=== PATIENT | female | born 1945 | race Caucasian/White ===

== ENCOUNTER → 2023-05-09 10:38 | Outpatient (REF) | payer MEDICARE, OTHER, SELFPAY | LOC: WOUND 10:38 | PROVIDERS: ATTENDING PHYSICIAN Surgery; REFERRING PHYSICIAN Family Medicine | DX: L89.154 Pressure ulcer of sacral region, stage 4 (principal); L59.8 Other specified disorders of the skin and subcutaneous tissue related to radiation; Z85.038 Personal history of other malignant neoplasm of large intestine; Z85.528 Personal history of other malignant neoplasm of kidney; R73.03 Prediabetes | CPT/HCPCS: 99213 ==

== ENCOUNTER → 2023-05-23 11:08 | Outpatient (REF) | payer MEDICARE, OTHER, SELFPAY | LOC: WOUND 11:08 | PROVIDERS: ATTENDING PHYSICIAN Surgery; REFERRING PHYSICIAN Family Medicine | DX: L89.154 Pressure ulcer of sacral region, stage 4 (principal); L59.8 Other specified disorders of the skin and subcutaneous tissue related to radiation; Z85.038 Personal history of other malignant neoplasm of large intestine; Z85.528 Personal history of other malignant neoplasm of kidney; R73.03 Prediabetes | CPT/HCPCS: 99212 ==

== ENCOUNTER → 2023-06-06 11:59 | Outpatient (REF) | payer MEDICARE, OTHER, SELFPAY | LOC: WOUND 11:59 | PROVIDERS: ATTENDING PHYSICIAN Surgery; FAMILY PHYSICIAN Family Medicine | DX: L89.154 Pressure ulcer of sacral region, stage 4 (principal); L59.8 Other specified disorders of the skin and subcutaneous tissue related to radiation; Z85.038 Personal history of other malignant neoplasm of large intestine; Z85.528 Personal history of other malignant neoplasm of kidney; R73.03 Prediabetes | CPT/HCPCS: 99212 ==

== ENCOUNTER → 2023-06-27 13:40 | Outpatient (REF) | payer MEDICARE, OTHER, SELFPAY | LOC: WOUND 13:40 | PROVIDERS: ATTENDING PHYSICIAN Surgery; FAMILY PHYSICIAN Family Medicine | DX: L89.154 Pressure ulcer of sacral region, stage 4 (principal); L59.8 Other specified disorders of the skin and subcutaneous tissue related to radiation; Z85.038 Personal history of other malignant neoplasm of large intestine; Z85.528 Personal history of other malignant neoplasm of kidney; R73.03 Prediabetes | CPT/HCPCS: 99213 ==

== ENCOUNTER → 2023-07-11 13:20 | Outpatient (REF) | payer MEDICARE, OTHER, SELFPAY | LOC: WOUND 13:20 | PROVIDERS: ATTENDING PHYSICIAN Surgery; FAMILY PHYSICIAN Family Medicine | DX: L89.154 Pressure ulcer of sacral region, stage 4 (principal); L59.8 Other specified disorders of the skin and subcutaneous tissue related to radiation; R73.03 Prediabetes; Z85.528 Personal history of other malignant neoplasm of kidney; Z85.038 Personal history of other malignant neoplasm of large intestine | CPT/HCPCS: 99213 ==

== ENCOUNTER → 2023-07-17 18:05 | Outpatient (REF) | payer MEDICARE, OTHER, SELFPAY | LOC: PAVMRI 18:05 | PROVIDERS: ATTENDING PHYSICIAN Orthopaedic Surgery Hand Surgery; FAMILY PHYSICIAN Family Medicine | DX: S72.144D Nondisplaced intertrochanteric fracture of right femur, subsequent encounter for closed fracture with routine healing (principal) | CPT/HCPCS: 73721 ==

== ENCOUNTER → 2023-09-12 10:38 | Outpatient (REF) | payer MEDICARE, OTHER, SELFPAY | LOC: RAD 10:38 | PROVIDERS: ATTENDING PHYSICIAN Family Medicine | DX: I82.4Z2 Acute embolism and thrombosis of unspecified deep veins of left distal lower extremity (principal); I87.2 Venous insufficiency (chronic) (peripheral) | CPT/HCPCS: 93971 ==

== ENCOUNTER → 2023-09-19 14:31 | Outpatient (REF) | payer MEDICARE, OTHER, SELFPAY | LOC: WOUND 14:31 | PROVIDERS: ATTENDING PHYSICIAN Surgery; FAMILY PHYSICIAN Family Medicine | DX: L89.154 Pressure ulcer of sacral region, stage 4 (principal); R73.03 Prediabetes; L59.8 Other specified disorders of the skin and subcutaneous tissue related to radiation; Z85.038 Personal history of other malignant neoplasm of large intestine; Z85.528 Personal history of other malignant neoplasm of kidney | CPT/HCPCS: 99213 ==

== ENCOUNTER 2023-11-15 00:19 | Emergency (ER) | payer MEDICARE, OTHER, SELFPAY ==
[2023-11-15 00:31] VITALS: BMI 32.0
--- NOTE | 2023-11-15 00:34 | ED.GENMED ---
History of Present Illness
General
Chief Complaint: Post Operative Problem(s)
Source: patient, records and ambulance crew
Time Seen by Provider: 11/15/23 00:22
History of Present Illness
History of Present Illness:
This patient is a very pleasant 77-year-old female who just had plastic surgery performed at her lower sacral area 2 weeks ago, described as a flap placement, who presents emergency department now because one of the [address] in place
became dislodged when she turned a certain way. She denies any symptoms. She denies fever, chills, abdominal pain, chest pain, or other complaints.
Past History
Past History
ED Past Medical History: Other (: CVA, coccyx osteomyelitis, COPD, hypertension, anemia, neurogenic bladder)
ED Past Surgical History: Other (Colostomy, skin grafting)
Social History
Tobacco: Non-smoker
Alcohol: None
Drug: None
Personal:
Phy Exam
Physical Exam
Physical Exam:
GENERAL: Alert , in no apparent distress
EYE: pupils equal and reactive
NECK: Supple, no significant adenopathy.
ENT: o/p clr, mmm.
CARDIAC: Regular rate and rhythm .
LUNGS: Clear breath sounds bilaterally, no acute respiratory distress, no wheezes/rales/rhonchi
ABDOMEN: Soft, without focal tenderness, no r/g, no cvat
NEUROLOGICAL: Alert and oriented, no focal neuro deficits
SKIN: Warm and dry, skin intact. The graft site has intact sutures, no drainage/fluctuance/crepitus/warmth or redness. The site where drain dislodged is iwthout drdainage or redness. Second drain in place.
MUSCULOSKELETAL: No edema, well perfused.
PSYCH: Normal and appropriate interaction.
Course
Vital Signs
Initial and Last Documented VS:
Initial Vital Signs
Temp Pulse Resp BP Pulse Ox
98.1 F 66 20 167/60 96
11/15/23 00:35 11/15/23 00:35 11/15/23 00:35 11/15/23 00:35 11/15/23 00:35
Last Documented Vital Signs
Temp Pulse Resp BP Pulse Ox
98.1 F 66 20 167/60 96
11/15/23 00:35 11/15/23 00:35 11/15/23 00:35 11/15/23 00:35 11/15/23 00:35
*Critical Care Note
Total Time (30-74mins, 75-104mins- exclusive of procedures): Not Applicable
Update Note
Update Note:
Patient presents to the Emergency Department with ____drain dislodgment
Number and Complexity of Problems Addressed at the Encounter
� Chronic conditions affecting care:
� Acute Exacerbation and/or Progression of Chronic Illness:
� Differential Diagnosis includes: But not limited to infection, fluid accumulation, etc.
Amount and/or Complexity of Data to be Reviewed and Analyzed
� I performed an independent evaluation of and my interpretation is:
EKG:
CT:
Xrays:
Laboratory Studies:
Other:
� Review of other/old records reveals:
� Clinical information was obtained by an independent historian: who is bedside
� Prescriptions/Medications Considered but not given:
� Further testing considered but not performed:
Risk of Complications and/or Morbidity or Mortality of Patient Management
� Social determinants of health affecting care:
� Discussion with other providers (PCP, Hospitalists, Consultants, etc):
� Escalation of care including admission/observation vs risk of discharge considered: 12:40 AM Case discussed with Dr. Tai Vaughan, plastic surgery from [place]. Discussed with him patient's procedure, drain dislodgment, as
well as plans for team to do a skin graft on Saturday. He does not recommend any further intervention in the emergency department, recommends discharge, reassure patient, and they will see her on Saturday as scheduled. He is does not expect drain
being dislodged as a source of concern especially given another drain is operational and in place.
ED Attending Note
-
Portions of this chart may have been created with voice recognition software.� Occasional wrong word or��sound alike� substitutions may have occurred due to the inherent limitations of voice recognition software.
Discharge Plan
Departure
Patient Disposition: Home (Routine Discharge)
Date of Disposition: 11/15/23
Time of Disposition: 01:44
Patient with high blood pressure during this ER visit?: Yes
Condition: Good
Discharge Problem:
postoperative drain dislodgement
Instructions: BLOOD PRESSURE
Prescriptions:
No Action
atenolol 25 mg Tablet
25 mg PO DAILY
gabapentin 800 mg Tablet
800 mg PO BID
budesonide-formoterol [Symbicort] 160-4.5 mcg/actuation Hfa Aerosol Inhaler
1 inh INHALATION BID PRN (Reason: sob)
buprenorphine HCl [Belbuca] 150 mcg Film
150 mcg BUCCAL BID
Patient Comments:
03/25/2023: last filled 02/06/23, 90 film for 30 days from [facility]#[id number]
losartan 50 mg tablet
50 mg PO DAILY
rabeprazole 20 mg tablet,delayed release (DR/EC)
20 mg PO DAILY
celecoxib 100 mg capsule
100 mg PO DAILY
silver sulfadiazine 1 % Cream
1 applic TOPICAL DAILY
Patient Comments:
per pt, applied by wound care physician
Rx Instructions:
apply to wound on tail bone
polyethylene glycol 3350 [Miralax] 17 gram Powder In Packet
17 g PO DAILY
ondansetron HCl 4 mg tablet
4 mg PO Q8H PRN (Reason: nausea/vomiting)
cyanocobalamin (vitamin B-12) [Vitamin B-12] 1,000 mcg Tablet
1,000 mcg PO DAILY
acetaminophen 650 mg Tablet Extended Release
1,300 mg PO DAILY
lidocaine HCl 3 % cream
1 applic topical TID PRN (Reason: wound on tail bone)
albuterol sulfate 90 mcg/actuation HFA aerosol inhaler
2 puff INHALATION R Q4 PRN (Reason: sob/wheezing)
vitamin A-vitamin C-vit E-min Tablet
1 tab PO DAILY
cholecalciferol (vitamin D3) [Vitamin D3] 25 mcg (1,000 unit) Tablet
25 mcg PO DAILY
docusate sodium 100 mg Capsule
100 mg PO BID Qty: 30 0RF
enoxaparin 40 mg/0.4 mL Syringe
40 mg SC DAILY Qty: 14 0RF
aspirin 325 mg capsule
325 mg PO DAILY Qty: 21 0RF
Rx Instructions:
start on 04/11/2023 for DVT prophylaxis (after completion 2 weeks of Lovenox completion)
clonazepam 0.5 mg Tablet
0.5 mg PO DAILY PRN (Reason: anxiety) Qty: 10 0RF
oxycodone 5 mg Capsule
5 mg PO Q2H PRN (Reason: moderate-severe pain) Qty: 15 0RF
Activity Restrictions/Additional Instructions:
IF YOU DEVELOP FEVER, INCREASING/NEW PAIN, REDNESS, WARMTH, SWELLING, OR OTHER WORRISOME SIGNS, GO TO THE ER IMMEDIATELY!
Interventions
Interventions:
*Risk Screen - Suicide Last Done: 11/15/23 00:32
*General Assessment Last Done: 11/15/23 00:32
*Neglect/Abuse Screening Last Done: 11/15/23 00:32
ED- Fall Risk Assessment Last Done: 11/15/23 00:32
*ED COVID-19 Vaccine History Last Done: 11/15/23 00:32
ED-Skin Assessment Last Done: 11/15/23 00:32
Discharge Date and Time
Print Language: SERBIAN
[2023-11-15 00:35] VITALS: BP 167/60
--- NOTE | 2023-11-15 01:46 | ED.GENMED ---
History of Present Illness
General
Chief Complaint: Post Operative Problem(s)
Time Seen by Provider: 11/15/23 00:22
Past History
Past History
ED Past Medical History: Other (: CVA, coccyx osteomyelitis, COPD, hypertension, anemia, neurogenic bladder)
ED Past Surgical History: Other (Colostomy, skin grafting)
Social History
Tobacco: Non-smoker
Alcohol: None
Drug: None
Personal:
Course
Vital Signs
Initial and Last Documented VS:
Initial Vital Signs
Temp Pulse Resp BP Pulse Ox
98.1 F 66 20 167/60 96
11/15/23 00:35 11/15/23 00:35 11/15/23 00:35 11/15/23 00:35 11/15/23 00:35
Last Documented Vital Signs
Temp Pulse Resp BP Pulse Ox
98.1 F 66 20 167/60 96
11/15/23 00:35 11/15/23 00:35 11/15/23 00:35 11/15/23 00:35 11/15/23 00:35
ED Attending Note
-
Portions of this chart may have been created with voice recognition software.� Occasional wrong word or��sound alike� substitutions may have occurred due to the inherent limitations of voice recognition software.
Discharge Plan
Departure
Patient Disposition: Home (Routine Discharge)
Date of Disposition: 11/15/23
Time of Disposition: 01:44
Patient with high blood pressure during this ER visit?: Yes
Condition: Good
Discharge Problem:
postoperative drain dislodgement
Instructions: BLOOD PRESSURE
Prescriptions:
No Action
atenolol 25 mg Tablet
25 mg PO DAILY
gabapentin 800 mg Tablet
800 mg PO BID
budesonide-formoterol [Symbicort] 160-4.5 mcg/actuation Hfa Aerosol Inhaler
1 inh INHALATION BID PRN (Reason: sob)
buprenorphine HCl [Belbuca] 150 mcg Film
150 mcg BUCCAL BID
Patient Comments:
03/25/2023: last filled 02/06/23, 90 film for 30 days from [facility]#[id number]
losartan 50 mg tablet
50 mg PO DAILY
rabeprazole 20 mg tablet,delayed release (DR/EC)
20 mg PO DAILY
celecoxib 100 mg capsule
100 mg PO DAILY
silver sulfadiazine 1 % Cream
1 applic TOPICAL DAILY
Patient Comments:
per pt, applied by wound care physician
Rx Instructions:
apply to wound on tail bone
polyethylene glycol 3350 [Miralax] 17 gram Powder In Packet
17 g PO DAILY
ondansetron HCl 4 mg tablet
4 mg PO Q8H PRN (Reason: nausea/vomiting)
cyanocobalamin (vitamin B-12) [Vitamin B-12] 1,000 mcg Tablet
1,000 mcg PO DAILY
acetaminophen 650 mg Tablet Extended Release
1,300 mg PO DAILY
lidocaine HCl 3 % cream
1 applic topical TID PRN (Reason: wound on tail bone)
albuterol sulfate 90 mcg/actuation HFA aerosol inhaler
2 puff INHALATION R Q4 PRN (Reason: sob/wheezing)
vitamin A-vitamin C-vit E-min Tablet
1 tab PO DAILY
cholecalciferol (vitamin D3) [Vitamin D3] 25 mcg (1,000 unit) Tablet
25 mcg PO DAILY
docusate sodium 100 mg Capsule
100 mg PO BID Qty: 30 0RF
enoxaparin 40 mg/0.4 mL Syringe
40 mg SC DAILY Qty: 14 0RF
aspirin 325 mg capsule
325 mg PO DAILY Qty: 21 0RF
Rx Instructions:
start on 04/11/2023 for DVT prophylaxis (after completion 2 weeks of Lovenox completion)
clonazepam 0.5 mg Tablet
0.5 mg PO DAILY PRN (Reason: anxiety) Qty: 10 0RF
oxycodone 5 mg Capsule
5 mg PO Q2H PRN (Reason: moderate-severe pain) Qty: 15 0RF
Activity Restrictions/Additional Instructions:
IF YOU DEVELOP FEVER, INCREASING/NEW PAIN, REDNESS, WARMTH, SWELLING, OR OTHER WORRISOME SIGNS, GO TO THE ER IMMEDIATELY!
Interventions
Interventions:
*Risk Screen - Suicide Last Done: 11/15/23 00:32
*General Assessment Last Done: 11/15/23 00:32
*Neglect/Abuse Screening Last Done: 11/15/23 00:32
ED- Fall Risk Assessment Last Done: 11/15/23 00:32
*ED COVID-19 Vaccine History Last Done: 11/15/23 00:32
ED-Skin Assessment Last Done: 11/15/23 00:32
Discharge Date and Time
Print Language: OCCITAN
[2023-11-15 01:48] VITALS: BP 155/58
== END 2023-11-15 01:50 | disposition home or self-care (01) ==
LOC: EMR 00:19
PROVIDERS: EMERGENCY PHYSICIAN Emergency Medicine; FAMILY PHYSICIAN Internal Medicine
DX: Z48.03 Encounter for change or removal of drains (principal); J44.9 Chronic obstructive pulmonary disease, unspecified; I10 Essential (primary) hypertension; D64.9 Anemia, unspecified; N31.9 Neuromuscular dysfunction of bladder, unspecified; Z86.73 Personal history of transient ischemic attack (TIA), and cerebral infarction without residual deficits; Z93.3 Colostomy status
CPT/HCPCS: 99282

== ENCOUNTER 2024-01-10 20:37 | Emergency (ER) | payer MEDICARE, OTHER, SELFPAY ==
[2024-01-10 20:42] VITALS: BP 124/51
--- NOTE | 2024-01-10 22:11 | ED.GENMED ---
History of Present Illness
General
Chief Complaint: Skin Problem
Source: patient
Exam Limitations: none
Time Seen by Provider: 01/10/24 21:22
History of Present Illness
History of Present Illness:
This is a 78 year old female that comes in with c/o redness of her surgical wound. States that 2 weeks ago she has surgery at [facility] by Dr. Koch from [place] as this was the only place he could get a surgical suite States [facility] to [facility] her and she didn't like the way the wound looked. States that she felt it was red and that the sutures were coming out. States that her surgery was [address] Koch is a plastic surgeon/oncologist. States that she was told
to go to [facility] which she did and they waited 6 hours in the waiting room and she was unable to sit any longer so they came here. States that she had chill today with some nausea. Denies any fever, chest pain, SOB, abd pain, vomiting,
diarrhea, dizziness, urinary burning.
Past History
Past History
ED Past Medical History: Cancer (Colon Cancer. Kidney cancer), COPD, GERD, HTN, Psychiatric (Anxiety, Claustrophobia) and Other (: CVA, coccyx osteomyelitis, anemia, neurogenic bladder, Neuropathy, PNA, Hiatal hernia, UTI, Radiation Cystitis self
caths, Sacrococcygeal osteomyelitis, Lyme disease, Ulcers. MRSA)
ED Past Surgical History: Bowel resection (with Colostomy), Orthopedic (Josep knee replacements Back surgery,), Urological (Right nephrectomy) and Other (Colostomy, skin grafting, Cataracts)
Social History
Tobacco: Former smoker
Alcohol: Occasional
Drug: None
Personal:
Living: with family
Review of Systems
Review of Systems
All Other Systems: ROS reviewed and negative except as documented in HPI and ROS
Constitutional: Reports chills; Denies fever
EENT: Reports no symptoms
Respiratory: Reports no symptoms; Denies cough or trouble breathing
Cardiac: Reports no symptoms; Denies chest pain
ABD/GI: Reports nausea; Denies abdominal pain, vomiting or diarrhea
: Reports no symptoms; Denies dysuria, frequency or urgency
Musculoskeletal: Reports no symptoms
Skin: Reports other (large left sacral wound redness)
Neurological: Reports headache; Denies dizzy
Psychiatric: Reports no symptoms
Phy Exam
General Physical Exam
General Presentation: no apparent distress
General age: appears stated age
General Skin: warm and dry
General Habitus: elderly
General Mental: alert
General Hydration: appears well hydrated
ENT Exam
ENT Exam: TM's normal, pharynx normal and neck supple
Eye Exam
Eye Exam: EOMI
Cardiovascular Exam
Cardiovascular Exam: regular rate/rhythm and normal peripheral pulses
Pulmonary Exam
Pulmonary Exam: lungs clear, no respiratory distress, no rales, chest non tender, no crackles, no rhonchi, no wheezing and no cough
Gastrointestinal Exam
Gastrointestinal Exam: normal bowel sounds, non tender, soft, no organomegaly, no pulsatile mass and non distended
Musculoskeletal Exam
Musculoskeletal Exam: full ROM and edema (Nonpitting lower legs)
Skin Exam
Skin Exam: normal color, warm/dry, no petechia and other (Large left sacral wound with packing and sutures noted. Slight yellowish drainage noted. bruising noted on the right upper buttocks with slight Erythema noted on the left with necrotic
tissue. )
Psychiatric Exam
Psychiatric Exam: normal mood/affect
Course
Orders/Labs/Results
Orders:
Orders
01/10/24 22:09
Complete Blood Count/With Diff Urgent
Comprehensive Metabolic Panel Urgent
Lactic Acid Urgent
Wound Culture [Wound/Abscess/Other Culture] Urgent
ASCENCION Source: Sacral
Specimen Description:
Date Specimen was Collected: 01/10/24
Time Specimen was Collected: 22:08
01/10/24 22:44
HYDROmorphone [Dilaudid] 4 mg PO NOW STA
Abnormal Lab Results
01/10/24
22:09
RBC 3.00 L 10^6/uL
(4.20-5.40)
Hgb 8.9 L g/dL
(12.0-16.0)
Hct 27.1 L %
(37.0-47.0)
MCHC 32.8 L g/dL
(33.0-37.0)
Absolute Monos (auto) 0.8 H 10^3/uL
(0.1-0.6)
Lymphocytes % 18.5 L %
(20.5-51.1)
Monocytes % 9.6 H %
(1.7-9.3)
BUN 31 H mg/dl
(7-17)
Glucose 152 H mg/dl
(70-99)
Total Protein 6.1 L g/dl
(6.3-8.2)
Albumin 3.3 L g/dl
(3.5-5.0)
01/10/24 22:09
01/10/24 22:09
H/H slightly low. Dehydration. hyperglycemia. total protein slightly low. Albumin slightly low. Lactic acid normal at 0.7
Vital Signs
Initial and Last Documented VS:
Initial Vital Signs
Temp Pulse BP Pulse Ox
98.3 F 74 124/51 97
01/10/24 20:42 01/10/24 20:42 01/10/24 20:42 01/10/24 20:42
Last Documented Vital Signs
Temp Pulse Resp BP Pulse Ox
98.3 F 74 18 124/51 97
01/10/24 20:42 01/10/24 20:42 01/10/24 22:17 01/10/24 20:42 01/10/24 20:42
MDM/Problems Addressed
Differential Diagnosis Includes:
Sacral wound check, Sacral wound infection
MDM/Problems Addressed:
this is a 78 year old female that comes in with c/o possible wound infection. Patient was told to go to [facility] as she had her surgery done there. States that they waited in the waiting room for 6 hours so they left and came here. States
that the VN felt that the would looked infected and that the sutures were opening.
Called and spoke with Dr. Koch. States that this has been a very difficulty case with the family dynamics. States that she was told to go to [facility] but they left. States that he did not feel she needed antibiotics but needs more
intensive wound care. Patient could either be transferred to [facility] or [facility] but if her WBC and lactic acid are normal she can go home and go to [place] in the morning.
Back into see patient. Explained what was discussed with Dr. Koch. Patient is refusing to go to [facility]. Explained that her blood work will be checked and if her WBC and Lactic acid are normal she can go home and go to [facility] in the morning.
Into see patient and daughter. Explained that her blood work shows that her WBC are normal and Lactic acid is normal. Will discharge patient home and she will follow up with Dr. Koch. Return with any other concerns.
Chronic conditions affecting care:
Open sacral wound,
Chronic conditions affecting care: Cancer
Acute Exacerbation and/or Progression of Chronic Illness:
Open sacral wound
Acute Exacerbation and/or Progression of Chronic Illness: Cancer
*Pulse Oximetry
Patient hypoxic: no
*EKG
Interpreted by ED Provider?: NA
Rate: EKG- N/A
*Accounting Machine Servicer Interpretation
Rate: Accounting Machine Servicer- N/A
*Critical Care Note
Total Time (30-74mins, 75-104mins- exclusive of procedures): Not Applicable
ED Attending Note
-
Portions of this chart may have been created with voice recognition software.� Occasional wrong word or��sound alike� substitutions may have occurred due to the inherent limitations of voice recognition software.
Discharge Plan
Departure
Patient Disposition: Home (Routine Discharge)
Date of Disposition: 01/10/24
Time of Disposition: 22:43
Patient with high blood pressure during this ER visit?: No
Condition: Good
Covid-19: Not Applicable
Discharge Problem:
Wound of sacral region
Instructions: Surgical Wound (DC)
Prescriptions:
No Action
atenolol 25 mg Tablet
25 mg PO DAILY
gabapentin 800 mg Tablet
800 mg PO BID
budesonide-formoterol [Symbicort] 160-4.5 mcg/actuation Hfa Aerosol Inhaler
1 inh INHALATION BID PRN (Reason: sob)
buprenorphine HCl [Belbuca] 150 mcg Film
150 mcg BUCCAL BID
Patient Comments:
03/25/2023: last filled 02/06/23, 90 film for 30 days from [facility]#[id number]
losartan 50 mg tablet
50 mg PO DAILY
rabeprazole 20 mg tablet,delayed release (DR/EC)
20 mg PO DAILY
celecoxib 100 mg capsule
100 mg PO DAILY
silver sulfadiazine 1 % Cream
1 applic TOPICAL DAILY
Patient Comments:
per pt, applied by wound care physician
Rx Instructions:
apply to wound on tail bone
polyethylene glycol 3350 [Miralax] 17 gram Powder In Packet
17 g PO DAILY
ondansetron HCl 4 mg tablet
4 mg PO Q8H PRN (Reason: nausea/vomiting)
cyanocobalamin (vitamin B-12) [Vitamin B-12] 1,000 mcg Tablet
1,000 mcg PO DAILY
acetaminophen 650 mg Tablet Extended Release
1,300 mg PO DAILY
lidocaine HCl 3 % cream
1 applic topical TID PRN (Reason: wound on tail bone)
albuterol sulfate 90 mcg/actuation HFA aerosol inhaler
2 puff INHALATION R Q4 PRN (Reason: sob/wheezing)
vitamin A-vitamin C-vit E-min Tablet
1 tab PO DAILY
cholecalciferol (vitamin D3) [Vitamin D3] 25 mcg (1,000 unit) Tablet
25 mcg PO DAILY
docusate sodium 100 mg Capsule
100 mg PO BID Qty: 30 0RF
enoxaparin 40 mg/0.4 mL Syringe
40 mg SC DAILY Qty: 14 0RF
aspirin 325 mg capsule
325 mg PO DAILY Qty: 21 0RF
Rx Instructions:
start on 04/11/2023 for DVT prophylaxis (after completion 2 weeks of Lovenox completion)
clonazepam 0.5 mg Tablet
0.5 mg PO DAILY PRN (Reason: anxiety) Qty: 10 0RF
oxycodone 5 mg Capsule
5 mg PO Q2H PRN (Reason: moderate-severe pain) Qty: 15 0RF
Referrals:
UNKNOWN - PT DOES,NOT KNOW [Unknown Provider] -
Activity Restrictions/Additional Instructions:
As discussed, your blood work shows that your white blood cell count and lactic acid are both normal. Please call Dr. Koch tomorrow for further evaluation. IF YOU HAVE ANY OTHER CONCERNS PLEASE RETURN TO THE EMERGENCY ROOM.
Interventions
Interventions:
*Risk Screen - Suicide Last Done: 01/10/24 20:40
*General Assessment Last Done: 01/10/24 20:49
*Neglect/Abuse Screening Last Done: 01/10/24 20:49
ED- Fall Risk Assessment Last Done: 01/10/24 22:59
*ED COVID-19 Vaccine History Last Done: 01/10/24 22:06
*Nursing Disposition Last Done: 01/10/24 22:59
ED-Skin Assessment Last Done: 01/10/24 22:16
Discharge Date and Time
Discharge Date/Time: 01/10/24 23:05
Print Language: MACEDONIAN
[2024-01-10 22:18] LABS: % Basophils 0.4 % (0-2); % Eosinophils 1.9 % (0-6); % Immature Granulocytes 0.5 % (0-0.5); % Lymphocytes 18.5 % (20.5-51.1); % Monocytes 9.6 % (1.7-9.3); % Neutrophils 69.1 % (42.2-75.2); Absolute Eosinophils 0.2 10^3/uL (0-0.7); Absolute Lymphocytes 1.5 10^3/uL (1.2-3.4); Absolute Monocytes 0.8 10^3/uL (0.1-0.6); Absolute Neutrophils 5.7 10^3/uL (1.4-6.5); Hematocrit 27.1 % (37.0-47.0); Hemoglobin 8.9 g/dL (12.0-16.0); Mean Corp Hgb Conc. 32.8 g/dL (33.0-37.0); Mean Corpuscular Hgb 29.7 pg (27.0-31.0); Mean Corpuscular Volume 90.3 fL (81.0-99.0); Mean Platelet Volume 8.6 fL (7.4-10.4); Nucleated Red Blood Cells % 0 %; Platelet Count 241 10^3/uL (130-400); Red Cell Dist. Width 13.2 % (11.5-14.5); White Blood Cell Count 8.2 10^3/uL (4.8-10.8)
[2024-01-10 22:30] LABS: Lactic Acid 0.7 mmol/L (0.7-2.0)
[2024-01-10 22:32] LABS: ALT (SGPT) 15 U/L (0-35); AST (SGOT) 23 U/L (14-36); Albumin 3.3 g/dl (3.5-5.0); Alkaline Phosphatase 112 U/L (38-126); Blood Urea Nitrogen 31 mg/dl (7-17); Calcium 8.9 mg/dl (8.4-10.2); Carbon Dioxide 28 mmol/L (22-30); Glucose 152 mg/dl (70-99); Potassium 4.5 mmol/L (3.5-5.1); Sodium 136 mmol/L (135-145); Total Bilirubin 0.2 mg/dl (0.2-1.3); Total Protein 6.1 g/dl (6.3-8.2); eGFR 58.39
[2024-01-10 22:45] LABS: Chloride 102 mmol/L (98-107)
[2024-01-10] MEDS: DILAUDID 4 MG PO (22:49)
== END 2024-01-10 23:05 | disposition home or self-care (01) ==
LOC: EMR 20:37
PROVIDERS: Clinical Nurse Specialist Family Health; EMERGENCY PHYSICIAN Student in an Organized Health Care Education/Training Program; FAMILY PHYSICIAN Family Medicine
DX: M46.28 Osteomyelitis of vertebra, sacral and sacrococcygeal region (principal); R11.0 Nausea; R68.83 Chills (without fever); R51.9 Headache, unspecified; E86.0 Dehydration; J44.9 Chronic obstructive pulmonary disease, unspecified; I10 Essential (primary) hypertension; N31.9 Neuromuscular dysfunction of bladder, unspecified; D64.9 Anemia, unspecified; G62.9 Polyneuropathy, unspecified; K44.9 Diaphragmatic hernia without obstruction or gangrene; K21.9 Gastro-esophageal reflux disease without esophagitis; F41.9 Anxiety disorder, unspecified; Z79.82 Long term (current) use of aspirin; Z93.3 Colostomy status; Z96.653 Presence of artificial knee joint, bilateral; Z85.038 Personal history of other malignant neoplasm of large intestine; Z85.528 Personal history of other malignant neoplasm of kidney; Z86.73 Personal history of transient ischemic attack (TIA), and cerebral infarction without residual deficits; Z86.14 Personal history of Methicillin resistant Staphylococcus aureus infection; Z87.440 Personal history of urinary (tract) infections; Z87.891 Personal history of nicotine dependence; Z90.5 Acquired absence of kidney; Z98.0 Intestinal bypass and anastomosis status; R73.9 Hyperglycemia, unspecified; Z88.1 Allergy status to other antibiotic agents; Z88.5 Allergy status to narcotic agent; Z88.8 Allergy status to other drugs, medicaments and biological substances
CPT/HCPCS: 99283; 80053; 83605; 85025; 87070; 87077; 87186; 87205

== ENCOUNTER 2024-01-15 13:19 | Inpatient (IN) | payer MEDICARE, OTHER, SELFPAY ==
[2024-01-15] VITALS (8 sets, daily range): BP systolic 105–121; BP diastolic 48–96
[2024-01-15] MEDS: NSS 500 IV (10:25)
--- NOTE | 2024-01-15 10:35 | ED.GENMED ---
History of Present Illness
General
Chief Complaint: Weakness
Time Seen by Provider: 01/15/24 09:50
History of Present Illness
History of Present Illness:
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
catheterizations presenting to the emergency department for generalized weakness. Patient reports this morning, she felt weak and was unable to ambulate, usually ambulates with a walker. Also notes buttock pain with known large sacral wound.
Patient was seen in the emergency department on 01/09 for some similar symptoms. Patient follows with a Dr. Koch at [place]. In discussion with her physician on 01/09, without significant concern for wound infection, was discharged home to
follow-up in the office. Patient was post to follow-up today, however due to her weakness, was unable to appointment. Denies cough, chest pain, difficulty breathing. Denies abdominal pain. Denies issues with her ostomy output. Reports
subjective fevers. Denies additional acute medical complaint
Past History
Past History
ED Past Medical History: Cancer (Colon Cancer. Kidney cancer), COPD, GERD, HTN, Psychiatric (Anxiety, Claustrophobia) and Other (: CVA, coccyx osteomyelitis, anemia, neurogenic bladder, Neuropathy, PNA, Hiatal hernia, UTI, Radiation Cystitis self
caths, Sacrococcygeal osteomyelitis, Lyme disease, Ulcers. MRSA)
ED Past Surgical History: Bowel resection (with Colostomy), Orthopedic (Josep knee replacements Back surgery,), Urological (Right nephrectomy) and Other (Colostomy, skin grafting, Cataracts)
Social History
Tobacco: Former smoker
Alcohol: Occasional
Drug: None
Personal:
Living: with family
Phy Exam
Physical Exam
Physical Exam:
General: Well-appearing, no clinical signs of dehydration, nontoxic and in no acute distress
HEENT: protecting airway
Neck: appears supple
CV: Normal heart rate, regular rhythm
Resp: No accessory muscle use, no increased work of breathing, lungs clear to auscultation bilaterally
Abd: Soft and non-distended, no tenderness to palpation, appropriate output from ostomy
Extremities: +1 pitting edema, known history of edema. No erythema or warmth to lower extremities. 4/5 strength bilateral lower extremities.
Neuro: alert, no focal neurologic deficit
: deferred
Rectal: Large sacral decubitus wound, stage IV with packing in place. Wound edges are clean. No active drainage.
Psych: Normal affect
Skin: Intact
Sepsis
Sepsis Screening
Sepsis Assessment: Sepsis Ruled Out
Sepsis Screen
Sepsis Screen: Sepsis Ruled Out
Date: 01/15/24
Time: 15:00
Course
Orders/Labs/Results
Orders:
Orders
01/15/24 Breakfast
Sodium, 2 Gram
01/15/24 10:07
0.9% Sodium Chloride 500 ml [Nss] 500 ml IV BOLUS
01/15/24 10:16
CR Chest - 2 Views Urgent
Comment:
Reason For Exam: low O2
01/15/24 10:21
COVID-19 Antigen Urgent
Source: Nasal Swab
Complete Blood Count/With Diff Urgent
Comprehensive Metabolic Panel Urgent
Ferritin Urgent
Comment: ADD ON
Folate Urgent
Comment: ADD ON
Iron Urgent
Comment: ADD ON
Lactic Acid Q4H
Comment: CANCEL 2nd LACTIC ACID IF 1st LACTIC ACID IS LESS THAN 2
PTT Urgent
Prothrombin Time Urgent
Total Iron Binding Urgent
Comment: ADD ON
Urinalysis Reflex To Culture Urgent
Date Specimen was Collected: 01/15/24
Time Specimen was Collected: 10:19
Urine Microscopic Reflex Cult Urgent
Vitamin B12 Urgent
Comment: ADD ON
Influenza A+B Rapid Molecular Urgent
ASCENCION Source: Nasal Swab
Specimen Description:
Urine Culture Urgent
ASCENCION Source: U
Specimen Description:
Date Specimen was Collected: 01/15/24
Time Specimen was Collected: 10:19
01/15/24 10:32
Acetaminophen [Tylenol] 1,000 mg PO NOW STA
01/15/24 12:45
US Kidneys and US Bladder [US Renal With Bladder] Urgent
Comment:
Reason For Exam: elevated creatinine
01/15/24 12:46
Admit/Transfer Patient As Directed
Co-Sign Provider:
Level of Care: Inpatient admission
Assign to:: Medical/Surgical
Physician / Group: Htay
Diagnosis: Acute Kidney Injury
Reason for Hospitalization: IVFs
Expected length of stay greater than two midnights?: Yes
ELOS- Estimated Length of Stay in days: 3
I certify the patient meets the requirements for IP care: Yes
PRN Pain Medication Management As Directed
May give lesser potent ordered pain med per pt: Yes
preference::
Protocol:: Medication orders for pain may be administered in a
manner that supports deferring to patient preference
when the pt is:
- Requesting an ordered lesser potent pain medication.
Least to most potent pain medications are defined
as: acetaminophen < NSAID < tramadol < opioids
(morphine, oxycodone, hydromorphone).
- Requesting a lesser dose of the same medication IF
ORDERED.
- Requesting a less intrusive route of administration
if both routes are prescribed by the provider (PO <
IV).
01/15/24 12:54
Code Status As Directed
Resuscitation Status: Full Code
01/15/24 13:07
Add On- LAB Routine
Tests Added?: iron, ferritin, tibc, folate, vit b12
01/15/24 14:45
0.9% Sodium Chloride 1000 ml [Nss] 1,000 ml IV 60 mls/hr
Acetaminophen [Tylenol] 650 mg PO Q4HPRN PRN
Ipratropium/Albuterol Sulfate [Duoneb] 3 ml INH R Q4HPRN PRN
01/15/24 14:45
WOUND/OSTOMY CONSULT Routine
Reason for Consult: coccyx wound; colostomy
Activity As Directed
Activity Level: Out of Bed- Chair
With Assistance
Bladder Scan As Directed
Follow Bladder Retention/Intermittent Cath Algorithm?: Yes
PRN if no void in __ hours: 6
Frequency: Per Retention Algorithm
If Bladder Scan Result >: 400
then:: Straight cath
Hemetest Stools As Directed
Comment: Notify Physician of any positive results; May Stop if Negative x 3
I&O [Intake/ Output] As Directed
Frequency: q12h
Straight Cath As Directed
Frequency: Per Retention Algorithm
Additional Instructions: straight cath as needed per acute urinary retention algorithm for 24 hrs
Additional Instructions: for bladder scan greater than 400 mL
Vital Signs As Directed
Frequency: Per unit guidelines
Weight As Directed
Frequency: Daily
Ot Eval And Treat Routine
Pt Eval And Treat Routine
Activity Level: Out of Bed-Early Mobility
DX Deep Vein Thrombosis Video Routine
01/15/24 16:00
Heparin 5,000 units SC Q8
Ipratropium/Albuterol Sulfate [Duoneb] 3 ml INH R QID
01/16/24 06:00
Basic Metabolic Panel IN AM
Complete Blood Count/No Diff IN AM
Abnormal Lab Results
01/15/24
10:21
RBC 2.83 L 10^6/uL
(4.20-5.40)
Hgb 8.2 L g/dL
(12.0-16.0)
Hct 25.4 L %
(37.0-47.0)
MCHC 32.3 L g/dL
(33.0-37.0)
Absolute Lymphs (auto) 0.8 L 10^3/uL
(1.2-3.4)
Absolute Monos (auto) 0.7 H 10^3/uL
(0.1-0.6)
Neutrophils % 79.8 H %
(42.2-75.2)
Lymphocytes % 9.9 L %
(20.5-51.1)
PT 14.7 H Sec
(11.4-14.6)
APTT 39.3 H Sec
(23.4-35.0)
Potassium 5.5 H mmol/L
(3.5-5.1)
BUN 39 H mg/dl
(7-17)
Creatinine 1.8 H mg/dL
(0.6-1.0)
Glucose 187 H mg/dl
(70-99)
Iron 21 L ug/dl
(37-170)
TIBC 173 L ug/dl
(265-497)
% Saturation 12 L %
(20-50)
Alkaline Phosphatase 130 H U/L
(38-126)
Total Protein 5.6 L g/dl
(6.3-8.2)
Albumin 2.9 L g/dl
(3.5-5.0)
Urine Bilirubin 2+ A
(Negative)
Leukocyte Esterase Rfl Trace A
(Negative)
Urine Bacteria (Reflex) Many A
(Negative)
01/15/24 10:21
01/15/24 10:21
Vital Signs
Initial and Last Documented VS:
Initial Vital Signs
Temp Pulse Resp BP
99.3 F 74 16 105/82
01/15/24 09:54 01/15/24 09:54 01/15/24 09:54 01/15/24 09:54
Last Documented Vital Signs
Temp Pulse Resp BP Pulse Ox
99.3 F 67 14 115/49 94
01/15/24 09:54 01/15/24 11:15 01/15/24 11:15 01/15/24 13:00 01/15/24 13:01
MDM/Problems Addressed
MDM/Problems Addressed:
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
catheterizations presenting for generalized weakness. Vital signs on arrival significant for low oxygenation.
On exam, patient is in no acute distress. She is nontoxic in appearance. Regarding her generalized weakness, unclear etiology. No focal abnormality to the lower extremities with intact strength, diminished bilaterally. Could be related to
patient's known sacral decubitus wound, very large in quality, however wound edges are clean without any active drainage. No current exam findings concerning for significant infection. Of note, patient's oxygenation is slightly low, unclear
etiology. Denies any present respiratory symptoms. In the setting of generalized weakness, will screen with COVID swab. Patient placed on supplemental O2 for comfort. Will also obtain chest x-ray imaging. Patient with known history of frequent
UTIs, self caths, could be contributing to symptoms. Will obtain urinalysis. Lips look very dry, potential dehydration component. Patient is on Lasix, which could be contributing to dehydration. Will start with 500 cc fluid bolus.
10:40 - Patient had wound culture on 01/09, returned positive today for Pseudomonas. Suspect that patient's wound could be chronically colonized, however will consider antibiotics.
11:45 -in discussion with patient's surgeon, Dr. Mcmillan from [place], agrees that wound is likely chronically colonized, less likely to be acutely infected. He notes complicated course, patient had osteomyelitis and received antibiotics for 6
weeks. She had a surgery with a failed flap, recently tried a wound VAC, however took the VAC off because it was beeping too much. She has now been using wet-to-dry dressings. However he notes the patient has not been thriving at home,
has been recently diagnosed with head and neck cancer, difficult social situation. Indicates that patient may need nursing facility for additional wound care and daily needs. Patient's labs do show an ESTELLE, indicative of mild dehydration. Urine
also has some bacteria, possible underlying urinary tract infection. Urine culture sent. Chest x-ray without acute cardiopulmonary disease. Given patient's present inability to ambulate, acute dehydration, and wound care needs, will plan for
admission for wound care consultation and PT/OT consultation
*Critical Care Note
Total Time (30-74mins, 75-104mins- exclusive of procedures): Not Applicable
ED Attending Note
-
Portions of this chart may have been created with voice recognition software.� Occasional wrong word or��sound alike� substitutions may have occurred due to the inherent limitations of voice recognition software.
Discharge Plan
Departure
Patient Disposition: Admit
Date of Disposition: 01/15/24
Time of Disposition: 12:32
Presentation/result/management discussed w/ accepting MD/DO: Hospitalist
Patient with high blood pressure during this ER visit?: No
Discharge Problem:
ESTELLE (acute kidney injury), Weakness, Decubitus ulcer of sacral area
Interventions
Interventions:
*Risk Screen - Suicide Last Done: 01/15/24 10:01
*Neglect/Abuse Screening Last Done: 01/15/24 10:01
ED- Fall Risk Assessment Last Done: 01/15/24 10:03
*ED COVID-19 Vaccine History Last Done: 01/15/24 10:03
ED- Cardiac Assessment Last Done: 01/15/24 10:27
ED- Neurological Assessment Last Done: 01/15/24 10:27
ED- Pulmonary Assessment Last Done: 01/15/24 10:28
ED-Skin Assessment Last Done: 01/15/24 10:28
[2024-01-15] MEDS: TYLENOL 1000 MG PO (10:36)
[2024-01-15 10:44] LABS: % Basophils 0.4 % (0-2); % Eosinophils 0.4 % (0-6); % Immature Granulocytes 0.5 % (0-0.5); % Lymphocytes 9.9 % (20.5-51.1); % Neutrophils 79.8 % (42.2-75.2); Absolute Lymphocytes 0.8 10^3/uL (1.2-3.4); Absolute Monocytes 0.7 10^3/uL (0.1-0.6); Absolute Neutrophils 6.4 10^3/uL (1.4-6.5); Hematocrit 25.4 % (37.0-47.0); Hemoglobin 8.2 g/dL (12.0-16.0); Mean Corp Hgb Conc. 32.3 g/dL (33.0-37.0); Mean Corpuscular Volume 89.8 fL (81.0-99.0); Mean Platelet Volume 9.1 fL (7.4-10.4); Nucleated Red Blood Cells % 0 %; Platelet Count 222 10^3/uL (130-400); Red Blood Cell Count 2.83 10^6/uL (4.20-5.40); Red Cell Dist. Width 13.6 % (11.5-14.5)
[2024-01-15 10:54] LABS: INR 1.15; PT 14.7 Sec (11.4-14.6)
[2024-01-15 10:55] LABS: APTT 39.3 Sec (23.4-35.0)
[2024-01-15 10:56] LABS: Urine Albumin Trace (Neg - Trace); Urine Bilirubin 2+ (Negative); Urine Character Slightly Cloudy (Clear); Urine Color Yellow; Urine Glucose Negative (Negative); Urine Ketone Negative (Negative); Urine Leukocyte Trace (Negative); Urine Nitrite Negative (Negative); Urine Occult Blood Negative (Negative); Urine Urobilinogen Negative (Neg - 1+)
[2024-01-15 11:00] LABS: Lactic Acid 0.8 mmol/L (0.7-2.0)
[2024-01-15 11:05] LABS: ALT (SGPT) 14 U/L (0-35); AST (SGOT) 23 U/L (14-36); Albumin 2.9 g/dl (3.5-5.0); Alkaline Phosphatase 130 U/L (38-126); Blood Urea Nitrogen 39 mg/dl (7-17); Calcium 8.4 mg/dl (8.4-10.2); Carbon Dioxide 25 mmol/L (22-30); Chloride 99 mmol/L (98-107); Glucose 187 mg/dl (70-99); Potassium 5.5 mmol/L (3.5-5.1); Sodium 135 mmol/L (135-145); Total Bilirubin 0.3 mg/dl (0.2-1.3); Total Protein 5.6 g/dl (6.3-8.2); eGFR 28.84
[2024-01-15 11:07] LABS: COVID-19 Antigen Negative (Negative)
[2024-01-15 11:31] LABS: Urine Squamous Cell 16-20 /LPF (Few)
[2024-01-15 11:32] LABS: Urine Amorphous Seen
[2024-01-15 11:33] LABS: Urine Bacteria Many (Negative); Urine Red Blood Cell 0-2 /HPF (0-2)
--- NOTE | 2024-01-15 12:29 | HPS.HSE ---
Family Physician
-
Family Physician: Berry Knight
Chief Complaint
-
Weakness
History of Present Illness
Patient is a 78 y/o female past medical history of hypertension, COPD, chronic coccyx wound, rectal cancer s/p APC with colostomy, and renal cancer s/p nephrectomy who presents with weakness. Patient more difficulty ambulating at home. She was
scheduled to see her wound specialists at [place], but was unable to get to the appointment due to the weakness. She reports increasing pain in her chronic wound which is contributing her symptoms. Patient states she is chronically incontinent of
urine, and has not been doing intermittent straight cath for the past 6 months. She denies fevers, sweats or chills.
Medical History
Past Medical History
Past Medical History: Reports Other
Additional Past Medical History:
Chronic Coccyx/Gluteal Cleft Wound
COPD
Essential Hypertension
Neurogenic Bladder
Chronic Pain with Opioid Dependence
Rectal Cancer s/p APR with Colostomy
Renal Cancer s/p Right Nephrostomy
Past Surgical History: Reports Other
Additional Past Surgical History:
Right Nephrectomy - 1981
Colon Resection with Colostomy - 1982
Parastomal Hernia Repair wih Mesh
Bilateral Knee Replacement
Back Surgery
Right Hip ORIF
Social History
Tobacco: Non-smoker
Alcohol: Occasional
Drug: None
Family History
Family History: Not pertinent
Allergies / Home Medications
Allergies reflects when Allergies were last updated in [employer].
Home Medications with original date entered in [employer]
Allergy/Medication List:
Allergies
Allergy/AdvReac Type Severity Reaction Status Date / Time
ampicillin Allergy Mild Rash Verified 01/10/24 20:49
levofloxacin Allergy Rash Verified 01/10/24 20:49
morphine Allergy Rash Verified 01/10/24 20:49
prochlorperazine Allergy Rash Verified 01/10/24 20:49
[From Compazine]
doxycycline AdvReac Mild Shortness Verified 01/10/24 20:49
of Breath
vancomycin AdvReac Mild Shortness Verified 01/10/24 20:49
of Breath
Home Medications
budesonide-formoterol HFA 160 mcg-4.5 mcg/actuation aerosol inhaler (Symbicort) 1 inh inhalation BID lung/breathing issues 02/11/23
buprenorphine HCl 150 mcg buccal film (Belbuca) 150 mcg buccal Q12H SUBST 02/11/23
gabapentin 800 mg tablet 800 mg PO Q8H Pain 02/11/23
celecoxib 100 mg capsule 100 mg PO BID Pain 03/25/23
cyanocobalamin (vitamin B-12) 1,000 mcg tablet (Vitamin B-12) 2,500 mcg PO DAILY Supplement 03/25/23
losartan 50 mg tablet 25 mg PO DAILY Blood Pressure 03/25/23
ondansetron HCl 4 mg tablet 4 mg PO Q8H PRN nausea/vomiting 03/25/23
polyethylene glycol 3350 17 gram oral powder packet (Miralax) 17 g PO DAILY Constipation 03/25/23
clonazepam 0.5 mg tablet 0.5 mg PO DAILY PRN anxiety #10 tabs 03/28/23
acetaminophen 325 mg tablet 650 mg PO DAILYPRN PRN pain 01/15/24
atenolol 25 mg tablet 50 mg PO DAILY blood pressure 01/15/24
cholecalciferol (vitamin D3) 50 mcg (2,000 unit) capsule (Vitamin D3) 50 mcg PO DAILY supplement 01/15/24
cranberry extract 200 mg capsule (Ellura) 200 mg PO DAILY supplement 01/15/24
diphenhydramine 25 mg-acetaminophen 500 mg tablet (Acetaminophen PM) 1 tab PO HSPRN PRN sleep/pain 01/15/24
furosemide 20 mg tablet 20 mg PO BIDPRN PRN edema 01/15/24
hydromorphone 4 mg tablet 4 - 8 mg PO Q4HPRN PRN pain 01/15/24
hydroxyzine HCl 10 mg tablet 10 mg PO Q8HPRN PRN itching 01/15/24
nifedipine 60 mg tablet,extended release 24 hr 60 mg PO DAILY blood pressure 01/15/24
pantoprazole 40 mg tablet,delayed release 40 mg PO DAILY Gastrointestinal Issue 01/15/24
sulfamethoxazole 800 mg-trimethoprim 160 mg tablet 1 tab PO Q12H x 5 days 01/15/24
vibegron 75 mg tablet (Gemtesa) 75 mg PO DAILY Urinary Issue 01/15/24
vitamins A,C,N-xnay-uodlzn 2,148 mcg-113 mg-45 mg-17.4 mg tablet (PreserVision AREDS) 1 tab PO DAILY supplement 01/15/24
Review of Systems
-
A 12 point ROS was completed and negative except as noted: Yes
Constitutional: Denies Fever or Chills
Respiratory: Denies Cough or Trouble Breathing
Cardiac: Denies Chest Pain or Palpitations
Abdomen/GI: Denies Abdominal Pain, Nausea, Vomiting or Diarrhea
: Reports See HPI
Physical Exam
Vital Signs
Vital Signs
Temp Pulse Resp BP Pulse Ox
99.3 F 67 14 114/48 87
01/15/24 09:54 01/15/24 11:15 01/15/24 11:15 01/15/24 11:00 01/15/24 10:28
Physical Exam
General: Comfortable and Conversant
HEENT: Anicteric and Moist mucous membranes
Respiratory: Clear, Non Labored Respirations and Other (Poor inspiratory effort)
Cardiac: S1/S2 and Regular Rhythm
GI: Soft, Non Tender and Ostomy (Left lower quadrant)
Genito-urinary: Clear Urine (PureWick)
Musculoskeletal: No Clubbing, No Cyanosis and Other (Non-pitting edema bilateral lower extremities)
Skin: Warm, Dry and Decubitus Ulcers
Neuro: Awake, Alert, Oriented and Other (Lower extremities strength appears intact; Limited exam on the left due to pain)
Psych: Calm
Laboratory Results
-
01/15/24 10:21
01/15/24 10:21
Laboratory Results
PT 14.7 Sec (11.4-14.6) H 01/15/24 10:21
INR 1.15 01/15/24 10:21
APTT 39.3 Sec (23.4-35.0) H 01/15/24 10:21
Lactic Acid Cancelled 01/15/24 14:15
Total Bilirubin 0.3 mg/dl (0.2-1.3) 01/15/24 10:21
AST 23 U/L (14-36) 01/15/24 10:21
ALT 14 U/L (0-35) 01/15/24 10:21
Alkaline Phosphatase 130 U/L (38-126) H 01/15/24 10:21
Data Reviewed
-
Lab Data: Labs Reviewed by me
Old Records: Reviewed
Impression/Plan
-
Acute Kidney Injury and Hyperkalemia, suspect volume depletion and Bactrim related
-Check renal and bladder ultrasound
-Hold losartan and furosemide
-Hold celecoxib
-Hold Bactrim
-Continue IVFs
-Recheck creatinine in AM
COPD with Transient Hypoxia
-Add DuoNeb QID and PRN
-Continue Symbicort
-Monitor pulse ox and obtain ABG
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
-Appears much worse than previous pictures from Mar 2023
-Per ED notes they reviewed with patient's outpatient wound physician at [facility] who was not concerned about active infection
-Consult Wound Care
Essential Hypertension
-Continue atenolol and nifedipine with hold parameters
-Losartan on hold due to ESTELLE
Neurogenic Bladder
-Monitor bladder scan
-Hold Gemtesa
Chronic Pain with Opioid Dependence
-Continue buprenorphine and Dilaudid as prior to admission
-Continue gabapentin
Hx Rectal Cancer s/p APR with Colostomy
Hx Renal Cancer s/p Right Nephrostomy
DVT proph: SC Heparin
Code Status: Full Code
--- NOTE | 2024-01-15 13:10 | W.PN.UPDATE ---
Addendum entered and electronically signed by Abhay Forrest MD 01/15/24 13:38:
Addendum:
Suspect current ESTELLE and hyperkalemia is due to Bactrim
Recently on Bactrim for last 5 days for sacral decub ?
- Stop Bactrim
- IV NS
- f/u Cr and K in AM
Original Note:
Update Note
Progress Note Update
This note serves as an addendum to the H&P by inspector circuitry negative ABUNDIO Angela NURA
HPI
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
acute ambulatory dysfunction. Normally she use a walker.
Patient was seen on 01/09 in ED for evaluation of her wound, discharged home for follow-up.
She was supposed to see her surgeon for her sacral wound today, Dr. Mcmillan ([facility]) but could not make her visit.
Wound is stage IV but no secondary signs of infection.
Positive wound culture on 01/09, polymicrobial.
ER attd discussed with patient's surgeon, Dr. Mcmillan. Doesn't feel wound is infected, likely colonized,
PHX
Rectal cancer status post APR with colostomy : Colon resection with colostomy 1982
Renal cancer status post right nephrectomy 1981
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
Hypertension
COPD
lung nodules
thrombocytopenia
neurogenic bladder intermittently self catheterizes
recurrent UTI
HX C. difficile
Back surgery
Knee replacement
Carpal tunnel release
Gluteal cleft cyst excision
Parastomal hernia repair with mesh
Vital Signs
Temp Pulse Resp BP Pulse Ox
99.3 F 67 14 114/48 87
01/15/24 09:54 01/15/24 11:15 01/15/24 11:15 01/15/24 11:00 01/15/24 10:28
PE
General: not toxic looking , conversant
HEENT: Normocephalic
Respiratory: Clear to Auscultation
Cardiac: Regular Rhythm
GI: Soft and Nontender, Colostomy and reported normalout put
: Pure - wick cath in place
Musculoskeletal: No Clubbing
Neuro: Awake
Psych: Calm
Data
Nl WCC
Hgb 8.2 - baseline hi 8s to mid 9s
Nl MCV
K 5.5
Cr 1.8 - 1.0 on 01/10/24
CXR
There is a 1 cm pulmonary nodule in the right midlung is stable compared with the 03/25/2023 examination.
This nodule may be benign or malignant
Follow-up imaging was CT chest is recommended
Last hospitalist admission: 03/25/23 -03/28/23
DX: Intertrochanteric proximal right femur fracture s/p short gamma nails
ASSESSMENT & PLAN
Pending Rx reconciliation
ESTELLE with creatinine of 1.8
Mod hyperkalemia
HX Neurogenic bladder with intermittent self cath but stop doing it due to getting difficult to do self
Unilateral Lt Kidney s/p Rt Nephrectomy
Unremarkable UA
- 300 cc in initial bladder scan- cont with protocol
- cont Pure- wick cath in placed
- S/P NS 500cc at ER; cont. IVF NS
- US KUB
- f/u K with hydration
IV sacral decub ; admission picture looks worse when comparing Mar 2023 picture
Positive wound culture on 01/09, polymicrobial likely colonized,
HX osteomyelitis of coccyx
recently diagnosed with head and neck cance
Associated with FTT at home
Of note: ER attd discussed with patient's surgeon, Dr. Mcmillan.
- PT/OT
- wound care consult
- CRM consult : potential placement
Hypoxia : Unclear etiology of low O2 - stable on NC
On chr Narcotics - Resp depression ?
HX COPD
HX Lung nodule
- NEG CXR. NEG Covid. NEG Flu e.
- Duo Neb PRN and QID
- O2 supplement to keep POx > 94
- check ABG with any altered mentation
Chronic anemia with interval drop in Hgb
- Hemodynamically stable
- add Fe studies and ferritin
Essential HTN
- IV hydralazine PRN
Essential hypertension
- Cont. atenolol, losartan
Chronic pain
-Continue buprenorphine,, gabapentin, oxycodone
-Continue bowel regimen
Anxiety
- cont. clonazepam
HX rectal cancer status post APR with colostomy
HX renal cancer status post right nephrectomy
HX recurrent perineal abscesses status post multiple drainages
DVT Px: SQH
Code: Full code
IP MS
[2024-01-15 13:55] LABS: Iron 21 ug/dl (37-170)
[2024-01-15 14:05] LABS: Percent Saturation 12 % (20-50); Total Iron Binding Capacity 173 ug/dl (265-497)
[2024-01-15] MEDS: DUONEB INH (15:25)
[2024-01-15 15:36] LABS: Vitamin B12 978 pg/ml (239-931)
--- NOTE | 2024-01-15 15:52 | WOUNDNOTE ---
SACRUM (to bone)
--- NOTE | 2024-01-15 15:53 | WOUNDNOTE ---
SACRUM (to the bone)
--- NOTE | 2024-01-15 15:54 | WOUNDNOTE ---
[facility] RN note: Patient admitted with acute kidney injury. Patient lives with her and is current with [facility].
See H&P for complete history.
PMH: COPD, HTN, chronic sacral wound, s/p sacral muscle flap 2 months ago which failed, patient is followed at [facility] plastic surgeon Dr. Nir Koch, colon cancer with radiation, s/p colostomy many years ago, renal cancer s/p R nephrectomy,
urinary incontinence, chronic pain dependent on opioid pain med, parastomal hernia repair with mesh, bilateral knee replacement, R hip ORIF. Colostomy appliance intact. Soft stool in pouch. Patient stated she changed her appliance yesterday and she
has her ostomy supplies. Nursing can assist patient with routine pouch changes/care.
Wound Location and type/assessment: Patient admitted with: full thickness sacral wound to bone (suspect chronic osteomyelitis), pink with yellow and black necrotic tissue, mild odor, local erythema.
Appetite: good.
Pressure redistribution devices in place: Versacare air bed. Patient can turn slowly in bed.
Plan: Sacral dressing changed. Waffle air overlay applied and patient turned to L semi side lying position with help from MARIA ESTHER Spencer. Heels off bed with air chair cushion. Patient stated she sleeps in a barrera sized bed at home that has an upper side
rail. Suggested she consider a hospital bed with an air mattress and to discuss with case management and her visiting nurse. She plans to take home the air overlay mattress. Patient at risk for non healing wound d/t history of radiation, dry yellow
appearing bone exposed in wound.
Will confirm orders with hospitalist and discussed with MARIA ESTHER Spencer.
Care plan to be updated and will follow as needed.
Note to case management of equipment requested for discharge: hospital bed with air mattress recommended. Patient to follow up with her wound care surgeon.
[2024-01-15] MEDS: NSS 1000 IV (16:13)
[2024-01-15] MEDS: HEPARIN 5000 UNITS SC ×2 (16:14→23:47)
--- NOTE | 2024-01-15 16:44 | WOUNDNOTE ---
WO RN note: Spoke with Maty Hart from case management re: recommend a hospital bed with air mattress, patient has a large stage 4 sacral wound. Reji texted [facility] Farias who confirmed current wound care is [employer] Kerlix packing with ABD
pads.
[2024-01-15] MEDS: DUONEB 3 ML INH (19:40)
[2024-01-15] MEDS: SYMBICORT 160/4.5 MCG INHALER 1 PUFF INH (19:45)
[2024-01-15] MEDS: DILAUDID 4 MG PO (22:16)
[2024-01-15] MEDS: NON-FORMULARY ITEM 150 MCG BUCCAL (22:55)
[2024-01-15] MEDS: NEURONTIN 200 MG PO (23:47)
[2024-01-15] MEDS: MELATONIN 5 MG PO (23:47)
[2024-01-16] MEDS: DAKIN'S SOLUTION 0.125% 1/4 STRENGTH TOPICAL (00:58)
[2024-01-16] MEDS: DILAUDID 4 MG PO ×2 (04:37→11:38)
[2024-01-16] MEDS: DUONEB 3 ML INH ×4 (07:42→20:01)
[2024-01-16 08:04] VITALS: BP 127/56
[2024-01-16 08:16] LABS: Hematocrit 27.9 % (37.0-47.0); Hemoglobin 9.2 g/dL (12.0-16.0); Mean Corpuscular Hgb 30.6 pg (27.0-31.0); Mean Corpuscular Volume 92.7 fL (81.0-99.0); Mean Platelet Volume 9.1 fL (7.4-10.4); Platelet Count 211 10^3/uL (130-400); Red Blood Cell Count 3.01 10^6/uL (4.20-5.40); Red Cell Dist. Width 13.4 % (11.5-14.5); White Blood Cell Count 6.6 10^3/uL (4.8-10.8)
--- NOTE | 2024-01-16 08:20 | VNURNOTE ---
Chart reviewed. Patient is current with [facility] nursing, PT, OT. Will continue to follow hospital course and DC plans.
[2024-01-16 08:37] LABS: Blood Urea Nitrogen 34 mg/dl (7-17); Calcium 8.8 mg/dl (8.4-10.2); Carbon Dioxide 23 mmol/L (22-30); Chloride 103 mmol/L (98-107); Estimated Creatinine Clearance 38 ml/min; Glucose 193 mg/dl (70-99); Potassium 5.7 mmol/L (3.5-5.1); Sodium 137 mmol/L (135-145); eGFR 42.62
--- NOTE | 2024-01-16 08:44 | WOUNDNOTE ---
[facility] RN note: Turney texted Dr. Roque re: sacral wound appearance from yesterday's assessment, suspect possible deterioration of wound vs infection with necrotic tissue and erythema L side. Bone exposed suspect chronic osteomyelitis. Dr. Roque stated
she already consulted general surgery to evaluate wound.
[2024-01-16] MEDS: HEPARIN 5000 UNITS SC ×3 (09:05→23:49)
[2024-01-16] MEDS: MIRALAX 17 GRAMS PO (09:05)
[2024-01-16] MEDS: NEURONTIN 200 MG PO ×2 (09:05→21:48)
[2024-01-16] MEDS: TENORMIN 50 MG PO (09:06)
[2024-01-16] MEDS: PROCARDIA XL (EXTENDED RELEASE) 60 MG PO (09:06)
[2024-01-16] MEDS: PROTONIX 40 MG PO (09:06)
--- NOTE | 2024-01-16 09:15 | W.PN.HOSP.TC ---
Today's Communication/Plan
-
Surgery consult
Lokelma
BMP in am
Assessment / Plan
Assessment / Plan
Physical Exam
General: Comfortable and Conversant
HEENT: Anicteric and Moist mucous membranes
Respiratory: Clear, Non Labored Respirations and Other (Poor inspiratory effort)
Cardiac: S1/S2 and Regular Rhythm
GI: Soft, Non Tender and Ostomy (Left lower quadrant)
Genito-urinary: Clear Urine (PureWick)
Musculoskeletal: No Clubbing, No Cyanosis and Other (Non-pitting edema bilateral lower extremities)
Skin: Warm, Dry and Decubitus Ulcer
Neuro: Awake, Alert, Oriented and Other (Lower extremities strength appears intact; Limited exam on the left due to pain)
Psych: Calm
Acute Kidney Injury and Hyperkalemia, suspect volume depletion and Bactrim related
- US : Prior right-sided nephrectomy. There is no left-sided hydronephrosis, suspicious renal lesions or sonographic evidence of renal calculus.
Creatinine is coming to 1.3
-Hold losartan and furosemide
-Hold celecoxib
-Hold Bactrim
- s/p IVFs
-Recheck creatinine in AM
- Give Lokelma
# Iron deficiency anemia
Also anemia of chronic disease, normal ferritin
Will c/w oral iron
COPD with Transient Hypoxia
-Add DuoNeb QID and PRN
-Continue Symbicort
-Monitor pulse ox and obtain ABG
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
-Appears much worse than previous pictures from Mar 2023
- I d/w wound care nurse, will consult surgery
-Per ED notes they reviewed with patient's outpatient wound physician at [facility] who was not concerned about active infection
Essential Hypertension
-Continue atenolol and nifedipine with hold parameters
-Losartan on hold due to ESTELLE
Neurogenic Bladder
-Monitor bladder scan
-Hold Gemtesa
Chronic Pain with Opioid Dependence
-Continue buprenorphine and Dilaudid as prior to admission
-Continue gabapentin
Hx Rectal Cancer s/p APR with Colostomy
Hx Renal Cancer s/p Right Nephrostomy
DVT proph: SC Heparin
Code Status: Full Code
Total time spent to see the patient, examine the patient on the floor, review data and lab results, discuss treatment plan with patient, nursing staff around 55 minutes
Anticipated Discharge: > 48 hours
Subjective/Interval History
-
Date of Service: January 16, 2024
No chest pain
Mild abd discomfort
Objective Data
-
Labs:
Laboratory Results
01/16/24
07:45
WBC 6.6
Hgb 9.2 L
Hct 27.9 L
Plt Count 211
Sodium 137
Potassium 5.7 H
Chloride 103
Carbon Dioxide 23
BUN 34 H
Creatinine 1.3 H
Glucose 193 H
Calcium 8.8
Vital Signs:
Vital Signs
Temp Pulse Resp BP Pulse Ox
98.8 F 85 18 127/56 92
01/16/24 08:04 01/16/24 08:04 01/16/24 08:04 01/16/24 08:04 01/16/24 08:04
[2024-01-16] MEDS: DAKIN'S SOLUTION 0.125% 1/4 STRENGTH 473 ML TOPICAL ×2 (09:19→21:47)
--- NOTE | 2024-01-16 10:30 | PTCARENOTE ---
Patient's ring removed d/t hand swelling - placed in denture cup in black personal beloging bag at bedside.
--- NOTE | 2024-01-16 11:16 | CM ---
Addendum entered by Montse Harmon 01/16/24 12:28:
WO rec. hospital bed w/ air mattress.
[facility] Liaison will set up prior to d/c
Original Note:
Pt seen at bedside. Pt confirmed she lives w/ in a two story home, however, they only utilize the first flr.
Currently open w/ [facility], with last visit this week Saturday.
Hx of SNF at [facility] in [place]
Denies any food/housing/transportation insecurities.
No DME
Pharmacy confirmed: [facility] [place]
Confirmed will transport at d/c.
CM will cont. to follow for d/c planning needs
Plan: Home with possible PT
[2024-01-16] MEDS: NON-FORMULARY ITEM 150 MCG BUCCAL ×2 (11:20→21:52)
[2024-01-16 12:27] VITALS: BMI 31.0
[2024-01-16] MEDS: SYMBICORT 160/4.5 MCG INHALER 1 PUFF INH ×2 (12:52→20:00)
--- NOTE | 2024-01-16 15:32 | VNURNOTE ---
Spoke with patient regarding [facility] RN's recs for hospital bed & air mattress for home. Patient is agreeable. Spoke with Cardi at [facility], they have beds in stock, will take approx 48 hours to process/deliver. Awaiting clinical docs to send to DME
co.
Just received message from [facility] nurse informing that patient's spouse is requesting [facility] [place] at DC. Spouse is ill himself and having trouble sufficiently caring for patient's wound at home. Message relayed to [facility] and Hospitalist . Will hold on
bed set up until dispo DC plans clearer.
[2024-01-16 15:34] LABS: Glucose - Point of Care 197 mg/dl (70-99)
[2024-01-16] MEDS: LOKELMA 10 GRAM PO (15:35)
[2024-01-16] MEDS: NEURONTIN PO (15:39)
[2024-01-16] MEDS: DUONEB INH (15:46)
[2024-01-16 15:49] VITALS: BP 128/56
--- NOTE | 2024-01-16 16:44 | CON.GS ---
Consultation
-
Performing Provider: Alba
Reason for Consultation: Sacral wound
Medical History
-
Chief Complaint: Fevers
History of Present Illness:
Patient is a 78-year-old female who presented to the emergency department secondary to a reported 1 week history of intermittent fevers and malaise with a known history of a chronic sacral wound previously having undergone attempt at flap
management. She sees a senior publications specialist at [facility].
General surgery consultation requested for evaluation of the wound.
Patient states that she has had difficulty managing her wounds for a long time. She does not recall many of the specific details regarding her care. Denies acute pain.
Past Medical History
Past Medical History: Other (Chronic sacral wound, COPD, hypertension, neurogenic bladder, chronic pain)
Past Surgical History: Other (Right nephrectomy, permanent end colostomy status post colon resection, parastomal hernia repair, knee replacements, back surgery, right hip ORIF)
Social History
Tobacco: Non-Smoker
Alcohol: Occasional
Family History
Family History: Reviewed & Not Pertinent
Allergies / Home Medications
Allergy/AdvReac Type Severity Reaction Status Date / Time
ampicillin Allergy Mild Rash Verified 01/10/24 20:49
levofloxacin Allergy Rash Verified 01/10/24 20:49
morphine Allergy Rash Verified 01/10/24 20:49
prochlorperazine Allergy Rash Verified 01/10/24 20:49
[From Compazine]
doxycycline AdvReac Mild Shortness Verified 01/10/24 20:49
of Breath
vancomycin AdvReac Mild Shortness Verified 01/10/24 20:49
of Breath
�Medication �Instructions �Recorded �Confirmed �Type
budesonide-formoterol HFA 160 1 inh inhalation BID 02/11/23 01/15/24 History
mcg-4.5 mcg/actuation aerosol lung/breathing issues
inhaler (Symbicort)
buprenorphine HCl 150 mcg buccal 150 mcg buccal Q12H SUBST 02/11/23 01/15/24 History
film (Belbuca)
gabapentin 800 mg tablet 800 mg PO Q8H Pain 02/11/23 01/15/24 History
celecoxib 100 mg capsule 100 mg PO BID Pain 03/25/23 01/15/24 History
cyanocobalamin (vitamin B-12) 2,500 mcg PO DAILY Supplement 03/25/23 01/15/24 History
1,000 mcg tablet (Vitamin B-12)
losartan 50 mg tablet 25 mg PO DAILY Blood Pressure 03/25/23 01/15/24 History
ondansetron HCl 4 mg tablet 4 mg PO Q8H PRN nausea/vomiting 03/25/23 01/15/24 History
polyethylene glycol 3350 17 gram 17 g PO DAILY Constipation 03/25/23 01/15/24 History
oral powder packet (Miralax)
clonazepam 0.5 mg tablet 0.5 mg PO DAILY PRN anxiety #10 03/28/23 01/15/24 Rx
tabs
acetaminophen 325 mg tablet 650 mg PO DAILYPRN PRN pain 01/15/24 01/15/24 History
atenolol 25 mg tablet 50 mg PO DAILY blood pressure 01/15/24 01/15/24 History
cholecalciferol (vitamin D3) 50 50 mcg PO DAILY supplement 01/15/24 01/15/24 History
mcg (2,000 unit) capsule (Vitamin
D3)
cranberry extract 200 mg capsule 200 mg PO DAILY supplement 01/15/24 01/15/24 History
(Ellura)
diphenhydramine 25 1 tab PO HSPRN PRN sleep/pain 01/15/24 01/15/24 History
mg-acetaminophen 500 mg tablet
(Acetaminophen PM)
furosemide 20 mg tablet 20 mg PO BIDPRN PRN edema 01/15/24 01/15/24 History
hydromorphone 4 mg tablet 4 - 8 mg PO Q4HPRN PRN pain 01/15/24 01/15/24 History
hydroxyzine HCl 10 mg tablet 10 mg PO Q8HPRN PRN itching 01/15/24 01/15/24 History
nifedipine 60 mg tablet,extended 60 mg PO DAILY blood pressure 01/15/24 01/15/24 History
release 24 hr
pantoprazole 40 mg tablet,delayed 40 mg PO DAILY Gastrointestinal 01/15/24 01/15/24 History
release Issue
sulfamethoxazole 800 1 tab PO Q12H x 5 days 01/15/24 01/15/24 History
mg-trimethoprim 160 mg tablet
vibegron 75 mg tablet (Gemtesa) 75 mg PO DAILY Urinary Issue 01/15/24 01/15/24 History
vitamins A,C,N-znyg-rzdoij 2,148 1 tab PO DAILY supplement 01/15/24 01/15/24 History
mcg-113 mg-45 mg-17.4 mg tablet
(PreserVision AREDS)
Review of Systems
-
A 10 point review of systems was completed, and was negative except as per HPI.
Physical Exam
Vital Signs
Temp Pulse Resp BP Pulse Ox
99.0 F 80 18 128/56 92
01/16/24 15:49 01/16/24 15:49 01/16/24 15:49 01/16/24 15:49 01/16/24 15:49
01/15/24 01/16/24 01/17/24
06:59 06:59 06:59
Actual Weight 81.8 kg
Lab Results
01/16/24 07:45
01/16/24 07:45
WBC 6.6 10^3/uL (4.8-10.8) 01/16/24 07:45
Hgb 9.2 g/dL (12.0-16.0) L 01/16/24 07:45
Hct 27.9 % (37.0-47.0) L 01/16/24 07:45
Plt Count 211 10^3/uL (130-400) 01/16/24 07:45
Abs Immat Gran (auto) 0.0 10^3/uL (0-0.05) 01/15/24 10:21
Neutrophils % 79.8 % (42.2-75.2) H 01/15/24 10:21
Physical Exam
General: No Apparent Distress and Other (Chronically ill-appearing limited mobility)
HEENT: Normocephalic, Anicteric and Moist Mucous Membranes
Respiratory: Non Labored Respirations
Skin: Other (Sacral decubitus wound onto the right gluteal region with areas of dry eschar, some fibrinous buildup/exudate. No malodor. No purulence. No fluctuance)
Assessment / Plan
-
Assessment: 78-year-old female with chronic sacral wound status post attempted flap reconstruction (details of procedure uncertain as far as type of flap, time and location other than performed at [facility])
There does not appear to be any indications for urgent surgical debridement -i.e. wet gangrene, undrained collections
Plan: Recommend current wound care measures with Dakin's gauze packing as there is certainly some bacterial colonization
Patient can follow-up with her [facility] senior publications specialist for further care
Signing off please call if can be of further assistance with care
[2024-01-16 16:49] VITALS: BP 123/50
[2024-01-16] MEDS: MELATONIN 5 MG PO (21:48)
[2024-01-16 23:32] VITALS: BP 144/60
[2024-01-17] MEDS: DILAUDID 4 MG PO ×3 (04:55→20:20)
[2024-01-17 06:26] LABS: Hemoglobin 8.4 g/dL (12.0-16.0); Mean Corp Hgb Conc. 32.3 g/dL (33.0-37.0); Mean Corpuscular Volume 92.9 fL (81.0-99.0); Mean Platelet Volume 9.1 fL (7.4-10.4); Platelet Count 197 10^3/uL (130-400); Red Cell Dist. Width 13.3 % (11.5-14.5); White Blood Cell Count 5.6 10^3/uL (4.8-10.8)
[2024-01-17 06:45] LABS: Blood Urea Nitrogen 25 mg/dl (7-17); Calcium 8.8 mg/dl (8.4-10.2); Carbon Dioxide 28 mmol/L (22-30); Chloride 99 mmol/L (98-107); Estimated Creatinine Clearance 45 ml/min; Glucose 170 mg/dl (70-99); Potassium 5.1 mmol/L (3.5-5.1); Sodium 136 mmol/L (135-145); eGFR 52.08
[2024-01-17 07:25] VITALS: BP 146/54
[2024-01-17] MEDS: DUONEB 3 ML INH ×2 (07:36→11:29)
[2024-01-17] MEDS: SYMBICORT 160/4.5 MCG INHALER 1 PUFF INH (07:36)
--- NOTE | 2024-01-17 08:51 | W.PN.HOSP.TC ---
Today's Communication/Plan
-
dc planning
Repeat PT, family wants SNF
Assessment / Plan
Assessment / Plan
Physical Exam
General: Comfortable and Conversant
HEENT: Anicteric and Moist mucous membranes
Respiratory: Clear, Non Labored Respirations and Other (Poor inspiratory effort)
Cardiac: S1/S2 and Regular Rhythm
GI: Soft, Non Tender and Ostomy (Left lower quadrant)
Genito-urinary: Clear Urine (PureWick)
Musculoskeletal: No Clubbing, No Cyanosis and Other (Non-pitting edema bilateral lower extremities)
Skin: Warm, Dry and Decubitus Ulcer
Neuro: Awake, Alert, Oriented and Other (Lower extremities strength appears intact; Limited exam on the left due to pain)
Psych: Calm
Acute Kidney Injury and Hyperkalemia, suspect volume depletion and Bactrim related
- US : Prior right-sided nephrectomy. There is no left-sided hydronephrosis, suspicious renal lesions or sonographic evidence of renal calculus.
Creatinine is coming to 1.3
-Held losartan and furosemide
-Hold celecoxib
- Stopped Bactrim
- s/p IVFs
- s/p Lokelma
Creatinine went down to 1.1, K at 5.1
# Iron deficiency anemia
Also anemia of chronic disease, normal ferritin
Will c/w oral iron
COPD with Transient Hypoxia
-Add DuoNeb QID and PRN
-Continue Symbicort
-Monitor pulse ox and obtain ABG
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
-Appears much worse than previous pictures from Mar 2023
- I d/w wound care nurse, will consult surgery
-Per ED notes they reviewed with patient's outpatient wound physician at [place] who was not concerned about active infection
- Surgery evaluated the patient, does not appear to be any indications for urgent surgical debridement, c/w current wound care measures with Dakin's gauze packing
Essential Hypertension
-Continue atenolol and nifedipine with hold parameters
-Losartan on hold due to ESTELLE
Neurogenic Bladder
-Monitor bladder scan
-Held Gemtesa
Chronic Pain with Opioid Dependence
-Continue buprenorphine and Dilaudid as prior to admission
-Continue gabapentin
Hx Rectal Cancer s/p APR with Colostomy
Hx Renal Cancer s/p Right Nephrostomy
DVT proph: SC Heparin
Code Status: Full Code
Total time spent to see the patient, examine the patient on the floor, review data and lab results, discuss treatment plan with patient, family caseworker, nursing staff around 55 minutes
Anticipated Discharge: Within 24 hours
Subjective/Interval History
-
Date of Service: January 17, 2024
She feels stronger today
No chest pain
No sob
Objective Data
-
Labs:
Laboratory Results
01/17/24
05:47
WBC 5.6
Hgb 8.4 L
Hct 26.0 L
Plt Count 197
Sodium 136
Potassium 5.1
Chloride 99
Carbon Dioxide 28
BUN 25 H
Creatinine 1.1 H
Glucose 170 H
Calcium 8.8
Vital Signs:
Vital Signs
Temp Pulse Resp BP Pulse Ox
98.1 F 76 17 146/54 100
01/17/24 07:25 01/17/24 07:25 01/17/24 07:25 01/17/24 07:25 01/17/24 07:25
[2024-01-17] MEDS: DAKIN'S SOLUTION 0.125% 1/4 STRENGTH 473 ML TOPICAL ×2 (08:59→20:21)
[2024-01-17] MEDS: NEURONTIN 200 MG PO ×3 (08:59→22:08)
[2024-01-17] MEDS: TENORMIN 50 MG PO (08:59)
[2024-01-17] MEDS: PROTONIX 40 MG PO (08:59)
[2024-01-17] MEDS: PROCARDIA XL (EXTENDED RELEASE) 60 MG PO (08:59)
[2024-01-17] MEDS: HEPARIN 5000 UNITS SC ×3 (09:00→23:16)
[2024-01-17] MEDS: MIRALAX PO (09:00)
[2024-01-17] MEDS: NON-FORMULARY ITEM 150 MCG BUCCAL ×2 (09:00→22:17)
--- NOTE | 2024-01-17 15:05 | CM ---
PT re-evaluated patient and recommends SNF; spouse is agreeable with plan
Explained to spouse via phone that we needed to expand referrals to other facilities if [facility] unable to accept. Spouse agreeable with plan.
Referrals sent via [facility] to the following: [facility], [facility], [facility], and [facility].
Plan: Discharge to SNF pending bed availability
[2024-01-17 15:15] VITALS: BP 124/56
[2024-01-17] MEDS: DUONEB INH ×2 (15:43→20:00)
[2024-01-17] MEDS: SYMBICORT 160/4.5 MCG INHALER INH (20:00)
[2024-01-17] MEDS: MELATONIN 5 MG PO (22:08)
[2024-01-17 23:42] VITALS: BP 144/61
[2024-01-18 07:00] VITALS: BP 143/56
[2024-01-18] MEDS: SYMBICORT 160/4.5 MCG INHALER INH (07:27)
[2024-01-18] MEDS: DUONEB INH (07:27)
[2024-01-18] MEDS: SYMBICORT 160/4.5 MCG INHALER 1 PUFF INH ×2 (07:31→19:22)
[2024-01-18] MEDS: DUONEB 3 ML INH ×4 (07:31→19:22)
[2024-01-18] MEDS: NEURONTIN 200 MG PO ×3 (08:54→22:48)
[2024-01-18] MEDS: HEPARIN 5000 UNITS SC ×2 (08:54→16:33)
[2024-01-18] MEDS: PROCARDIA XL (EXTENDED RELEASE) 60 MG PO (08:55)
[2024-01-18] MEDS: TENORMIN 50 MG PO (08:55)
[2024-01-18] MEDS: MIRALAX 17 GRAMS PO (08:55)
[2024-01-18] MEDS: PROTONIX 40 MG PO (08:55)
[2024-01-18] MEDS: DILAUDID 4 MG PO ×2 (09:01→19:57)
[2024-01-18] MEDS: NON-FORMULARY ITEM 1 MCG BUCCAL (09:01)
--- NOTE | 2024-01-18 09:30 | W.PN.HOSP.TC ---
Today's Communication/Plan
-
Discharge
Assessment / Plan
Assessment / Plan
Physical Exam
General: Comfortable and Conversant
HEENT: Anicteric and Moist mucous membranes
Respiratory: Clear, Non Labored Respirations and Other (Poor inspiratory effort)
Cardiac: S1/S2 and Regular Rhythm
GI: Soft, Non Tender and Ostomy (Left lower quadrant)
Genito-urinary: Clear Urine (PureWick)
Musculoskeletal: No Clubbing, No Cyanosis and Other (Non-pitting edema bilateral lower extremities)
Skin: Warm, Dry and Decubitus Ulcer
Neuro: Awake, Alert, Oriented to self, confused at times, (Lower extremities strength appears intact; Limited exam on the left due to pain)
Psych: Calm
Acute Kidney Injury and Hyperkalemia, suspect volume depletion and Bactrim related
- US : Prior right-sided nephrectomy. There is no left-sided hydronephrosis, suspicious renal lesions or sonographic evidence of renal calculus.
Creatinine is coming to 1.3
-Held losartan and furosemide
-Hold celecoxib
- Stopped Bactrim
- s/p IVFs
- s/p Lokelma
Creatinine went down to 1.1, K at 5.1
# Iron deficiency anemia
Also anemia of chronic disease, normal ferritin
Will c/w oral iron
COPD with Transient Hypoxia
Patient tends to refuse but needs encouragement to take her therapy
-Added DuoNeb QID and PRN
-Continue Symbicort
-Monitor pulse ox and obtain ABG
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
-Appears much worse than previous pictures from Mar 2023
- I d/w wound care nurse, will consult surgery
-Per ED notes they reviewed with patient's outpatient wound physician at [place] who was not concerned about active infection
- Surgery evaluated the patient, does not appear to be any indications for urgent surgical debridement, c/w current wound care measures with Dakin's gauze packing
Essential Hypertension
-Continue atenolol and nifedipine with hold parameters
-Losartan on hold due to ESTELLE
Neurogenic Bladder
-Monitor bladder scan
-Held Gemtesa
Chronic Pain with Opioid Dependence
-Continue buprenorphine and Dilaudid as prior to admission
-Continue gabapentin
Hx Rectal Cancer s/p APR with Colostomy
Hx Renal Cancer s/p Right Nephrostomy
DVT proph: SC Heparin
Code Status: Full Code
Total time spent to see the patient, examine the patient on the floor, review data and lab results, discuss treatment plan with patient, block and case maker, nursing staff around 55 minutes
Anticipated Discharge: Today
Subjective/Interval History
-
Date of Service: January 18, 2024
No chest pain
No sob
No fevers
confused, wants to go home
Objective Data
-
Vital Signs:
Vital Signs
Temp Pulse Resp BP Pulse Ox
98.3 F 92 16 143/56 92
01/18/24 07:00 01/18/24 07:27 01/18/24 07:27 01/18/24 07:00 01/18/24 07:27
I&O
01/17/24 01/18/24 01/19/24
06:59 06:59 06:59
Intake Total 1780 / 1780
Output Total 600 / 600
Balance 1180 / 1180
[2024-01-18 15:00] VITALS: BP 109/79
[2024-01-18] MEDS: TYLENOL 650 MG PO (16:33)
[2024-01-18] MEDS: DAKIN'S SOLUTION 0.125% 1/4 STRENGTH 1 ML TOPICAL (16:40)
[2024-01-18] MEDS: DAKIN'S SOLUTION 0.125% 1/4 STRENGTH 473 ML TOPICAL (20:57)
[2024-01-18] MEDS: NON-FORMULARY ITEM 150 MCG BUCCAL (22:48)
[2024-01-18] MEDS: MELATONIN 5 MG PO (22:48)
[2024-01-18] MEDS: HEPARIN SC (23:21)
[2024-01-18 23:30] VITALS: BP 124/51
[2024-01-19] MEDS: DILAUDID 4 MG PO ×3 (05:31→15:45)
[2024-01-19 06:00] VITALS: BMI 31.0
[2024-01-19 07:29] LABS: Hematocrit 26.5 % (37.0-47.0); Hemoglobin 8.5 g/dL (12.0-16.0); Mean Corp Hgb Conc. 32.1 g/dL (33.0-37.0); Mean Corpuscular Hgb 29.8 pg (27.0-31.0); Mean Platelet Volume 8.8 fL (7.4-10.4); Platelet Count 224 10^3/uL (130-400); Red Blood Cell Count 2.85 10^6/uL (4.20-5.40); Red Cell Dist. Width 13.2 % (11.5-14.5); White Blood Cell Count 7.1 10^3/uL (4.8-10.8)
[2024-01-19 07:31] LABS: ALT (SGPT) 19 U/L (0-35); AST (SGOT) 28 U/L (14-36); Albumin 2.8 g/dl (3.5-5.0); Alkaline Phosphatase 128 U/L (38-126); Blood Urea Nitrogen 24 mg/dl (7-17); Carbon Dioxide 30 mmol/L (22-30); Chloride 100 mmol/L (98-107); Estimated Creatinine Clearance 55 ml/min; Glucose 162 mg/dl (70-99); Magnesium 1.7 mg/dl (1.6-2.3); Sodium 137 mmol/L (135-145); Total Bilirubin 0.1 mg/dl (0.2-1.3); Total Protein 5.5 g/dl (6.3-8.2); eGFR > 60.00
[2024-01-19] MEDS: SYMBICORT 160/4.5 MCG INHALER 1 PUFF INH ×2 (08:07→20:42)
[2024-01-19 08:08] VITALS: BP 148/63
[2024-01-19] MEDS: PROCARDIA XL (EXTENDED RELEASE) 60 MG PO (08:53)
[2024-01-19] MEDS: TENORMIN 50 MG PO (08:54)
[2024-01-19] MEDS: PROTONIX 40 MG PO (08:54)
[2024-01-19] MEDS: NEURONTIN 200 MG PO ×3 (08:54→21:13)
[2024-01-19] MEDS: DAKIN'S SOLUTION 0.125% 1/4 STRENGTH 1 ML TOPICAL (08:55)
[2024-01-19] MEDS: HEPARIN 5000 UNITS SC ×3 (08:55→23:27)
[2024-01-19] MEDS: MIRALAX 17 GRAMS PO (08:56)
[2024-01-19] MEDS: NON-FORMULARY ITEM 150 MCG BUCCAL ×2 (08:56→21:10)
--- NOTE | 2024-01-19 10:41 | W.PN.HOSP.TC ---
Addendum entered and electronically signed by Annalee Roque MD 01/19/24 14:39:
Addendum
Nurse is concerned about the urine color, odor. UA upon admission was clear, we can repeat UA
Patient asked for Lasix, her bP i and renal function are better, will resume
End
Original Note:
Today's Communication/Plan
-
behavioral changes, will do CT head
DC planning
Assessment / Plan
Assessment / Plan
Physical Exam
General: Comfortable and Conversant
HEENT: Anicteric and Moist mucous membranes
Respiratory: Clear, Non Labored Respirations and Other (Poor inspiratory effort)
Cardiac: S1/S2 and Regular Rhythm
GI: Soft, Non Tender and Ostomy (Left lower quadrant)
Genito-urinary: Clear Urine (PureWick)
Musculoskeletal: No Clubbing, No Cyanosis and Other (Non-pitting edema bilateral lower extremities)
Skin: Warm, Dry and Decubitus Ulcer
Neuro: Awake, Alert, Oriented to self, confused at times, (Lower extremities strength appears intact; Limited exam on the left due to pain)
Psych: Calm
Acute Kidney Injury and Hyperkalemia, suspect volume depletion and Bactrim related
Resolved.
- US : Prior right-sided nephrectomy. There is no left-sided hydronephrosis, suspicious renal lesions or sonographic evidence of renal calculus.
Creatinine is down to 0.9
-Held losartan and furosemide
-Held celecoxib
- Stopped Bactrim
- s/p IVFs
- s/p Lokelma
Creatinine went down to 1.1, K at 5.1
# Iron deficiency anemia
Also anemia of chronic disease, normal ferritin
Will c/w oral iron
# Memory impairment
Mild
behavioral changes noticed , she gets agitated with staff at times but alternates with very normal/ friendly behavior,.
Patient reports she can not remember in details and forgets at times
She seems to have period of confusion, this could be also exacerbated by combination of Gabapentin and Buprenorphine.
Will order CT head although she did not report of head trauma but she has ambulatory dysfunction.
COPD with Transient Hypoxia
Patient tends to refuse but needs encouragement to take her therapy
-Added DuoNeb QID and PRN
-Continue Symbicort
-Monitor pulse ox and obtain ABG
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
-Appears much worse than previous pictures from Mar 2023
- I d/w wound care nurse, will consult surgery
-Per ED notes they reviewed with patient's outpatient wound physician at [place] who was not concerned about active infection
- Surgery evaluated the patient, does not appear to be any indications for urgent surgical debridement, c/w current wound care measures with Dakin's gauze packing
Essential Hypertension
-Continue atenolol and nifedipine with hold parameters
-Resume Losartan ( was on hold due to ESTELLE)
Neurogenic Bladder
-Monitor bladder scan
-Held Gemtesa
Chronic Pain with Opioid Dependence
-Continue buprenorphine and Dilaudid as prior to admission
-Continue gabapentin
Hx Rectal Cancer s/p APR with Colostomy
Hx Renal Cancer s/p Right Nephrostomy
DVT proph: SC Heparin
Code Status: Full Code
Total time spent to see the patient, examine the patient on the floor, review data and lab results, discuss treatment plan with patient, , daughter Stephie on the phone, counter caser, nursing staff around 55 minutes
Anticipated Discharge: Within 24 hours
Subjective/Interval History
-
Date of Service: January 19, 2024
No sob
No chest pain
She feels better today
Objective Data
-
Labs:
Laboratory Results
01/19/24
07:01
WBC 7.1
Hgb 8.5 L
Hct 26.5 L
Plt Count 224
Sodium 137
Potassium 5.0
Chloride 100
Carbon Dioxide 30
BUN 24 H
Creatinine 0.9
Glucose 162 H
Calcium 9.0
Total Bilirubin 0.1 L
AST 28
ALT 19
Alkaline Phosphatase 128 H
Vital Signs:
Vital Signs
Temp Pulse Resp BP Pulse Ox
98.8 F 78 18 148/63 96
01/19/24 08:08 01/19/24 08:12 01/19/24 08:12 01/19/24 08:08 01/19/24 08:12
I&O
01/18/24 01/19/24 01/20/24
06:59 06:59 06:59
Intake Total 1780 / 1780 1200 / 1200
Output Total 600 / 600 250 / 250
Balance 1180 / 1180 950 / 950
[2024-01-19] MEDS: LASIX 40 MG PO (15:43)
[2024-01-19 15:53] VITALS: BP 140/53
--- NOTE | 2024-01-19 16:58 | PTCARENOTE ---
pt sat in chair for most of the day. upon an hourly round, she was talking on the phone with her friend while at the same time looking through her wallet. As i looked around, i noticed that her diaper was off and her colostomy wafer was 3/4ths off.
Her purse that has a long valadez chain was in her groin area, diaper was off and she was voiding actively her gold chain and the purse was touching her stoma. I asked what was going on. She stated, get out of here, . I asked her why her colostomy
tyler was off and she stated, 'isnt it obvious?' I stated no, i do not understand why. She said i am changing it. She pointed to her bag that was next to her and looked inside and said, 'duh, im changing the colostomy, what do you think i am
doing.' I looked in the bag and there were no colostomy supplies there. I told her there were no supplies there, She got angry and told me to leave the room. . I asked if she could call her friend back so we could focus on getting colostomy back
on, change her and get a brief on. for 25 minutes pt refused to allow me to assist. Daughter by chance came in, we strategized and decided to assess pt for fatigue and pain . Pt admitted that she was very tired and in pain. I promplty got her
pain medications, Pt then allowed me to put on a new appliance, new brief, and pt was assisted back to bed. New colostomy bag applied with family at bedside. PT is now resting very comfortably in bed.
--- NOTE | 2024-01-19 17:26 | PTCARENOTE ---
md made aware about behavior changes. odor of urine. CT SCan of head ordered and UA ordered. Unable to send clean catch because pt is refusing to open legs apart due to newpain and increased swelling. MD ordered lasix and it was given .
[2024-01-19] MEDS: MELATONIN 5 MG PO (21:13)
[2024-01-19] MEDS: DAKIN'S SOLUTION 0.125% 1/4 STRENGTH 473 ML TOPICAL (21:14)
[2024-01-19 23:09] LABS: Urine Albumin Negative (Neg - Trace); Urine Bilirubin Negative (Negative); Urine Character Very Cloudy (Clear); Urine Color Yellow; Urine Glucose Negative (Negative); Urine Ketone Negative (Negative); Urine Leukocyte 2+ (Negative); Urine Nitrite Positive (Negative); Urine Occult Blood Negative (Negative); Urine Urobilinogen Negative (Neg - 1+)
[2024-01-19 23:16] LABS: Urine Red Blood Cell 0-2 /HPF (0-2)
[2024-01-19 23:17] LABS: Urine Bacteria Many (Negative); Urine White Cell 26-30 /HPF (0-5)
[2024-01-19 23:40] VITALS: BP 133/55
[2024-01-20 06:00] VITALS: BMI 30.4
[2024-01-20 06:00] LABS: Hemoglobin 8.8 g/dL (12.0-16.0); Mean Corp Hgb Conc. 32.6 g/dL (33.0-37.0); Mean Corpuscular Hgb 28.8 pg (27.0-31.0); Mean Corpuscular Volume 88.2 fL (81.0-99.0); Mean Platelet Volume 8.4 fL (7.4-10.4); Platelet Count 253 10^3/uL (130-400); Red Blood Cell Count 3.06 10^6/uL (4.20-5.40); Red Cell Dist. Width 13.5 % (11.5-14.5)
[2024-01-20 06:55] LABS: Blood Urea Nitrogen 27 mg/dl (7-17); Calcium 9.1 mg/dl (8.4-10.2); Carbon Dioxide 25 mmol/L (22-30); Chloride 99 mmol/L (98-107); Estimated Creatinine Clearance 49 ml/min; Glucose 163 mg/dl (70-99); Potassium 4.8 mmol/L (3.5-5.1); Sodium 137 mmol/L (135-145); eGFR 58.39
[2024-01-20] MEDS: SYMBICORT 160/4.5 MCG INHALER 1 PUFF INH ×2 (08:09→20:46)
[2024-01-20] MEDS: PROTONIX 40 MG PO (08:16)
[2024-01-20] MEDS: TENORMIN 50 MG PO (08:16)
[2024-01-20] MEDS: COZAAR 25 MG PO (08:16)
[2024-01-20] MEDS: NEURONTIN 200 MG PO (08:16)
[2024-01-20] MEDS: MIRALAX 17 GRAMS PO (08:16)
[2024-01-20] MEDS: PROCARDIA XL (EXTENDED RELEASE) 60 MG PO (08:16)
[2024-01-20] MEDS: LASIX 20 MG PO (08:17)
[2024-01-20] MEDS: HEPARIN 5000 UNITS SC ×3 (08:17→23:08)
[2024-01-20] MEDS: DAKIN'S SOLUTION 0.125% 1/4 STRENGTH 473 ML TOPICAL ×2 (08:20→22:58)
[2024-01-20 08:31] VITALS: BP 154/76
[2024-01-20] MEDS: DILAUDID 4 MG PO ×2 (09:33→17:11)
[2024-01-20] MEDS: NON-FORMULARY ITEM 150 MCG BUCCAL ×2 (11:03→22:54)
[2024-01-20 11:30] VITALS: BP 113/43; PULSE 79; O2SAT 96
[2024-01-20 11:36] VITALS: BP 113/43; PULSE 79; O2SAT 96
--- NOTE | 2024-01-20 12:25 | W.PN.HOSP.TC ---
Today's Communication/Plan
-
increase gabapentin
cr wnl
pain control
wound care
await placement
Assessment / Plan
Assessment / Plan
Physical Exam
General: Comfortable and Conversant
HEENT: Anicteric and Moist mucous membranes
Respiratory: Clear, Non Labored Respirations and Other
Cardiac: S1/S2 and Regular Rhythm
GI: Soft, Non Tender and Ostomy (Left lower quadrant)
Genito-urinary: Clear Urine (PureWick)
Musculoskeletal: No Clubbing, No Cyanosis and Other (Non-pitting edema bilateral lower extremities)
Skin: Warm, Dry and Decubitus Ulcer
Neuro: Awake, Alert, Oriented to self, confused at times, (Lower extremities strength appears intact; Limited exam on the left due to pain)
Psych: Calm
Acute Kidney Injury and Hyperkalemia, suspect volume depletion and Bactrim related
Resolved.
- US : Prior right-sided nephrectomy. There is no left-sided hydronephrosis, suspicious renal lesions or sonographic evidence of renal calculus.
-Cr wnl
-Held celecoxib
- Stopped Bactrim
- s/p IVFs
- s/p Lokelma
# Iron deficiency anemia
Also anemia of chronic disease, normal ferritin
Will c/w oral iron
#Suspected Memory impairment
CT head negative
calm this morning
COPD with Transient Hypoxia
Patient tends to refuse but needs encouragement to take her therapy
-Added DuoNeb QID and PRN
-Continue Symbicort
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
-Per ED notes they reviewed with patient's outpatient wound physician at [place] who was not concerned about active infection
- Surgery evaluated the patient, does not appear to be any indications for urgent surgical debridement, c/w current wound care measures with Dakin's gauze packing
-wound care.
Essential Hypertension
-Continue atenolol and nifedipine with hold parameters
-Resume Losartan ( was on hold due to ESTELLE)
Neurogenic Bladder
-Monitor bladder scan
-Held Gemtesa
Chronic Pain with Opioid Dependence
-Continue buprenorphine and Dilaudid as prior to admission
-Continue gabapentin increase dose as Cr improved
Hx Rectal Cancer s/p APR with Colostomy
Hx Renal Cancer s/p Right Nephrostomy
DVT proph: SC Heparin
Code Status: Full Code
PT/OT-SNF. CM aware. Await placement.
Anticipated Discharge: Today
Subjective/Interval History
-
Date of Service: January 20, 2024
tolerating diet
intermittent wound pain
Objective Data
-
Labs:
Laboratory Results
01/20/24
05:51
WBC 9.0
Hgb 8.8 L
Hct 27.0 L
Plt Count 253
Sodium 137
Potassium 4.8
Chloride 99
Carbon Dioxide 25
BUN 27 H
Creatinine 1.0
Glucose 163 H
Calcium 9.1
Vital Signs:
Vital Signs
Temp Pulse Resp BP Pulse Ox
98.2 F 85 16 154/76 94
01/20/24 08:31 01/20/24 08:31 01/20/24 08:31 01/20/24 08:31 01/20/24 08:31
I&O
01/19/24 01/20/24 01/21/24
06:59 06:59 06:59
Intake Total 1200 / 1200 480 / 480
Output Total 250 / 250 150 / 150
Balance 950 / 950 480 / 480 -150 / -150
Data Reviewed
-
Total Time Spent with Patient (in minutes): 51
[2024-01-20] MEDS: NEURONTIN 600 MG PO ×2 (15:09→22:57)
[2024-01-20 15:19] VITALS: BP 148/72
--- NOTE | 2024-01-20 16:25 | CM ---
PT OT indicated need for SNF [place].
[facility] per [facility] . PT refused [facility].
Called [facility] spoke with Rashida she can not accept pt.
[facility] no beds.
Spoke with [facility] who will call back if bed available or not.
Pt has wound on scarum.
PLAN To SNf after located
[2024-01-20] MEDS: MELATONIN 5 MG PO (22:57)
[2024-01-20 23:38] VITALS: BP 142/62
[2024-01-21 05:28] VITALS: BMI 30.7
[2024-01-21 07:40] VITALS: BP 144/66
[2024-01-21] MEDS: SYMBICORT 160/4.5 MCG INHALER 1 PUFF INH ×2 (07:40→19:38)
[2024-01-21] MEDS: COZAAR 25 MG PO (08:32)
[2024-01-21] MEDS: PROCARDIA XL (EXTENDED RELEASE) 60 MG PO (08:32)
[2024-01-21] MEDS: PROTONIX 40 MG PO (08:32)
[2024-01-21] MEDS: NEURONTIN 600 MG PO ×3 (08:32→23:21)
[2024-01-21] MEDS: LASIX 20 MG PO (08:32)
[2024-01-21] MEDS: TENORMIN 50 MG PO (08:33)
[2024-01-21] MEDS: HEPARIN 5000 UNITS SC ×3 (08:34→23:21)
[2024-01-21] MEDS: MIRALAX 17 GRAMS PO (08:34)
[2024-01-21] MEDS: DAKIN'S SOLUTION 0.125% 1/4 STRENGTH 10 ML TOPICAL (08:35)
--- NOTE | 2024-01-21 11:14 | W.PN.HOSP.TC ---
Today's Communication/Plan
-
await placement
CM aware
Assessment / Plan
Assessment / Plan
Physical Exam
General: Comfortable and Conversant
HEENT: Anicteric and Moist mucous membranes
Respiratory: Clear, Non Labored Respirations and Other
Cardiac: S1/S2 and Regular Rhythm
GI: Soft, Non Tender and Ostomy (Left lower quadrant)
Genito-urinary: Clear Urine (PureWick)
Musculoskeletal: No Clubbing, No Cyanosis and Other (Non-pitting edema bilateral lower extremities)
Skin: Warm, Dry and Decubitus Ulcer
Neuro: Awake, Alert, Oriented to self, confused at times, (Lower extremities strength appears intact; Limited exam on the left due to pain)
Psych: Calm
Acute Kidney Injury and Hyperkalemia, suspect volume depletion and Bactrim related
Resolved.
- US : Prior right-sided nephrectomy. There is no left-sided hydronephrosis, suspicious renal lesions or sonographic evidence of renal calculus.
-Cr wnl
-Held celecoxib
-Stopped Bactrim
-s/p IVFs
-s/p Lokelma
# Iron deficiency anemia
Also anemia of chronic disease, normal ferritin
Will c/w oral iron
#Suspected Memory impairment
CT head negative
COPD with Transient Hypoxia
Patient tends to refuse but needs encouragement to take her therapy
- DuoNeb PRN
-Continue Symbicort
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
-Per ED notes they reviewed with patient's outpatient wound physician at [place] who was not concerned about active infection
- Surgery evaluated the patient, does not appear to be any indications for urgent surgical debridement, c/w current wound care measures with Dakin's gauze packing
-wound care.
Essential Hypertension
-Continue atenolol and nifedipine with hold parameters
-Resume Losartan ( was on hold due to ESTELLE)
Neurogenic Bladder
-Monitor bladder scan
-Held Gemtesa
Chronic Pain with Opioid Dependence
-Continue buprenorphine and Dilaudid as prior to admission
-Continue gabapentin increase dose as Cr improved
Hx Rectal Cancer s/p APR with Colostomy
Hx Renal Cancer s/p Right Nephrostomy
DVT proph: SC Heparin
Code Status: Full Code
PT/OT-SNF. CM aware. Await placement.
Anticipated Discharge: Today
Subjective/Interval History
-
Date of Service: January 21, 2024
tolerating diet
awaiting to talk to CM today
Objective Data
-
Vital Signs:
Vital Signs
Temp Pulse Resp BP Pulse Ox
98.1 F 75 18 144/66 96
01/21/24 07:40 01/21/24 07:40 01/21/24 07:43 01/21/24 07:40 01/21/24 07:43
I&O
01/20/24 01/21/24 01/22/24
06:59 06:59 06:59
Intake Total 480 / 480 720 / 720
Output Total 150 / 150
Balance 480 / 480 570 / 570
[2024-01-21] MEDS: NON-FORMULARY ITEM 150 MCG BUCCAL ×2 (11:34→23:23)
[2024-01-21 15:42] VITALS: BP 109/62
--- NOTE | 2024-01-21 15:51 | CM ---
Discussion w/ hospitalist, pt medically ready for d/c.
Multiple conversations w/ spouse, only accepting facility is [facility] that he and pt is declining at this time.
Pt's spouse prefers [facility], pending determination at this time. Concerns surrounding sacral wound care needs
Pt spouse states he is unable to care for pt at home. Pt does care for ostomy independently at home.
Discussion w/ spouse re [facility] planning for pt's care needs. Spouse without definitive plan at this time.
[facility] will require LTC application for further review.
Pt spouse agreed to additional referrals to [facility] and [facility].
Plan: Follow up w/ [facility] for determination
[2024-01-21] MEDS: DAKIN'S SOLUTION 0.125% 1/4 STRENGTH 473 ML TOPICAL (20:46)
[2024-01-21 23:20] VITALS: BP 146/55
[2024-01-21] MEDS: MELATONIN 5 MG PO (23:20)
[2024-01-22 06:00] VITALS: BMI 29.1
[2024-01-22 07:00] VITALS: BP 141/55
[2024-01-22] MEDS: SYMBICORT 160/4.5 MCG INHALER 1 PUFF INH ×2 (07:35→20:31)
[2024-01-22] MEDS: PROTONIX 40 MG PO (08:50)
[2024-01-22] MEDS: NEURONTIN 600 MG PO (08:50)
[2024-01-22] MEDS: LASIX 20 MG PO (08:50)
[2024-01-22] MEDS: PROCARDIA XL (EXTENDED RELEASE) 60 MG PO (08:50)
[2024-01-22] MEDS: COZAAR 25 MG PO (08:50)
[2024-01-22] MEDS: TENORMIN 50 MG PO (08:50)
[2024-01-22] MEDS: HEPARIN 5000 UNITS SC ×3 (08:51→23:58)
[2024-01-22] MEDS: MIRALAX 17 GRAMS PO (08:51)
[2024-01-22] MEDS: DILAUDID 4 MG PO ×2 (10:33→21:07)
[2024-01-22] MEDS: NON-FORMULARY ITEM 150 MCG BUCCAL ×2 (10:35→21:05)
--- NOTE | 2024-01-22 11:14 | W.PN.HOSP.TC ---
Today's Communication/Plan
-
await placement
Assessment / Plan
Assessment / Plan
Physical Exam
General: Comfortable and Conversant
HEENT: Anicteric and Moist mucous membranes
Respiratory: Clear, Non Labored Respirations and Other
Cardiac: S1/S2 and Regular Rhythm
GI: Soft, Non Tender and Ostomy (Left lower quadrant)
Genito-urinary: Clear Urine (PureWick)
Musculoskeletal: No Clubbing, No Cyanosis and Other (Non-pitting edema bilateral lower extremities)
Skin: Warm, Dry and Decubitus Ulcer
Neuro: Awake, Alert, Oriented to self, confused at times, (Lower extremities strength appears intact; Limited exam on the left due to pain)
Psych: Calm
Acute Kidney Injury and Hyperkalemia, suspect volume depletion and Bactrim related
Resolved.
-US : Prior right-sided nephrectomy. There is no left-sided hydronephrosis, suspicious renal lesions or sonographic evidence of renal calculus.
-Cr wnl
-Held celecoxib
-Stopped Bactrim
-s/p IVFs
-s/p Lokelma. Cr stabilized at 1
# Iron deficiency anemia
Also anemia of chronic disease, normal ferritin
Will c/w oral iron
#Suspected Memory impairment
CT head negative
COPD with Transient Hypoxia
Patient tends to refuse but needs encouragement to take her therapy
- DuoNeb PRN
-Continue Symbicort
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
-Per ED notes they reviewed with patient's outpatient wound physician at [place] who was not concerned about active infection
- Surgery evaluated the patient, does not appear to be any indications for urgent surgical debridement, c/w current wound care measures with Dakin's gauze packing
-wound care.
Essential Hypertension
-Continue atenolol and nifedipine with hold parameters
-Resume Losartan ( was on hold due to ESTELLE)
-can increase nifedipine if needed
Neurogenic Bladder
-Monitor bladder scan
-Held Gemtesa
Chronic Pain with Opioid Dependence
-Continue buprenorphine and Dilaudid as prior to admission
-Continue gabapentin increase dose as Cr improved
Hx Rectal Cancer s/p APR with Colostomy
Hx Renal Cancer s/p Right Nephrostomy
DVT proph: SC Heparin
Code Status: Full Code
PT/OT-SNF. CM aware. Await placement.
Anticipated Discharge: Today
Subjective/Interval History
-
Date of Service: January 22, 2024
states of leg pain and awaiting for pain medication
Objective Data
-
Vital Signs:
Vital Signs
Temp Pulse Resp BP Pulse Ox
98.2 F 68 16 141/55 98
01/22/24 07:00 01/22/24 07:39 01/22/24 07:39 01/22/24 07:00 01/22/24 07:39
I&O
01/21/24 01/22/24 01/23/24
06:59 06:59 06:59
Intake Total 720 / 720 960 / 960
Output Total 150 / 150
Balance 570 / 570 960 / 960
[2024-01-22 14:33] VITALS: BP 126/54; PULSE 75; O2SAT 99
[2024-01-22 15:00] VITALS: BP 117/43
[2024-01-22] MEDS: DAKIN'S SOLUTION 0.125% 1/4 STRENGTH 25 ML TOPICAL (15:10)
[2024-01-22] MEDS: NEURONTIN 300 MG PO ×2 (15:47→21:05)
[2024-01-22] MEDS: MELATONIN 5 MG PO (21:05)
[2024-01-22] MEDS: DAKIN'S SOLUTION 0.125% 1/4 STRENGTH 473 ML TOPICAL (21:08)
[2024-01-22 23:00] VITALS: BP 125/56
[2024-01-23 04:35] VITALS: BMI 29.3
[2024-01-23 08:49] VITALS: BP 123/50
[2024-01-23] MEDS: SYMBICORT 160/4.5 MCG INHALER 1 PUFF INH (08:58)
[2024-01-23] MEDS: TENORMIN 50 MG PO (08:58)
[2024-01-23] MEDS: PROTONIX 40 MG PO (08:58)
[2024-01-23] MEDS: PROCARDIA XL (EXTENDED RELEASE) 60 MG PO (08:59)
[2024-01-23] MEDS: COZAAR 25 MG PO (08:59)
[2024-01-23] MEDS: NEURONTIN 300 MG PO (08:59)
[2024-01-23] MEDS: MIRALAX 17 GRAMS PO (09:00)
[2024-01-23] MEDS: HEPARIN 5000 UNITS SC (09:00)
--- NOTE | 2024-01-23 10:45 | CM ---
met with patient at bedside.spoke with estevan and bed is available at [facility] today.i called and spoke with niki and he is okay with transfer at 2pm.confrmed with attending doctor.
[facility] is asking if patient can supply the belbuca medication at [facility] as well.patient signed imm letter.
phone number for report [phone] and fax number is [phone]. please schedule transport for 2pm.
--- NOTE | 2024-01-23 11:13 | W.PN.HOSP.TC ---
Today's Communication/Plan
-
DC to SNF
Assessment / Plan
Assessment / Plan
Physical Exam
General: Comfortable and Conversant
HEENT: Anicteric and Moist mucous membranes
Respiratory: Clear, Non Labored Respirations and Other
Cardiac: S1/S2 and Regular Rhythm
GI: Soft, Non Tender and Ostomy (Left lower quadrant)
Genito-urinary: Clear Urine (PureWick)
Musculoskeletal: No Clubbing, No Cyanosis and Other (Non-pitting edema bilateral lower extremities)
Skin: Warm, Dry and Decubitus Ulcer
Neuro: Awake, Alert, Oriented to self, confused at times, (Lower extremities strength appears intact; Limited exam on the left due to pain)
Psych: Calm
Acute Kidney Injury and Hyperkalemia, suspect volume depletion and Bactrim related
Resolved.
-US : Prior right-sided nephrectomy. There is no left-sided hydronephrosis, suspicious renal lesions or sonographic evidence of renal calculus.
-Cr wnl
-Held celecoxib
-Stopped Bactrim
-s/p IVFs
-s/p Lokelma. Cr stabilized at 1
# Iron deficiency anemia
Also anemia of chronic disease, normal ferritin
Will c/w oral iron
#Suspected Memory impairment
CT head negative
COPD with Transient Hypoxia
Patient tends to refuse but needs encouragement to take her therapy
- DuoNeb PRN
-Continue Symbicort
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
-Per ED notes they reviewed with patient's outpatient wound physician at [place] who was not concerned about active infection
- Surgery evaluated the patient, does not appear to be any indications for urgent surgical debridement, c/w current wound care measures with Dakin's gauze packing
-wound care.
Essential Hypertension
-Continue atenolol and nifedipine with hold parameters
-Resume Losartan ( was on hold due to ESTELLE)
-can increase nifedipine if needed
Neurogenic Bladder
-Monitor bladder scan
-Held Gemtesa
Chronic Pain with Opioid Dependence
-Continue buprenorphine and Dilaudid as prior to admission
-Continue gabapentin at 300mg TID based on CrcL
Hx Rectal Cancer s/p APR with Colostomy
Hx Renal Cancer s/p Right Nephrostomy
DVT proph: SC Heparin
Code Status: Full Code
PT/OT-SNF today.
More than 30 minutes spent in discharge including
Final examination of the patient
Summarizing hospital stay
Instructions for continuing care to all relevant caregivers
Preparation of discharge records, prescriptions, and referral forms
Total time spent (in minutes): 52
Anticipated Discharge: Today
Subjective/Interval History
-
Date of Service: January 23, 2024
in good spirit
pain controlled
Objective Data
-
Vital Signs:
Vital Signs
Temp Pulse Resp BP Pulse Ox
98.3 F 75 16 123/50 96
01/23/24 08:49 01/23/24 09:01 01/23/24 09:01 01/23/24 08:59 01/23/24 09:01
I&O
01/22/24 01/23/24 01/24/24
06:59 06:59 06:59
Intake Total 960 / 960 600 / 600
Balance 960 / 960 600 / 600
--- NOTE | 2024-01-23 11:14 | W.DCSUMMARY ---
Discharge Summary
Discharge Data
Date of Admission: 01/15/24
Date of Discharge: 01/23/24
-
Pending Results: No
Hospital Course
78-year-old female past medical history of chronic coccyx/gluteal cleft wound with chronic osteomyelitis, hypertension, neurogenic bladder, chronic pain with opioid dependent on daily basis, suspected memory impairment, iron deficiency anemia upon
admission patient was found to have a elevated creatinine and there was concern for infected wound. Patient was eval by surgery who stated the wound does not appear to be infected and there is no urgent indication for surgical debridement. Wound
care measures were continued. Patient was on Bactrim prior to arrival which was discontinued. Lasix and losartan was held. Patient creatinine improved and down trended to baseline. Patient blood pressure medication were continued and losartan
was restarted. Lasix was continued as twice daily as needed which patient takes at home. Patient wound care were dressed by wound team. Will continue home pain medication regimen. Patient was here by physical and Occupational Therapy with
discharge to [facility] facility. Patient was made by physical and Occupational Therapy with discharge to [facility] facility.
Discharge Plan
-
Patient Disposition: Fdc/SNF
Discharge Diagnosis/Procedures: Acute kidney injury
Hyperkalemia
Iron deficiency anemia
COPD with transient hypoxemia
Chronic coccyx and gluteal cleft wound
Condition: Fair
Diet: As tolerated
Activity: With assistance and As tolerated
Driving Restrictions: No driving
Blood Work: BMP in 5-7 days via primary doctor.
Activity Restrictions/Additional Instructions:
Wound Care Instructions
Sacral wound-clean with 1/4 strength Dakin's solution, apply miconazole powder prn periwound yeasty red skin, apply no sting barrier wipe or ointment to surrounding skin, pack wound with 1/4 strength Dakin's moistened Kerlix packing, cover with dry
gauze and ABD pads, secure with Medipore or silicone tape, change bid and prn drainage.
Air mattress
turning schedule
Elevate heels off bed with pillow/s
Pressure redistributing chair cushion (i.e. Roho, air chair cushion)
Follow up with your wound care surgeon.
Referrals:
Berry Knight DO [Family Provider] -
Prescriptions:
New
gabapentin 300 mg Capsule
300 mg PO TID 30 Days Qty: 90 0RF
Continued
budesonide-formoterol [Symbicort] 160-4.5 mcg/actuation Hfa Aerosol Inhaler
1 inh INHALATION BID
Patient Comments:
01/15/24: patient admits to typically using inhaler only once daily in the AM
losartan 50 mg tablet
25 mg PO DAILY
polyethylene glycol 3350 [Miralax] 17 gram Powder In Packet
17 g PO DAILY
cyanocobalamin (vitamin B-12) [Vitamin B-12] 1,000 mcg Tablet
2,500 mcg PO DAILY
acetaminophen 325 mg Tablet
650 mg PO DAILYPRN PRN (Reason: pain )
atenolol 25 mg tablet
50 mg PO DAILY
cholecalciferol (vitamin D3) [Vitamin D3] 50 mcg (2,000 unit) Capsule
50 mcg PO DAILY
nifedipine 60 mg tablet extended release 24hr
60 mg PO DAILY
pantoprazole 40 mg tablet,delayed release (DR/EC)
40 mg PO DAILY
furosemide 20 mg tablet
20 mg PO BIDPRN PRN (Reason: edema)
diphenhydramine-acetaminophen [Acetaminophen PM] 25-500 mg Tablet
1 tab PO HSPRN PRN (Reason: sleep/pain)
cranberry extract [Ellura] 200 mg Capsule
200 mg PO DAILY
PreserVision AREDS 2,148 mcg-113 mg-45 mg-17.4mg Tablet
1 tab PO DAILY
Gemtesa 75 mg Tablet
75 mg PO DAILY
hydroxyzine HCl 10 mg tablet
10 mg PO Q8HPRN PRN (Reason: itching)
clonazepam 0.5 mg Tablet
0.5 mg PO DAILY PRN (Reason: anxiety) Qty: 3 0RF
Rx Instructions:
01/15/24: filled #14 tablets on 11/20/23 [facility]
hydromorphone 4 mg tablet
4 - 8 mg PO Q4HPRN PRN (Reason: pain ) 3 Days Qty: 14 0RF
Rx Instructions:
01/15/24: filled #90 tblets on 01/02/24 [facility]
buprenorphine HCl [Belbuca] 150 mcg Film
150 mcg BUCCAL Q12H 3 Days Qty: 6 0RF
Patient Comments:
01/15/24: last filled 01/02/24 #60 tablets [facility]
Discontinued
gabapentin 800 mg Tablet
800 mg PO Q8H
celecoxib 100 mg capsule
100 mg PO BID
ondansetron HCl 4 mg tablet
4 mg PO Q8H PRN (Reason: nausea/vomiting)
sulfamethoxazole-trimethoprim 800-160 mg tablet
1 tab PO Q12H
Rx Instructions:
01/15/24: first dose in PM on 01/14/24 per pt.
Discharge Orders:
Discharge Patient (As Directed); Ordered 01/23/24
Ordered By: Michael Millard
Discharge Date and Time
Print Language: ARMENIAN
[2024-01-23] MEDS: NON-FORMULARY ITEM 150 MCG BUCCAL (11:35)
[2024-01-23] MEDS: DILAUDID 4 MG PO (14:06)
[2024-01-23] MEDS: DAKIN'S SOLUTION 0.125% 1/4 STRENGTH 100 ML TOPICAL (15:06)
[2024-01-23 15:25] VITALS: BP 115/43
== END 2024-01-23 17:02 | DRG 682 ==
LOC: 3 WEST ACU 13:19
PROVIDERS: Internal Medicine; Nurse Practitioner Gerontology; Physician Assistant Medical; ADMITTING PHYSICIAN Internal Medicine; ATTENDING PHYSICIAN Hospitalist; EMERGENCY PHYSICIAN Student in an Organized Health Care Education/Training Program; FAMILY PHYSICIAN Family Medicine; OTHER PHYSICIAN Surgery
DX: N17.9 Acute kidney failure, unspecified (principal); L89.154 Pressure ulcer of sacral region, stage 4; J44.0 Chronic obstructive pulmonary disease with (acute) lower respiratory infection; Z87.891 Personal history of nicotine dependence; Z11.52 Encounter for screening for COVID-19; E87.5 Hyperkalemia; D50.9 Iron deficiency anemia, unspecified; I10 Essential (primary) hypertension; N31.9 Neuromuscular dysfunction of bladder, unspecified; G89.29 Other chronic pain
CPT/HCPCS: 51701; 70450; 71046; 76770; 80048; 80053; 81003; 81015; 82607; 82728; 82746; 82962; 83540; 83550; 83605; 83735; 85025; 85027; 85610; 85730; 86850; 86900; 86901; 87070; 87086; 87502; 87811; 94640; 97116; 97163; 97166; 97530; 97535; 99285

== ENCOUNTER 2024-02-01 06:35 | Inpatient (IN) | payer MEDICARE, OTHER, SELFPAY ==
[2024-02-01] VITALS (14 sets, daily range): BP systolic 124–176; BP diastolic 47–120; BMI 28.7; BMI 31.0
[2024-02-01 03:12] LABS: % Basophils 0.4 % (0-2); % Eosinophils 0.3 % (0-6); % Immature Granulocytes 0.3 % (0-0.5); % Lymphocytes 18.7 % (20.5-51.1); % Neutrophils 72.3 % (42.2-75.2); Absolute Lymphocytes 1.7 10^3/uL (1.2-3.4); Absolute Monocytes 0.7 10^3/uL (0.1-0.6); Absolute Neutrophils 6.5 10^3/uL (1.4-6.5); Hematocrit 25.5 % (37.0-47.0); Hemoglobin 8.4 g/dL (12.0-16.0); Mean Corp Hgb Conc. 32.9 g/dL (33.0-37.0); Mean Corpuscular Hgb 28.9 pg (27.0-31.0); Mean Corpuscular Volume 87.6 fL (81.0-99.0); Mean Platelet Volume 8.7 fL (7.4-10.4); Nucleated Red Blood Cells % 0 %; Platelet Count 235 10^3/uL (130-400); Red Blood Cell Count 2.91 10^6/uL (4.20-5.40)
--- NOTE | 2024-02-01 03:22 | ED.GENMED ---
History of Present Illness
<KILEY Roy - Last Filed: 02/01/24 06:37>
General
Chief Complaint: Fever
Source: patient
Exam Limitations: clinical condition
Time Seen by Provider: 02/01/24 03:07
Nursing documentation reviewed up to this point in time: agreed with
History of Present Illness
History of Present Illness:
Patient is a 78 yo F w/ PMH of colon cancer, chronic cystitis, kidney cancer, self-catheterization, and sacrococcygeal osteomyelitis who presents w/ report of fever from nursing facility. Pt answered questions w/ nods and eventually stopped
responding. Reports increased pain w/ catheterization recently and dark urine. Reports nausea and fatigue. Denies vomiting and abdominal pain. Denies LIANG and other body pain.
Past History
<KILEY Roy - Last Filed: 02/01/24 06:37>
Past History
ED Past Medical History: Cancer (Colon Cancer. Kidney cancer), COPD, GERD, HTN, Psychiatric (Anxiety, Claustrophobia) and Other (: CVA, coccyx osteomyelitis, anemia, neurogenic bladder, Neuropathy, PNA, Hiatal hernia, UTI, Radiation Cystitis self
caths, Sacrococcygeal osteomyelitis, Lyme disease, Ulcers. MRSA)
ED Past Surgical History: Bowel resection (with Colostomy), Orthopedic (Josep knee replacements Back surgery,), Urological (Right nephrectomy) and Other (Colostomy, skin grafting, Cataracts)
Social History
Tobacco: Former smoker
Alcohol: Occasional
Drug: None
Personal:
Living: with family
Review of Systems
<KILEY Roy - Last Filed: 02/01/24 06:37>
Review of Systems
Constitutional: Reports fever and fatigue
Respiratory: Denies trouble breathing
Cardiac: Denies chest pain
ABD/GI: Reports nausea; Denies abdominal pain or vomiting
: Reports difficulty voiding and dark urine
Musculoskeletal: Reports edema
Phy Exam
<Lina Peralta [facility] - Last Filed: 02/01/24 06:37>
General Physical Exam
General Presentation: well appearing
General age: appears stated age
General Habitus: debilitated and elderly
General Mental: other (dosing off during exam )
Eye Exam
Eye Exam: PERRL
Cardiovascular Exam
Cardiovascular Exam: regular rate/rhythm, no edema, no gallop and no murmur
Pulmonary Exam
Pulmonary Exam: lungs clear, no respiratory distress, no rales, no crackles, no rhonchi and no wheezing
Gastrointestinal Exam
Gastrointestinal Exam: normal bowel sounds, non tender, soft, no organomegaly and non distended
External Findings: colostomy
Neurological Exam
Neurological Exam: other (did not speak)
Musculoskeletal Exam
Musculoskeletal Exam: edema (2+ BL LE pitting edema)
Sepsis
<Lina Peralta [facility] - Last Filed: 02/01/24 06:37>
Sepsis Screening
Sepsis Assessment: Sepsis Ruled Out
Sepsis Screen
Sepsis Screen: Sepsis Ruled Out
Date: 02/01/24
Time: 06:36
Course
<Lina Peralta [facility] - Last Filed: 02/01/24 06:37>
Orders/Labs/Results
Orders:
Orders
02/01/24 02:41
Electrocardiogram (*1) Urgent
Reason for Study: Fatigue / Weakness
02/01/24 02:42
EKG- Treatment ONCE
02/01/24 02:47
COVID-19 Antigen Urgent
Source: Nasal Swab
Complete Blood Count/With Diff Urgent
Comprehensive Metabolic Panel Urgent
Lactic Acid Urgent
Blood Culture Urgent
ASCENCION Source: Blood/Venous
Specimen Description:
Influenza A+B Rapid Molecular Urgent
ASCENCION Source: Nasal Swab
Specimen Description:
02/01/24 02:59
Blood Culture Urgent
ASCENCION Source: Blood/Venous
Specimen Description:
02/01/24 04:10
Straight cath- Treatment ONCE
02/01/24 04:11
0.9% Sodium Chloride 1000 ml [Nss] 1,000 ml IV BOLUS
CR Chest Portable - 1 View Urgent
Comment:
Reason For Exam: fever, lethargy
Reason Study Needs to be Portable: Unable to Transport
02/01/24 04:42
Urinalysis Reflex To Culture Urgent
Date Specimen was Collected: 02/01/24
Time Specimen was Collected: 04:13
Urine Microscopic Reflex Cult Urgent
Urine Culture Urgent
ASCENCION Source: U
Specimen Description:
Date Specimen was Collected: 02/01/24
Time Specimen was Collected: 04:13
02/01/24 05:34
CefTRIAXone [Rocephin] 1,000 mg IV NOW STA
02/01/24 06:09
Admit/Transfer Patient As Directed
Co-Sign Provider:
Level of Care: Inpatient admission
Assign to:: Medical/Surgical
Physician / Group: Errol
Diagnosis: Sacral Wound / Acute TME
Reason for Hospitalization: Sacral Wound / Acute TME
Expected length of stay greater than two midnights?: Yes
ELOS- Estimated Length of Stay in days: 3
I certify the patient meets the requirements for IP care: Yes
PRN Pain Medication Management As Directed
May give lesser potent ordered pain med per pt: Yes
preference::
Protocol:: Medication orders for pain may be administered in a
manner that supports deferring to patient preference
when the pt is:
- Requesting an ordered lesser potent pain medication.
Least to most potent pain medications are defined
as: acetaminophen < NSAID < tramadol < opioids
(morphine, oxycodone, hydromorphone).
- Requesting a lesser dose of the same medication IF
ORDERED.
- Requesting a less intrusive route of administration
if both routes are prescribed by the provider (PO <
IV).
02/01/24 06:13
Code Status As Directed
Resuscitation Status: Full Code
Abnormal Lab Results
02/01/24 02/01/24
02:47 04:42
RBC 2.91 L 10^6/uL
(4.20-5.40)
Hgb 8.4 L g/dL
(12.0-16.0)
Hct 25.5 L %
(37.0-47.0)
MCHC 32.9 L g/dL
(33.0-37.0)
Absolute Monos (auto) 0.7 H 10^3/uL
(0.1-0.6)
Lymphocytes % 18.7 L %
(20.5-51.1)
BUN 22 H mg/dl
(7-17)
Glucose 172 H mg/dl
(70-99)
Alkaline Phosphatase 135 H U/L
(38-126)
Total Protein 6.2 L g/dl
(6.3-8.2)
Albumin 3.0 L g/dl
(3.5-5.0)
Leukocyte Esterase Rfl 2+ A
(Negative)
Urine RBC 3-6 A /HPF
(0-2)
Urine WBC (Reflex) 16-20 A /HPF
(0-5)
Urine Bacteria (Reflex) Many A
(Negative)
02/01/24 02:47
02/01/24 02:47
Vital Signs
Initial and Last Documented VS:
Initial Vital Signs
Pulse Resp Pulse Ox
85 23 93
02/01/24 02:39 02/01/24 02:39 02/01/24 02:39
Last Documented Vital Signs
Temp Pulse Resp BP Pulse Ox
99.6 F 87 17 157/65 94
02/01/24 02:42 02/01/24 06:00 02/01/24 06:00 02/01/24 06:00 02/01/24 05:45
<Judi Milton, DO - Last Filed: 02/01/24 05:43>
Orders/Labs/Results
Orders:
Orders
02/01/24 02:41
Electrocardiogram (*1) Urgent
Reason for Study: Fatigue / Weakness
02/01/24 02:42
EKG- Treatment ONCE
02/01/24 02:47
COVID-19 Antigen Urgent
Source: Nasal Swab
Complete Blood Count/With Diff Urgent
Comprehensive Metabolic Panel Urgent
Lactic Acid Urgent
Blood Culture Urgent
ASCENCION Source: Blood/Venous
Specimen Description:
Influenza A+B Rapid Molecular Urgent
ASCENCION Source: Nasal Swab
Specimen Description:
02/01/24 02:59
Blood Culture Urgent
ASCENCION Source: Blood/Venous
Specimen Description:
02/01/24 04:10
Straight cath- Treatment ONCE
02/01/24 04:11
0.9% Sodium Chloride 1000 ml [Nss] 1,000 ml IV BOLUS
CR Chest Portable - 1 View Urgent
Comment:
Reason For Exam: fever, lethargy
Reason Study Needs to be Portable: Unable to Transport
02/01/24 04:42
Urinalysis Reflex To Culture Urgent
Date Specimen was Collected: 02/01/24
Time Specimen was Collected: 04:13
Urine Microscopic Reflex Cult Urgent
Urine Culture Urgent
ASCENCION Source: U
Specimen Description:
Date Specimen was Collected: 02/01/24
Time Specimen was Collected: 04:13
02/01/24 05:34
CefTRIAXone [Rocephin] 1,000 mg IV NOW STA
02/01/24 06:09
Admit/Transfer Patient As Directed
Co-Sign Provider:
Level of Care: Inpatient admission
Assign to:: Medical/Surgical
Physician / Group: Errol
Diagnosis: Sacral Wound / Acute TME
Reason for Hospitalization: Sacral Wound / Acute TME
Expected length of stay greater than two midnights?: Yes
ELOS- Estimated Length of Stay in days: 3
I certify the patient meets the requirements for IP care: Yes
PRN Pain Medication Management As Directed
May give lesser potent ordered pain med per pt: Yes
preference::
Protocol:: Medication orders for pain may be administered in a
manner that supports deferring to patient preference
when the pt is:
- Requesting an ordered lesser potent pain medication.
Least to most potent pain medications are defined
as: acetaminophen < NSAID < tramadol < opioids
(morphine, oxycodone, hydromorphone).
- Requesting a lesser dose of the same medication IF
ORDERED.
- Requesting a less intrusive route of administration
if both routes are prescribed by the provider (PO <
IV).
02/01/24 06:13
Code Status As Directed
Resuscitation Status: Full Code
Abnormal Lab Results
02/01/24 02/01/24
02:47 04:42
RBC 2.91 L 10^6/uL
(4.20-5.40)
Hgb 8.4 L g/dL
(12.0-16.0)
Hct 25.5 L %
(37.0-47.0)
MCHC 32.9 L g/dL
(33.0-37.0)
Absolute Monos (auto) 0.7 H 10^3/uL
(0.1-0.6)
Lymphocytes % 18.7 L %
(20.5-51.1)
BUN 22 H mg/dl
(7-17)
Glucose 172 H mg/dl
(70-99)
Alkaline Phosphatase 135 H U/L
(38-126)
Total Protein 6.2 L g/dl
(6.3-8.2)
Albumin 3.0 L g/dl
(3.5-5.0)
Leukocyte Esterase Rfl 2+ A
(Negative)
Urine RBC 3-6 A /HPF
(0-2)
Urine WBC (Reflex) 16-20 A /HPF
(0-5)
Urine Bacteria (Reflex) Many A
(Negative)
02/01/24 02:47
02/01/24 02:47
Vital Signs
Initial and Last Documented VS:
Initial Vital Signs
Pulse Resp Pulse Ox
85 23 93
02/01/24 02:39 02/01/24 02:39 02/01/24 02:39
Last Documented Vital Signs
Temp Pulse Resp BP Pulse Ox
99.6 F 87 17 157/65 94
02/01/24 02:42 02/01/24 06:00 02/01/24 06:00 02/01/24 06:00 02/01/24 05:45
<Judi Milton, DO - Last Filed: 02/01/24 05:43>
*Radiology
Radiology exam reviewed: preliminary read by ED provider (Portable chest x-ray unremarkable. Clear lung billings.)
*Pulse Oximetry
Patient hypoxic: no
*EKG
Interpreted by ED Provider?: Yes
Interpretation: normal
Comparison EKG: no changes (Unchanged from previous March 2023)
Rate: normal
Rhythm: sinus
[place]: normal axis
Interval: normal interval
QRS Pattern: normal QRS
Ischemia: no ischemia
*Repairer Typewriter Interpretation
Rate: normal
Interpretation: normal
Rhythm: sinus
*Critical Care Note
Total Time (30-74mins, 75-104mins- exclusive of procedures): Not Applicable
ED Attending Note
<KILEY Roy - Last Filed: 02/01/24 06:37>
-
Portions of this chart may have been created with voice recognition software.� Occasional wrong word or��sound alike� substitutions may have occurred due to the inherent limitations of voice recognition software.
<Judi Milton DO - Last Filed: 02/01/24 05:43>
ED Attending Note
Patient seen and examined by attending physician: Yes
I performed the substantive portion of visit, reviewed & personally made and approve the management plan that is documented in note by myself or ABUNDIO.: Yes
ED Attending Note:
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 She has history of
chronic pain, narcotic dependent. Recent hospitalization January 14 until January 22 for treatment of generalized weakness, acute kidney injury, chronic osteomyelitis, chronic pain. Wound was evaluated and was not found to be infected, no
indication for surgical debridement. She was hydrated, medications were adjusted and she was discharged to [facility] facility where she currently remains.
She is sent to the ED tonight by nursing staff with concern for fever that began tonight initially 99, increased to 101 �F at midnight.
She has wound VAC in place over sacral wound.
Patient arrives moderately lethargic, she does open her eyes and with continued verbal and tactile stimulation will answer simple yes/no questions but then falls back to sleep.
Review of custodial records reveals she has been continued on her usual Belbuca 150 mg twice daily, continued on Dilaudid 4 mg every 4 hours as needed for pain but also oxycodone 10 mg tablet every 4 hours has been added since January 26.
HEENT: Head is normocephalic, atraumatic. Oral mucosa is minimally dry.
Neck is supple, nontender, no meningismus.
Heart is regular rate and rhythm.
Lungs are clear to auscultation. No respiratory distress. Nasal cannula oxygen in place.
Abdomen: Colostomy left lower quadrant with soft stool within the bag. Abdomen is soft without appreciable tenderness. Wound VAC in place and intact over sacral wounds.
Extremities: No clubbing or cyanosis, trace nonpitting edema of lower extremities.
Skin is mildly hot to touch, dry, mildly pale in color.
Neuro: Moderately lethargic, opens her eyes to verbal stimuli and will answer a few simple yes/no questions but then drifts back to sleep.
Acute fever, concern for sepsis, concern for osteomyelitis of sacral wound, UTI, pneumonia.
I suspect lethargy is combination of fever as well as additional narcotic pain medications.
Labs remarkable for normal white blood cell count, moderate but stable anemia, normal creatinine 0.9, normal lactic acid.
COVID and influenza testing are negative.
Blood cultures are pending.
Will straight catheter urine and will check chest x-ray.
Due to lethargy, fever, concern for sacral osteomyelitis with bacteremia/sepsis patient will require acute hospitalization for continued care and further evaluation.
02/01/2024 0542 AM
Chest x-ray is unremarkable.
Urinalysis consistent with UTI.
Patient remains hemodynamically stable.
She remains moderately lethargic, opens her eyes abruptly to verbal stimuli.
Will initiate IV Rocephin and admit to hospitalist service.
Discharge Plan
Departure
Patient Disposition: Admit
Date of Disposition: 02/01/24
Time of Disposition: 05:40
Admit to: Med/Surg
Admit to doctor: Errol
Presentation/result/management discussed w/ accepting MD/DO: Hospitalist
Condition: Serious
Discharge Problem:
fever r/o sepsis, Pressure ulcer of sacral region, stage 4, Urinary tract infection, concern for osteomyelitis sacrum, Toxic metabolic encephalopathy
Prescriptions:
No Action
losartan 50 mg tablet
25 mg PO DAILY
polyethylene glycol 3350 [Miralax] 17 gram Powder In Packet
17 g PO DAILY
cyanocobalamin (vitamin B-12) [Vitamin B-12] 1,000 mcg Tablet
2,500 mcg PO DAILY
acetaminophen 325 mg Tablet
650 mg PO DAILYPRN PRN (Reason: pain )
atenolol 25 mg tablet
50 mg PO DAILY
cholecalciferol (vitamin D3) [Vitamin D3] 50 mcg (2,000 unit) Capsule
50 mcg PO DAILY
nifedipine 60 mg tablet extended release 24hr
60 mg PO DAILY
pantoprazole 40 mg tablet,delayed release (DR/EC)
40 mg PO DAILY
furosemide 20 mg tablet
20 mg PO BIDPRN PRN (Reason: edema)
diphenhydramine-acetaminophen [Acetaminophen PM] 25-500 mg Tablet
1 tab PO HSPRN PRN (Reason: sleep/pain)
cranberry extract [Ellura] 200 mg Capsule
200 mg PO DAILY
hydroxyzine HCl 10 mg tablet
25 mg PO Q6HPRN PRN (Reason: anxiety)
gabapentin 300 mg Capsule
300 mg PO TID 30 Days Qty: 90 0RF
clonazepam 0.5 mg Tablet
0.5 mg PO DAILY PRN (Reason: anxiety) Qty: 3 0RF
Rx Instructions:
01/15/24: filled #14 tablets on 11/20/23 [facility]
buprenorphine HCl [Belbuca] 150 mcg Film
150 mcg BUCCAL Q12H 3 Days Qty: 6 0RF
Patient Comments:
01/15/24: last filled 01/02/24 #60 tablets [facility]
fluticasone propion-salmeterol 250-50 mcg/dose Blister With Device
1 inh INHALATION BID
metolazone 5 mg Tablet
5 mg PO DAILY
Rx Instructions:
01/31/2024-02/06/2024
zinc sulfate 50 mg zinc (220 mg) Tablet
50 mg PO DAILY
ascorbic acid (vitamin C) 500 mg Tablet
500 mg PO DAILY
nifedipine 60 mg Tablet Extended Release 24hr
60 mg PO DAILY
oxycodone 10 mg Tablet
10 mg PO Q4H PRN (Reason: severe pain 7-10)
mirabegron 25 mg Tablet Extended Release 24 Hr
25 mg PO DAILY
hydromorphone 4 mg tablet
4 mg PO Q4HPRN PRN (Reason: pain )
Rx Instructions:
01/15/24: filled #90 tblets on 01/02/24 [facility]
Referrals:
Gerry Shah MD [Family Provider] -
Interventions
Interventions:
*Risk Screen - Suicide Last Done: 02/01/24 02:42
*General Assessment Last Done: 02/01/24 02:42
*Neglect/Abuse Screening Last Done: 02/01/24 02:42
*ED COVID-19 Vaccine History Last Done: 02/01/24 02:42
ED- Neurological Assessment Last Done: 02/01/24 03:03
ED-Skin Assessment Last Done: 02/01/24 03:03
Discharge Date and Time
Print Language: PARAGUAYAN
[2024-02-01 03:33] LABS: Lactic Acid 0.7 mmol/L (0.7-2.0)
[2024-02-01 03:36] LABS: ALT (SGPT) 16 U/L (0-35); AST (SGOT) 22 U/L (14-36); Alkaline Phosphatase 135 U/L (38-126); Blood Urea Nitrogen 22 mg/dl (7-17); Calcium 9.1 mg/dl (8.4-10.2); Carbon Dioxide 26 mmol/L (22-30); Chloride 102 mmol/L (98-107); Estimated Creatinine Clearance 59 ml/min; Glucose 172 mg/dl (70-99); Potassium 5.1 mmol/L (3.5-5.1); Sodium 137 mmol/L (135-145); Total Bilirubin 0.4 mg/dl (0.2-1.3); Total Protein 6.2 g/dl (6.3-8.2); eGFR > 60.00
[2024-02-01 03:43] LABS: COVID-19 Antigen Negative (Negative)
[2024-02-01] MEDS: NSS 1000 IV (04:46)
[2024-02-01 04:52] LABS: Urine Albumin Trace (Neg - Trace); Urine Bilirubin Negative (Negative); Urine Character Slightly Cloudy (Clear); Urine Color Yellow; Urine Glucose Negative (Negative); Urine Ketone Negative (Negative); Urine Leukocyte 2+ (Negative); Urine Nitrite Negative (Negative); Urine Occult Blood Negative (Negative); Urine Specific Gravity 1.015 (<1.030); Urine Urobilinogen Negative (Neg - 1+)
[2024-02-01 05:02] LABS: Urine Squamous Cell 16-20 /LPF (Few)
[2024-02-01 05:03] LABS: Urine Bacteria Many (Negative); Urine White Cell 16-20 /HPF (0-5)
[2024-02-01] MEDS: ROCEPHIN 1000 MG IV (05:44)
--- NOTE | 2024-02-01 06:23 | HPS.HSE ---
Family Physician
-
Family Physician: Gerry Shah
Chief Complaint
-
Fever
History of Present Illness
Patient is a 78y F with PMH significant for chronic sacral osteomyelitis / wound, rectal cancer with chronic colostomy and chronic pain syndrome who presents to ED from SNF for evaluation of fever. Records from [place] report that patient had fever
this evening of 101.5. She was transported to the ED for further evaluation.
In the ED, patient complains only of pain in the sacrum / buttocks area. There is a wound vac in place. Exam is difficult as patient does not tolerate much movement / mobility due to her pain.
Patient also falls asleep quickly / abruptly and fails to answer questions / follow commands at times. But complains of pain any time that she is more alert.
No other complaints including cough, sore throat, N/V/D, urinary complaints, etc.
Medical History
Past Medical History
Past Medical History: Reports Other
Additional Past Medical History:
Chronic Coccyx/Gluteal Cleft Wound
COPD
Essential Hypertension
Neurogenic Bladder
Chronic Pain with Opioid Dependence
Rectal Cancer s/p APR with Colostomy
Renal Cancer s/p Right Nephrostomy
Past Surgical History: Reports Other
Additional Past Surgical History:
Right Nephrectomy - 1981
Colon Resection with Colostomy - 1982
Parastomal Hernia Repair with Mesh
Bilateral Knee Replacement
Back Surgery
Right Hip ORIF
Social History
Tobacco: Non-smoker
Alcohol: Occasional
Drug: None
Family History
Family History: Not pertinent
Allergies / Home Medications
Allergies reflects when Allergies were last updated in [employer].
Home Medications with original date entered in [employer]
Allergy/Medication List:
Allergies
Allergy/AdvReac Type Severity Reaction Status Date / Time
ampicillin Allergy Mild Rash Verified 02/01/24 03:12
levofloxacin Allergy Rash Verified 02/01/24 03:12
morphine Allergy Rash Verified 02/01/24 03:12
prochlorperazine Allergy Rash Verified 02/01/24 03:12
[From Compazine]
doxycycline AdvReac Mild Shortness Verified 02/01/24 03:12
of Breath
vancomycin AdvReac Mild Shortness Verified 02/01/24 03:12
of Breath
Home Medications
cyanocobalamin (vitamin B-12) 1,000 mcg tablet (Vitamin B-12) 2,500 mcg PO DAILY Supplement 03/25/23
losartan 50 mg tablet 25 mg PO DAILY Blood Pressure 03/25/23
polyethylene glycol 3350 17 gram oral powder packet (Miralax) 17 g PO DAILY Constipation 03/25/23
acetaminophen 325 mg tablet 650 mg PO DAILYPRN PRN pain 01/15/24
atenolol 25 mg tablet 50 mg PO DAILY blood pressure 01/15/24
cholecalciferol (vitamin D3) 50 mcg (2,000 unit) capsule (Vitamin D3) 50 mcg PO DAILY supplement 01/15/24
cranberry extract 200 mg capsule (Ellura) 200 mg PO DAILY supplement 01/15/24
diphenhydramine 25 mg-acetaminophen 500 mg tablet (Acetaminophen PM) 1 tab PO HSPRN PRN sleep/pain 01/15/24
furosemide 20 mg tablet 20 mg PO BIDPRN PRN edema 01/15/24
hydroxyzine HCl 10 mg tablet 25 mg PO Q6HPRN PRN anxiety 01/15/24
nifedipine 60 mg tablet,extended release 24 hr 60 mg PO DAILY blood pressure 01/15/24
pantoprazole 40 mg tablet,delayed release 40 mg PO DAILY Gastrointestinal Issue 01/15/24
gabapentin 300 mg capsule 300 mg PO TID 30 days #90 caps 01/22/24
buprenorphine HCl 150 mcg buccal film (Belbuca) 150 mcg buccal Q12H SUBST 3 days #6 ea 01/23/24
clonazepam 0.5 mg tablet 0.5 mg PO DAILY PRN anxiety #3 tabs 01/23/24
ascorbic acid (vitamin C) 500 mg tablet 500 mg PO DAILY 02/01/24
fluticasone 250 mcg-salmeterol 50 mcg/dose blistr powdr for inhalation 1 inh inhalation BID 02/01/24
hydromorphone 4 mg tablet 4 mg PO Q4HPRN PRN pain 02/01/24
metolazone 5 mg tablet 5 mg PO DAILY 02/01/24
mirabegron 25 mg tablet,extended release 24 hr 25 mg PO DAILY 02/01/24
nifedipine 60 mg tablet,extended release 24 hr 60 mg PO DAILY 02/01/24
oxycodone 10 mg tablet 10 mg PO Q4H PRN severe pain 7-10 02/01/24
zinc sulfate 50 mg zinc (220 mg) tablet 50 mg PO DAILY 02/01/24
Review of Systems
-
History Source: Patient and [facility]
A 12 point ROS was completed and negative except as noted: Yes
Constitutional: Reports Fever and Fatigue; Denies Chills
EENT: Denies Sore Throat
Respiratory: Denies Cough or Trouble Breathing
Cardiac: Denies Chest Pain or Palpitations
Abdomen/GI: Denies Abdominal Pain, Nausea, Vomiting or Diarrhea
: Denies Dysuria, Frequency, Flank Pain or Incontinence
Musculoskeletal: Reports Edema and Other (Sacral pain.); Denies Joint Pain
Neurological: Denies Dizzy or Headache
Physical Exam
Vital Signs
Vital Signs
Temp Pulse Resp BP Pulse Ox
99.6 F 87 17 157/65 94
02/01/24 02:42 02/01/24 06:00 02/01/24 06:00 02/01/24 06:00 02/01/24 05:45
Physical Exam
General: Other (78y F in mild distress due to pain. Falls asleep / lethargic at times.)
HEENT: Moist mucous membranes and PERRLA
Respiratory: Other (Decreased at bases - otherwise clear.)
Cardiac: S1/S2 and Regular Rhythm; No Murmur
GI: Soft, Non Tender, Non Distended and Normal Bowel Sounds
Musculoskeletal: No Clubbing, No Cyanosis and Other (2+ pitting edema bilateral LEs.)
Skin: Other (Sacral wound with wound vac in place. Difficult exam as patient does not tolerate bed mobility required to fully expose wound.)
Neuro: Other (Lethargic at times. Answers some questions but not others.)
Laboratory Results
-
02/01/24 02:47
02/01/24 02:47
Laboratory Results
Lactic Acid 0.7 mmol/L (0.7-2.0) 02/01/24 02:47
Total Bilirubin 0.4 mg/dl (0.2-1.3) 02/01/24 02:47
AST 22 U/L (14-36) 02/01/24 02:47
ALT 16 U/L (0-35) 02/01/24 02:47
Alkaline Phosphatase 135 U/L (38-126) H 02/01/24 02:47
Impression/Plan
-
A/P: Patient is a 78y F with PMH significant for chronic sacral osteomyelitis / wound, chronic pain syndrome and opioid dependence who presents to ED from local SNF for evaluation of fever.
Fever
Sacral Wound
Chronic Osteomyelitis
- Admit for further evaluation and treatment.
- Cultures done on 01/10/24 with growth of Pseudomonas, Proteus and E coli.
- Continue IV abx with Fortaz for now based on culture data.
- Wound Care evaluation for vac management / local care.
- Consider Surgery re-eval - though no intervention recommended during recent admission.
- Follow temperature curve, cell counts, wound appearance, etc.
Acute TME
- Unclear etiology. Potentially secondary to fever / sepsis.
- Potentially secondary to med effect / sedation.
- Note new addition of oxycodone since last visit - in addition to Belbuca and Dilaudid.
- Chronically on clonazepam and Tylenol PM also added since last visit.
- Hold new meds (Tylenol PM / oxycodone).
- Pain management as noted below.
- Avoid sedating meds, benzos with opioids, etc.
- Try to minimize med regimen overall.
- Follow for improvement / return to baseline mental status.
Chronic Pain Syndrome
Chronic Opioid Dependence
- Continue Belbuca - consider up-titrating this if pain remains poorly controlled.
- Hold further oxycodone.
- Continue Dilaudid - but at decreased frequency.
- Continue gabapentin.
Edema / CHF
- Patient started on metolazone daily at [place] - but takes Lasix only 'PRN'.
- Weight is increased from recent visit and edema appreciated on exam.
- Hold metolazone for now.
- Change Lasix to 40mg daily as standing dose.
- Follow I/Os, daily weights, etc.
- Check Echo.
- Follow for changes in renal function with diuresis.
Benign Hypertension
- Stable. Continue home med regimen with holding parameters.
COPD without Acute Exacerbation
- Stable. Continue inhaled medications / DuoNebs PRN.
Neurogenic Bladder
Solitary Kidney s/p Nephrectomy (RCC)
- Follow bladder scan and straight cath as needed.
- Place Dial if significant retention.
- Patient chronically requires catheterization.
History of Rectal Cancer
Ostomy Status
- Wound Care / ostomy management.
DVT Prophylaxis: Lovenox
Code Status: Full
[2024-02-01] MEDS: DILAUDID 0.5 MG IV ×2 (09:00→13:16)
[2024-02-01] MEDS: COZAAR 25 MG PO (10:47)
[2024-02-01] MEDS: PROTONIX 40 MG PO (10:48)
[2024-02-01] MEDS: PROCARDIA XL (EXTENDED RELEASE) 60 MG PO (10:48)
[2024-02-01] MEDS: LASIX 40 MG PO (10:48)
[2024-02-01] MEDS: MIRALAX 17 GRAMS PO (10:48)
[2024-02-01] MEDS: NEURONTIN 300 MG PO ×3 (10:48→21:56)
[2024-02-01] MEDS: FORTAZ 2000 MG IV ×2 (10:49→17:36)
[2024-02-01] MEDS: TENORMIN 50 MG PO (10:49)
[2024-02-01] MEDS: STERILE WATER FOR INJECTION 10 ML IV ×2 (10:50→17:36)
[2024-02-01 11:30] LABS: Glycohemoglobin (HgbA1c) 8.1 % (4.0-5.6)
[2024-02-01 12:14] LABS: Erythrocyte Sed Rate > 145 mm/hour (0-20)
--- NOTE | 2024-02-01 13:25 | W.PN.HOSP.TC ---
Today's Communication/Plan
-
Continue IV ceftazidime
Surgical consult
Hold sedating agents as possible
CT head
Assessment / Plan
Assessment / Plan
#Fever
#Chronic sacral osteomyelitis s/p wound VAC
-Cultures on 01/10/2024 showed Pseudomonas, Proteus, E. coli; sensitive to ceftazidime
-Fever of 101.5 �F recorded at her nursing facility prior to admission; white cell count normal
-There does seem to be drainage from wound, foul odor; erythematous skin surrounding site but no objective purulence
-Was recently seen by surgery, did not recommend intervention at that time
-Will continue with IV ceftazidime for now and consult surgery team for consideration of debridement
-Trend CBC and temperature curve, inflammatory markers
#Toxic metabolic encephalopathy
-Unclear etiology though may be related to infection versus polypharmacy
-Presented with fever; suspected infection of chronic sacral wound
-On exam today was only AAO x 1 to 2
-Will monitor clinically, treat with antibiotics as above
-Holding oxycodone and Tylenol PM
-Avoid sedating agents as possible
-Order CT head without contrast
#Chronic CHF (?)
-Reportedly on metolazone as needed and Lasix at the facility
-Upon arrival was edematous and that concern for CHF
-Metolazone was held, Lasix transition to standing PO dose daily
-TTE ordered, results pending but will not likely be available until Saturday
-Does not seem grossly hypervolemic on my assessment
-Will monitor respiratory status and volume status closely
#COPD
-Home medications do not include standing inhaler therapy
-Currently on DuoNebs as needed for wheezing or shortness of breath
#Essential hypertension
-Home medications include nifedipine, atenolol, losartan
-No known history of hypertensive systemic disease
-BP currently elevated likely in the context of pain
-Will order hydralazine as needed
#Neurogenic bladder
-Home medications include mirabegron
#Chronic pain syndrome/chronic opioid dependent
-Home medication includes buprenorphine, gabapentin, PO Dilaudid 4mg
-Will continue with current regimen and escalate as needed
-Order IV Dilaudid 2 mg for severe breakthrough pain
#Rectal cancer s/p APR with colostomy (1982)
#Renal cancer s/p right nephrectomy (1981)
Anticipated Discharge: > 48 hours
Subjective/Interval History
-
Date of Service: February 01, 2024
Seen and examined at the bedside. No acute events since admission. AFVSS as of this morning
She does seem altered, AAO x 2 at best.
Review of systems limited due to her mental status
Objective Data
-
Labs:
Laboratory Results
02/01/24
02:47
WBC 9.0
Hgb 8.4 L
Hct 25.5 L
Plt Count 235
Sodium 137
Potassium 5.1
Chloride 102
Carbon Dioxide 26
BUN 22 H
Creatinine 0.9
Glucose 172 H
Calcium 9.1
Total Bilirubin 0.4
AST 22
ALT 16
Alkaline Phosphatase 135 H
Vital Signs:
Vital Signs
Temp Pulse Resp BP Pulse Ox
98.6 F 80 18 129/52 94
02/01/24 13:17 02/01/24 13:17 02/01/24 13:17 02/01/24 13:17 02/01/24 13:17
Review of Systems
-
Unable to obtain full review of systems at this time due to: Acuity
Physical Exam
-
General: Pain and Obese; Negative Respiratory Distress
HEENT: Normocephalic, Atraumatic and Moist Mucous Membranes
Respiratory: Clear to Auscultation and Non Labored Respirations; Negative Wheezes, Rales or Rhonchi
Cardiac: Regular Rhythm and S1/S2; Negative Murmur, Rub or Gallop
GI: Soft, Nontender, Nondistended and Normal Bowel Sounds
Musculoskeletal: No Clubbing, No Cyanosis and Other (Trace lower extremity edema)
Skin: Warm, Dry and Other (Erythematous borders to sacral/gluteal ulcer, no objective purulence. Malodorous. Wound VAC in place); Negative Rash
Neuro: Awake, Alert, Oriented, Nonfocal/Grossly Intact and Central Nerve's Intact
Psych: Calm
Data Reviewed
-
Labs: Labs Reviewed by me and Discussed with Nurse
[2024-02-01] MEDS: ADVAIR HFA 115/21 MCG INHALER INH (14:07)
[2024-02-01 14:51] LABS: TSH Reflex To Free T4 3.12 uIU/ml (0.47-4.68)
--- NOTE | 2024-02-01 15:48 | CON.GS ---
Addendum entered and electronically signed by Jose Burrell MD 02/01/24 16:09:
I saw and examined the patient.
The Foreign Law Consultant's note was reviewed and I agree with the note.
Comment: C/o burning with urination that she reports is new. UA with bacteria, possibly contaminated sample. Wound vac in place with good seal to sacral wound, fluid in vac tubing clear serous, no odor. Plan for resuscitation today and abx, f/u
UCx. Will change vac dressing tomorrow and evaluate the wound.
Original Note:
Medical History
-
History of Present Illness:
78-year-old female with a h/o rectal and renal cancer with chronic colostomy, chronic pain syndrome, chronic sacral wound with osteomyelitis s/p flap management following at [facility] with wound vac at their wound center who presented to the emergency
department secondary to a reported fever of 101.5 at [facility]. She notes burning with urination and pain to her sacral wound which is stable. She does not offer much history and is uncomfortable with exams.
Past Medical History
Past Medical History: Cancer (rectal and renal), COPD, HTN and Other (Chronic sacral wound, neurogenic bladder, chronic pain on opioids)
Past Surgical History: Bowel Resection (ermanent end colostomy status post colon resection 1982), Orthopedic (knee replacements, back surgery, right hip ORIF), Urological (right nephrectomy 1981) and Other (parastomal hernia repair, sacral wound
flap)
Social History
Tobacco: Non-Smoker
Alcohol: None
Family History
Family History: Reviewed & Not Pertinent
Allergies / Home Medications
Allergy/AdvReac Type Severity Reaction Status Date / Time
ampicillin Allergy Mild Rash Verified 02/01/24 03:12
levofloxacin Allergy Rash Verified 02/01/24 03:12
morphine Allergy Rash Verified 02/01/24 03:12
prochlorperazine Allergy Rash Verified 02/01/24 03:12
[From Compazine]
doxycycline AdvReac Mild Shortness Verified 02/01/24 03:12
of Breath
vancomycin AdvReac Mild Shortness Verified 02/01/24 03:12
of Breath
�Medication �Instructions �Recorded �Confirmed �Type
cyanocobalamin (vitamin B-12) 2,500 mcg PO DAILY Supplement 03/25/23 02/01/24 History
1,000 mcg tablet (Vitamin B-12)
losartan 50 mg tablet 25 mg PO DAILY Blood Pressure 03/25/23 02/01/24 History
polyethylene glycol 3350 17 gram 17 g PO DAILY Constipation 03/25/23 02/01/24 History
oral powder packet (Miralax)
acetaminophen 325 mg tablet 650 mg PO DAILYPRN PRN mild pain 01/15/24 02/01/24 History
atenolol 25 mg tablet 50 mg PO DAILY blood pressure 01/15/24 02/01/24 History
cholecalciferol (vitamin D3) 50 50 mcg PO DAILY supplement 01/15/24 02/01/24 History
mcg (2,000 unit) capsule (Vitamin
D3)
diphenhydramine 25 1 tab PO HSPRN PRN sleep/mild pain 01/15/24 02/01/24 History
mg-acetaminophen 500 mg tablet
(Acetaminophen PM)
furosemide 20 mg tablet 20 mg PO BIDPRN PRN edema 01/15/24 02/01/24 History
hydroxyzine HCl 10 mg tablet 25 mg PO Q6HPRN PRN anxiety 01/15/24 02/01/24 History
nifedipine 60 mg tablet,extended 60 mg PO DAILY blood pressure 01/15/24 02/01/24 History
release 24 hr
pantoprazole 40 mg tablet,delayed 40 mg PO DAILY Gastrointestinal 01/15/24 02/01/24 History
release Issue
gabapentin 300 mg capsule 300 mg PO TID 30 days #90 caps 01/22/24 02/01/24 Rx
clonazepam 0.5 mg tablet 0.5 mg PO DAILY PRN anxiety #3 tabs 01/23/24 02/01/24 Rx
ascorbic acid (vitamin C) 500 mg 500 mg PO DAILY 02/01/24 02/01/24 History
tablet
buprenorphine HCl 150 mcg buccal 150 mcg buccal [id number] PRN severe 02/01/24 02/01/24 History
film (Belbuca) pain
cranberry fruit 450 mg tablet 450 mg PO DAILY 02/01/24 02/01/24 History
(cranberry)
fluticasone 250 mcg-salmeterol 50 1 inh inhalation R BID 02/01/24 02/01/24 History
mcg/dose blistr powdr for
inhalation
hydromorphone 4 mg tablet 4 mg PO Q4HPRN PRN moderate to 02/01/24 02/01/24 History
severe pain
metolazone 5 mg tablet 5 mg PO DAILY 02/01/24 02/01/24 History
mirabegron 25 mg tablet,extended 25 mg PO DAILY 02/01/24 02/01/24 History
release 24 hr
multivitamin with minerals 2 tab PO BID 02/01/24 02/01/24 History
(Multiple Vitamin-Minerals tablet)
oxycodone 10 mg tablet 10 mg PO Q4H PRN severe pain 7-10 02/01/24 02/01/24 History
zinc sulfate 50 mg zinc (220 mg) 50 mg PO DAILY 02/01/24 02/01/24 History
tablet
Review of Systems
-
History Source: Patient
All other systems: Negative unless noted
A 10 point review of systems was completed, and was negative except as per HPI.
Physical Exam
Vital Signs
Temp Pulse Resp BP Pulse Ox
98.6 F 80 18 129/52 94
02/01/24 13:17 02/01/24 13:17 02/01/24 13:17 02/01/24 13:17 02/01/24 15:21
01/31/24 02/01/24 02/02/24
06:59 06:59 06:59
Actual Weight 82.9 kg 81.828 kg
Body Mass Index (BMI) 31.0
Lab Results
02/01/24 02:47
02/01/24 02:47
WBC 9.0 10^3/uL (4.8-10.8) 02/01/24 02:47
Hgb 8.4 g/dL (12.0-16.0) L 02/01/24 02:47
Hct 25.5 % (37.0-47.0) L 02/01/24 02:47
Plt Count 235 10^3/uL (130-400) 02/01/24 02:47
Abs Immat Gran (auto) 0.0 10^3/uL (0-0.05) 02/01/24 02:47
Neutrophils % 72.3 % (42.2-75.2) 02/01/24 02:47
Physical Exam
General: Pain; Negative Comfortable
HEENT: Moist Mucous Membranes
Respiratory: Non Labored Respirations
GI: Soft, Non Tender and Other (ostomy)
Skin: Warm, Dry and Other (Wound vac to sacrum without purulence, discharge in cannister is SSF)
Neuro: Awake
Assessment / Plan
-
Assessment: 78-year-old female with chronic sacral wound status post attempted flap reconstruction (details of procedure uncertain as far as type of flap, time and location other than performed at [facility]), here with fever and
dysuria.
No leukocytosis
AFVSS
There does not appear to be any indications for urgent surgical debridement. Wound vac in place, will obtain supplies and reevaluate wound.
Plan: Recommend wound care consult for vac management
Continue ABX, urine cx pending
Patient can follow-up with her [facility] credit collection specialist for further care
[2024-02-01] MEDS: LOVENOX 40 MG SC (17:36)
[2024-02-01] MEDS: ADVAIR HFA 115/21 MCG INHALER 2 PUFF INH (19:11)
[2024-02-02] MEDS: DILAUDID 2 MG IV ×2 (00:12→15:34)
[2024-02-02] MEDS: STERILE WATER FOR INJECTION 10 ML IV ×3 (02:13→17:30)
[2024-02-02] MEDS: FORTAZ 2000 MG IV ×3 (02:13→17:30)
[2024-02-02 06:00] VITALS: BMI 29.1
[2024-02-02 06:45] LABS: % Basophils 0.5 % (0-2); % Eosinophils 0.2 % (0-6); % Immature Granulocytes 0.5 % (0-0.5); % Lymphocytes 17.2 % (20.5-51.1); % Monocytes 10.7 % (1.7-9.3); % Neutrophils 70.9 % (42.2-75.2); Absolute Lymphocytes 1.4 10^3/uL (1.2-3.4); Absolute Monocytes 0.9 10^3/uL (0.1-0.6); Absolute Neutrophils 5.9 10^3/uL (1.4-6.5); Hematocrit 24.2 % (37.0-47.0); Hemoglobin 7.7 g/dL (12.0-16.0); Mean Corp Hgb Conc. 31.8 g/dL (33.0-37.0); Mean Corpuscular Hgb 28.2 pg (27.0-31.0); Mean Corpuscular Volume 88.6 fL (81.0-99.0); Mean Platelet Volume 8.9 fL (7.4-10.4); Nucleated Red Blood Cells % 0 %; Platelet Count 234 10^3/uL (130-400); Red Blood Cell Count 2.73 10^6/uL (4.20-5.40); Red Cell Dist. Width 14.1 % (11.5-14.5); White Blood Cell Count 8.3 10^3/uL (4.8-10.8)
[2024-02-02 06:57] LABS: Blood Urea Nitrogen 20 mg/dl (7-17); Calcium 8.5 mg/dl (8.4-10.2); Carbon Dioxide 27 mmol/L (22-30); Chloride 101 mmol/L (98-107); Estimated Creatinine Clearance 53 ml/min; Glucose 174 mg/dl (70-99); Potassium 4.2 mmol/L (3.5-5.1); Sodium 139 mmol/L (135-145); eGFR > 60.00
[2024-02-02 07:30] VITALS: BP 143/56
[2024-02-02 07:38] LABS: Erythrocyte Sed Rate > 145 mm/hour (0-20)
[2024-02-02] MEDS: ADVAIR HFA 115/21 MCG INHALER 2 PUFF INH ×2 (08:15→19:49)
[2024-02-02] MEDS: NEURONTIN 300 MG PO ×3 (09:23→20:59)
[2024-02-02] MEDS: LASIX 40 MG PO (09:23)
[2024-02-02] MEDS: COZAAR 25 MG PO (09:23)
[2024-02-02] MEDS: PROCARDIA XL (EXTENDED RELEASE) 60 MG PO (09:23)
[2024-02-02] MEDS: PROTONIX 40 MG PO (09:24)
[2024-02-02] MEDS: TENORMIN 50 MG PO (09:24)
[2024-02-02 09:27] VITALS: BP 137/66; PULSE 78; O2SAT 96
[2024-02-02 09:29] VITALS: BP 137/66; PULSE 78; O2SAT 96
[2024-02-02] MEDS: DILAUDID 4 MG PO (09:29)
[2024-02-02] MEDS: MIRALAX PO (09:32)
--- NOTE | 2024-02-02 11:21 | W.PN.HOSP.TC ---
Today's Communication/Plan
-
Continue with ceftazidime
Follow cultures
Consider MRI
As needed analgesia
Assessment / Plan
Assessment / Plan
#Fever
#Chronic sacral osteomyelitis s/p wound VAC
#Possible UTI though patient denies any symptoms today
-Cultures on 01/10/2024 showed Pseudomonas, Proteus, E. coli; sensitive to ceftazidime
-Fever of 101.5 �F recorded at her nursing facility prior to admission; white cell count normal
-There does seem to be drainage from wound, foul odor; erythematous skin surrounding site but no objective purulence
-Was recently seen by surgery, did not recommend intervention at that time though consulted to reassess
-Will continue with IV ceftazidime for now which will cover sacral wound growth as well as urine
-CT showed findings consistent with chronic osteomyelitis though associated soft tissue inflammation and muscle inflammation of the left buttocks
-Trend CBC and temperature curve, inflammatory markers
-Consider MRI to further assess gluteal soft tissue/musculature
#Toxic metabolic encephalopathy
-Unclear etiology though may be related to infection versus polypharmacy
-Will monitor clinically, treat with antibiotics as above
-Holding oxycodone and Tylenol PM
-Avoid sedating agents as possible
-AAOx3 today, result
#Chronic CHF (?)
-Reportedly on metolazone as needed and Lasix at the facility
-Upon arrival was edematous and that concern for CHF
-Metolazone was held, Lasix transition to standing PO dose daily
-TTE ordered, results pending but will not likely be available until Saturday
-Does not seem grossly hypervolemic on my assessment
-Will monitor respiratory status and volume status closely
#COPD
-Home medications do not include standing inhaler therapy
-Currently on DuoNebs as needed for wheezing or shortness of breath
#Essential hypertension
-Home medications include nifedipine, atenolol, losartan
-No known history of hypertensive systemic disease
-BP currently elevated likely in the context of pain
-Will order hydralazine as needed
#Neurogenic bladder
-Home medications include mirabegron
#Chronic pain syndrome/chronic opioid dependent
-Home medication includes buprenorphine, gabapentin, PO Dilaudid 4mg
-Will continue with current regimen and escalate as needed
-Order IV Dilaudid 2 mg for severe breakthrough pain
#Rectal cancer s/p APR with colostomy (1982)
#Renal cancer s/p right nephrectomy (1981)
Anticipated Discharge: > 48 hours
Subjective/Interval History
-
Date of Service: February 02, 2024
Seen and examined at the bedside. No acute events reported overnight. AFVSS this morning.
She still was in significant pain located at the chronic sacral/gluteal wound. Scheduled to receive pain medications. Wound VAC was malfunctioning, surgery evaluated and fixed it
She denies chest pain, dyspnea, fevers or chills, urinary issues, bleeding or bruising, paresthesias or weakness.
Objective Data
-
Labs:
Laboratory Results
02/02/24
04:39
WBC 8.3
Hgb 7.7 L
Hct 24.2 L
Plt Count 234
Sodium 139
Potassium 4.2
Chloride 101
Carbon Dioxide 27
BUN 20 H
Creatinine 0.9
Glucose 174 H
Calcium 8.5
Vital Signs:
Vital Signs
Temp Pulse Resp BP Pulse Ox
98.3 F 84 16 143/56 93
02/02/24 07:30 02/02/24 08:18 02/02/24 08:18 02/02/24 09:23 02/02/24 08:18
I&O
02/01/24 02/02/24 02/03/24
06:59 06:59 06:59
Intake Total 1140 / 1140
Output Total 650 / 650
Balance 490 / 490
Review of Systems
-
History Source: Patient
All other systems: Reviewed and negative
Physical Exam
-
General: Appears in Distress and Pain
HEENT: Normocephalic, Atraumatic and Moist Mucous Membranes
Respiratory: Clear to Auscultation and Non Labored Respirations; Negative Wheezes, Rales or Rhonchi
Cardiac: Regular Rhythm and S1/S2; Negative Murmur, Rub or Gallop
GI: Soft, Nontender, Nondistended and Normal Bowel Sounds
Musculoskeletal: No Clubbing, No Cyanosis and No Edema
Skin: Warm, Dry and Ulcers (Large chronic sacral/gluteal ulcer with surrounding erythema, wound VAC in place); Negative Rash
Neuro: AO x 3, Nonfocal/Grossly Intact and Central Nerve's Intact
Psych: Calm
Data Reviewed
-
Labs: Labs Reviewed by me and Discussed with Patient
--- NOTE | 2024-02-02 12:42 | CM ---
met with patient at bedside. patient is oriented to self only..patient is adm from [facility]. she has had a vn through [facility] and has been to [facility] in past.
patient lives with architectural project captain to .her pcp is dr emma palacio.
PMH: chronic OM sacral wound sp wound vac,chf,copd,htn ,rectal ca sp sp apr with colostomy, kidney cancer sp right nephrectomy
patient is adm with sacral wound infection/possible uti on iv fortaz,following cxs,consider mri,holding oxycodone and tylenol.Plan:return to snf when stable for dc.
--- NOTE | 2024-02-02 13:07 | W.PN.GS2 ---
Addendum entered and electronically signed by Jose Burrell MD 02/02/24 13:24:
I saw and examined the patient.
The Overlay Plastician's note was reviewed and I agree with the note.
Comment: Vac taken down, there is healthy granulation tissue in the wound bed but also purulence and foul odor. No necrotic tissue noted. Rec saline w2d with dakins. No indication for surgical debridement at this time. Rec local wound care, abx. We
will follow.
Original Note:
Today's Communication / Plan
-
BID dressing changes with Dakin's, send wound cx from sacral wound
Assessment / Plan
-
Assessment: 78-year-old female with chronic sacral wound status post attempted flap reconstruction (details of procedure uncertain as far as type of flap, time and location other than performed at [facility]), here with fevers
No leukocytosis
AFVSS
Improving mentation/pain on abx
VAC removed at bedside with purulence from wound noted, likely the source of her infection
Plan:
D/C wound vac. Local care with 1/4 strength dakin's packing BID. Wound care consulted
No plans for debridement at this time, will follow for improvement
Send wound cx with next dressing change
Continue ABX
Patient will need follow-up with her [facility] senior regulatory affairs specialist upon discharge
Subjective Data
-
Date of Service: February 02, 2024
Patient seen and examined at bedside with Dr. Burrell. Denies n/v. Tolerating diet. More awake and conversive today. Pain improving to sacrum.
Objective Data
-
Intake and Output
02/01/24 02/02/24 02/03/24
06:59 06:59 06:59
Intake Total 1140 / 1140
Output Total 650 / 650
Balance 490 / 490
Intake:
Oral fluids 1140 / 1140
Output:
Urine, Voided 650 / 650
Other:
Number of approximated MODERATE 1
amounts of urine
Number of approximated LARGE 1
amounts of urine
How many times incontinent 2
SATURATED amount urine
Vital Signs
Temp Pulse Resp BP Pulse Ox
98.3 F 84 16 143/56 93
02/02/24 07:30 02/02/24 08:18 02/02/24 08:18 02/02/24 09:23 02/02/24 08:18
Lab Results
02/02/24 04:39
02/02/24 04:39
Calcium 8.5 mg/dl (8.4-10.2) 02/02/24 04:39
Total Bilirubin 0.4 mg/dl (0.2-1.3) 02/01/24 02:47
AST 22 U/L (14-36) 02/01/24 02:47
ALT 16 U/L (0-35) 02/01/24 02:47
Alkaline Phosphatase 135 U/L (38-126) H 02/01/24 02:47
Total Protein 6.2 g/dl (6.3-8.2) L 02/01/24 02:47
Albumin 3.0 g/dl (3.5-5.0) L 02/01/24 02:47
Physical Exam
-
NAD
ABD soft, nt, nd, stoma present
Sacral wound with purulence and slough noted to base of wound with removal of wound vac
[2024-02-02 15:40] VITALS: BP 112/44
[2024-02-02] MEDS: DAKIN'S SOLUTION 0.125% 1/4 STRENGTH 40 ML TOPICAL ×2 (15:49→20:58)
[2024-02-02] MEDS: FLUSH (NSS) 1 FLUSH IV (15:50)
[2024-02-02] MEDS: LOVENOX 40 MG SC (17:30)
[2024-02-02] MEDS: TYLENOL 650 MG PO (23:15)
--- NOTE | 2024-02-02 23:20 | PTCARENOTE ---
Pt complaining of increased pain and discomfort. Staff made this RN aware that pt had a temp of 100.8. Pt had order for tylenol for mild pain/101 fever, this RN administered medication. EMERGENCY DEPARTMENT CLINICIAN made aware. Will continue to monitor.
[2024-02-02 23:25] VITALS: BP 122/49
[2024-02-03] MEDS: STERILE WATER FOR INJECTION 10 ML IV ×3 (01:57→17:40)
[2024-02-03] MEDS: FORTAZ 2000 MG IV ×3 (01:57→17:40)
[2024-02-03] MEDS: DILAUDID 2 MG IV ×2 (02:16→08:55)
[2024-02-03 06:57] LABS: % Basophils 0.5 % (0-2); % Eosinophils 0.8 % (0-6); % Immature Granulocytes 0.3 % (0-0.5); % Monocytes 11.9 % (1.7-9.3); % Neutrophils 63.5 % (42.2-75.2); Absolute Eosinophils 0.1 10^3/uL (0-0.7); Absolute Lymphocytes 1.7 10^3/uL (1.2-3.4); Absolute Monocytes 0.9 10^3/uL (0.1-0.6); Absolute Neutrophils 4.6 10^3/uL (1.4-6.5); Hematocrit 25.9 % (37.0-47.0); Hemoglobin 7.9 g/dL (12.0-16.0); Mean Corp Hgb Conc. 30.5 g/dL (33.0-37.0); Mean Corpuscular Hgb 27.4 pg (27.0-31.0); Mean Corpuscular Volume 89.9 fL (81.0-99.0); Nucleated Red Blood Cells % 0 %; Platelet Count 211 10^3/uL (130-400); Red Blood Cell Count 2.88 10^6/uL (4.20-5.40); Red Cell Dist. Width 14.2 % (11.5-14.5); White Blood Cell Count 7.3 10^3/uL (4.8-10.8)
[2024-02-03 07:22] LABS: Blood Urea Nitrogen 27 mg/dl (7-17); Calcium 8.7 mg/dl (8.4-10.2); Carbon Dioxide 30 mmol/L (22-30); Chloride 99 mmol/L (98-107); Estimated Creatinine Clearance 44 ml/min; Glucose 223 mg/dl (70-99); Potassium 4.4 mmol/L (3.5-5.1); Sodium 139 mmol/L (135-145); eGFR 52.08
[2024-02-03 07:34] VITALS: BMI 28.6
[2024-02-03 07:37] VITALS: BP 120/67
[2024-02-03] MEDS: ADVAIR HFA 115/21 MCG INHALER 2 PUFF INH ×2 (07:47→19:36)
[2024-02-03] MEDS: COZAAR 25 MG PO (09:18)
[2024-02-03] MEDS: PROTONIX 40 MG PO (09:19)
[2024-02-03] MEDS: PROCARDIA XL (EXTENDED RELEASE) 60 MG PO (09:19)
[2024-02-03] MEDS: LASIX 40 MG PO (09:19)
[2024-02-03] MEDS: TENORMIN 50 MG PO (09:19)
[2024-02-03] MEDS: NEURONTIN 300 MG PO ×3 (09:19→21:12)
[2024-02-03] MEDS: MIRALAX PO ×2 (09:20→09:27)
[2024-02-03] MEDS: DAKIN'S SOLUTION 0.125% 1/4 STRENGTH 473 ML TOPICAL ×2 (09:20→21:25)
--- NOTE | 2024-02-03 10:38 | W.PN.GS2 ---
Addendum entered and electronically signed by Santi North MD 02/03/24 17:45:
I saw and examined the patient independently.
The Stair Builder's note was reviewed and I agree with the note, assessment and plan except where noted below.
Comment: 78-year-old female with a chronic sacral wound status post flap reconstruction at outside hospital now with wound dehiscence. Reviewing her scan, it looks like she has chronic osteomyelitis.
Bedside debridement performed, see separate update note.
Continue antibiotics. Frequent offloading as able.
Continue wound care: Quarter strength Dakin's packing twice daily. Appreciate wound care following. No wound VAC at this time.
Would discuss goals of care with the patient.
Patient to follow-up with her surgeon at [facility] on discharge here.
Original Note:
Today's Communication / Plan
-
Local wound care
Follow cx
Assessment / Plan
-
Assessment: 78-year-old female with chronic sacral wound status post attempted flap reconstruction in April at [facility] here with fevers and purulence noted from sacral wound
No leukocytosis
AFVSS
Improving mentation/pain on abx
Continue with wet to dry dakins dressing. Bedside debridement today to left side of wound, tolerated well.
Plan:
Local care with 1/4 strength dakin's packing BID. Wound care following
No plans for OR debridement at this time
Wound cx pending
Continue ABX
Patient will need follow-up with her [facility] pacs specialist upon discharge
Subjective Data
-
Date of Service: February 03, 2024
Patient seen and examined at bedside with Dr. North and wound care nurse. Pain improving. Denies n/v. Tolerating diet.
Objective Data
-
Intake and Output
02/02/24 02/03/24 02/04/24
06:59 06:59 06:59
Intake Total 1140 / 1140 600 / 600
Output Total 650 / 650
Balance 490 / 490 600 / 600
Intake:
Oral fluids 1140 / 1140 600 / 600
Output:
Urine, Voided 650 / 650
Other:
Number of approximated MODERATE 1 2
amounts of urine
Number of approximated LARGE 1
amounts of urine
How many times incontinent 2 2
SATURATED amount urine
Vital Signs
Temp Pulse Resp BP Pulse Ox
98.3 F 72 16 120/67 92
02/03/24 07:37 02/03/24 09:18 02/03/24 07:51 02/03/24 09:18 02/03/24 07:51
Lab Results
02/03/24 06:05
02/03/24 06:05
Calcium 8.7 mg/dl (8.4-10.2) 02/03/24 06:05
Total Bilirubin 0.4 mg/dl (0.2-1.3) 02/01/24 02:47
AST 22 U/L (14-36) 02/01/24 02:47
ALT 16 U/L (0-35) 02/01/24 02:47
Alkaline Phosphatase 135 U/L (38-126) H 02/01/24 02:47
Total Protein 6.2 g/dl (6.3-8.2) L 02/01/24 02:47
Albumin 3.0 g/dl (3.5-5.0) L 02/01/24 02:47
Physical Exam
-
NAD
ABD soft, nt, nd, stoma present
Incontinent of urine several times during exam
Sacral wound with purulence and slough noted to base of left side of wound, with granulation tissue to the majority of the wound, dressing changed
--- NOTE | 2024-02-03 10:49 | WOUNDNOTE ---
[facility] RN note: Patient admitted with acute TME, fever.
See H&P for complete history.
PMH: recent admission for ESTELLE, COPD, HTN, chronic sacral wound with chronic osteomyelitis, s/p sacral muscle flap 2-3 months ago which failed, patient has followed at [facility] plastic surgeon Dr. Nir Koch, colon cancer with radiation, s/p
colostomy many years ago, renal cancer s/p R nephrectomy, urinary incontinence, chronic pain dependent on opioid pain med, parastomal hernia repair with mesh, bilateral knee replacement, R hip ORIF. Colostomy appliance intact. Soft stool in pouch.
Patient uses Coloplast 2 piece appliance. Nursing can assist patient with routine pouch changes/care.
Wound Location and type/assessment: Patient admitted with: stage 4 sacral pressure injury to bone, pink with scattered yellow fibrin and black necrotic tissue, + odor, local erythema.
Patient appears to have developed a stage 2 R heel yellow intact blister with minimal local erythema. Nursing reported patient has been refusing heel elevation.
Appetite: good.
Pressure redistribution devices in place: [employer] Accumax. Patient can turn slowly in bed. She had refused an air mattress.
Plan: Sacral dressing changed and bedside debrided by Dr. North. Patient allowed a waffle air overlay application after discussion with patient. Dr. North stated for nursing to continue Dakin's Kerlix packing bid. Waffle air overlay applied and
patient turned with help from RN Danni Mckee. Heels off bed with pillow. t/c SPD and ordered TruVue lite boots. Patient at risk for non healing wound d/t history of radiation and chronic osteomyelitis.
Updated Dr. Fernandes re: R heel yellow blister who approved local care, air overlay or air mattress, soft heel relief boots as tolerated and discussed with MARIA ESTHER Haro.
Care plan to be updated and will follow as needed.
Note to case management of equipment requested for discharge: air mattress recommended.
Patient to follow up with her wound care surgeon or surgeon.
[2024-02-03 12:48] LABS: Iron 40 ug/dl (37-170)
[2024-02-03 12:58] LABS: Percent Saturation 23 % (20-50); Total Iron Binding Capacity 171 ug/dl (265-497)
--- NOTE | 2024-02-03 13:46 | W.PN.HOSP.TC ---
Today's Communication/Plan
-
IV AB
Wound Care
Assessment / Plan
Assessment / Plan
78-year-old female with chronic sacral wounds with attempted flap reconstruction in April at [facility] admitted with fever and purulence from sacral wound.
CT pelvis 02/01/24- A 9 cm decubitus ulcer over left main sacrum posteriorly. Extensive sclerosis throughout the sacrum and medial aspect of the ilium bilaterally similar to 03/25/2023 may be seen on chronic osteomyelitis. Associated secondary
soft tissue in the presacral area as well as in the musculature of the left buttock.
Compressive compression screw and intramedullary ronan traversing an impacted intertrochanteric fracture of the right femur with incomplete osseous union. Threads of the screw extending into the cortical margin of the femoral head.
Lumbar DJD with postop changes.
13 cm midline anterior pelvic wall hernia
CVS: S1-S2 normal
Chest: CTA B/L
Abdomen: Soft, NT , colostomy bowel sounds present
Extremities: No edema
Healed blister on the right
Stage IV sacral decubitus
# Infected stage 4 sacral wounds
Continue local care with 1 x 4 strength Dakin's solution
No plans for debridement in the OR per surgery
Wound cultures pending
Continue antibiotics-on ceftazidime
CT with chronic osteomyelitis
No Wound Vac now
# Stage II right heel blister-patient has been refusing heel elevation. Wound care with air overlay or air mattress, soft heel relief boots
# TME-likely secondary to above
# Chronic heart failure-type unknown
Check echo
Currently on Lasix. Metolazone held
# Right femur-I have reached out to orthopedics to see if any intervention need to be done
# Anemia-check iron studies
# COPD continue as needed nebs, fluticasone/salmeterol
# Hypertension-continue nifedipine, atenolol, losartan
# Neurogenic bladder
# Chronic pain with opioid dependence
Was on buprenorphine, gabapentin, Dilaudid
Currently on IV Dilaudid
# Chronic radiation cystitis
# GERD/hiatal hernia-PPI
# Anxiety-on as needed clonazepam, hydroxyzine
# Severe discogenic DJD L5-S1
# Fusiform infrarenal AAA 3.1 cm/Atherosclerosis
# Pulmonary nodule 1 cm right mid lung
# History of rectal cancer status post APR with colostomy 1982
# History of right nephrectomy for renal cancer 1981
# Ambulatory Dysfunction-
# Ex-smoker
# DVT prophylaxis-Lovenox
# Full code
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
D/W and updated re heel and change of position. He wants to report back to jail as he has cancer and he will not be able to take care of her at home.
time spent over 50 min
Anticipated Discharge: > 48 hours
Subjective/Interval History
-
Date of Service: February 03, 2024
Objective Data
-
Labs:
Laboratory Results
02/03/24
06:05
WBC 7.3
Hgb 7.9 L
Hct 25.9 L
Plt Count 211
Sodium 139
Potassium 4.4
Chloride 99
Carbon Dioxide 30
BUN 27 H
Creatinine 1.1 H
Glucose 223 H
Calcium 8.7
Vital Signs:
Vital Signs
Temp Pulse Resp BP Pulse Ox
98.3 F 72 16 120/67 92
02/03/24 07:37 02/03/24 09:18 02/03/24 07:51 02/03/24 09:18 02/03/24 07:51
I&O
02/02/24 02/03/24 02/04/24
06:59 06:59 06:59
Intake Total 1140 / 1140 600 / 600
Output Total 650 / 650
Balance 490 / 490 600 / 600
--- NOTE | 2024-02-03 13:51 | CON.ID ---
Consultation
-
Date/Time Consultation Requested: 02/03/2024 1337
Date/Time Consultation Performed: 02/03/2024 1355
Requesting Provider: Dr. Eliezer Martines
Performing Provider: Dr. Shirley Marie
Reason for Consultation: Sacral wound, fever
Chief Complaint / Past History
Chief Complaint
Fever
History of Present Illness
78 year old female presented from [facility] ER with fever. She has complicated medical history diagnosed with rectal cancer in 1992 status post abdominoperineal resection, colostomy, and adjuvant chemoradiation. In 2011, she developed
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 Subsequently fistula tract developed between the abscess cavity and posterior vagina. October 2022, she developed deep coccyx wound. She was treated for osteo
late 2022. Wound did not improve. She was referred to wound care center and ultimately to plastics. On September 2023, she underwent attempt at reconstruction by Dr. Chavez lopez at [facility]. OR culture grew Klebsiella and Enterococcus status post 6 weeks
of IV Zosyn. Unfortunately, the flap failed with necrosis requiring I&D and wound VAC application on November 18, 2023. She received IV Zosyn for approximately 1 to 2 weeks weeks then transition to Augmentin. December 30, she underwent OR sacral
wound debridement at [facility], soft tissue patch showed fat necrosis, bone culture grew Pseudomonas, E. coli, VRE, corynebacterium striated him. Plastics felt no infection and therefore no treatment recommended. She was hospitalized a dose
on January 14 January 22 with ESTELLE while on Bactrim. Wound was examined by surgery and deemed no acute infection. Patient was discharged to [facility] ch[facility] facility. She was sent back to the ER on January 31 due to fever and
decreased mental status. Wound nurse evaluated patient today with removal of the wound VAC change. Large sacral wound stage IV to bone was foul-smelling, some necrosis. Surgery debrided the left-sided wound at bedside. No fevers during hospital
stay. She is currently on ceftazidime.
Past History
Additional Past Medical History:
Rectal ca 1992 s/ APR, colostomy at [facility] with adjuvant chemo XRT.
Renal ca, right s/p nephrectomy (1992).
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
Sacral wound reconstruction by Dr. Mcmillan at [facility] 10/08/23 (OR cx Klebsiella and Enterococcus) s/p 6 weeks IV Zosyn through 11/19/23
Sacral flap necrosis s/p I+D, wound vac application at [facility] 11/18/23 s/p IV Zosyn short course.
Sacral OR wound debridement 12/31/23, Tissue path fat necrosis, acute inflammation. Bone cx: Pseudomonas (panS), E. coli (panS), VRE (amp-resistant), Corynebacterium striatum (?untreated0
Hypertension.
COPD
Lung nodules.
Thrombocytopenia.
neurogenic bladder, receiving Botox, intermittent self-cath.
recurrent UTI
R hip fracture ORIF 03/2023
parastomal hernia repair with mesh
back surgery 07/2020
bilateral knee replacements
Allergy History:
ampicillin Allergy (Mild, Verified 02/01/24 03:12)
Rash
levofloxacin Allergy (Verified 02/01/24 03:12)
Rash
morphine Allergy (Verified 02/01/24 03:12)
Rash
prochlorperazine [From Compazine] Allergy (Verified 02/01/24 03:12)
Rash
doxycycline Adverse Reaction (Mild, Verified 02/01/24 03:12)
Shortness of Breath
vancomycin Adverse Reaction (Mild, Verified 02/01/24 03:12)
Shortness of Breath
Medications Reviewed: Yes
Current Antibiotics:
ceftazidime 2g IV q8h (d3)
Social History
Tobacco: Non-Smoker
Alcohol: None
Drug: None
Personal:
Living: [facility]
Family History
Family History: Not Pertinent
Review of Systems
Review of Systems
General: Fever; Negative Change in Appetite
HEENT: Negative Headache or Pharyngitis
Cardiovascular: Edema; Negative Chest Pain
Respiratory: Negative Dyspnea or Cough
Gasteroenterology: Negative Nausea, Vomiting or Diarrhea
Genital / Urological: Negative Dysuria or Flank Pain
Endocrine: Weakness
Neurological: Negative Headache or Dizziness
Vital Signs
Temp Pulse Resp BP Pulse Ox
98.3 F 72 16 120/67 92
02/03/24 07:37 02/03/24 09:18 02/03/24 07:51 02/03/24 09:18 02/03/24 07:51
Selected Entries
02/02/24
23:25
Temp 100.8 F H
Physical Exam
Physical Exam
Constitutional: Comfortable
Eyes: No Conjunctival Hemorrhage and Sclera Anicteric
Pulmonary: Clear
Gastrointestinal: Soft, Non Tender and Non Distended
Genito-Urinary: Negative CVA Tenderness
Extremities: Edema
Wound: Other (Sacrum with wound vac. I reviewed today's wound photos. Sacrum with very large wound, light green-tinged fibrinous exudate, some necrosis top left edge. + odor. )
Neurological: AO x 3
Lab / Diagnostic Study Results
02/03/24 06:05
02/03/24 06:05
Abs Immat Gran (auto) 0.0 10^3/uL (0-0.05) 02/03/24 06:05
Absolute Neuts (auto) 4.6 10^3/uL (1.4-6.5) 02/03/24 06:05
Absolute Lymphs (auto) 1.7 10^3/uL (1.2-3.4) 02/03/24 06:05
Absolute Monos (auto) 0.9 10^3/uL (0.1-0.6) H 02/03/24 06:05
Absolute Basos (auto) 0.0 10^3/uL (0-0.2) 02/03/24 06:05
Immature Gran % 0.3 % (0-0.5) 02/03/24 06:05
Neutrophils % 63.5 % (42.2-75.2) 02/03/24 06:05
Lymphocytes % 23.0 % (20.5-51.1) 02/03/24 06:05
Monocytes % 11.9 % (1.7-9.3) H 02/03/24 06:05
Eosinophils % 0.8 % (0-6) 02/03/24 06:05
Basophils % 0.5 % (0-2) 02/03/24 06:05
ESR > 145 mm/hour (0-20) H 02/02/24 04:39
Lactic Acid 0.7 mmol/L (0.7-2.0) 02/01/24 02:47
C-Reactive Protein 205.70 mg/L (0.0-10.00) H 02/02/24 04:39
Ur Squamous Epith Cells 16-20 /LPF (Few) 02/01/24 04:42
Microbiology Results
Micro:
02/02/24 Unknown Wound Culture - Pending
Sacral Gram Stain - Preliminary
02/01/24 02:59 Blood Culture - Preliminary
Blood/Venous No Growth in 48 hours- Final report to follow
02/01/24 02:47 Blood Culture - Preliminary
Blood/Venous No Growth in 48 hours- Final report to follow
02/01/24 04:42 Urine Culture - Final
Urine
02/01/24 02:47 Influenza Types A & B (ALTHEA) - Final
Nasal Swab Negative for Influenza A & B, NAAT
Negative results must be combined with clinical observations
and patient history.
Nucleic Acid Amplification test (NAAT)performed on the
[employer] platform.
02/01/[address]: There is 9 cm decubitus ulcer overlying the sacrum posteriorly. There is extensive sclerosis throughout the sacrum and medial aspect of the samantha bilaterally similar to that seen on the 03/25/2023 plain film examination such as
may be seen with chronic osteomyelitis.
There is associated inflammatory soft tissue in the presacral space as well as in the musculature of the left buttock
Assessment / Plan
# Acute on chronic sacral osteo , wound infection
- hx failed flap reconstruction, has wound vac since 11/18/2023, follows with Dr. Mcmillan at [place]
- s/p bedside debridement 02/03/24
-Continue ceftazidime IV for now.
-When close to discharge, may be able to transition to po cipro
- Treat with short course of abx.
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
Rectal ca 1992 s/ APR, colostomy at [facility] with adjuvant chemo XRT.
Renal ca, right s/p nephrectomy (1992).
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
Sacral wound reconstruction by Dr. Mcmillan at [facility] 10/08/23 (OR cx Klebsiella and Enterococcus) s/p 6 weeks IV Zosyn through 11/19/23
Sacral flap necrosis s/p I+D, wound vac application at [facility] 11/18/23 s/p IV Zosyn short course.
Sacral OR wound debridement 12/31/23, Tissue path fat necrosis, acute inflammation. Bone cx: Pseudomonas (panS), E. coli (panS), VRE (amp-resistant), Corynebacterium striatum (?untreated0
Hypertension.
COPD
Lung nodules.
Thrombocytopenia.
neurogenic bladder, receiving Botox, intermittent self-cath.
recurrent UTI
R hip fracture ORIF 03/2023
parastomal hernia repair with mesh
back surgery 07/2020
bilateral knee replacements
[2024-02-03 14:32] LABS: Vitamin B12 905 pg/ml (239-931)
[2024-02-03 15:07] VITALS: BP 120/45
--- NOTE | 2024-02-03 16:10 | WOUNDNOTE ---
t/c Spoke with patient's who confirmed patient has an air mattress at SNF/rehab. t/c VM left at Dr. Mcmillan's office [phone] asking for a call back if interested in wound update, return cell phone number left on VM.
[2024-02-03] MEDS: DILAUDID 4 MG PO (17:39)
[2024-02-03] MEDS: LOVENOX 40 MG SC (17:40)
--- NOTE | 2024-02-03 17:40 | W.PN.UPDATE ---
Addendum entered and electronically signed by Santi North MD 02/05/24 08:39:
Procedure should read: 'bedside excisional debridement of devitalized skin and subcutaneous tissue'. As written in the body of the text, this was done using scissors.
Original Note:
Update Note
Progress Note Update
Bedside debridement
A team time-out was performed confirming the location/laterality of the procedure, consent and allergies reviewed.
Location: Sacral wound
Dimensions: 15 x 5 x 2 cm deep
Local: None
[employer] Dean: Rain
The skin was cleaned with alcohol the previous packing was removed. The sacral decubitus ulcer overall looked fairly healthy however there was a portion of the wound between 11 and 12:00 of frankly necrotic skin which was sharply debrided using
scissors, until a healthy underlying tissue was encountered. The wound was gently irrigated and hemostasis was achieved. There was minimal blood loss. The wound was packed with Dakin's soaked gauze and covered with ABD pads. No specimens were sent
to Pathology/Culture. The patient tolerated the procedure well.
[2024-02-03] MEDS: NON-FORMULARY ITEM 1 MCG BUCCAL (21:12)
[2024-02-03 23:35] VITALS: BP 128/53
[2024-02-04] MEDS: STERILE WATER FOR INJECTION 10 ML IV ×3 (01:40→17:35)
[2024-02-04] MEDS: FORTAZ 2000 MG IV ×3 (02:14→17:29)
[2024-02-04 06:00] VITALS: BMI 28.9
[2024-02-04] MEDS: ADVAIR HFA 115/21 MCG INHALER 2 PUFF INH ×2 (07:30→19:21)
[2024-02-04 07:32] VITALS: BP 146/61
[2024-02-04 08:11] LABS: Hematocrit 24.9 % (37.0-47.0); Hemoglobin 8.1 g/dL (12.0-16.0); Mean Corp Hgb Conc. 32.5 g/dL (33.0-37.0); Mean Corpuscular Hgb 29.1 pg (27.0-31.0); Mean Corpuscular Volume 89.6 fL (81.0-99.0); Mean Platelet Volume 8.9 fL (7.4-10.4); Platelet Count 189 10^3/uL (130-400); Red Blood Cell Count 2.78 10^6/uL (4.20-5.40); Red Cell Dist. Width 13.8 % (11.5-14.5); White Blood Cell Count 6.4 10^3/uL (4.8-10.8)
[2024-02-04] MEDS: PROCARDIA XL (EXTENDED RELEASE) 60 MG PO (08:11)
[2024-02-04] MEDS: LASIX 40 MG PO (08:12)
[2024-02-04] MEDS: TENORMIN 50 MG PO (08:12)
[2024-02-04] MEDS: COZAAR 25 MG PO (08:13)
[2024-02-04] MEDS: MIRALAX 17 GRAMS PO (08:13)
[2024-02-04] MEDS: PROTONIX 40 MG PO (08:13)
[2024-02-04] MEDS: NEURONTIN 300 MG PO ×3 (08:13→21:30)
[2024-02-04] MEDS: NON-FORMULARY ITEM 150 MCG BUCCAL ×2 (08:14→21:30)
[2024-02-04] MEDS: DAKIN'S SOLUTION 0.125% 1/4 STRENGTH 473 ML TOPICAL ×2 (08:15→21:31)
[2024-02-04 08:44] LABS: Blood Urea Nitrogen 22 mg/dl (7-17); Calcium 8.7 mg/dl (8.4-10.2); Carbon Dioxide 28 mmol/L (22-30); Chloride 100 mmol/L (98-107); Estimated Creatinine Clearance 53 ml/min; Glucose 226 mg/dl (70-99); Potassium 4.1 mmol/L (3.5-5.1); Sodium 138 mmol/L (135-145); eGFR > 60.00
--- NOTE | 2024-02-04 09:46 | W.PN.SURGUPD ---
Surgical Update
Surgical Update
Patient reports continued sacral discomfort. No increased drainage. No fevers. Unlikely role for further General Surgery intervention. Will attempt to coordinate with wound care evaluation of the wound and changing of the dressing. Otherwise
continue local wound care, antibiotics, and outpatient follow-up with wound care center down at [place]. Please call with any questions or concerns
[2024-02-04] MEDS: DILAUDID 2 MG IV (09:47)
[2024-02-04] MEDS: GLUCOPHAGE 500 MG PO ×2 (13:10→17:34)
--- NOTE | 2024-02-04 13:15 | W.PN.ID1 ---
Date of Service
Date of Service: February 04, 2024
Today's Communication
Continue ceftazidime.
Assessment / Plan
# Acute on chronic sacral osteo , wound infection
- hx failed flap reconstruction, has wound vac since 11/18/2023, follows with Dr. Mcmillan at [place]
- s/p bedside debridement 02/03/24
- 02/01 wound swab GNR x 3 morphologies
- Currently on ceftazidime IV (d4)for now.
-When close to discharge, may be able to transition to po cipro
- Treat with short course of abx.
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
Rectal ca 1992 s/ JUL, colostomy at [facility] with adjuvant chemo XRT.
Renal ca, right s/p nephrectomy (1992).
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
Sacral wound reconstruction by Dr. Mcmillan at [facility] 10/08/23 (OR cx Klebsiella and Enterococcus) s/p 6 weeks IV Zosyn through 11/19/23
Sacral flap necrosis s/p I+D, wound vac application at [facility] 11/18/23 s/p IV Zosyn short course.
Sacral OR wound debridement 12/31/23, Tissue path fat necrosis, acute inflammation. Bone cx: Pseudomonas (panS), E. coli (panS), VRE (amp-resistant), Corynebacterium striatum (?untreated0
Hypertension.
COPD
Lung nodules.
Thrombocytopenia.
neurogenic bladder, receiving Botox, intermittent self-cath.
recurrent UTI
R hip fracture ORIF 03/2023
parastomal hernia repair with mesh
back surgery 07/2020
bilateral knee replacements
Chief Complaint
-: Other (sacral osteo)
Subjective / Review of Systems
Wound pain controlled with pain med.
Vital Signs / Physical Exam
Vital Signs
Vital Signs
Temp Pulse Resp BP Pulse Ox
98.1 F 80 14 146/61 94
02/04/24 07:32 02/04/24 07:32 02/04/24 07:32 02/04/24 07:32 02/04/24 07:32
Physical Exam
Constitutional: No Acute Distress
Cardiovascular: Regular Rate and S1/S2
Gastrointestinal: Soft, Non Tender, Non Distended and Normal Bowel Sounds
Neurological: AO x 3
Objective Data
Lab Data
Lab Results
02/04/24 07:51
02/04/24 07:51
ESR > 145 mm/hour (0-20) H 02/02/24 04:39
Estimated Creat Clear 53 ml/min 02/04/24 07:51
Lactic Acid 0.7 mmol/L (0.7-2.0) 02/01/24 02:47
Total Bilirubin 0.4 mg/dl (0.2-1.3) 02/01/24 02:47
AST 22 U/L (14-36) 02/01/24 02:47
ALT 16 U/L (0-35) 02/01/24 02:47
Alkaline Phosphatase 135 U/L (38-126) H 02/01/24 02:47
C-Reactive Protein 205.70 mg/L (0.0-10.00) H 02/02/24 04:39
Most recent labs reviewed.
Micro Results:
02/02/24 Unknown Wound Culture - Preliminary
Sacral Gram negative bacilli
Gram Stain - Preliminary
02/01/24 02:47 Blood Culture - Preliminary
Blood/Venous No Growth in 72 hours- Final report to follow
02/01/24 02:59 Blood Culture - Preliminary
Blood/Venous No Growth in 72 hours- Final report to follow
02/01/24 04:42 Urine Culture - Final
Urine
02/01/24 02:47 Influenza Types A & B (ALTHEA) - Final
Nasal Swab Negative for Influenza A & B, NAAT
Negative results must be combined with clinical observations
and patient history.
Nucleic Acid Amplification test (NAAT)performed on the
[employer] platform.
02/01/[address]: There is 9 cm decubitus ulcer overlying the sacrum posteriorly. There is extensive sclerosis throughout the sacrum and medial aspect of the samantha bilaterally similar to that seen on the 03/25/2023 plain film examination such as
may be seen with chronic osteomyelitis.
There is associated inflammatory soft tissue in the presacral space as well as in the musculature of the left buttock
--- NOTE | 2024-02-04 13:25 | CM ---
Patient seen bedside with spouse to discuss d/c plans.
per patient currently no wound vac on.
Patient with stage 4 sacral ulcer, colostomy and right heel blister.
Patient stated she does not wish to return to group home and wants to go home with VN and private RN whom she already made contact with.
CM attempted to elicit alternate skilled facilities from patient and the only facility she would be agreeable to is [facility]. Referral placed, spouse is a [facility].
Patient has jenise to [facility], [facility], [facility] and refused [facility].
Most recent admission was to [facility].
Patient stated PT/OT has not yet been out to see her (PT/OT saw patient on 02/01).
Referral placed for [facility], will TT VN to make them aware of possible d/ to home.
Plan: skilled vs home with services.
--- NOTE | 2024-02-04 13:35 | W.PN.HOSP.TC ---
Today's Communication/Plan
-
Encourage out of bed to sit in the chair and ambulate at least twice a day
Offload change of position to sites every 2 hours
Continue IV antibiotics
Await wound culture
Assessment / Plan
Assessment / Plan
78-year-old female with chronic sacral wounds with attempted flap reconstruction in April at [facility] admitted with fever and purulence from sacral wound.
CT pelvis 02/01/24- A 9 cm decubitus ulcer over left main sacrum posteriorly. Extensive sclerosis throughout the sacrum and medial aspect of the ilium bilaterally similar to 03/25/2023 may be seen on chronic osteomyelitis. Associated secondary
soft tissue in the presacral area as well as in the musculature of the left buttock.
Compressive compression screw and intramedullary ronan traversing an impacted intertrochanteric fracture of the right femur with incomplete osseous union. Threads of the screw extending into the cortical margin of the femoral head.
Lumbar DJD with postop changes.
13 cm midline anterior pelvic wall hernia
CVS: S1-S2 normal
Chest: CTA B/L
Abdomen: Soft, NT , colostomy bowel sounds present
Extremities: No edema
Healed blister on the right
Stage IV sacral decubitus
# Infected stage 4 sacral wounds
Continue local care with 1 x 4 strength Dakin's solution
Status post bedside debridement by Dr. North on 02/03/2024
Wound cultures with GNR-3 morphologies, GPR, GPC
Continue antibiotics-on ceftazidime
CT with chronic osteomyelitis
No Wound Vac now
# Stage II right heel blister-patient has been refusing heel elevation. Wound care with air overlay or air mattress, soft heel relief boots
# TME-likely secondary to above
# Chronic heart failure-type unknown
Echo 02/03/2024-normal LV size and function. EF 55 to 60%. Mild MR. Trace TR.
Currently on Lasix. Metolazone held
# Diabetes-start metformin. Hemoglobin A1c 8.1. Accu-Cheks and sliding scale coverage. Dietary education
# Right femur-I reached out to who knows her well. Plan is now to intervene as patient is not a good candidate for revision. No further intervention needed at this point.
# Anemia-adequate iron and B12. Likely secondary to chronic disease
# COPD continue as needed nebs, fluticasone/salmeterol
# Hypertension-continue nifedipine, atenolol, losartan
# Neurogenic bladder
# Chronic pain with opioid dependence
Was on buprenorphine, gabapentin, Dilaudid
Currently on IV Dilaudid, buprenorphine, gabapentin
Discontinue IV Dilaudid
# Chronic radiation cystitis
# GERD/hiatal hernia-PPI
# Anxiety-on as needed clonazepam, hydroxyzine
# Severe discogenic DJD L5-S1
# Fusiform infrarenal AAA 3.1 cm/Atherosclerosis
# Pulmonary nodule 1 cm right mid lung
# History of rectal cancer status post APR with colostomy 1982
# History of right nephrectomy for renal cancer 1981
# Ambulatory Dysfunction-PT OT. Get patient out of bed to a chair
# Ex-smoker
# DVT prophylaxis-Lovenox
# Full code
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
02/03/2024 D/W and updated re heel and change of position. He wants to report back to retirement as he has cancer and he will not be able to take care of her at home.
36 minutes
Anticipated Discharge: 24 - 48 hours
Subjective/Interval History
-
Date of Service: February 04, 2024
Objective Data
-
Labs:
Laboratory Results
02/04/24
07:51
WBC 6.4
Hgb 8.1 L
Hct 24.9 L
Plt Count 189
Sodium 138
Potassium 4.1
Chloride 100
Carbon Dioxide 28
BUN 22 H
Creatinine 0.9
Glucose 226 H
Calcium 8.7
Vital Signs:
Vital Signs
Temp Pulse Resp BP Pulse Ox
98.1 F 80 14 146/61 94
02/04/24 07:32 02/04/24 07:32 02/04/24 07:32 02/04/24 07:32 02/04/24 07:32
I&O
02/03/24 02/04/24 02/05/24
06:59 06:59 06:59
Intake Total 600 / 600 780 / 780
Output Total 200 / 200
Balance 600 / 600 580 / 580
[2024-02-04 13:39] VITALS: BMI 28.9
--- NOTE | 2024-02-04 14:42 | PN.CDI ---
CDI
- -
CDI:
Physician Documentation Request
Admit Date: 02/01/24 06:35
Dear Doctor Can,
Please review the following and provide your response in the progress notes.
Clinical Indicators:
Pt admitted with Acute on Chronic Sacral Osteomyelitis/ Stage 4 sacral decubitus
Update note 02/02, ' Location: Sacral wound Dimensions: 15 x 5 x 2 cm deep... there was a portion of the wound between 11 and 12:00 of frankly necrotic skin which was sharply debrided using scissors, until a healthy underlying tissue was
encountered. ...'
Could you provide, in the progress notes further clarification regarding the debridement.
Please specify the type of debridement performed:
1. Excisional Debridement - defined as removal by excision of devitalized tissue, necrosis or slough
2. Non-excisional debridement - defined as removal of devitalized tissue, necrosis or slough by such methods as irrigation, brushing, scrubbing or washing.
If the debridement was excisional, please also include:
1. Type of instrument used (#11 blade, #15 blade etc.)
2. What was excised (necrotic tissue, gangrenous tissue, slough etc.)
Use of terms such as suspected, likely, concern for, or probable (associated with a specific diagnosis that is being evaluated, monitored, or treated as if it exists) are acceptable and can be coded in the inpatient setting, when documented at the
time of discharge.
Thank you,
Amy Knox RN
CDI Specialist
[facility] [employer]
Please use your independent medical judgment in providing your response.
--- NOTE | 2024-02-04 14:48 | PN.CDI ---
Addendum entered and electronically signed by Eliezer Martines MD 02/04/24 17:59:
Documentation is complete at this time.
Original Note:
CDI
- -
CDI:
Physician Documentation Request
Admit Date: 02/01/24 06:35
Dear Doctor Conrad,
Please review the following and provide your response in the progress notes.
Clinical Indicators:
Pt admitted with Acute on Chronic Sacral Osteomyelitis/ Stage 4 sacral decubitus
Progress note 02/03 , 'Chronic heart failure-type unknown Echo 02/03/2024-normal LV size and function. EF 55 to 60%.....Currently on Lasix. Metolazone held...'
Please provide further specificity regarding the most likely type CHF you are evaluating, treating or monitoring.
Chronic Diastolic CHF
Chronic Systolic CHF
Other ( please specify )
Use of terms such as suspected, likely, concern for, or probable (associated with a specific diagnosis that is being evaluated, monitored, or treated as if it exists) are acceptable and can be coded in the inpatient setting, when documented at the
time of discharge.
Thank you,
Amy Knox RN
CDI Specialist
[facility] [employer]
Please use your independent medical judgment in providing your response.
[2024-02-04 15:31] VITALS: BP 119/55
[2024-02-04 15:54] VITALS: BP 149/87; PULSE 93; O2SAT 100
[2024-02-04 16:50] LABS: Glucose - Point of Care 333 mg/dl (70-99)
[2024-02-04] MEDS: LOVENOX 40 MG SC (17:34)
[2024-02-04] MEDS: DILAUDID 4 MG PO (17:37)
[2024-02-04] MEDS: NOVOLOG FLEXPEN-LOW RESISTANCE 4 UNITS SC (18:34)
[2024-02-04 21:28] LABS: Glucose - Point of Care 165 mg/dl (70-99)
[2024-02-04 23:20] VITALS: BP 123/54
[2024-02-05] MEDS: STERILE WATER FOR INJECTION 10 ML IV ×2 (01:55→09:12)
[2024-02-05] MEDS: FORTAZ 2000 MG IV ×2 (01:55→09:12)
[2024-02-05] MEDS: DILAUDID 4 MG PO ×2 (03:13→22:11)
[2024-02-05 06:55] LABS: Hematocrit 24.2 % (37.0-47.0); Hemoglobin 7.8 g/dL (12.0-16.0); Mean Corp Hgb Conc. 32.2 g/dL (33.0-37.0); Mean Corpuscular Hgb 28.3 pg (27.0-31.0); Mean Corpuscular Volume 87.7 fL (81.0-99.0); Mean Platelet Volume 9.3 fL (7.4-10.4); Platelet Count 190 10^3/uL (130-400); Red Blood Cell Count 2.76 10^6/uL (4.20-5.40); Red Cell Dist. Width 14.1 % (11.5-14.5); White Blood Cell Count 7.2 10^3/uL (4.8-10.8)
[2024-02-05 07:15] LABS: Blood Urea Nitrogen 24 mg/dl (7-17); Calcium 8.5 mg/dl (8.4-10.2); Carbon Dioxide 29 mmol/L (22-30); Chloride 97 mmol/L (98-107); Estimated Creatinine Clearance 48 ml/min; Glucose 165 mg/dl (70-99); Potassium 4.4 mmol/L (3.5-5.1); Sodium 137 mmol/L (135-145); eGFR 58.39
[2024-02-05 07:17] VITALS: BP 135/64
[2024-02-05] MEDS: ADVAIR HFA 115/21 MCG INHALER 2 PUFF INH ×2 (07:43→19:22)
[2024-02-05 08:06] LABS: Glucose - Point of Care 186 mg/dl (70-99)
[2024-02-05] MEDS: TENORMIN 50 MG PO (09:06)
[2024-02-05] MEDS: PROTONIX 40 MG PO (09:06)
[2024-02-05] MEDS: COZAAR 25 MG PO (09:06)
[2024-02-05] MEDS: NEURONTIN 300 MG PO ×3 (09:06→22:01)
[2024-02-05] MEDS: MIRALAX 17 GRAMS PO (09:06)
[2024-02-05] MEDS: LASIX 40 MG PO (09:07)
[2024-02-05] MEDS: PROCARDIA XL (EXTENDED RELEASE) 60 MG PO (09:07)
[2024-02-05] MEDS: GLUCOPHAGE 500 MG PO (09:08)
[2024-02-05] MEDS: DAKIN'S SOLUTION 0.125% 1/4 STRENGTH 100 ML TOPICAL (09:09)
[2024-02-05 09:21] VITALS: BMI 30.5
[2024-02-05] MEDS: NOVOLOG FLEXPEN-LOW RESISTANCE 1 UNITS SC (10:27)
[2024-02-05] MEDS: NON-FORMULARY ITEM 150 MCG BUCCAL ×2 (10:29→20:00)
[2024-02-05 11:26] LABS: Glucose - Point of Care 262 mg/dl (70-99)
--- NOTE | 2024-02-05 12:07 | W.PN.HOSP.TC ---
Today's Communication/Plan
-
She is medically stable for discharge at this point.
Need to determine a safe discharge plan.
Assessment / Plan
Assessment / Plan
78-year-old female with chronic sacral wounds with attempted flap reconstruction in April at [facility] admitted with fever and purulence from sacral wound.
CT pelvis 02/01/24- A 9 cm decubitus ulcer over left main sacrum posteriorly. Extensive sclerosis throughout the sacrum and medial aspect of the ilium bilaterally similar to 03/25/2023 may be seen on chronic osteomyelitis. Associated secondary
soft tissue in the presacral area as well as in the musculature of the left buttock.
Compressive compression screw and intramedullary ronan traversing an impacted intertrochanteric fracture of the right femur with incomplete osseous union. Threads of the screw extending into the cortical margin of the femoral head.
Lumbar DJD with postop changes.
13 cm midline anterior pelvic wall hernia
CVS: S1-S2 normal
Chest: CTA B/L
Abdomen: Soft, NT , colostomy ,bowel sounds present
Extremities: No edema
Heel blister on the right
Stage IV sacral decubitus
# Infected stage 4 sacral wounds
Continue local care with 1 x 4 strength Dakin's solution
Status post bedside debridement by Dr. North on 02/03/2024
Wound cultures with Pseudomonas, Proteus, E. coli
Continue antibiotics-on ceftazidime
CT with chronic osteomyelitis
No Wound Vac for discharge
# Stage II right heel blister-patient has been refusing heel elevation. Wound care with air overlay or air mattress, soft heel relief boots
# TME-likely secondary to above. Patient back to normal awake alert oriented x 3. Able to make decisions
# Chronic heart failure-type unknown
Echo 02/03/2024-normal LV size and function. EF 55 to 60%. Mild MR. Trace TR.
Currently on Lasix. Metolazone to be restarted
# Diabetes-Start metformin. Hemoglobin A1c 8.1. Accu-Cheks and sliding scale coverage. Dietary education.
# Right femur-I reached out to who knows her well. Plan is now to intervene as patient is not a good candidate for revision. No further intervention needed at this point.
# Anemia-adequate iron and B12. Likely secondary to chronic disease
# COPD continue as needed nebs, fluticasone/salmeterol
# Hypertension-continue Nifedipine, Atenolol, Losartan
# Neurogenic bladder
# Chronic pain with opioid dependence
Was on buprenorphine, gabapentin, Dilaudid
# Chronic radiation cystitis
# GERD/hiatal hernia-PPI
# Anxiety-on as needed clonazepam, hydroxyzine
# Severe discogenic DJD L5-S1
# Fusiform infrarenal AAA 3.1 cm/Atherosclerosis
# Pulmonary nodule 1 cm right mid lung
# History of rectal cancer status post APR with colostomy 1982
# History of right nephrectomy for renal cancer 1981
# Ambulatory Dysfunction-PT OT. Get patient out of bed to a chair
# Ex-smoker
# DVT prophylaxis-Lovenox
# Full code
D/W RN
02/05/2024 D/W and updated . He does not want patient to come home as he has cancer and he will not be able to help her. He also realizes that they will not be able to hire a 24-hour caregiver at home. Patient is adamant that she wants to
go home. She states that it is not his decision. She also was made aware that PT recommends rehab and that is my recommendation to. She is aware that she could fall at home. She states that she is on 1 floor and will call her neighbor for help
if needed.
night manager also tried to discuss with the patient regarding the rationale of rehab placement. She is refusing.
I had a discussion about hemoglobin being 7.8 benefits and risks of transfusion. Patient does not want transfusion today. Hold off
more than 50 min with 2 visits
Anticipated Discharge: Within 24 hours
Subjective/Interval History
-
Date of Service: February 05, 2024
Objective Data
-
Labs:
Laboratory Results
02/05/24 02/05/24
06:18 11:53
WBC 7.2
Hgb 7.8 L Pending
Hct 24.2 L Pending
Plt Count 190
Sodium 137
Potassium 4.4
Chloride 97 L
Carbon Dioxide 29
BUN 24 H
Creatinine 1.0
Glucose 165 H
Calcium 8.5
Vital Signs:
Vital Signs
Temp Pulse Resp BP Pulse Ox
98.3 F 73 18 135/64 93
02/05/24 07:17 02/05/24 09:07 02/05/24 07:43 02/05/24 09:07 02/05/24 07:43
I&O
02/04/24 02/05/24 02/06/24
06:59 06:59 06:59
Intake Total 780 / 780 1140 / 1140
Output Total 200 / 200
Balance 580 / 580 1140 / 1140
[2024-02-05 12:12] LABS: Hematocrit 24.5 % (37.0-47.0); Hemoglobin 7.8 g/dL (12.0-16.0)
--- NOTE | 2024-02-05 12:54 | CM ---
Reviewed chart, spoke with attending. Therapy notes indicate that patient will need SNF. Met with patient VN liason María, and attending. Patient insisted on going home. Everyone expressed their deep concern for that plan. Patient became agitated and
insisted that she will be fine at home, she relayed that she will hire a private duty nurse, and has support through a neighbor and her daughter in the evenings. Patient lives with spouse however he has Cancer and is struggling to care for himself
(per patient account) She was agreeable to a SW through VN as well. María discussed plan for home with VN with patient.
Plan: Case management will continue to follow and assist with discharge planning. Home with VN, against all medical advisement.
--- NOTE | 2024-02-05 13:28 | VNURNOTE ---
Home Health Liaison met with patient at bedside to discuss [facility] nurse/therapy, visits, schedule. CA Carrillo and Dr Martines also present. Explained ongoing concerns for patient being able to care for herself safely at home. Discussed wound care at
home and need for someone to be available to teach wound care and perform days VN not seeing patient. The patient stated she is setting up a private duty nurse she knows through a neighbor. Discussed that visits at home will be 2-3 x per week to
assess and teach medical management, wound care. The patient is familiar with [facility] services. She is aware that [facility] will contact them for start of care in 1-2 days after discharge from . Patient continues to choose to go home against repeated
advice for SNF. [facility] supervisor grove Yanira notified.
[facility] referral completed in [facility], home STATISTICAL CLERK included. Patient agreeable to home STATISTICAL CLERK.
Discussed w/WOC MARIA ESTHER Solis recommendations for home mattress, she rec higher level air mattress. She deferred to [facility] - Rep Charlene. Spoke with Charlene who advised Clinitron bed. After clinicals rec'ed they will schedule home assessment w/ pt.
Spoke with patient if she is agreeable to a hospital bed at home and she is. Explained it would not be available until DME co performs home assessment once pt is home. Patient agreeable.
--- NOTE | 2024-02-05 13:36 | W.PN.ID1 ---
Date of Service
Date of Service: February 05, 2024
Today's Communication
Transition ceftazidime IV (d5) to cipro 750mg po bid through 02/18/24.
Assessment / Plan
# Acute on chronic sacral osteo , wound infection
- hx failed flap reconstruction, has wound vac since 11/18/2023, follows with Dr. Mcmillan at [place]
- s/p bedside debridement 02/03/24
- 02/01 wound swab Pseudomonas, Proteus, E. coli.
- Transition ceftazidime IV (d5) to cipro 750mg po bid through 02/18/24. (Cipro should not cross-react with levofloxacin). QTc 411.
# Conditions [employer]
Rectal ca 1992 s/ APR, colostomy at [facility] with adjuvant chemo XRT.
Renal ca, right s/p nephrectomy (1992).
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
Sacral wound reconstruction by Dr. Mcmillan at [facility] 10/08/23 (OR cx Klebsiella and Enterococcus) s/p 6 weeks IV Zosyn through 11/19/23
Sacral flap necrosis s/p I+D, wound vac application at [facility] 11/18/23 s/p IV Zosyn short course.
Sacral OR wound debridement 12/31/23, Tissue path fat necrosis, acute inflammation. Bone cx: Pseudomonas (panS), E. coli (panS), VRE (amp-resistant), Corynebacterium striatum (?untreated0
Hypertension.
COPD
Lung nodules.
Thrombocytopenia.
neurogenic bladder, receiving Botox, intermittent self-cath.
recurrent UTI
R hip fracture ORIF 03/2023
parastomal hernia repair with mesh
back surgery 07/2020
bilateral knee replacements
Chief Complaint
-: Other (sacral osteo)
Subjective / Review of Systems
Worked with PT yesterday. Stable,
Vital Signs / Physical Exam
Vital Signs
Vital Signs
Temp Pulse Resp BP Pulse Ox
98.3 F 73 18 135/64 93
02/05/24 07:17 02/05/24 09:07 02/05/24 07:43 02/05/24 09:07 02/05/24 07:43
Physical Exam
Constitutional: No Acute Distress
Gastrointestinal: Soft, Non Tender and Non Distended
Neurological: AO x 3
Objective Data
Lab Data
Lab Results
02/05/24 11:53
02/05/24 06:18
ESR > 145 mm/hour (0-20) H 02/02/24 04:39
Estimated Creat Clear 48 ml/min 02/05/24 06:18
Lactic Acid 0.7 mmol/L (0.7-2.0) 02/01/24 02:47
Total Bilirubin 0.4 mg/dl (0.2-1.3) 02/01/24 02:47
AST 22 U/L (14-36) 02/01/24 02:47
ALT 16 U/L (0-35) 02/01/24 02:47
Alkaline Phosphatase 135 U/L (38-126) H 02/01/24 02:47
C-Reactive Protein 205.70 mg/L (0.0-10.00) H 02/02/24 04:39
Most recent labs reviewed.
Micro Results:
02/02/24 Unknown Wound Culture - Preliminary
Sacral Proteus mirabilis
Pseudomonas aeruginosa
Escherichia coli
Gram Stain - Preliminary
02/01/24 02:47 Blood Culture - Preliminary
Blood/Venous No Growth in 4 days- Final report to follow
02/01/24 02:59 Blood Culture - Preliminary
Blood/Venous No Growth in 4 days- Final report to follow
02/01/24 04:42 Urine Culture - Final
Urine
02/01/24 02:47 Influenza Types A & B (ALTHEA) - Final
Nasal Swab Negative for Influenza A & B, NAAT
Negative results must be combined with clinical observations
and patient history.
Nucleic Acid Amplification test (NAAT)performed on the
[employer] platform.
02/01/[address]: There is 9 cm decubitus ulcer overlying the sacrum posteriorly. There is extensive sclerosis throughout the sacrum and medial aspect of the samantha bilaterally similar to that seen on the 03/25/2023 plain film examination such as
may be seen with chronic osteomyelitis.
There is associated inflammatory soft tissue in the presacral space as well as in the musculature of the left buttock
Care Review
Plan reviewed with: Physician (Dr. Martines)
[2024-02-05] MEDS: TYLENOL 650 MG PO ×2 (14:10→20:04)
[2024-02-05 15:08] VITALS: BP 121/99
[2024-02-05] MEDS: NOVOLOG FLEXPEN-LOW RESISTANCE SC (15:57)
[2024-02-05 16:01] LABS: Glucose - Point of Care 246 mg/dl (70-99)
[2024-02-05] MEDS: GLUCOPHAGE 850 MG PO (16:03)
[2024-02-05] MEDS: ZAROXOLYN 2.5 MG PO (17:36)
[2024-02-05] MEDS: LOVENOX 40 MG SC (17:37)
[2024-02-05] MEDS: NOVOLOG FLEXPEN-LOW RESISTANCE 2 UNITS SC (17:52)
[2024-02-05 17:53] LABS: Glucose - Point of Care 231 mg/dl (70-99)
[2024-02-05] MEDS: CIPRO 750 MG PO (19:57)
[2024-02-05] MEDS: THERAGRAN 2 TABLET PO (20:00)
[2024-02-05] MEDS: DAKIN'S SOLUTION 0.125% 1/4 STRENGTH TOPICAL (20:07)
[2024-02-05 22:08] LABS: Glucose - Point of Care 154 mg/dl (70-99)
[2024-02-05 23:15] VITALS: BP 115/50
[2024-02-06 07:15] LABS: Hematocrit 24.1 % (37.0-47.0); Hemoglobin 7.8 g/dL (12.0-16.0); Mean Corp Hgb Conc. 32.4 g/dL (33.0-37.0); Mean Corpuscular Hgb 29.5 pg (27.0-31.0); Mean Corpuscular Volume 91.3 fL (81.0-99.0); Mean Platelet Volume 9.2 fL (7.4-10.4); Platelet Count 196 10^3/uL (130-400); Red Blood Cell Count 2.64 10^6/uL (4.20-5.40); Red Cell Dist. Width 13.9 % (11.5-14.5); White Blood Cell Count 6.9 10^3/uL (4.8-10.8)
[2024-02-06] MEDS: ADVAIR HFA 115/21 MCG INHALER 2 PUFF INH (07:27)
[2024-02-06 07:52] LABS: Blood Urea Nitrogen 26 mg/dl (7-17); Calcium 8.7 mg/dl (8.4-10.2); Carbon Dioxide 30 mmol/L (22-30); Chloride 96 mmol/L (98-107); Estimated Creatinine Clearance 49 ml/min; Glucose 143 mg/dl (70-99); Potassium 4.5 mmol/L (3.5-5.1); Sodium 137 mmol/L (135-145); eGFR 58.39
[2024-02-06 08:30] VITALS: BP 121/54
[2024-02-06 08:40] LABS: Glucose - Point of Care 186 mg/dl (70-99)
[2024-02-06] MEDS: MIRALAX 17 GRAMS PO (08:42)
[2024-02-06] MEDS: DILAUDID 4 MG PO ×2 (08:42→17:42)
[2024-02-06] MEDS: NEURONTIN 300 MG PO ×3 (08:43→22:51)
[2024-02-06] MEDS: PROTONIX 40 MG PO (08:43)
[2024-02-06] MEDS: THERAGRAN 2 TABLET PO ×2 (08:43→20:11)
[2024-02-06] MEDS: VITAMIN B-12 2500 MCG PO (08:43)
[2024-02-06] MEDS: VITAMIN D3 (cholecalciferol) 50 MCG PO (08:43)
[2024-02-06] MEDS: VITAMIN C 500 MG PO (08:43)
[2024-02-06] MEDS: LASIX 40 MG PO (08:43)
[2024-02-06] MEDS: NOVOLOG FLEXPEN-LOW RESISTANCE 1 UNITS SC (08:43)
[2024-02-06] MEDS: PROCARDIA XL (EXTENDED RELEASE) 60 MG PO (08:44)
[2024-02-06] MEDS: VISBIOME 2 CAP PO (08:44)
[2024-02-06] MEDS: CIPRO 750 MG PO (08:44)
[2024-02-06] MEDS: TENORMIN 50 MG PO (08:44)
[2024-02-06] MEDS: COZAAR 25 MG PO (08:45)
[2024-02-06] MEDS: GLUCOPHAGE 850 MG PO (08:45)
[2024-02-06] MEDS: DAKIN'S SOLUTION 0.125% 1/4 STRENGTH 473 ML TOPICAL (08:45)
[2024-02-06] MEDS: NON-FORMULARY ITEM 150 MCG BUCCAL ×2 (08:50→20:11)
[2024-02-06 09:57] VITALS: BMI 29.2
--- NOTE | 2024-02-06 10:20 | WOUNDNOTE ---
[facility] RN note: Patient seen with Dr. Marie. Sacral wound slightly cleaner assistant than Saturday, no odor noted. Current wound care appropriate. Patient stated she will go to SNF if it's one of the 3 she requested. Informed patient the caser in sets up
discharge. Patient's R heel blister appears dry/improved. Heel foam dressing changed on heels. MARIA ESTHER Haro changed sacral dressing. Patient ambulated from recliner to bed with supervision and walker/assist. Patient is on an air overlay mattress and
has a bariatric air chair cushion. Patient turned to L semi side lying position and TruVue lite boots applied with help from RN.
--- NOTE | 2024-02-06 10:28 | WOUNDNOTE ---
SACRUM (deepest section at distal wound at coccyx)
--- NOTE | 2024-02-06 10:29 | WOUNDNOTE ---
SACRUM (with photo flash)
--- NOTE | 2024-02-06 10:44 | W.PN.ID1 ---
Date of Service
Date of Service: February 06, 2024
Today's Communication
DC cipro due to presence of AAA.
Restart IV abx - cefepime 1g IV q6h through 02/18/24
Assessment / Plan
# Acute on chronic sacral osteo , wound infection
- hx failed flap reconstruction, has wound vac since 11/18/2023, follows with Dr. Mcmillan at [place]
- s/p bedside debridement 02/03/24
- 02/01 wound swab Pseudomonas, Proteus, E. coli.
- s/p ceftazidime IV x 5d -> cipro, received 2 doses
However, upon reviewing 07/17/2023 hip MRI, pt noted to have 3.1 cm infrarenal abdominal aortic aneurysm, which is relative contraindication to FQ.
DC cipro.
Restart IV abx - cefepime 1g IV q6h through 02/18/24
- No benefit in long course abx in setting of chronic osteo with large open wound.
- Appreciate Wound Care recs. Wound Vac is of no benefit at this stage.
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
Rectal ca 1992 s/ APR, colostomy at [facility] with adjuvant chemo XRT.
Renal ca, right s/p nephrectomy (1992).
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
Sacral wound reconstruction by Dr. Mcmillan at [facility] 10/08/23 (OR cx Klebsiella and Enterococcus) s/p 6 weeks IV Zosyn through 11/19/23
Sacral flap necrosis s/p I+D, wound vac application at [facility] 11/18/23 s/p IV Zosyn short course.
Sacral OR wound debridement 12/31/23, Tissue path fat necrosis, acute inflammation. Bone cx: Pseudomonas (panS), E. coli (panS), VRE (amp-resistant), Corynebacterium striatum (?untreated0
Hypertension.
Infrarenal AAA
COPD
Lung nodules.
Thrombocytopenia.
neurogenic bladder, receiving Botox, intermittent self-cath.
recurrent UTI
R hip fracture ORIF 03/2023
parastomal hernia repair with mesh
back surgery 07/2020
bilateral knee replacements
Chief Complaint
-: Other (sacral osteo)
Subjective / Review of Systems
c/o severe left hip pain this am. For hip XRAY.
Tolerating cipro.
Vital Signs / Physical Exam
Vital Signs
Vital Signs
Temp Pulse Resp BP Pulse Ox
98.4 F 78 18 115/50 94
02/05/24 23:15 02/06/24 07:33 02/06/24 07:33 02/05/24 23:15 02/06/24 07:33
Physical Exam
Constitutional: Negative Comfortable
Pulmonary: Clear
Gastrointestinal: Soft, Non Tender and Non Distended
Extremities: Edema
Musculoskeletal: Other (left hip no induration/erythema/warmth)
Wound: Other (Examined with Wound RN. Massive sacral wound with granulating tissue, moderate yellow fibrinous slough, no necrosis, malodor resolved, no periwound erythema; coccyx wound deep to cccoyx)
Neurological: AO x 3
Objective Data
Lab Data
Lab Results
02/06/24 06:28
02/06/24 06:28
ESR > 145 mm/hour (0-20) H 02/02/24 04:39
Estimated Creat Clear 49 ml/min 02/06/24 06:28
Lactic Acid 0.7 mmol/L (0.7-2.0) 02/01/24 02:47
Total Bilirubin 0.4 mg/dl (0.2-1.3) 02/01/24 02:47
AST 22 U/L (14-36) 02/01/24 02:47
ALT 16 U/L (0-35) 02/01/24 02:47
Alkaline Phosphatase 135 U/L (38-126) H 02/01/24 02:47
C-Reactive Protein 205.70 mg/L (0.0-10.00) H 02/02/24 04:39
Most recent labs reviewed.
Micro Results:
02/02/24 Unknown Wound Culture - Preliminary
Sacral Proteus species
Pseudomonas aeruginosa
Escherichia coli
Proteus mirabilis
Gram Stain - Preliminary
02/01/24 02:59 Blood Culture - Final
Blood/Venous No Growth - Final Report
02/01/24 02:47 Blood Culture - Final
Blood/Venous No Growth - Final Report
02/01/24 04:42 Urine Culture - Final
Urine
02/01/24 02:47 Influenza Types A & B (ALTHEA) - Final
Nasal Swab Negative for Influenza A & B, NAAT
Negative results must be combined with clinical observations
and patient history.
Nucleic Acid Amplification test (NAAT)performed on the
[employer] platform.
02/01/[address]: There is 9 cm decubitus ulcer overlying the sacrum posteriorly. There is extensive sclerosis throughout the sacrum and medial aspect of the samantha bilaterally similar to that seen on the 03/25/2023 plain film examination such as
may be seen with chronic osteomyelitis.
There is associated inflammatory soft tissue in the presacral space as well as in the musculature of the left buttock
Care Review
Plan reviewed with: Physician (Dr. Martines.)
--- NOTE | 2024-02-06 10:55 | W.PN.HOSP.TC ---
Today's Communication/Plan
-
X ray hip
Picc -Mid line for AB at [place]
Rehab - Case management alerted
Assessment / Plan
Assessment / Plan
78-year-old female with chronic sacral wounds with attempted flap reconstruction in April at [facility] admitted with fever and purulence from sacral wound.
CT pelvis 02/01/24- A 9 cm decubitus ulcer over left main sacrum posteriorly. Extensive sclerosis throughout the sacrum and medial aspect of the ilium bilaterally similar to 03/25/2023 may be seen on chronic osteomyelitis. Associated secondary
soft tissue in the presacral area as well as in the musculature of the left buttock.
Compressive compression screw and intramedullary ronan traversing an impacted intertrochanteric fracture of the right femur with incomplete osseous union. Threads of the screw extending into the cortical margin of the femoral head.
Lumbar DJD with postop changes.
13 cm midline anterior pelvic wall hernia
CVS: S1-S2 normal
Chest: CTA B/L
Abdomen: Soft, NT , colostomy ,bowel sounds present
Extremities: No edema
C/O left hip pain
# Left hip pain- Check X ray, Lidoderm patch ordered.
# Infected stage 4 sacral wounds
Status post bedside debridement by Dr. North on 02/03/2024
Wound cultures with Pseudomonas, Proteus, E. coli
Continue antibiotics-No cipro due to AAA. ID changed to Cefepime.
Will place midline for AB at [facility]
CT with chronic osteomyelitis
No Wound Vac for discharge
# Stage II right heel blister-patient has been refusing heel elevation. Wound care with air overlay or air mattress, soft heel relief boots
# TME-likely secondary to above. Patient back to normal awake alert oriented x 3. Able to make decisions
# Chronic heart failure-type unknown
Echo 02/03/2024-normal LV size and function. EF 55 to 60%. Mild MR. Trace TR.
Currently on Lasix. Metolazone to be restarted
# Diabetes-Started metformin. 1000 BID. Hemoglobin A1c 8.1. Accu-Cheks and sliding scale coverage. Dietary education.
# Right femur-I reached out to who knows her well. Plan is now to intervene as patient is not a good candidate for revision. No further intervention needed at this point.
# Anemia-adequate iron and B12. Likely secondary to chronic disease
# COPD continue as needed nebs, fluticasone/salmeterol
# Hypertension-continue Nifedipine, Atenolol, Losartan
# Neurogenic bladder
# Chronic pain with opioid dependence- on buprenorphine, gabapentin, Dilaudid
# Chronic radiation cystitis
# GERD/hiatal hernia-PPI
# Anxiety-on as needed clonazepam, hydroxyzine
# Severe discogenic DJD L5-S1
# 13 cm midline anterior pelvic wall hernia
# Fusiform infrarenal AAA 3.1 cm/Atherosclerosis
# Pulmonary nodule 1 cm right mid lung
# History of rectal cancer status post APR with colostomy 1982-no BM charted however nursing reports that patient had 1 overnight.
# History of right nephrectomy for renal cancer 1981
# Ambulatory Dysfunction-PT OT. Get patient out of bed to a chair
# Ex-smoker
# DVT prophylaxis-Lovenox
# Full code
D/W RN
Pt now wants rehab- Case management made aware
I had a discussion about hemoglobin being 7.8 benefits and risks of transfusion. Patient does not want transfusion today. Hold off
more than 50 min with 2 visits
Anticipated Discharge: Today
Subjective/Interval History
-
Date of Service: February 06, 2024
Objective Data
-
Labs:
Laboratory Results
02/06/24
06:28
WBC 6.9
Hgb 7.8 L
Hct 24.1 L
Plt Count 196
Sodium 137
Potassium 4.5
Chloride 96 L
Carbon Dioxide 30
BUN 26 H
Creatinine 1.0
Glucose 143 H
Calcium 8.7
Vital Signs:
Vital Signs
Temp Pulse Resp BP Pulse Ox
98.4 F 78 18 115/50 94
02/05/24 23:15 02/06/24 07:33 02/06/24 07:33 02/05/24 23:15 02/06/24 07:33
I&O
02/05/24 02/06/24 02/07/24
06:59 06:59 06:59
Intake Total 1140 / 1140 100 / 100
Balance 1140 / 1140 100 / 100
[2024-02-06] MEDS: NOVOLOG FLEXPEN-LOW RESISTANCE 2 UNITS SC ×2 (12:28→17:38)
[2024-02-06] MEDS: LIDOCAINE 4% PATCH 1 PATCH TOPICAL (12:28)
[2024-02-06 12:29] LABS: Glucose - Point of Care 237 mg/dl (70-99)
--- NOTE | 2024-02-06 12:44 | CM ---
Spoke with attending who stated that patient changed her mind regarding SNF. Met with patient who stated that she would like to go to [facility] or [facility]. She will think of a third choice. Referrals sent. Will f/u with facilities. No
auth will be needed for transfer.
Plan: Case management will continue to follow and assist with discharge planning. SNF when bed available.
[2024-02-06] MEDS: STERILE WATER FOR INJECTION 10 ML IV ×3 (12:59→23:54)
[2024-02-06] MEDS: MAXIPIME 1000 MG IV ×3 (12:59→23:54)
[2024-02-06 15:34] VITALS: BP 121/56
[2024-02-06 16:38] LABS: Glucose - Point of Care 214 mg/dl (70-99)
--- NOTE | 2024-02-06 16:43 | VATNOTE ---
02/05 MIDLINE ordered for IV ABX till 02/17. LEFT 4FR MIDLINE placed under sterile technique. TCL 12cm ECL0 [id number]. To be redressed every Saturday.
[2024-02-06] MEDS: LOVENOX 40 MG SC (17:39)
[2024-02-06] MEDS: GLUCOPHAGE 1000 MG PO (17:39)
[2024-02-06] MEDS: ADVAIR HFA 115/21 MCG INHALER INH (19:59)
[2024-02-06] MEDS: TYLENOL 650 MG PO (20:11)
[2024-02-06] MEDS: DAKIN'S SOLUTION 0.125% 1/4 STRENGTH 1 ML TOPICAL (20:11)
[2024-02-06 21:22] LABS: Glucose - Point of Care 145 mg/dl (70-99)
[2024-02-06 23:37] VITALS: BP 128/60
[2024-02-07] MEDS: MAXIPIME 1000 MG IV (05:34)
[2024-02-07] MEDS: DILAUDID 4 MG PO ×3 (05:34→19:28)
[2024-02-07] MEDS: STERILE WATER FOR INJECTION 10 ML IV ×3 (05:34→17:18)
[2024-02-07] MEDS: MIRALAX 17 GRAMS PO (07:42)
[2024-02-07] MEDS: VITAMIN B-12 2500 MCG PO (07:42)
[2024-02-07] MEDS: PROCARDIA XL (EXTENDED RELEASE) 60 MG PO (07:42)
[2024-02-07] MEDS: PROTONIX 40 MG PO (07:42)
[2024-02-07] MEDS: VITAMIN D3 (cholecalciferol) 50 MCG PO (07:42)
[2024-02-07] MEDS: NON-FORMULARY ITEM 150 MCG BUCCAL (07:42)
[2024-02-07] MEDS: NEURONTIN 300 MG PO ×3 (07:42→22:13)
[2024-02-07] MEDS: GLUCOPHAGE 1000 MG PO ×2 (07:42→16:41)
[2024-02-07] MEDS: THERAGRAN 2 TABLET PO ×2 (07:42→20:33)
[2024-02-07] MEDS: COZAAR 25 MG PO (07:42)
[2024-02-07] MEDS: VISBIOME 2 CAP PO (07:43)
[2024-02-07] MEDS: LIDOCAINE 4% PATCH 1 PATCH TOPICAL (07:43)
[2024-02-07] MEDS: LASIX 40 MG PO (07:43)
[2024-02-07] MEDS: VITAMIN C 500 MG PO (07:43)
[2024-02-07] MEDS: TENORMIN 50 MG PO (07:43)
[2024-02-07 07:55] VITALS: BP 168/70
[2024-02-07] MEDS: KLONOPIN 0.5 MG PO (07:56)
[2024-02-07] MEDS: DAKIN'S SOLUTION 0.125% 1/4 STRENGTH 473 ML TOPICAL ×2 (07:57→20:32)
[2024-02-07] MEDS: ADVAIR HFA 115/21 MCG INHALER 2 PUFF INH ×2 (07:59→19:29)
[2024-02-07 08:09] LABS: Glucose - Point of Care 150 mg/dl (70-99)
[2024-02-07] MEDS: NOVOLOG FLEXPEN-LOW RESISTANCE 1 UNITS SC ×2 (09:04→12:15)
--- NOTE | 2024-02-07 10:20 | WOUNDNOTE ---
Reji Geller Re: recommend an air mattress for patient at SNF.
--- NOTE | 2024-02-07 10:48 | W.PN.ID1 ---
Date of Service
Date of Service: February 07, 2024
Today's Communication
Change abx to meropenem 500mg IV q6h x 14 days through 02/20/24.
Infusion sheet submitted to bottle caser.
Assessment / Plan
# Acute on chronic sacral osteo , wound infection
- hx failed flap reconstruction, has wound vac since 11/18/2023, follows with Dr. Mcmillan at [place]
- s/p bedside debridement 02/03/24
- 02/01 wound swab Pseudomonas, Proteus, ESBL-E. coli.
- DC cefepime
- Start meropenem 500mg IV q6h x 14 days through 02/20/24.
- Infusion sheet submitted to bottle caser.
- No benefit in long course abx in setting of chronic osteo with large open wound.
- Appreciate Wound Care recs. Wound Vac is of no benefit at this stage.
- Awaiting SNF-rehab placement
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
Rectal ca 1992 s/ APR, colostomy at [facility] with adjuvant chemo XRT.
Renal ca, right s/p nephrectomy (1992).
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
Sacral wound reconstruction by Dr. Mcmillan at [facility] 10/08/23 (OR cx Klebsiella and Enterococcus) s/p 6 weeks IV Zosyn through 11/19/23
Sacral flap necrosis s/p I+D, wound vac application at [facility] 11/18/23 s/p IV Zosyn short course.
Sacral OR wound debridement 12/31/23, Tissue path fat necrosis, acute inflammation. Bone cx: Pseudomonas (panS), E. coli (panS), VRE (amp-resistant), Corynebacterium striatum (?untreated0
Hypertension.
Infrarenal AAA
COPD
Lung nodules.
Thrombocytopenia.
neurogenic bladder, receiving Botox, intermittent self-cath.
recurrent UTI
R hip fracture ORIF 03/2023
parastomal hernia repair with mesh
back surgery 07/2020
bilateral knee replacements
Chief Complaint
-: Other (sacral osteo)
Subjective / Review of Systems
c/o severe pain.
Vital Signs / Physical Exam
Vital Signs
Vital Signs
Temp Pulse Resp BP Pulse Ox
98.5 F 83 16 168/70 98
02/07/24 07:55 02/07/24 08:03 02/07/24 08:03 02/07/24 07:55 02/07/24 08:03
Physical Exam
Constitutional: Negative Comfortable
Pulmonary: Clear
Gastrointestinal: Soft, Non Tender and Non Distended
Extremities: Edema
Lines: Other (LUE midline in place)
Objective Data
Lab Data
Lab Results
02/06/24 06:28
02/06/24 06:28
ESR > 145 mm/hour (0-20) H 02/02/24 04:39
Estimated Creat Clear 49 ml/min 02/06/24 06:28
Lactic Acid 0.7 mmol/L (0.7-2.0) 02/01/24 02:47
Total Bilirubin 0.4 mg/dl (0.2-1.3) 02/01/24 02:47
AST 22 U/L (14-36) 02/01/24 02:47
ALT 16 U/L (0-35) 02/01/24 02:47
Alkaline Phosphatase 135 U/L (38-126) H 02/01/24 02:47
C-Reactive Protein 205.70 mg/L (0.0-10.00) H 02/02/24 04:39
Most recent labs reviewed.
Micro Results:
10/20/24 Unknown Wound Culture - Final
Sacral Proteus mirabilis
Pseudomonas aeruginosa
Escherichia coli - ESBL
Gram Stain - Final
02/01/24 02:59 Blood Culture - Final
Blood/Venous No Growth - Final Report
02/01/24 02:47 Blood Culture - Final
Blood/Venous No Growth - Final Report
02/01/24 04:42 Urine Culture - Final
Urine
02/01/24 02:47 Influenza Types A & B (ALTHEA) - Final
Nasal Swab Negative for Influenza A & B, NAAT
Negative results must be combined with clinical observations
and patient history.
Nucleic Acid Amplification test (NAAT)performed on the
[employer] platform.
02/01/[address]: There is 9 cm decubitus ulcer overlying the sacrum posteriorly. There is extensive sclerosis throughout the sacrum and medial aspect of the samantha bilaterally similar to that seen on the 03/25/2023 plain film examination such as
may be seen with chronic osteomyelitis.
There is associated inflammatory soft tissue in the presacral space as well as in the musculature of the left buttock
02/06/24 left hip XRAY: No acute fracture or dislocation. Insertional calcific tendinosis adjacent to the greater trochanter. No erosion.
Care Review
Plan reviewed with: Physician (Dr. Martines.)
--- NOTE | 2024-02-07 11:19 | W.PN.HOSP.TC ---
Addendum entered and electronically signed by Eliezer Martines MD 02/07/24 16:01:
Correction- Per ID- meropenem 500mg IV q6h x 14 days through 02/20/24.
Original Note:
Today's Communication/Plan
-
Antibiotics changed to meropenem
Medically stable for rehab
Assessment / Plan
Assessment / Plan
78-year-old female with chronic sacral wounds with attempted flap reconstruction in April at [facility] admitted with fever and purulence from sacral wound.
CT pelvis 02/01/24- A 9 cm decubitus ulcer over left main sacrum posteriorly. Extensive sclerosis throughout the sacrum and medial aspect of the ilium bilaterally similar to 03/25/2023 may be seen on chronic osteomyelitis. Associated secondary
soft tissue in the presacral area as well as in the musculature of the left buttock.
Compressive compression screw and intramedullary ronan traversing an impacted intertrochanteric fracture of the right femur with incomplete osseous union. Threads of the screw extending into the cortical margin of the femoral head.
Lumbar DJD with postop changes.
13 cm midline anterior pelvic wall hernia
CVS: S1-S2 normal
Chest: CTA B/L
Abdomen: Soft, NT , colostomy wih BM,bowel sounds present
Extremities: No edema
Sacral wound-clean
Heel wound blister deroofed and stable
# Left hip pain- X ray with no fracture, Lidoderm patch ordered along with narcs
# Infected stage 4 sacral wounds
Status post bedside debridement by Dr. North on 02/03/2024
Wound cultures with Pseudomonas, Proteus, E. coli
Was on Fortaz then changed to cefepime now changed to meropenem for 4 more week course.
Will place midline for AB at [facility]
CT with chronic osteomyelitis
No Wound Vac for discharge
# Stage II right heel blister-patient has been refusing heel elevation. Wound care with air overlay or air mattress, soft heel relief boots
# TME-likely secondary to above. Patient back to normal awake alert oriented x 3. Able to make decisions
# Chronic heart failure-type unknown
Echo 02/03/2024-normal LV size and function. EF 55 to 60%. Mild MRAnita Moya TR.
Currently on Lasix. Metolazone to be restarted
# Diabetes-S new diagnosis this admission. Started metformin. 1000 BID. Hemoglobin A1c 8.1. Accu-Cheks and sliding scale coverage. Dietary education.
# Right femur-I reached out to who knows her well. Plan is now to intervene as patient is not a good candidate for revision. No further intervention needed at this point.
# Anemia-adequate iron and B12. Likely secondary to chronic disease . Patient did not want transfusion for Hb 7.8.. Aware about benefits and risks.
# COPD continue as needed nebs, fluticasone/salmeterol
# Hypertension-continue Nifedipine, Atenolol, Losartan
# Neurogenic bladder
# Chronic pain with opioid dependence- on buprenorphine, gabapentin, Dilaudid
# Chronic radiation cystitis
# GERD/hiatal hernia-PPI
# Anxiety-on as needed clonazepam, hydroxyzine
# Severe discogenic DJD L5-S1
# 13 cm midline anterior pelvic wall hernia
# Fusiform infrarenal AAA 3.1 cm/Atherosclerosis
# Pulmonary nodule 1 cm right mid lung
# History of rectal cancer status post APR with colostomy 1982-no BM charted however nursing reports that patient had 1 overnight.
# History of right nephrectomy for renal cancer 1981
# Ambulatory Dysfunction-PT OT. Get patient out of bed to a chair
# Ex-smoker
# DVT prophylaxis-Lovenox
# Full code
D/W RN
Pt now wants rehab- Case management made aware
Anticipated Discharge: Today
Subjective/Interval History
-
Date of Service: February 07, 2024
Objective Data
-
Vital Signs:
Vital Signs
Temp Pulse Resp BP Pulse Ox
98.5 F 83 16 168/70 98
02/07/24 07:55 02/07/24 08:03 02/07/24 08:03 02/07/24 07:55 02/07/24 08:03
I&O
02/06/24 02/07/24 02/08/24
06:59 06:59 06:59
Intake Total 100 / 100 1440 / 1440
Balance 100 / 100 1440 / 1440
[2024-02-07] MEDS: MERREM 500 MG IV ×2 (11:49→17:18)
[2024-02-07] MEDS: DILAUDID 2 MG PO (11:49)
[2024-02-07 12:11] LABS: Glucose - Point of Care 184 mg/dl (70-99)
[2024-02-07 15:43] VITALS: BP 146/59
--- NOTE | 2024-02-07 15:50 | CM ---
Addendum entered by BK Zheng 02/07/24 15:58:
Attending updated.
Original Note:
Reviewed chart, placed a call to [facility] and spoke with Renu in admissions who denied bed availability. Placed a call to [facility] and left message for Charisma in admissions. Placed a call to [facility] and spoke with Tali in
admissions who stated that she may have a bed Saturday and to call in the am. Will update attending.
Plan: Case management will continue to follow and assist with discharge planning. Hopeful transfer to [facility] on Saturday.
[2024-02-07 16:45] LABS: Glucose - Point of Care 224 mg/dl (70-99)
[2024-02-07] MEDS: ZAROXOLYN 2.5 MG PO (16:45)
[2024-02-07] MEDS: NOVOLOG FLEXPEN-LOW RESISTANCE 2 UNITS SC (16:45)
[2024-02-07] MEDS: LOVENOX 40 MG SC (17:18)
[2024-02-07] MEDS: NON-FORMULARY ITEM BUCCAL (20:30)
[2024-02-07 21:28] LABS: Glucose - Point of Care 132 mg/dl (70-99)
[2024-02-07 23:00] VITALS: BP 125/79
[2024-02-08] MEDS: STERILE WATER FOR INJECTION 10 ML IV ×5 (00:40→23:49)
[2024-02-08] MEDS: MERREM 500 MG IV ×5 (00:40→23:48)
[2024-02-08] MEDS: DILAUDID 4 MG PO ×4 (01:29→22:16)
[2024-02-08 06:00] VITALS: BMI 28.2
--- NOTE | 2024-02-08 06:25 | W.PN.HOSP.TC ---
Today's Communication/Plan
-
cont abx
pain control
wound care
discharge planning snf rehab
PT/OT
Assessment / Plan
Assessment / Plan
Physical Exam
General: mild moderate distress d/t pain
CVS: S1-S2 normal
Chest: CTA B/L
Abdomen: Soft, NT , colostomy wih BM,bowel sounds present
Extremities: No edema
Neuro: Awake alert conversant
78-year-old female with chronic sacral wounds with attempted flap reconstruction in April at [facility] admitted with fever and purulence from sacral wound.
CT pelvis 02/01/24- A 9 cm decubitus ulcer over left main sacrum posteriorly. Extensive sclerosis throughout the sacrum and medial aspect of the ilium bilaterally similar to 03/25/2023 may be seen on chronic osteomyelitis. Associated secondary
soft tissue in the presacral area as well as in the musculature of the left buttock.
Compressive compression screw and intramedullary ronan traversing an impacted intertrochanteric fracture of the right femur with incomplete osseous union. Threads of the screw extending into the cortical margin of the femoral head.
Lumbar DJD with postop changes.
13 cm midline anterior pelvic wall hernia
# Left hip pain- X ray with no fracture, Lidoderm patch ordered along with narcs
# Infected stage 4 sacral wounds
Status post bedside debridement by Dr. North on 02/03/2024
Wound cultures with Pseudomonas, Proteus, E. coli
Was on Fortaz then changed to cefepime now changed to meropenem for 4 week course.
Midline placed for AB at SNF
CT with chronic osteomyelitis
No Wound Vac for discharge
# Stage II right heel blister-patient has been refusing heel elevation. Wound care with air overlay or air mattress, soft heel relief boots
# TME-likely secondary to above. Patient back to normal awake alert oriented x 3. Able to make decisions
# Chronic HFpEF
Echo 02/03/2024-normal LV size and function. EF 55 to 60%. Mild MR. Trace TR.
Currently on Lasix. 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 Weight trending down
# Diabetes-S new diagnosis this admission. Started metformin. 1000 BID. Hemoglobin A1c 8.1. Accu-Cheks and sliding scale coverage. Dietary education.
# Right femur- Dr Martines discussed with who knows her well. Plan is not to intervene as patient is not a good candidate for revision. No further intervention needed at this point.
# Anemia-adequate iron and B12. Likely secondary to chronic disease. Hgb improving
# COPD continue as needed nebs, fluticasone/salmeterol
# Hypertension-continue Nifedipine, Atenolol, Losartan
# Neurogenic bladder
# Chronic pain with opioid dependence- on buprenorphine, gabapentin, Dilaudid
# Chronic radiation cystitis
# GERD/hiatal hernia-PPI
# Anxiety-on as needed clonazepam, hydroxyzine
# Severe discogenic DJD L5-S1
# 13 cm midline anterior pelvic wall hernia
# Fusiform infrarenal AAA 3.1 cm/Atherosclerosis
# Pulmonary nodule 1 cm right mid lung
# History of rectal cancer status post APR with colostomy 1982-no BM charted however nursing reports that patient had 1 overnight.
# History of right nephrectomy for renal cancer 1981
# Ambulatory Dysfunction-PT OT. Get patient out of bed to a chair
# Ex-smoker
# DVT prophylaxis-Lovenox
# Full code
discussed with patient and patient's daughter Stephie
I spent a total of 50 minutes with the patient or on the floor. More than 50% of this time involved counseling and coordination of care.
Anticipated Discharge: 24 - 48 hours
Subjective/Interval History
-
Date of Service: February 08, 2024
Reports significant pain from sacral wound. Daughter Stephie present during evaluation.
Objective Data
-
Labs:
Laboratory Results
02/08/24
06:00
WBC Pending
Hgb Pending
Hct Pending
Plt Count Pending
Sodium Pending
Potassium Pending
Chloride Pending
Carbon Dioxide Pending
BUN Pending
Creatinine Pending
Glucose Pending
Calcium Pending
Vital Signs:
Vital Signs
Temp Pulse Resp BP Pulse Ox
98.4 F 97 20 125/79 94
02/07/24 23:00 02/07/24 23:00 02/07/24 23:00 02/07/24 23:00 02/07/24 23:00
I&O
02/06/24 02/07/24 02/08/24
06:59 06:59 06:59
Intake Total 100 / 100 1440 / 1440 960 / 960
Balance 100 / 100 1440 / 1440 960 / 960
[2024-02-08 06:58] LABS: Hematocrit 28.2 % (37.0-47.0); Hemoglobin 9.1 g/dL (12.0-16.0); Mean Corp Hgb Conc. 32.3 g/dL (33.0-37.0); Mean Corpuscular Volume 89.8 fL (81.0-99.0); Mean Platelet Volume 8.7 fL (7.4-10.4); Platelet Count 221 10^3/uL (130-400); Red Blood Cell Count 3.14 10^6/uL (4.20-5.40); Red Cell Dist. Width 14.5 % (11.5-14.5)
[2024-02-08] MEDS: ADVAIR HFA 115/21 MCG INHALER 2 PUFF INH ×2 (07:19→20:02)
[2024-02-08 07:23] LABS: Blood Urea Nitrogen 28 mg/dl (7-17); Calcium 9.1 mg/dl (8.4-10.2); Carbon Dioxide 29 mmol/L (22-30); Chloride 95 mmol/L (98-107); Estimated Creatinine Clearance 47 ml/min; Glucose 180 mg/dl (70-99); Magnesium 1.4 mg/dl (1.6-2.3); Potassium 4.6 mmol/L (3.5-5.1); Sodium 136 mmol/L (135-145); eGFR 58.39
[2024-02-08] MEDS: NON-FORMULARY ITEM BUCCAL ×2 (10:02→20:33)
[2024-02-08] MEDS: GLUCOPHAGE 1000 MG PO ×2 (10:04→16:15)
[2024-02-08] MEDS: COZAAR 25 MG PO (10:04)
[2024-02-08] MEDS: LIDOCAINE 4% PATCH 1 PATCH TOPICAL (10:04)
[2024-02-08] MEDS: LASIX 40 MG PO (10:04)
[2024-02-08] MEDS: VISBIOME 2 CAP PO (10:05)
[2024-02-08] MEDS: NEURONTIN 300 MG PO ×3 (10:05→22:17)
[2024-02-08] MEDS: PROTONIX 40 MG PO (10:05)
[2024-02-08] MEDS: TENORMIN 50 MG PO (10:05)
[2024-02-08] MEDS: THERAGRAN 2 TABLET PO ×2 (10:05→20:34)
[2024-02-08] MEDS: MIRALAX 17 GRAMS PO (10:05)
[2024-02-08] MEDS: VITAMIN C 500 MG PO (10:06)
[2024-02-08] MEDS: VITAMIN D3 (cholecalciferol) 50 MCG PO (10:06)
[2024-02-08] MEDS: VITAMIN B-12 2500 MCG PO (10:10)
[2024-02-08] MEDS: DAKIN'S SOLUTION 0.125% 1/4 STRENGTH 473 ML TOPICAL (10:12)
[2024-02-08 10:15] LABS: Glucose - Point of Care 188 mg/dl (70-99)
[2024-02-08] MEDS: NOVOLOG FLEXPEN-LOW RESISTANCE 1 UNITS SC ×2 (10:15→13:00)
[2024-02-08 10:40] VITALS: BP 150/62
[2024-02-08] MEDS: TYLENOL 650 MG PO (12:06)
[2024-02-08] MEDS: KLONOPIN 0.5 MG PO (12:06)
[2024-02-08] MEDS: PROCARDIA XL (EXTENDED RELEASE) 60 MG PO (12:06)
[2024-02-08 12:14] LABS: Glucose - Point of Care 165 mg/dl (70-99)
[2024-02-08 15:31] VITALS: BP 118/53
[2024-02-08] MEDS: MAGNESIUM SULFATE 50 IV (17:03)
[2024-02-08 17:06] LABS: Glucose - Point of Care 211 mg/dl (70-99)
[2024-02-08] MEDS: NOVOLOG FLEXPEN-LOW RESISTANCE 2 UNITS SC (18:48)
[2024-02-08] MEDS: LOVENOX 40 MG SC (18:49)
[2024-02-08] MEDS: DAKIN'S SOLUTION 0.125% 1/4 STRENGTH 1 ML TOPICAL (20:35)
[2024-02-08 21:39] LABS: Glucose - Point of Care 188 mg/dl (70-99)
[2024-02-08 23:32] VITALS: BP 120/60
[2024-02-09] MEDS: STERILE WATER FOR INJECTION 10 ML IV ×3 (05:35→17:14)
[2024-02-09] MEDS: MERREM 500 MG IV ×3 (05:36→17:13)
[2024-02-09 06:00] VITALS: BMI 28.1
--- NOTE | 2024-02-09 07:12 | W.PN.HOSP.TC ---
Today's Communication/Plan
-
cont abx
pain control, prn PO dilaudid freq increased to Q4hprn, IV dilaudid added for severe breakthrough pain
wound care
PT/OT
discharge planning SNF rehab
Assessment / Plan
Assessment / Plan
Physical Exam
General: mild moderate distress d/t pain
CVS: S1-S2 normal
Chest: CTA B/L
Abdomen: Soft, NT , colostomy wih BM,bowel sounds present
Extremities: No edema
Neuro: Awake alert conversant
78-year-old female with chronic sacral wounds with attempted flap reconstruction in April at [facility] admitted with fever and purulence from sacral wound.
CT pelvis 02/01/24- A 9 cm decubitus ulcer over left main sacrum posteriorly. Extensive sclerosis throughout the sacrum and medial aspect of the ilium bilaterally similar to 03/25/2023 may be seen on chronic osteomyelitis. Associated secondary
soft tissue in the presacral area as well as in the musculature of the left buttock.
Compressive compression screw and intramedullary ronan traversing an impacted intertrochanteric fracture of the right femur with incomplete osseous union. Threads of the screw extending into the cortical margin of the femoral head.
Lumbar DJD with postop changes.
13 cm midline anterior pelvic wall hernia
# Left hip pain- X ray with no fracture, Lidoderm patch ordered along with narcs
# Infected stage 4 sacral wounds
Status post bedside debridement by Dr. North on 02/03/2024
Wound cultures with Pseudomonas, Proteus, E. coli
Was on Fortaz changed to cefepime further changed to current meropenem 500 mg IV q6h x 14 days continue through 02/19 as per ID
Midline placed for AB at [facility]
CT with chronic osteomyelitis
No Wound Vac for discharge
# Stage II right heel blister-patient has been refusing heel elevation. Wound care with air overlay or air mattress, soft heel relief boots
# TME-likely secondary to above. Patient back to normal awake alert oriented x 3. Able to make decisions
# Chronic HFpEF
Echo 02/03/2024-normal LV size and function. EF 55 to 60%. Mild MR. Trace TR.
Currently on Lasix. 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 Weight trending down
#Hypomagnesemia
monitor and replete as necessary
# Diabetes-S new diagnosis this admission. Started metformin. 1000 BID. Hemoglobin A1c 8.1. Accu-Cheks and sliding scale coverage. Dietary/Diabetes education requested.
# Right femur- Dr Martines discussed with who knows her well. Plan is not to intervene as patient is not a good candidate for revision. No further intervention needed at this point.
# Anemia-adequate iron and B12. Likely secondary to chronic disease. Hgb improving
# COPD continue as needed nebs, fluticasone/salmeterol
# Hypertension-continue Nifedipine, Atenolol, Losartan
# Neurogenic bladder
# Chronic pain with opioid dependence- on Belbuca (patient's own med), gabapentin, Dilaudid PO, IV dilaudid added for severe breakthrough pain (home oral oxycodone on hold d/t concern polypharmacy contributing to TME present on admission)
# Chronic radiation cystitis
# GERD/hiatal hernia-PPI
# Anxiety-on as needed clonazepam, hydroxyzine
# Severe discogenic DJD L5-S1
# 13 cm midline anterior pelvic wall hernia
# Fusiform infrarenal AAA 3.1 cm/Atherosclerosis
# Pulmonary nodule 1 cm right mid lung
# History of rectal cancer status post APR with colostomy 1982
# History of right nephrectomy for renal cancer 1981
# Ambulatory Dysfunction-PT OT. out of bed to chair
# Ex-smoker
# DVT prophylaxis-Lovenox
# Full code
discussed with patient and patient's daughter Stephie
I spent a total of 50 minutes with the patient or on the floor. More than 50% of this time involved counseling and coordination of care.
Anticipated Discharge: 24 - 48 hours
Subjective/Interval History
-
Date of Service: February 09, 2024
pain uncontrolled with current regimen since adjusted. Awake Alert Conversant Coherent.
Objective Data
-
Labs:
Laboratory Results
02/09/24
06:00
WBC Pending
Hgb Pending
Hct Pending
Plt Count Pending
Sodium Pending
Potassium Pending
Chloride Pending
Carbon Dioxide Pending
BUN Pending
Creatinine Pending
Glucose Pending
Calcium Pending
Vital Signs:
Vital Signs
Temp Pulse Resp BP Pulse Ox
98.2 F 79 14 120/60 95
02/08/24 23:32 02/08/24 23:32 02/08/24 23:32 02/08/24 23:32 02/08/24 23:32
I&O
02/08/24 02/09/24 02/10/24
06:59 06:59 06:59
Intake Total 960 / 960 480 / 480
Output Total 300 / 300 225 / 225
Balance 660 / 660 255 / 255
[2024-02-09 07:40] VITALS: BP 137/58
[2024-02-09] MEDS: ADVAIR HFA 115/21 MCG INHALER 2 PUFF INH ×2 (07:53→19:39)
[2024-02-09 08:28] LABS: Glucose - Point of Care 177 mg/dl (70-99)
[2024-02-09 08:33] LABS: Hematocrit 26.8 % (37.0-47.0); Hemoglobin 8.6 g/dL (12.0-16.0); Mean Corp Hgb Conc. 32.1 g/dL (33.0-37.0); Mean Corpuscular Hgb 28.3 pg (27.0-31.0); Mean Corpuscular Volume 88.2 fL (81.0-99.0); Mean Platelet Volume 8.8 fL (7.4-10.4); Platelet Count 246 10^3/uL (130-400); Red Blood Cell Count 3.04 10^6/uL (4.20-5.40); Red Cell Dist. Width 14.7 % (11.5-14.5); White Blood Cell Count 7.3 10^3/uL (4.8-10.8)
[2024-02-09 08:44] LABS: Blood Urea Nitrogen 37 mg/dl (7-17); Carbon Dioxide 34 mmol/L (22-30); Chloride 94 mmol/L (98-107); Estimated Creatinine Clearance 39 ml/min; Glucose 147 mg/dl (70-99); Phosphorus 3.6 mg/dl (2.5-4.5); Sodium 137 mmol/L (135-145); eGFR 46.91
[2024-02-09 08:49] LABS: Potassium 4.7 mmol/L (3.5-5.1)
[2024-02-09] MEDS: VISBIOME 2 CAP PO (09:03)
[2024-02-09] MEDS: LIDOCAINE 4% PATCH 1 PATCH TOPICAL (09:03)
[2024-02-09] MEDS: GLUCOPHAGE 1000 MG PO ×2 (09:03→17:33)
[2024-02-09] MEDS: NOVOLOG FLEXPEN-LOW RESISTANCE 1 UNITS SC ×2 (09:03→13:18)
[2024-02-09] MEDS: MIRALAX 17 GRAMS PO (09:03)
[2024-02-09] MEDS: PROCARDIA XL (EXTENDED RELEASE) 60 MG PO (09:04)
[2024-02-09] MEDS: THERAGRAN 2 TABLET PO ×2 (09:04→21:00)
[2024-02-09] MEDS: PROTONIX 40 MG PO (09:04)
[2024-02-09] MEDS: VITAMIN C 500 MG PO (09:04)
[2024-02-09] MEDS: NEURONTIN 300 MG PO ×3 (09:04→21:00)
[2024-02-09] MEDS: LASIX 40 MG PO (09:05)
[2024-02-09] MEDS: TENORMIN 50 MG PO (09:05)
[2024-02-09] MEDS: COZAAR 25 MG PO (09:06)
[2024-02-09] MEDS: VITAMIN D3 (cholecalciferol) 50 MCG PO (09:06)
[2024-02-09] MEDS: DAKIN'S SOLUTION 0.125% 1/4 STRENGTH 473 ML TOPICAL ×2 (09:07→21:15)
[2024-02-09] MEDS: NON-FORMULARY ITEM BUCCAL (09:08)
[2024-02-09] MEDS: DILAUDID 4 MG PO ×3 (09:21→21:24)
[2024-02-09] MEDS: VITAMIN B-12 2500 MCG PO (11:56)
[2024-02-09 13:18] LABS: Glucose - Point of Care 192 mg/dl (70-99)
[2024-02-09 15:50] VITALS: BP 116/51
[2024-02-09] MEDS: NON-FORMULARY ITEM 150 MCG BUCCAL (16:31)
[2024-02-09 17:02] LABS: Glucose - Point of Care 240 mg/dl (70-99)
[2024-02-09] MEDS: DILAUDID 0.5 MG IV (17:12)
[2024-02-09] MEDS: KLONOPIN 0.5 MG PO (17:12)
[2024-02-09] MEDS: LOVENOX 40 MG SC (17:13)
[2024-02-09] MEDS: NOVOLOG FLEXPEN-LOW RESISTANCE 2 UNITS SC (17:14)
[2024-02-09 21:16] VITALS: BP 125/53
[2024-02-09 21:37] LABS: Glucose - Point of Care 176 mg/dl (70-99)
[2024-02-09 23:20] VITALS: BP 126/55
[2024-02-10] MEDS: MERREM 500 MG IV ×4 (00:04→17:29)
[2024-02-10] MEDS: STERILE WATER FOR INJECTION 10 ML IV ×4 (00:04→17:29)
[2024-02-10] MEDS: DILAUDID 0.5 MG IV ×2 (00:04→09:46)
--- NOTE | 2024-02-10 03:43 | PTCARENOTE ---
RN rounded on pt to find midline had been pulled out and colostomy pulled off. Pt woken up by RN and asked orientation questions, pt aaox3. Pt informed that she had pulled out midline and colostomy. When asked why pt did that she stated 'I don't
know. I don't remember doing that'. TOOLROOM HELPER and IV team notified. Colostomy bag replaced and pt cleaned up. plan of care ongoing.
[2024-02-10] MEDS: DILAUDID 4 MG PO ×2 (04:10→10:39)
[2024-02-10 05:50] LABS: Hematocrit 28.8 % (37.0-47.0); Hemoglobin 9.3 g/dL (12.0-16.0); Mean Corp Hgb Conc. 32.3 g/dL (33.0-37.0); Mean Corpuscular Volume 89.7 fL (81.0-99.0); Mean Platelet Volume 8.7 fL (7.4-10.4); Platelet Count 264 10^3/uL (130-400); Red Blood Cell Count 3.21 10^6/uL (4.20-5.40); Red Cell Dist. Width 14.6 % (11.5-14.5); White Blood Cell Count 8.4 10^3/uL (4.8-10.8)
[2024-02-10 06:00] VITALS: BMI 27.9
--- NOTE | 2024-02-10 06:00 | PTCARENOTE ---
New IV placed in RFA by IV team nurse. IV wrapped in gauze. Pt will be getting IV abx until Feb 17 at [facility]. IV team nurse to pass on need for midline to dayshift IV team. Will inform dayshift RN. Plan of care ongoing.
[2024-02-10 06:23] LABS: Blood Urea Nitrogen 44 mg/dl (7-17); Calcium 9.3 mg/dl (8.4-10.2); Carbon Dioxide 30 mmol/L (22-30); Chloride 94 mmol/L (98-107); Estimated Creatinine Clearance 43 ml/min; Glucose 183 mg/dl (70-99); Magnesium 1.8 mg/dl (1.6-2.3); Phosphorus 3.7 mg/dl (2.5-4.5); Potassium 4.9 mmol/L (3.5-5.1); Sodium 136 mmol/L (135-145); eGFR 52.08
--- NOTE | 2024-02-10 06:28 | W.PN.HOSP.TC ---
Today's Communication/Plan
-
cont wound care
pain control, adjusted as per Palliative recommendations
cont abx
PT/OT
Assessment / Plan
Assessment / Plan
Physical Exam
General: mild moderate distress d/t pain
CVS: S1-S2 normal
Chest: CTA B/L
Abdomen: Soft, NT , colostomy wih BM,bowel sounds present
Extremities: No edema
Neuro: Awake alert conversant
78-year-old female with chronic sacral wounds with attempted flap reconstruction in April at [facility] admitted with fever and purulence from sacral wound.
CT pelvis 02/01/24- A 9 cm decubitus ulcer over left main sacrum posteriorly. Extensive sclerosis throughout the sacrum and medial aspect of the ilium bilaterally similar to 03/25/2023 may be seen on chronic osteomyelitis. Associated secondary
soft tissue in the presacral area as well as in the musculature of the left buttock.
Compressive compression screw and intramedullary ronan traversing an impacted intertrochanteric fracture of the right femur with incomplete osseous union. Threads of the screw extending into the cortical margin of the femoral head.
Lumbar DJD with postop changes.
13 cm midline anterior pelvic wall hernia
# Left hip pain- X ray with no fracture, Lidoderm patch ordered along with narcs
# Infected stage 4 sacral wounds
Status post bedside debridement by Dr. North on 02/03/2024
Wound cultures with Pseudomonas, Proteus, E. coli
Was on Fortaz changed to cefepime further changed to current meropenem 500 mg IV q6h x 14 days continue through 02/19 as per ID
Midline placed for AB at [facility]
CT with chronic osteomyelitis
No Wound Vac for discharge
# Stage II right heel blister-patient has been refusing heel elevation. Wound care with air overlay or air mattress, soft heel relief boots
# TME-likely secondary to above. Patient back to normal awake alert oriented x 3. Able to make decisions
# Chronic HFpEF
Echo 02/03/2024-normal LV size and function. EF 55 to 60%. Mild MR. Trace TR.
Currently on Lasix. 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 Weight trending down
#Hypomagnesemia
monitor and replete as necessary
# Diabetes-S new diagnosis this admission. Started metformin. 1000 BID. Hemoglobin A1c 8.1. Accu-Cheks and sliding scale coverage. Dietary/Diabetes education requested.
Farxiga 5 mg daily started
# Right femur- Dr Martines discussed with who knows her well. Plan is not to intervene as patient is not a good candidate for revision. No further intervention needed at this point.
# Anemia-adequate iron and B12. Likely secondary to chronic disease. Hgb improving
# COPD continue as needed nebs, fluticasone/salmeterol
# Hypertension-continue Nifedipine, Atenolol, Losartan
# Neurogenic bladder
# Acute on Chronic pain with opioid dependence- on Belbuca (patient's own med), gabapentin, Dilaudid PO, IV dilaudid added for severe breakthrough pain (home oral oxycodone on hold d/t concern polypharmacy contributing to TME present on admission)
Palliative eval appreciated po dilaudid prn increased from 4mg to 8mg, prn IV dilaudid severe breakthrough pain increase from 0.5 mg to 1 mg
# Chronic radiation cystitis
# GERD/hiatal hernia-PPI
# Anxiety-on as needed clonazepam, hydroxyzine
# Severe discogenic DJD L5-S1
# 13 cm midline anterior pelvic wall hernia
# Fusiform infrarenal AAA 3.1 cm/Atherosclerosis
# Pulmonary nodule 1 cm right mid lung
# History of rectal cancer status post APR with colostomy 1982
# History of right nephrectomy for renal cancer 1981
# Ambulatory Dysfunction-PT OT. out of bed to chair
# Ex-smoker
# DVT prophylaxis-Lovenox
# Full code
discussed with patient and patient's Fede
I spent a total of 50 minutes with the patient or on the floor. More than 50% of this time involved counseling and coordination of care.
Anticipated Discharge: > 48 hours
Subjective/Interval History
-
Date of Service: February 10, 2024
pain uncontrolled. exacerbated following wound care and physical therapy. Adjustments to pain meds made a s per Palliative recommendations. Patient's Fede present during evaluation.
Objective Data
-
Labs:
Laboratory Results
02/10/24
05:43
WBC 8.4
Hgb 9.3 L
Hct 28.8 L
Plt Count 264
Sodium 136
Potassium 4.9
Chloride 94 L
Carbon Dioxide 30
BUN 44 H
Creatinine 1.1 H
Glucose 183 H
Calcium 9.3
Vital Signs:
Vital Signs
Temp Pulse Resp BP Pulse Ox
97.6 F 86 17 126/55 95
02/09/24 23:20 02/09/24 23:20 02/09/24 23:20 02/09/24 23:20 02/09/24 23:20
I&O
02/08/24 02/09/24 02/10/24
06:59 06:59 06:59
Intake Total 960 / 960 480 / 480 600 / 600
Output Total 300 / 300 225 / 225 575 / 575
Balance 660 / 660 255 / 255
[2024-02-10 07:34] VITALS: BP 131/59
[2024-02-10] MEDS: ADVAIR HFA 115/21 MCG INHALER 2 PUFF INH (07:37)
[2024-02-10 07:51] LABS: Glucose - Point of Care 161 mg/dl (70-99)
[2024-02-10] MEDS: PROTONIX 40 MG PO (09:13)
[2024-02-10] MEDS: LASIX 40 MG PO (09:13)
[2024-02-10] MEDS: VITAMIN C 500 MG PO (09:13)
[2024-02-10] MEDS: NEURONTIN 300 MG PO (09:14)
[2024-02-10] MEDS: VITAMIN D3 (cholecalciferol) 50 MCG PO (09:14)
[2024-02-10] MEDS: COZAAR 25 MG PO (09:14)
[2024-02-10] MEDS: TENORMIN 50 MG PO (09:14)
[2024-02-10] MEDS: VITAMIN B-12 2500 MCG PO (09:14)
[2024-02-10] MEDS: GLUCOPHAGE 1000 MG PO (09:15)
[2024-02-10] MEDS: VISBIOME 2 CAP PO (09:16)
[2024-02-10] MEDS: MIRALAX PO ×2 (09:16→09:53)
[2024-02-10] MEDS: THERAGRAN 2 TABLET PO (09:16)
[2024-02-10] MEDS: LIDOCAINE 4% PATCH TOPICAL ×2 (09:17→09:53)
[2024-02-10] MEDS: NOVOLOG FLEXPEN-LOW RESISTANCE 1 UNITS SC ×3 (09:18→17:29)
[2024-02-10] MEDS: NON-FORMULARY ITEM 150 MCG BUCCAL (09:22)
[2024-02-10] MEDS: PROCARDIA XL (EXTENDED RELEASE) 60 MG PO (09:25)
[2024-02-10] MEDS: FLUSH (NSS) 2 FLUSH IV (09:48)
--- NOTE | 2024-02-10 10:10 | W.PN.ID1 ---
Date of Service
Date of Service: February 10, 2024
Today's Communication
Continue meropenem 500mg IV q6h x 14 days through 02/20/24.
Assessment / Plan
# Acute on chronic sacral osteo , wound infection
- hx failed flap reconstruction, has wound vac since 11/18/2023, follows with Dr. Mcmillan at [place]
- s/p bedside debridement 02/03/24
- 02/01 wound swab Pseudomonas, Proteus, ESBL-E. coli.
- Continue meropenem 500mg IV q6h x 14 days through 02/20/24.
- Infusion sheet submitted to case reviewer.
- No benefit in long course abx in setting of chronic osteo with large open wound.
- Appreciate Wound Care recs. Wound Vac is of no benefit at this stage.
- Awaiting SNF-rehab placement
# Conditions GENERAL DOC
Rectal ca 1992 s/ APR, colostomy at [facility] with adjuvant chemo XRT.
Renal ca, right s/p nephrectomy (1992).
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
Sacral wound reconstruction by Dr. Mcmillan at [facility] 10/08/23 (OR cx Klebsiella and Enterococcus) s/p 6 weeks IV Zosyn through 11/19/23
Sacral flap necrosis s/p I+D, wound vac application at [facility] 11/18/23 s/p IV Zosyn short course.
Sacral OR wound debridement 12/31/23, Tissue path fat necrosis, acute inflammation. Bone cx: Pseudomonas (panS), E. coli (panS), VRE (amp-resistant), Corynebacterium striatum (?untreated0
Hypertension.
Infrarenal AAA
COPD
Lung nodules.
Thrombocytopenia.
neurogenic bladder, receiving Botox, intermittent self-cath.
recurrent UTI
R hip fracture ORIF 03/2023
parastomal hernia repair with mesh
back surgery 07/2020
bilateral knee replacements
Chief Complaint
-: Other (sacral osteo)
Subjective / Review of Systems
Crying with pain. Received Dilaudid 5 min ago.
Vital Signs / Physical Exam
Vital Signs
Vital Signs
Temp Pulse Resp BP Pulse Ox
97.9 F 82 16 131/59 95
02/10/24 07:34 02/10/24 07:41 02/10/24 07:41 02/10/24 09:25 02/10/24 07:41
Physical Exam
Constitutional: Negative Comfortable
Neurological: AO x 3
Objective Data
Lab Data
Lab Results
02/10/24 05:43
02/10/24 05:43
ESR > 145 mm/hour (0-20) H 02/02/24 04:39
Estimated Creat Clear 43 ml/min 02/10/24 05:43
Lactic Acid 0.7 mmol/L (0.7-2.0) 02/01/24 02:47
Total Bilirubin 0.4 mg/dl (0.2-1.3) 02/01/24 02:47
AST 22 U/L (14-36) 02/01/24 02:47
ALT 16 U/L (0-35) 02/01/24 02:47
Alkaline Phosphatase 135 U/L (38-126) H 02/01/24 02:47
C-Reactive Protein 205.70 mg/L (0.0-10.00) H 02/02/24 04:39
Most recent labs reviewed.
Micro Results:
02/02/24 Unknown Wound Culture - Final
Sacral Proteus mirabilis
Pseudomonas aeruginosa
Escherichia coli - ESBL
Gram Stain - Final
02/01/24 02:59 Blood Culture - Final
Blood/Venous No Growth - Final Report
02/01/24 02:47 Blood Culture - Final
Blood/Venous No Growth - Final Report
02/01/24 04:42 Urine Culture - Final
Urine
02/01/24 02:47 Influenza Types A & B (ALTHEA) - Final
Nasal Swab Negative for Influenza A & B, NAAT
Negative results must be combined with clinical observations
and patient history.
Nucleic Acid Amplification test (NAAT)performed on the
Revaluate platform.
02/01/[address]: There is 9 cm decubitus ulcer overlying the sacrum posteriorly. There is extensive sclerosis throughout the sacrum and medial aspect of the samantha bilaterally similar to that seen on the 03/25/2023 plain film examination such as
may be seen with chronic osteomyelitis.
There is associated inflammatory soft tissue in the presacral space as well as in the musculature of the left buttock
02/06/24 left hip XRAY: No acute fracture or dislocation. Insertional calcific tendinosis adjacent to the greater trochanter. No erosion.
--- NOTE | 2024-02-10 11:06 | W.CON.PAL ---
Consultation
-
Date/Time Consultation Requested: 02/09
Date/Time Consultation Performed: 02/09
Requesting Provider: Miranda
Performing Provider: Bree Trinidad
Reason for Consult: Symptom & Pain Management
Consult Requested By: Patient's Physician
Reason for Admission
Illness Course/HPI
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
Upon admission, complaining of pain in sacrum. Also with decreased mental status and pain medications decreased. Wound vac in place. Had a recent admission last month for similar issue. Seen by surgery at that time who recommended no acute
intervention as wound did not appear infected. Wound cultures at that time were + for proteus mirabilis, ecoli and pseuodomonas. Seen by surgery on admission - s/p bedside debridement.
Continues on IV meropenem through 02/19. Planning for discharge back to SNF.
Consult for pain management.
Per review of chart/PDMP - takes belbuca 150mg BID, PRN dilaudid 4mg, gabapentin. Meds initially decreased on admission due to AMS. Also appears patient ran out of belbuca and missed a couple doses yesterday, now has a supply and restarted.
Seen at bedside with no family present. Patient yelling out in pain. Tells me the doses work fine for her but she isnt getting them on time/frequently enough. On review of chart, patient had 4mg dose 2 hours ago and is already screaming out in pain.
Missed 4 doses of belbuca over the weekend, now restarted.
Pain & Symptom Assessment
Patient Symptoms
Patient Symptoms: Pain
[place] Symptom Scale 0=none, 10=worst
Pain: 10
Objective Data
-
Objective Data:
Vital Signs
Temp Pulse Resp BP Pulse Ox
97.9 F 82 16 131/59 95
02/10/24 07:34 02/10/24 07:41 02/10/24 07:41 02/10/24 09:25 02/10/24 07:41
Laboratory Results
02/10/24 05:43
02/10/24 05:43
Hemoglobin A1c Cancelled 02/01/24 08:34
Total Protein 6.2 g/dl (6.3-8.2) L 02/01/24 02:47
Albumin 3.0 g/dl (3.5-5.0) L 02/01/24 02:47
Urine Color Yellow 02/01/24 04:42
Urine Clarity Slightly cloudy (Clear) 02/01/24 04:42
Urine pH 5.0 (5.0-9.0) 02/01/24 04:42
Ur Specific [place] 1.015 (<1.030) 02/01/24 04:42
Urine Ketones Negative (Negative) 02/01/24 04:42
Urine Bilirubin Negative (Negative) 02/01/24 04:42
Palliative Performance Scale
Palliative Performance Scale:
PPS Level Ambulation Activity & Evidence of Disease Self Care Intake Conscious Level
100% Full Normal Activity & Work; Full Intake Full
No Evidence of Disease
90% Full Normal Activity & Work; Full Normal Full
Some Evidence of Disease
80% Full Normal Activity with Effort Full Normal or Full
Some Evidence of Disease Reduced
70% Reduced Unable Normal Job/Work Full Normal or Full
Significant Disease Reduced
60% Reduced Unable Hobby/Housework Occasional Normal or Full or Confusion
Significant Disease Assistance Reduced
50% Mainly Sit/Lie Unable to do Any Work Considerable Normal or Full or Confusion
Extensive Disease Assistance Req'd Reduced
40% Mainly in Bed Unable to do Most Activity Mainly Assistance Normal or Full or Drowsy;
Extensive Disease Reduced +/- Confusion
30% Totally Bed Unable to do Any Activity Total Care Normal or Full or Drowsy;
Bound Extensive Disease Reduced +/- Confusion
20% Totally Bed Bound Unable to do Any Activity Total Care Minimal to Full or Drowsy;
Extensive Disease Sips +/- Confusion
10% Totally Bed Bound Unable to do Any Activity Total Care Mouth Care Drowsy or Coma;
Extensive Disease Only +/- Confusion
0%
PPS Score Level:
Palliative Performance Score Response
Palliative Performance Score Response: 50%
Physical Exam
-
General: Appears in Distress, Pain and Appears Chronically Ill
HEENT: Normocephalic
Respiratory: Clear to Auscultation
Cardiac: Regular Rhythm
Peripheral Vascular: No Edema
GI: Soft and Colostomy
Rectal: Brown
Skin: Warm and Decubitus Ulcers
Neuro: AO x 3
Assessment / Plan
-
Assessment/Plan:
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
#Pain
- presents with acute pain crisis, s/p wound debridement. Missed 4 doses of belbuca. Will need higher doses of opioids to achieve pain control in acute pain crisis due to being on belbuca
- increase PO dilaudid to 8mg PO Q4 PRN, IV dilaudid to 1mg PRN first dose now.
- goal would be to titrate back down to previous dosing in the coming days pending how she does. If no improvement, could consider increasing belbuca dose. Follows with [facility] Palliative for pain management.
- discussed with team and bedside RN
Care Reviewed
Data Reviewed
Radiology procedure: Image Reviewed
Medical Tests: I reviewed
Reviewed with: Patient
[2024-02-10] MEDS: DAKIN'S SOLUTION 0.125% 1/4 STRENGTH 473 ML TOPICAL (11:53)
[2024-02-10 12:05] LABS: Glucose - Point of Care 173 mg/dl (70-99)
--- NOTE | 2024-02-10 12:18 | PTCARENOTE ---
Addendum entered by Elvia Montana RN 02/10/24 14:45:
Per SuzettealicjadaliBree, patient verbalized to her that she�s not getting Dilaudid quick enough but clearly that�s not the case because she�s early for her pain meds and she�s in excruciating pain, especially after having wound care done at 11:30 by
student nurse and instructor and not due for any analgesia. Currently, patient screaming/yelling, tearful, anxious and holding onto top side rails and resisting turning/redepositing due to pain level. With being in [facility] and having an acute
pain crisis Bree stated that patient needs higher than her normal opioid doses in order to achieve adequate pain relief at least temporarily. She recommends to increase her Po Dilaudid to 8mg prn and the iv to at least 1mg for now, first dose of iv
now please, which was communicated to Dr. Jean. patient made aware, will continue to monitor.
Original Note:
Per Bree Trinidad, patient verbalized to her that she�s not getting Dilaudid quick enough but clearly that�s not the case because she�s early for her pain meds and she�s in excruciating pain, especially after having wound care done at 11:30 by
student nurse and instructor and not due for any analgesia. With being in [facility] and having an acute pain crisis Bree stated that patient needs higher than her normal opioid doses in order to achieve adequate pain relief at least temporarily.
She recommends to increase her po dilaudid to 8mg prn and the iv to at least 1mg for now, first dose of iv now please, which was communicated to Dr. Jean. patient made aware, will continue to monitor.
[2024-02-10] MEDS: DILAUDID 1 MG IV ×2 (12:44→18:31)
[2024-02-10] MEDS: DILAUDID 8 MG PO (14:04)
--- NOTE | 2024-02-10 14:41 | PTCARENOTE ---
Since increase of both IV Dilaudid and PO Dilaudid and both administered as ordered, patient appears more comfortable, reports pain 5/10, at bedside, will continue to monitor.
[2024-02-10 15:15] VITALS: BP 109/51
--- NOTE | 2024-02-10 15:53 | CM ---
CM reviewed pt with Dr Jean, plan for pain control, no set ADC at this time
Multiple calls with admissions, denied at [facility], and [facility] due to acuity and wound needs
Attempted bedside update to pt and sleeping soundly
Call with spouse, he noted they will NOT reconsider [facility] or [facility]
Requested highly rated facilities in the [facility] and [place] area
He requested reconsideration at [facility] as he is a fidel
[facility] left for [facility]/admissions
Large net of referrals sent via [facility] and pending
Discharge Disposition- SNF with air mattress
[2024-02-10 16:59] LABS: Glucose - Point of Care 173 mg/dl (70-99)
[2024-02-10] MEDS: LOVENOX 40 MG SC (17:29)
[2024-02-10] MEDS: GLUCOPHAGE PO ×2 (17:36→18:24)
[2024-02-10] MEDS: NEURONTIN PO ×2 (17:38→18:19)
[2024-02-10] MEDS: ADVAIR HFA 115/21 MCG INHALER INH (19:49)
--- NOTE | 2024-02-10 20:00 | PTCARENOTE ---
@1920;Received pt sleeping on her back,head tilted back and mouth breathing.Pt reacts to verbal and touch stimulation.Pt's daughter had many questions to dayshift RN, Elvia on walking rounds.Pt's daughter tearful,concerned about her code
status,not eating,being drowsy/sleeping with pain medication,her father's input with her care and requesting to have a meeting with her doctor during the day tomorrow.Instructed daughter ,that this information will be passed to the dayshift RN in
[place].Daughter in agreement and appreciated the information.
[2024-02-10 22:40] LABS: Glucose - Point of Care 152 mg/dl (70-99)
[2024-02-10] MEDS: THERAGRAN PO (23:48)
[2024-02-10 23:50] VITALS: BP 130/57
[2024-02-11] MEDS: NON-FORMULARY ITEM 150 MCG BUCCAL ×4 (00:02→21:06)
[2024-02-11] MEDS: NEURONTIN 300 MG PO ×4 (00:03→21:07)
[2024-02-11] MEDS: DILAUDID 8 MG PO ×4 (00:16→18:33)
[2024-02-11] MEDS: STERILE WATER FOR INJECTION 10 ML IV ×4 (00:38→17:34)
[2024-02-11] MEDS: DAKIN'S SOLUTION 0.125% 1/4 STRENGTH TOPICAL ×2 (00:38→10:54)
[2024-02-11] MEDS: MERREM 500 MG IV ×4 (00:38→17:35)
--- NOTE | 2024-02-11 01:00 | PTCARENOTE ---
@0015; pt woke up and crying/tearful/anxious in #10 pain and Dilaudid 8mg po administered.Pt has refused pt care,turning and wound care due to pain.Pt crying,stating ,' I can't do this anymore.It's been too long.Just let me go.' Instructed pt to
talk to her doctor and daughter in the [place] and pt agreed. Asked pt if she is talking about being on hospice? Pt stated,'Yes, let me go.I can't do this any more.I don't want to be turned,no blankets on my legs,and your not touching my wound.'
Emotional support given.
[2024-02-11] MEDS: DILAUDID 1 MG IV ×4 (03:07→22:52)
--- NOTE | 2024-02-11 05:02 | PTCARENOTE ---
Addendum entered by Deepali Aquino RN 02/11/24 05:05:
Pt also uncooperative and refusing aspects of her care (i.e. sacral dressing wound care, Q2 turns). Pressure ulcer prevention education reinforced. Importance of hygiene to pt's wound enforced, pt refuses teachings.
Original Note:
Pt's pain has been difficult to control this shift. Pt falls asleep and rests comfortably after pain med administration, however, will wake up screaming and writhing in the bed. There is minimal time between the two where pt feels adequate pain
control. Pt continuously prays 'Oh please help me God. I can't do this, I don't want to do this anymore' while awake. Pt is consistently tearful and anxious during wake hours. Emotional support provided.
[2024-02-11 06:23] LABS: Hematocrit 29.5 % (37.0-47.0); Hemoglobin 9.3 g/dL (12.0-16.0); Mean Corp Hgb Conc. 31.5 g/dL (33.0-37.0); Mean Corpuscular Hgb 27.9 pg (27.0-31.0); Mean Corpuscular Volume 88.6 fL (81.0-99.0); Mean Platelet Volume 9.1 fL (7.4-10.4); Platelet Count 264 10^3/uL (130-400); Red Blood Cell Count 3.33 10^6/uL (4.20-5.40); Red Cell Dist. Width 14.6 % (11.5-14.5); White Blood Cell Count 7.8 10^3/uL (4.8-10.8)
[2024-02-11 06:39] LABS: Blood Urea Nitrogen 45 mg/dl (7-17); Calcium 9.3 mg/dl (8.4-10.2); Carbon Dioxide 31 mmol/L (22-30); Chloride 95 mmol/L (98-107); Estimated Creatinine Clearance 43 ml/min; Glucose 131 mg/dl (70-99); Potassium 5.2 mmol/L (3.5-5.1); Sodium 139 mmol/L (135-145); eGFR 52.08
[2024-02-11] MEDS: ADVAIR HFA 115/21 MCG INHALER 2 PUFF INH ×2 (07:25→19:23)
[2024-02-11 07:32] LABS: Glucose - Point of Care 137 mg/dl (70-99)
[2024-02-11] MEDS: NOVOLOG FLEXPEN-LOW RESISTANCE SC (07:44)
--- NOTE | 2024-02-11 07:45 | W.PN.HOSP.TC ---
Today's Communication/Plan
-
cont abx
maintain Echevarria
Belbuca increased to TID
cont pain control
wound care, turning as tolerated
Assessment / Plan
Assessment / Plan
Physical Exam
General: in severe pain distress/pain when awake
CVS: S1-S2 normal
Chest: CTA B/L
Abdomen: Soft, NT , colostomy wih BM,bowel sounds present
: ecehvarria present
Extremities: No edema, able to wriggle toes, but severe restriction range of motion lower extremities d/t pain, no restrictions movement upper ext's
Neuro: lethargic but arousable, in severe pain when awake, sleeping comfortably when not awake
78-year-old female with chronic sacral wounds with attempted flap reconstruction in April at [facility] admitted with fever and purulence from sacral wound.
CT pelvis 02/01/24- A 9 cm decubitus ulcer over left main sacrum posteriorly. Extensive sclerosis throughout the sacrum and medial aspect of the ilium bilaterally similar to 03/25/2023 may be seen on chronic osteomyelitis. Associated secondary
soft tissue in the presacral area as well as in the musculature of the left buttock.
Compressive compression screw and intramedullary ronan traversing an impacted intertrochanteric fracture of the right femur with incomplete osseous union. Threads of the screw extending into the cortical margin of the femoral head.
Lumbar DJD with postop changes.
13 cm midline anterior pelvic wall hernia
# Left hip pain- X ray with no fracture, Lidoderm patch ordered along with narcs
# Infected stage 4 sacral wounds
#Acute on Chronic Sacral Osteomyelitis
Status post bedside debridement by Dr. North on 02/03/2024
Wound cultures with Pseudomonas, Proteus, E. coli
Was on Fortaz changed to cefepime further changed to current meropenem 500 mg IV q6h x 14 days continue through 02/19 as per ID
Midline placed for AB at [facility]
CT with chronic osteomyelitis
No Wound Vac for discharge
# Acute on Chronic pain with opioid dependence- on Belbuca (patient's own med), gabapentin, Dilaudid PO, IV dilaudid added for severe breakthrough pain (home oral oxycodone on hold d/t concern polypharmacy contributing to TME present on admission)
Palliative eval appreciated po dilaudid prn increased from 4mg to 8mg, prn IV dilaudid severe breakthrough pain increase from 0.5 mg to 1 mg
02/10 Pain however remain uncontrolled, palliative discussion w/ pt's oupt pain specialist Dr Cardenas appreciated, Belbuca increased to TID
Patient's case was also discussed with Dr Mcmillan patient's plastic surgeon who attempted flap/reconstruction with patient 09/2023 that unfortunately failed d/t necrosis
Dr Mcmillan noted surgical options for correcting wound exhausted, poor prognosis, with poor ambulatory status, wound unlikely to heal, patient fits criteria for hospice 6 mo prognosis (patient's daughter Stephie and son-in-law Don made aware regarding
aforementioned discussion and poor prognosis)
02/10 MRI Lumbar spine obtained to evaluate possible benefit spinal intervention with regards to pain and to evaluate for possible spinal pathology contributing to pain
MRI appreciated:
1. Large 9.2 cm LEFT POSTERIOR STAGE IV SACRAL ULCER extending deep to the underlying bone.
2. Extensive bone marrow signal abnormality throughout the sacrum and left iliac bone suggesting SEVERE ACUTE on CHRONIC OSTEOMYELITIS.
3. Small left sacroiliac joint effusion and extensive bone marrow changes around the left sacroiliac joint suspicious for septic arthritis.
4. Small amount of fluid in the L5/S1 intervertebral disc and adjacent bone marrow signal intensity changes in the endplates adjacent to the left side of the disc suspicious for acute osteomyelitis. Degenerative disease is an alternative
diagnostic possibility.
5. Chronic inferior endplate fracture of L5 with mild loss of vertebral body height.
6. Severe left and moderate to severe right neural foraminal narrowing at L5/S1 with bilateral foraminal disc herniations causing bilateral exiting nerve root impingement (left greater than right).
7. 4.7 mm grade 1 anterolisthesis of L4 on L5 secondary to severe bilateral facet joint arthrosis. MODERATE CENTRAL CANAL STENOSIS at L4/L5.
8. Severe distention of the urinary bladder.
9. Mild left hydroureteronephrosis (probably secondary to vesicoureteral reflux).
#Acute Urinary Retention noted on MRI as above
Likely d/t oversedation from pain meds and also likely contributing to pain
Echevarria started 02/11/24 with significant output noted
maintain Echevarria at this time
# Stage II right heel blister-patient has been refusing heel elevation. Wound care with air overlay or air mattress, soft heel relief boots
# TME-likely secondary to above along with possible polypharmacy with pain meds contributing
# Chronic HFpEF
Echo 02/03/2024-normal LV size and function. EF 55 to 60%. Mild MR. Trace TR.
Currently on Lasix. [employer] metolazone on hold. Weight trending down
#Hypomagnesemia
monitor and replete as necessary
# Diabetes-S new diagnosis this admission. Started metformin. 1000 BID. Hemoglobin A1c 8.1. Accu-Cheks and sliding scale coverage. Dietary/Diabetes education requested.
Farxiga 5 mg daily started, cont
# Compressive compression screw and intramedullary ronan traversing an impacted intertrochanteric fracture of the right femur with incomplete osseous union as noted above- Dr Martines discussed with who knows her well. Plan is not to
intervene as patient is not a good candidate for revision. No further intervention needed at this time.
# Anemia-adequate iron and B12. Likely secondary to chronic disease. Hgb improving
# COPD continue as needed nebs, fluticasone/salmeterol
# Hypertension-continue Nifedipine, Atenolol, Losartan
# Neurogenic bladder
# Chronic radiation cystitis
# GERD/hiatal hernia-PPI
# Anxiety-on as needed clonazepam, hydroxyzine
# Severe discogenic DJD L5-S1
# 13 cm midline anterior pelvic wall hernia
# Fusiform infrarenal AAA 3.1 cm/Atherosclerosis
# Pulmonary nodule 1 cm right mid lung
# History of rectal cancer status post APR with colostomy 1982
# History of right nephrectomy for renal cancer 1981
# Ambulatory Dysfunction-PT OT. out of bed to chair
# Ex-smoker
# DVT prophylaxis-Lovenox
# Full code
discussed with patient, patient's daughter Stephie, and son-in-law Don
I spent a total of 60 minutes with the patient or on the floor. More than 50% of this time involved counseling and coordination of care.
Anticipated Discharge: > 48 hours
Subjective/Interval History
-
Date of Service: February 11, 2024
pain remains uncontrolled. Sedated with current pain regimen, when awake continues to report severe back lower ext's pain b/l with intermittent burning sensation shooting pain from back to legs. Declining wound care and turning due to pain
Objective Data
-
Labs:
Laboratory Results
02/11/24
05:57
WBC 7.8
Hgb 9.3 L
Hct 29.5 L
Plt Count 264
Sodium 139
Potassium 5.2 H
Chloride 95 L
Carbon Dioxide 31 H
BUN 45 H
Creatinine 1.1 H
Glucose 131 H
Calcium 9.3
Vital Signs:
Vital Signs
Temp Pulse Resp BP Pulse Ox
99.1 F 72 18 130/57 94
02/10/24 23:50 02/11/24 07:27 02/10/24 23:50 02/10/24 23:50 02/11/24 04:58
I&O
02/10/24 02/11/24 02/12/24
06:59 06:59 06:59
Intake Total 600 / 600 120 / 120
Output Total 575 / 575 600 / 600
Balance 25 / 25 -480 / -480
[2024-02-11 08:17] VITALS: BP 120/49
[2024-02-11] MEDS: VITAMIN C 500 MG PO (08:38)
[2024-02-11] MEDS: VITAMIN D3 (cholecalciferol) 50 MCG PO (08:38)
[2024-02-11] MEDS: COZAAR 25 MG PO (08:38)
[2024-02-11] MEDS: VISBIOME 2 CAP PO (08:39)
[2024-02-11] MEDS: VITAMIN B-12 2500 MCG PO (08:39)
[2024-02-11] MEDS: LASIX 40 MG PO (08:40)
[2024-02-11] MEDS: TENORMIN 50 MG PO (08:40)
[2024-02-11] MEDS: PROCARDIA XL (EXTENDED RELEASE) 60 MG PO (08:40)
[2024-02-11] MEDS: FARXIGA 5 MG PO (08:40)
[2024-02-11] MEDS: PROTONIX 40 MG PO (08:40)
[2024-02-11] MEDS: GLUCOPHAGE 1000 MG PO ×2 (08:40→17:35)
[2024-02-11] MEDS: LIDOCAINE 4% PATCH 1 PATCH TOPICAL (08:41)
[2024-02-11] MEDS: MIRALAX 17 GRAMS PO (09:43)
[2024-02-11] MEDS: THERAGRAN PO ×2 (10:53→21:08)
--- NOTE | 2024-02-11 10:59 | W.PN.PAL2 ---
Today's Communication
-
worsening pain overnight despite increases in meds yesterday, MRI pending to r/o abscess
Assessment / Plan
-
Assessment/Plan:
Plan:
- worsening pain overnight although pain initially better when seen yesterday afternoon after adjustments, unclear why pain is so severely increased.
- MRI spine pending to r/o abscess, possible consideration of nerve block if no significant findings per attending
- would consider dilaudid [employer] in the short term for better management of pain
- awaiting call back from patients pain/palliative physician at [facility].
- continue IV 1mg and PO 8mg dilaudid PRN
Reason for Admission
Illness Course/HPI
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
Upon admission, complaining of pain in sacrum. Also with decreased mental status and pain medications decreased. Wound vac in place. Had a recent admission last month for similar issue. Seen by surgery at that time who recommended no acute
intervention as wound did not appear infected. Wound cultures at that time were + for proteus mirabilis, ecoli and pseuodomonas. Seen by surgery on admission - s/p bedside debridement.
Continues on IV meropenem through 02/19. Planning for discharge back to SNF.
Consult for pain management.
Per review of chart/PDMP - takes belbuca 150mcg BID, PRN dilaudid 4mg, gabapentin. Meds initially decreased on admission due to AMS. Also appears patient ran out of belbuca and missed a couple doses yesterday, now has a supply and restarted.
Pain & Symptom Assessment
Patient Symptoms
Patient Symptoms: Pain
Objective Data
-
Objective Data:
Vital Signs
Temp Pulse Resp BP Pulse Ox
97.5 F 76 14 120/49 95
02/11/24 08:17 02/11/24 08:38 02/11/24 08:17 02/11/24 08:38 02/11/24 08:17
Laboratory Results
02/11/24 05:57
02/11/24 05:57
Hemoglobin A1c Cancelled 02/01/24 08:34
Total Protein 6.2 g/dl (6.3-8.2) L 02/01/24 02:47
Albumin 3.0 g/dl (3.5-5.0) L 02/01/24 02:47
Urine Color Yellow 02/01/24 04:42
Urine Clarity Slightly cloudy (Clear) 02/01/24 04:42
Urine pH 5.0 (5.0-9.0) 02/01/24 04:42
Ur Specific [place] 1.015 (<1.030) 02/01/24 04:42
Urine Ketones Negative (Negative) 02/01/24 04:42
Urine Bilirubin Negative (Negative) 02/01/24 04:42
Palliative Performance Scale
Palliative Performance Scale:
PPS Level Ambulation Activity & Evidence of Disease Self Care Intake Conscious Level
100% Full Normal Activity & Work; Full Intake Full
No Evidence of Disease
90% Full Normal Activity & Work; Full Normal Full
Some Evidence of Disease
80% Full Normal Activity with Effort Full Normal or Full
Some Evidence of Disease Reduced
70% Reduced Unable Normal Job/Work Full Normal or Full
Significant Disease Reduced
60% Reduced Unable Hobby/Housework Occasional Normal or Full or Confusion
Significant Disease Assistance Reduced
50% Mainly Sit/Lie Unable to do Any Work Considerable Normal or Full or Confusion
Extensive Disease Assistance Req'd Reduced
40% Mainly in Bed Unable to do Most Activity Mainly Assistance Normal or Full or Drowsy;
Extensive Disease Reduced +/- Confusion
30% Totally Bed Unable to do Any Activity Total Care Normal or Full or Drowsy;
Bound Extensive Disease Reduced +/- Confusion
20% Totally Bed Bound Unable to do Any Activity Total Care Minimal to Full or Drowsy;
Extensive Disease Sips +/- Confusion
10% Totally Bed Bound Unable to do Any Activity Total Care Mouth Care Drowsy or Coma;
Extensive Disease Only +/- Confusion
0%
PPS Score Level:
Physical Exam
-
General: Pain and Appears Chronically Ill
HEENT: Normocephalic
Respiratory: Clear to Auscultation
Cardiac: Regular Rhythm
Peripheral Vascular: No Edema
GI: Soft and Colostomy
Rectal: Brown
Skin: Warm
Neuro: AO x 3
Psych: Anxious
Care Reviewed
Data Reviewed
Medical Tests: I reviewed
Reviewed with: Patient
[2024-02-11 11:36] LABS: Glucose - Point of Care 157 mg/dl (70-99)
[2024-02-11] MEDS: NOVOLOG FLEXPEN-LOW RESISTANCE 1 UNITS SC ×2 (12:21→17:36)
--- NOTE | 2024-02-11 12:45 | W.PN.PAL2 ---
Today's Communication
-
Spoke with patients outpatient pain management/palliative physician Dr. Whelan. Patient was tried on many different long acting medications and failed due to side effects, not effective etc. Has been relatively stable on Belbuca dosing for about 2
years now and states still thinks this is the most appropriate medication for her. Agrees with increased doses of short acting medications for pain crisis while further workup being completed. Recommends increasing Belbuca to 150mcg Three times a
day.
Updated team.
Objective Data
-
Objective Data:
Vital Signs
Temp Pulse Resp BP Pulse Ox
97.5 F 76 14 120/49 95
02/11/24 08:17 02/11/24 08:38 02/11/24 08:17 02/11/24 08:38 02/11/24 08:17
Laboratory Results
02/11/24 05:57
02/11/24 05:57
Hemoglobin A1c Cancelled 02/01/24 08:34
Total Protein 6.2 g/dl (6.3-8.2) L 02/01/24 02:47
Albumin 3.0 g/dl (3.5-5.0) L 02/01/24 02:47
Urine Color Yellow 02/01/24 04:42
Urine Clarity Slightly cloudy (Clear) 02/01/24 04:42
Urine pH 5.0 (5.0-9.0) 02/01/24 04:42
Ur Specific [place] 1.015 (<1.030) 02/01/24 04:42
Urine Ketones Negative (Negative) 02/01/24 04:42
Urine Bilirubin Negative (Negative) 02/01/24 04:42
Palliative Performance Scale
Palliative Performance Scale:
PPS Level Ambulation Activity & Evidence of Disease Self Care Intake Conscious Level
100% Full Normal Activity & Work; Full Intake Full
No Evidence of Disease
90% Full Normal Activity & Work; Full Normal Full
Some Evidence of Disease
80% Full Normal Activity with Effort Full Normal or Full
Some Evidence of Disease Reduced
70% Reduced Unable Normal Job/Work Full Normal or Full
Significant Disease Reduced
60% Reduced Unable Hobby/Housework Occasional Normal or Full or Confusion
Significant Disease Assistance Reduced
50% Mainly Sit/Lie Unable to do Any Work Considerable Normal or Full or Confusion
Extensive Disease Assistance Req'd Reduced
40% Mainly in Bed Unable to do Most Activity Mainly Assistance Normal or Full or Drowsy;
Extensive Disease Reduced +/- Confusion
30% Totally Bed Unable to do Any Activity Total Care Normal or Full or Drowsy;
Bound Extensive Disease Reduced +/- Confusion
20% Totally Bed Bound Unable to do Any Activity Total Care Minimal to Full or Drowsy;
Extensive Disease Sips +/- Confusion
10% Totally Bed Bound Unable to do Any Activity Total Care Mouth Care Drowsy or Coma;
Extensive Disease Only +/- Confusion
0%
PPS Score Level:
[2024-02-11 15:02] VITALS: BP 118/48
[2024-02-11 17:16] LABS: Glucose - Point of Care 151 mg/dl (70-99)
[2024-02-11] MEDS: LOVENOX 40 MG SC (17:35)
[2024-02-11] MEDS: DILAUDID IV (21:22)
[2024-02-11 21:23] VITALS: BP 115/51
[2024-02-11 21:52] LABS: Glucose - Point of Care 142 mg/dl (70-99)
[2024-02-11 23:59] VITALS: BP 127/56
[2024-02-12] MEDS: MERREM 500 MG IV ×4 (00:05→17:47)
[2024-02-12] MEDS: STERILE WATER FOR INJECTION 10 ML IV ×4 (00:05→17:47)
[2024-02-12] MEDS: DAKIN'S SOLUTION 0.125% 1/4 STRENGTH 473 ML TOPICAL (00:13)
[2024-02-12 05:45] VITALS: BMI 26.8
[2024-02-12 06:08] LABS: Hematocrit 29.2 % (37.0-47.0); Hemoglobin 9.4 g/dL (12.0-16.0); Mean Corp Hgb Conc. 32.2 g/dL (33.0-37.0); Mean Corpuscular Volume 86.9 fL (81.0-99.0); Mean Platelet Volume 9.1 fL (7.4-10.4); Platelet Count 292 10^3/uL (130-400); Red Blood Cell Count 3.36 10^6/uL (4.20-5.40); Red Cell Dist. Width 14.6 % (11.5-14.5); White Blood Cell Count 10.2 10^3/uL (4.8-10.8)
[2024-02-12 06:20] LABS: Blood Urea Nitrogen 53 mg/dl (7-17); Calcium 9.5 mg/dl (8.4-10.2); Carbon Dioxide 31 mmol/L (22-30); Chloride 96 mmol/L (98-107); Estimated Creatinine Clearance 32 ml/min; Glucose 145 mg/dl (70-99); Phosphorus 4.2 mg/dl (2.5-4.5); Potassium 5.3 mmol/L (3.5-5.1); Sodium 140 mmol/L (135-145); eGFR 42.62
[2024-02-12 07:00] VITALS: BP 136/58
[2024-02-12] MEDS: ADVAIR HFA 115/21 MCG INHALER 2 PUFF INH ×2 (07:51→19:42)
[2024-02-12 08:10] LABS: Glucose - Point of Care 148 mg/dl (70-99)
--- NOTE | 2024-02-12 09:19 | W.PN.HOSP.TC ---
Today's Communication/Plan
-
cont belbuca 150 mcg TID
po dilaudid 8mg switched to scheduled Q6H
cont prn IV dilaudid for severe breakthrough pain
glycemic control
hold home Lasix
IVF hydration 60 cc/h
maintain echevarria
Monitor renal function
wound care, turning
cont abx
Assessment / Plan
Assessment / Plan
Physical Exam
General: severe pain distress persists
CVS: S1-S2 normal
Chest: CTA B/L
Abdomen: Soft, NT , colostomy wih BM,bowel sounds present
: echevarria present
Extremities: No edema, able to wriggle toes/feet, but severe restriction range of motion lower extremities d/t pain, no restrictions movement upper ext's
Neuro: AOx3
78F ext pmhx including rectal ca 1992 s/p abdominoperineal resection colostomy chemo radiation complicated with development stage IV sacral decubitus ulcer with associate chronic sacral osteomyelitis. Recent failed plastic flap reconstruction September
2023 attempted at [place]. Admitted here with acute on chronic sacral osteomyelitis and possible discitis and sacral-iliac septic arthritis further complicated with acute on chronic pain
CT pelvis 02/01/24- A 9 cm decubitus ulcer over left main sacrum posteriorly. Extensive sclerosis throughout the sacrum and medial aspect of the ilium bilaterally similar to 03/25/2023 may be seen on chronic osteomyelitis. Associated secondary
soft tissue in the presacral area as well as in the musculature of the left buttock.
Compressive compression screw and intramedullary ronan traversing an impacted intertrochanteric fracture of the right femur with incomplete osseous union. Threads of the screw extending into the cortical margin of the femoral head.
Lumbar DJD with postop changes.
13 cm midline anterior pelvic wall hernia
# Left hip pain- X ray with no fracture, Lidoderm patch ordered along with narcs
# Infected stage 4 sacral wounds
#Acute on Chronic Sacral Osteomyelitis
Status post bedside debridement by Dr. North on 02/03/2024
Wound cultures with Pseudomonas, Proteus, E. coli
Was on Fortaz changed to cefepime further changed to current meropenem 500 mg IV q6h x 14 days continue through 02/19 as per ID, later updated to extend through 03/19/24 given below MRI findings concerning for L5/S1 discitis and S-J joint septic
arthritis.
Midline placed for AB, to be converted to PICC for extended course abx as above
CT with chronic osteomyelitis
No Wound Vac for discharge
# Acute on Chronic pain with opioid dependence- on Belbuca (patient's own med), gabapentin, Dilaudid PO, IV dilaudid added for severe breakthrough pain (home oral oxycodone on hold d/t concern polypharmacy contributing to TME present on admission)
Palliative eval appreciated po dilaudid prn increased from 4mg to 8mg, prn IV dilaudid severe breakthrough pain increase from 0.5 mg to 1 mg
02/10 Pain however remain uncontrolled, palliative discussion w/ pt's oupt pain specialist Dr Whelan appreciated, Belbuca increased to TID
02/11 pain remains uncontrolled, prn PO dilaudid 8mg converted to scheduled q6H
Patient's case was also discussed with Dr Mcmillan patient's plastic surgeon who attempted flap/reconstruction with patient 09/2023 that unfortunately failed d/t necrosis
Dr Mcmillan noted surgical options for correcting wound exhausted, poor prognosis, with poor ambulatory status, wound unlikely to heal, patient fits criteria for hospice 6 mo prognosis (patient's daughter Stephie and son-in-law Don made aware regarding
aforementioned discussion and poor prognosis)
02/10 MRI Lumbar spine obtained to evaluate possible benefit spinal intervention with regards to pain and to evaluate for possible spinal pathology contributing to pain
MRI appreciated:
1. Large 9.2 cm LEFT POSTERIOR STAGE IV SACRAL ULCER extending deep to the underlying bone.
2. Extensive bone marrow signal abnormality throughout the sacrum and left iliac bone suggesting SEVERE ACUTE on CHRONIC OSTEOMYELITIS.
3. Small left sacroiliac joint effusion and extensive bone marrow changes around the left sacroiliac joint suspicious for septic arthritis.
4. Small amount of fluid in the L5/S1 intervertebral disc and adjacent bone marrow signal intensity changes in the endplates adjacent to the left side of the disc suspicious for acute osteomyelitis. Degenerative disease is an alternative
diagnostic possibility.
5. Chronic inferior endplate fracture of L5 with mild loss of vertebral body height.
6. Severe left and moderate to severe right neural foraminal narrowing at L5/S1 with bilateral foraminal disc herniations causing bilateral exiting nerve root impingement (left greater than right).
7. 4.7 mm grade 1 anterolisthesis of L4 on L5 secondary to severe bilateral facet joint arthrosis. MODERATE CENTRAL CANAL STENOSIS at L4/L5.
8. Severe distention of the urinary bladder.
9. Mild left hydroureteronephrosis (probably secondary to vesicoureteral reflux).
Neurosurgery eval appreciated noted MRI as above demonstrates chronic spondylotic changes without any obvious evidence of acute neural compression. No indication for neurosurgical intervention was noted.
Per patient's family request, reached out to [facility] for possible benefit transfer for hyperbaric oxygen treatment
-per discussion with [facility] however a transfer for inpt hyperbaric tx unlikely to add additional benefit at this time, transfer request was subsequently denied.
#Acute Urinary Retention noted on MRI as above
Likely d/t oversedation from pain meds and also likely contributing to pain
Echevarria started 02/11/24 with significant output noted
maintain Echevarria at this time
# Stage II right heel blister-patient has been refusing heel elevation. Wound care with air overlay or air mattress, soft heel relief boots
# TME-likely secondary to above along with possible polypharmacy with pain meds contributing
# Chronic HFpEF
Echo 02/03/2024-normal LV size and function. EF 55 to 60%. Mild MR. Trace TR.
Lasix placed on hold d/t ESTELLE. [employer] metolazone on hold. Weight trending down
#ESTELLE
Cr rise to 1.3 likely due to urinary retention and poor oral intake due to pain
Lasix placed on hold
Started gentle IVF hydration 60 cc/h
Echevarria as above
#Hypomagnesemia
monitor and replete as necessary
# Diabetes-S new diagnosis this admission.
cont metformin 500 mg BID.
Hemoglobin A1c 8.1.
Accu-Cheks and sliding scale coverage.
Dietary/Diabetes education requested.
Farxiga 5 mg daily started, cont
# Compressive compression screw and intramedullary ronan traversing an impacted intertrochanteric fracture of the right femur with incomplete osseous union as noted above- Dr Martines discussed with who knows her well. Plan is not to
intervene as patient is not a good candidate for revision. No further intervention needed at this time.
# Anemia-adequate iron and B12. Likely secondary to chronic disease. Hgb improving
# COPD continue as needed nebs, fluticasone/salmeterol
# Hypertension-continue Nifedipine, Atenolol, Losartan
# Neurogenic bladder
# Chronic radiation cystitis
# GERD/hiatal hernia-PPI
# Anxiety-on as needed clonazepam increased to three times a day
# Severe discogenic DJD L5-S1
# 13 cm midline anterior pelvic wall hernia
# Fusiform infrarenal AAA 3.1 cm/Atherosclerosis
# Pulmonary nodule 1 cm right mid lung
# History of rectal cancer status post APR with colostomy 1982
# History of right nephrectomy for renal cancer 1981
# Ambulatory Dysfunction-PT OT as appropriate
# Ex-smoker
# DVT prophylaxis-Lovenox
# Full code
discussed with patient, patient's Fede, and patient's daughter Stephie
I spent a total of 58 minutes with the patient or on the floor. More than 50% of this time involved counseling and coordination of care.
Anticipated Discharge: > 48 hours
Subjective/Interval History
-
Date of Service: February 12, 2024
Some improvement in pain control noted from yesterday. Pain however remains significantly elevated.
Objective Data
-
Labs:
Laboratory Results
10/30/24
05:36
WBC 10.2
Hgb 9.4 L
Hct 29.2 L
Plt Count 292
Sodium 140
Potassium 5.3 H
Chloride 96 L
Carbon Dioxide 31 H
BUN 53 H
Creatinine 1.3 H
Glucose 145 H
Calcium 9.5
Vital Signs:
Vital Signs
Temp Pulse Resp BP Pulse Ox
97.9 F 74 16 136/58 95
02/12/24 07:00 02/12/24 07:58 02/12/24 07:58 02/12/24 07:00 02/12/24 07:58
I&O
02/11/24 02/12/24 02/13/24
06:59 06:59 06:59
Intake Total 120 / 120 720 / 720
Output Total 600 / 600 650 / 650
Balance -480 / -480 70 / 70
[2024-02-12] MEDS: NON-FORMULARY ITEM 150 MCG BUCCAL ×3 (09:32→22:57)
[2024-02-12] MEDS: DILAUDID 8 MG PO ×2 (09:48→16:00)
[2024-02-12] MEDS: LIDOCAINE 4% PATCH 1 PATCH TOPICAL (09:49)
[2024-02-12] MEDS: PROCARDIA XL (EXTENDED RELEASE) 60 MG PO (09:50)
[2024-02-12] MEDS: FARXIGA 5 MG PO (09:50)
[2024-02-12] MEDS: PROTONIX 40 MG PO (09:50)
[2024-02-12] MEDS: NEURONTIN 300 MG PO ×2 (09:50→15:18)
[2024-02-12] MEDS: LASIX 40 MG PO (09:51)
[2024-02-12] MEDS: GLUCOPHAGE 1000 MG PO (09:52)
[2024-02-12] MEDS: COZAAR 25 MG PO (09:52)
[2024-02-12] MEDS: TENORMIN 50 MG PO (09:52)
[2024-02-12] MEDS: VISBIOME PO (09:54)
[2024-02-12] MEDS: VITAMIN B-12 PO (09:54)
[2024-02-12] MEDS: VITAMIN D3 (cholecalciferol) PO (09:54)
[2024-02-12] MEDS: THERAGRAN PO (09:54)
[2024-02-12] MEDS: VITAMIN C PO (09:54)
[2024-02-12] MEDS: NOVOLOG FLEXPEN-LOW RESISTANCE SC ×2 (10:05→17:45)
[2024-02-12] MEDS: MIRALAX PO (10:06)
[2024-02-12] MEDS: NSS 1000 IV (11:39)
[2024-02-12] MEDS: DILAUDID 1 MG IV ×2 (11:39→17:46)
--- NOTE | 2024-02-12 12:19 | W.PN.PAL2 ---
Today's Communication
-
pain slightly better today after increase in belbuca, MRI completed with acute on chronic osteo, possible septic arthritis and and L5S1 disc herniation
Plan to meet with daughter Stephie bedside saturday PM
Assessment / Plan
-
Assessment/Plan:
- belbuca increased to 150mcg TID yesterday. Pain seems better today, received 1mg IV dilaudid at 11pm last night and nothing again until this AM received 8mg PO dilaudid
- seen at bedside, getting cleaned up by RN. Anxious, tearful. Reports pain a little better.
- can take a few days for belbuca increase to reach full effect - continue with TID dosing
- continue IV dilaudid 1mg PRN, 8mg PO PRN - would try to prevent long stretches without pain medication to prevent pain crisis in AM.
- spoke with daughter Stephie - upset about something bringing up hospice with her when she was by herself. She wants to try to get her to [place] for hyperbaric chamber for her wound. We did discuss hospice if that was their goal, question would be where
since no support at home and doesnt want her in a facility.
- plan to meet with daughter Saturday PM at bedside
Reason for Admission
Illness Course/HPI
78 year old F with PMH of chronic sacral osteomyelitis 2/2 sacral wound with wound vac (developed 2022) s/p attempted flap/reconstruction with plastics 09/2023 at [facility] (unfortunately failed due to necrosis, now with wound vac), rectal cancer dx 1992
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
Upon admission, complaining of pain in sacrum. Also with decreased mental status and pain medications decreased. Wound vac in place. Had a recent admission last month for similar issue. Seen by surgery at that time who recommended no acute
intervention as wound did not appear infected. Wound cultures at that time were + for proteus mirabilis, ecoli and pseuodomonas. Seen by surgery on admission - s/p bedside debridement.
Continues on IV meropenem through 02/19.
Pain & Symptom Assessment
Patient Symptoms
Patient Symptoms: Pain
Objective Data
-
Objective Data:
Vital Signs
Temp Pulse Resp BP Pulse Ox
97.9 F 74 16 136/58 95
02/12/24 07:00 02/12/24 07:58 02/12/24 07:58 02/12/24 07:00 02/12/24 07:58
Laboratory Results
02/12/24 05:36
02/12/24 05:36
Hemoglobin A1c Cancelled 02/01/24 08:34
Total Protein 6.2 g/dl (6.3-8.2) L 02/01/24 02:47
Albumin 3.0 g/dl (3.5-5.0) L 02/01/24 02:47
Urine Color Yellow 02/01/24 04:42
Urine Clarity Slightly cloudy (Clear) 02/01/24 04:42
Urine pH 5.0 (5.0-9.0) 02/01/24 04:42
Ur Specific [place] 1.015 (<1.030) 02/01/24 04:42
Urine Ketones Negative (Negative) 02/01/24 04:42
Urine Bilirubin Negative (Negative) 02/01/24 04:42
Palliative Performance Scale
Palliative Performance Scale:
PPS Level Ambulation Activity & Evidence of Disease Self Care Intake Conscious Level
100% Full Normal Activity & Work; Full Intake Full
No Evidence of Disease
90% Full Normal Activity & Work; Full Normal Full
Some Evidence of Disease
80% Full Normal Activity with Effort Full Normal or Full
Some Evidence of Disease Reduced
70% Reduced Unable Normal Job/Work Full Normal or Full
Significant Disease Reduced
60% Reduced Unable Hobby/Housework Occasional Normal or Full or Confusion
Significant Disease Assistance Reduced
50% Mainly Sit/Lie Unable to do Any Work Considerable Normal or Full or Confusion
Extensive Disease Assistance Req'd Reduced
40% Mainly in Bed Unable to do Most Activity Mainly Assistance Normal or Full or Drowsy;
Extensive Disease Reduced +/- Confusion
30% Totally Bed Unable to do Any Activity Total Care Normal or Full or Drowsy;
Bound Extensive Disease Reduced +/- Confusion
20% Totally Bed Bound Unable to do Any Activity Total Care Minimal to Full or Drowsy;
Extensive Disease Sips +/- Confusion
10% Totally Bed Bound Unable to do Any Activity Total Care Mouth Care Drowsy or Coma;
Extensive Disease Only +/- Confusion
0%
PPS Score Level:
Care Reviewed
Data Reviewed
Radiology procedure: Image Reviewed
Medical Tests: I reviewed
Reviewed with: Patient and Family
[2024-02-12 12:24] LABS: Glucose - Point of Care 158 mg/dl (70-99)
--- NOTE | 2024-02-12 13:22 | CON.NS ---
Consultation
-
Date/Time Consultation Performed: 13:25; 02/12/2024
Performing Provider: Liam
Chief Complaint
History of Present Illness
Neurosurgical consultation, requested by hospitalist, for 78-year-old female with a past medical history of chronic sacral osteomyelitis, secondary to sacral wound, with wound VAC, status post attempted flap/reconstruction with plastics, status post
failed flap. 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
Patient has a history of chronic pain. She was admitted to the hospital with a fever 101.5.
Patient was noted to have significant ongoing pain in her lower back/sacral area, with altered mental status. She is on IV meropenem. Given her ongoing pain, MRI of the lumbar spine with and without contrast was ordered. This demonstrated lumbar
spondylotic changes. Neurosurgery consulted.
Patient seen examined. She is resting comfortably. Daughters at bedside. Daughter is requesting limited examination, due to the patient significant pain.
Review of Systems
-
10 point review systems including constitutional, ENT, cardiovascular, respiratory, GI, , hematologic, endocrinologic, neurologic, musculoskeletal was performed, and was negative, except for stated in HPI.
Medication and Allergies
Home Medications
Home Medications
�Medication �Instructions �Recorded
cyanocobalamin (vitamin B-12) 2,500 mcg PO DAILY Supplement 03/25/23
1,000 mcg tablet (Vitamin B-12)
losartan 50 mg tablet 25 mg PO DAILY Blood Pressure 03/25/23
polyethylene glycol 3350 17 gram 17 g PO DAILY Constipation 03/25/23
oral powder packet (Miralax)
acetaminophen 325 mg tablet 650 mg PO DAILYPRN PRN mild pain 01/15/24
atenolol 25 mg tablet 50 mg PO DAILY blood pressure 01/15/24
cholecalciferol (vitamin D3) 50 50 mcg PO DAILY supplement 01/15/24
mcg (2,000 unit) capsule (Vitamin
D3)
diphenhydramine 25 1 tab PO HSPRN PRN sleep/mild pain 01/15/24
mg-acetaminophen 500 mg tablet
(Acetaminophen PM)
furosemide 20 mg tablet 20 mg PO BIDPRN PRN edema 01/15/24
hydroxyzine HCl 10 mg tablet 25 mg PO Q6HPRN PRN anxiety 01/15/24
nifedipine 60 mg tablet,extended 60 mg PO DAILY blood pressure 01/15/24
release 24 hr
pantoprazole 40 mg tablet,delayed 40 mg PO DAILY Gastrointestinal 01/15/24
release Issue
gabapentin 300 mg capsule 300 mg PO TID 30 days #90 caps 01/22/24
clonazepam 0.5 mg tablet 0.5 mg PO DAILY PRN anxiety #3 tabs 01/23/24
ascorbic acid (vitamin C) 500 mg 500 mg PO DAILY Supplement 02/01/24
tablet
buprenorphine HCl 150 mcg buccal 150 mcg buccal Q24APAR PRN severe 02/01/24
film (Belbuca) pain
cranberry fruit 450 mg tablet 450 mg PO DAILY Supplement 02/01/24
(cranberry)
fluticasone 250 mcg-salmeterol 50 1 inh inhalation R BID 02/01/24
mcg/dose blistr powdr for Lung/Breathing Issues
inhalation
hydromorphone 4 mg tablet 4 mg PO Q4HPRN PRN moderate to 02/01/24
severe pain
metolazone 5 mg tablet 5 mg PO DAILY Fluid 02/01/24
Retention/Swelling
mirabegron 25 mg tablet,extended 25 mg PO DAILY Urinary Issue 02/01/24
release 24 hr
multivitamin with minerals 2 tab PO BID Supplement 02/01/24
(Multiple Vitamin-Minerals tablet)
oxycodone 10 mg tablet 10 mg PO Q4H PRN severe pain 7-10 02/01/24
zinc sulfate 50 mg zinc (220 mg) 50 mg PO DAILY Supplement 02/01/24
tablet
buprenorphine HCl 150 mcg buccal 150 mcg buccal Q12H 3 days #9 ea 02/11/24
film (Belbuca)
Allergies
Allergies
Allergy/AdvReac Type Severity Reaction Status Date / Time
levofloxacin Allergy Rash Verified 02/01/24 03:12
morphine Allergy Rash Verified 02/01/24 03:12
prochlorperazine Allergy Rash Verified 02/01/24 03:12
[From Compazine]
doxycycline AdvReac Mild Shortness Verified 02/01/24 03:12
of Breath
vancomycin AdvReac Mild Shortness Verified 02/01/24 03:12
of Breath
Physical Exam
-
Exam:
Arouses to verbal stimuli.
Conversant
Comprehension intact
Able to wiggle bilateral toes
Sensation to light touch intact in bilateral lower extremities.
Head is normocephalic, atraumatic
Breathing nonlabored
Neck supple
Abdomen soft
Extremities warm
MRI of the lumbar spine without contrast: performed on 02/11/2024 was reviewed. There is evidence of subtle grade 1 anterolisthesis of L4 on L5. The spinal canal is Open and patent without any evidence of obvious neural compression. There is
STIR signal hyperintensity which is seen at the L5 inferior endplate, as well as in the lower sacrum. There is note made of a large left-sided posterior sacral wound that extends directly to the underlying bone measuring approximately 9.2 cm.
There is evidence of osseous destruction of the lower sacrum and coccyx.
Problems
-
Problem Status Onset Code
Toxic metabolic encephalopathy G92.8
Pressure ulcer of sacral region, stage 4 L89.154
Assessment / Plan
-
This 78-year-old female with multiple active medical issues, rectal cancer with ostomy, including nonhealing sacral decubitus ulcer, with evidence of osseous destruction due to exposed nature. She has failed plastic flap and reconstruction by [facility]. Patient has significant amounts of acute on chronic pain. MRI of the lumbar spine, without contrast, demonstrates chronic spondylotic changes without any obvious evidence of acute neural compression.
Given this, no indication for neurosurgical intervention.
Please continue to address patient's other significant active medical issues, including her sacral wound.
Continue with ongoing pain management.
[2024-02-12] MEDS: NOVOLOG FLEXPEN-LOW RESISTANCE 1 UNITS SC (13:53)
--- NOTE | 2024-02-12 14:49 | W.PN.ID1 ---
Date of Service
Date of Service: February 12, 2024
Today's Communication
See below.
Assessment / Plan
# Acute on chronic sacral osteo; massive wound
# Possible septic arthritis of left S-I joint
# Possible left L5/S1 discitis/osteo vs DJD
# Intractable acute on chronic sacral pain
- Remote hx of rectal ca s/p APR, colostomy, chemo, XRT
- hx failed flap reconstruction, had wound vac since 11/18/2023, follows with Dr. Mcmillan at [place]
- s/p bedside debridement 02/03/24
- 02/01 wound swab Pseudomonas, Proteus, ESBL-E. coli.
- Continue meropenem (d6)
- Given findings of possible S-I joint septic arthritis and L5/S1 discitis, will extend IV meropenem to 6 week course through 03/19/24.
- Appreciate Palliative Care - will discuss goals of care with daughter on Saturday.
- If pt declines hospice, will need to change midline to PICC for extended course of abx.
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
Rectal ca 1992 s/ APR, colostomy at [facility] with adjuvant chemo XRT.
Renal ca, right s/p nephrectomy (1992).
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
Sacral wound reconstruction by Dr. Mcmillan at [facility] 10/08/23 (OR cx Klebsiella and Enterococcus) s/p 6 weeks IV Zosyn through 11/19/23
Sacral flap necrosis s/p I+D, wound vac application at [facility] 11/18/23 s/p IV Zosyn short course.
Sacral OR wound debridement 12/31/23, Tissue path fat necrosis, acute inflammation. Bone cx: Pseudomonas (panS), E. coli (panS), VRE (amp-resistant), Corynebacterium striatum (?untreated0
Hypertension.
Infrarenal AAA
COPD
Lung nodules.
Thrombocytopenia.
neurogenic bladder, receiving Botox, intermittent self-cath.
recurrent UTI
R hip fracture ORIF 03/2023
parastomal hernia repair with mesh
back surgery 07/2020
bilateral knee replacements
Chief Complaint
-: Other (sacral osteo)
Subjective / Review of Systems
Pt crying. Has pain, although slightly better.
Vital Signs / Physical Exam
Vital Signs
Vital Signs
Temp Pulse Resp BP Pulse Ox
97.9 F 74 16 136/58 95
02/12/24 07:00 02/12/24 07:58 02/12/24 07:58 02/12/24 07:00 02/12/24 07:58
Physical Exam
Constitutional: Negative Comfortable
Cardiovascular: Regular Rate and S1/S2
Pulmonary: Clear
Gastrointestinal: Soft, Non Tender and Non Distended
Extremities: Edema
Neurological: AO x 3
Lines: Other (midline)
Objective Data
Lab Data
Lab Results
02/12/24 05:36
02/12/24 05:36
ESR > 145 mm/hour (0-20) H 02/02/24 04:39
Estimated Creat Clear 32 ml/min 02/12/24 05:36
Lactic Acid 0.7 mmol/L (0.7-2.0) 02/01/24 02:47
Total Bilirubin 0.4 mg/dl (0.2-1.3) 02/01/24 02:47
AST 22 U/L (14-36) 02/01/24 02:47
ALT 16 U/L (0-35) 02/01/24 02:47
Alkaline Phosphatase 135 U/L (38-126) H 02/01/24 02:47
C-Reactive Protein 205.70 mg/L (0.0-10.00) H 02/02/24 04:39
Most recent labs reviewed.
Micro Results:
02/02/24 Unknown Wound Culture - Final
Sacral Proteus mirabilis
Pseudomonas aeruginosa
Escherichia coli - ESBL
Gram Stain - Final
02/01/24 02:59 Blood Culture - Final
Blood/Venous No Growth - Final Report
02/01/24 02:47 Blood Culture - Final
Blood/Venous No Growth - Final Report
02/01/24 04:42 Urine Culture - Final
Urine
02/01/24 02:47 Influenza Types A & B (ALTHEA) - Final
Nasal Swab Negative for Influenza A & B, NAAT
Negative results must be combined with clinical observations
and patient history.
Nucleic Acid Amplification test (NAAT)performed on the
[employer] platform.
02/01/[address]: There is 9 cm decubitus ulcer overlying the sacrum posteriorly. There is extensive sclerosis throughout the sacrum and medial aspect of the samantha bilaterally similar to that seen on the 03/25/2023 plain film examination such as
may be seen with chronic osteomyelitis.
There is associated inflammatory soft tissue in the presacral space as well as in the musculature of the left buttock
02/11/24 MRI lumbar without contrast: Large 9.2 cm LEFT POSTERIOR STAGE IV SACRAL ULCER extending deep to the underlying bone.
2. Extensive bone marrow signal abnormality throughout the sacrum and left iliac bone suggesting SEVERE ACUTE on CHRONIC OSTEOMYELITIS.
3. Small left sacroiliac joint effusion and extensive bone marrow changes around the left sacroiliac joint suspicious for septic arthritis.
4. Small amount of fluid in the L5/S1 intervertebral disc and adjacent bone marrow signal intensity changes in the endplates adjacent to the left side of the disc suspicious for acute osteomyelitis. Degenerative disease is an alternative
diagnostic possibility.
6. Severe left and moderate to severe right neural foraminal narrowing at L5/S1 with bilateral foraminal disc herniations causing bilateral exiting nerve root impingement (left greater than right).
7. 4.7 mm grade 1 anterolisthesis of L4 on L5 secondary to severe bilateral facet joint arthrosis. MODERATE CENTRAL CANAL STENOSIS at L4/L5.
Care Review
Plan reviewed with: Other Provider (Eduin Valdez NP)
[2024-02-12 16:05] VITALS: BP 114/55
[2024-02-12 16:11] LABS: Glucose - Point of Care 92 mg/dl (70-99)
[2024-02-12] MEDS: DAKIN'S SOLUTION 0.125% 1/4 STRENGTH 1 ML TOPICAL (17:45)
[2024-02-12] MEDS: LOVENOX 40 MG SC (17:46)
[2024-02-12] MEDS: GLUCOPHAGE 500 MG PO (17:47)
[2024-02-12 21:45] LABS: Glucose - Point of Care 125 mg/dl (70-99)
[2024-02-12] MEDS: DAKIN'S SOLUTION 0.125% 1/4 STRENGTH TOPICAL (22:54)
[2024-02-12] MEDS: DILAUDID PO ×2 (22:55→23:06)
[2024-02-12] MEDS: NEURONTIN PO ×2 (22:56→23:06)
[2024-02-12 23:50] VITALS: BP 120/42
[2024-02-13] MEDS: STERILE WATER FOR INJECTION 10 ML IV ×4 (00:56→23:16)
[2024-02-13] MEDS: MERREM 500 MG IV ×4 (00:57→23:16)
[2024-02-13] MEDS: DILAUDID 8 MG PO ×4 (04:19→22:29)
[2024-02-13] MEDS: DILAUDID 1 MG IV ×3 (04:52→23:15)
[2024-02-13 05:59] LABS: Hematocrit 28.2 % (37.0-47.0); Hemoglobin 9.1 g/dL (12.0-16.0); Mean Corp Hgb Conc. 32.3 g/dL (33.0-37.0); Mean Corpuscular Hgb 27.9 pg (27.0-31.0); Mean Corpuscular Volume 86.5 fL (81.0-99.0); Mean Platelet Volume 8.9 fL (7.4-10.4); Platelet Count 273 10^3/uL (130-400); Red Blood Cell Count 3.26 10^6/uL (4.20-5.40); Red Cell Dist. Width 14.7 % (11.5-14.5); White Blood Cell Count 8.2 10^3/uL (4.8-10.8)
[2024-02-13 06:00] VITALS: BMI 27.2
[2024-02-13 06:47] LABS: Blood Urea Nitrogen 61 mg/dl (7-17); Calcium 9.1 mg/dl (8.4-10.2); Carbon Dioxide 30 mmol/L (22-30); Chloride 93 mmol/L (98-107); Estimated Creatinine Clearance 29 ml/min; Glucose 143 mg/dl (70-99); Magnesium 1.9 mg/dl (1.6-2.3); Phosphorus 4.3 mg/dl (2.5-4.5); Potassium 4.7 mmol/L (3.5-5.1); Sodium 136 mmol/L (135-145); eGFR 33.22
--- NOTE | 2024-02-13 07:23 | W.PN.HOSP.TC ---
Today's Communication/Plan
-
cont pain control
abx
wound care
PT/OT
Assessment / Plan
Assessment / Plan
Physical Exam
General: no acute distress, appears comfortable at this time.
CVS: S1-S2 normal
Chest: CTA B/L
Abdomen: Soft, NT, colostomy wih BM,bowel sounds present
: echevarria present
Extremities: No edema, able to wriggle toes/feet,
Neuro: AOx3
78F ext pmhx including rectal ca 1992 s/p abdominoperineal resection colostomy chemo radiation complicated with development stage IV sacral decubitus ulcer with associate chronic sacral osteomyelitis. Recent failed plastic flap reconstruction September
2023 attempted at [facility]. Admitted here with acute on chronic sacral osteomyelitis and possible discitis and sacral-iliac septic arthritis further complicated with acute on chronic pain
CT pelvis 02/01/24- A 9 cm decubitus ulcer over left main sacrum posteriorly. Extensive sclerosis throughout the sacrum and medial aspect of the ilium bilaterally similar to 03/25/2023 may be seen on chronic osteomyelitis. Associated secondary
soft tissue in the presacral area as well as in the musculature of the left buttock.
Compressive compression screw and intramedullary ronan traversing an impacted intertrochanteric fracture of the right femur with incomplete osseous union. Threads of the screw extending into the cortical margin of the femoral head.
Lumbar DJD with postop changes.
13 cm midline anterior pelvic wall hernia
# Left hip pain- X ray with no fracture, Lidoderm patch ordered along with narcs
# Infected stage 4 sacral wounds
#Acute on Chronic Sacral Osteomyelitis
Status post bedside debridement by Dr. North on 02/03/2024
Wound cultures with Pseudomonas, Proteus, E. coli
Was on Fortaz changed to cefepime further changed to current meropenem 500 mg IV q6h x 14 days continue through 02/19 as per ID, later updated to extend through 03/19/24 given below MRI findings concerning for L5/S1 discitis and S-J joint septic
arthritis.
Midline placed for AB, to be converted to PICC for extended course abx as above
CT with chronic osteomyelitis
No Wound Vac for discharge
# Acute on Chronic pain with opioid dependence- on Belbuca (patient's own med), gabapentin, Dilaudid PO, IV dilaudid added for severe breakthrough pain (home oral oxycodone on hold d/t concern polypharmacy contributing to TME present on admission)
Palliative eval appreciated po dilaudid prn increased from 4mg to 8mg, prn IV dilaudid severe breakthrough pain increase from 0.5 mg to 1 mg
02/10 Pain however remain uncontrolled, palliative discussion w/ pt's oupt pain specialist Dr Whelan appreciated, Belbuca increased to TID
02/11 pain remains uncontrolled, prn PO dilaudid 8mg converted to scheduled q6H
02/12 pain controlled, significant improvement noted, patient comfortable at rest on Belbuca 150 mcg TID, scheduled PO dilaudid 8 mg Q6, and IV dilaudid 1 mg prn severe breakthrough pain
Patient's case was also discussed with Dr Mcmillan patient's plastic surgeon who attempted flap/reconstruction with patient 09/2023 that unfortunately failed d/t necrosis
Dr Mcmillan noted surgical options for correcting wound exhausted, poor prognosis, with poor ambulatory status, wound unlikely to heal, patient fits criteria for hospice 6 mo prognosis (patient's daughter Stephie and son-in-law Don made aware regarding
aforementioned discussion and poor prognosis)
02/10 MRI Lumbar spine obtained to evaluate possible benefit spinal intervention with regards to pain and to evaluate for possible spinal pathology contributing to pain
MRI appreciated:
1. Large 9.2 cm LEFT POSTERIOR STAGE IV SACRAL ULCER extending deep to the underlying bone.
2. Extensive bone marrow signal abnormality throughout the sacrum and left iliac bone suggesting SEVERE ACUTE on CHRONIC OSTEOMYELITIS.
3. Small left sacroiliac joint effusion and extensive bone marrow changes around the left sacroiliac joint suspicious for septic arthritis.
4. Small amount of fluid in the L5/S1 intervertebral disc and adjacent bone marrow signal intensity changes in the endplates adjacent to the left side of the disc suspicious for acute osteomyelitis. Degenerative disease is an alternative
diagnostic possibility.
5. Chronic inferior endplate fracture of L5 with mild loss of vertebral body height.
6. Severe left and moderate to severe right neural foraminal narrowing at L5/S1 with bilateral foraminal disc herniations causing bilateral exiting nerve root impingement (left greater than right).
7. 4.7 mm grade 1 anterolisthesis of L4 on L5 secondary to severe bilateral facet joint arthrosis. MODERATE CENTRAL CANAL STENOSIS at L4/L5.
8. Severe distention of the urinary bladder.
9. Mild left hydroureteronephrosis (probably secondary to vesicoureteral reflux).
Neurosurgery eval appreciated noted MRI as above demonstrates chronic spondylotic changes without any obvious evidence of acute neural compression. No indication for neurosurgical intervention was noted.
Per patient's family request, reached out to [facility] for possible benefit transfer for hyperbaric oxygen treatment
-per discussion with [facility] however a transfer for inpt hyperbaric tx unlikely to add additional benefit at this time, transfer request was subsequently denied.
#Acute Urinary Retention noted on MRI as above
Likely d/t oversedation from pain meds and also likely contributing to pain
Echevarria started 02/11/24 with significant output noted
maintain Echevarria at this time
# Stage II right heel blister-patient has been refusing heel elevation. Wound care with air overlay or air mattress, soft heel relief boots
# TME-likely secondary to above along with possible polypharmacy with pain meds contributing
# Chronic HFpEF
Echo 02/03/2024-normal LV size and function. EF 55 to 60%. Mild MR. Trace TR.
Lasix placed on hold d/t ESTELLE. [employer] metolazone on hold. Weight trending down
#ESTELLE
Cr rise to 1.6 likely due to urinary retention and poor oral intake due to pain
Lasix placed on hold
Started gentle IVF hydration 60 cc/h
maintain Echevarria as above
#Hypomagnesemia
monitor and replete as necessary
# Diabetes-S new diagnosis this admission.
metformin 500 mg BID placed on hold d/t rising Cr
Hemoglobin A1c 8.1.
Accu-Cheks and sliding scale coverage.
Dietary/Diabetes education requested.
Farxiga 5 mg daily started, cont
# Compressive compression screw and intramedullary ronan traversing an impacted intertrochanteric fracture of the right femur with incomplete osseous union as noted above- Dr Martines discussed with who knows her well. Plan is not to
intervene as patient is not a good candidate for revision. No further intervention needed at this time.
# Anemia-adequate iron and B12. Likely secondary to chronic disease. Hgb improving
# COPD continue as needed nebs, fluticasone/salmeterol
# Hypertension-continue Nifedipine, Atenolol, Losartan
# Neurogenic bladder
# Chronic radiation cystitis
# GERD/hiatal hernia-PPI
# Anxiety-on as needed clonazepam increased to three times a day
# Severe discogenic DJD L5-S1
# 13 cm midline anterior pelvic wall hernia
# Fusiform infrarenal AAA 3.1 cm/Atherosclerosis
# Pulmonary nodule 1 cm right mid lung
# History of rectal cancer status post APR with colostomy 1982
# History of right nephrectomy for renal cancer 1981
# Ambulatory Dysfunction-PT OT as appropriate
# Ex-smoker
# DVT prophylaxis-Lovenox
# Full code
discussed with patient. Daughter Stephie called to provide update, no answer received, message left with brief update and call back number.
I spent a total of 50 minutes with the patient or on the floor. More than 50% of this time involved counseling and coordination of care.
Anticipated Discharge: > 48 hours
Subjective/Interval History
-
Date of Service: February 13, 2024
Seen and examined at bedside in no acute distress resting comfortably in bed. Pain well controlled at this time. Patient reports overall feeling well. Denies new acute issues at this time.
Objective Data
-
Labs:
Laboratory Results
02/13/24
05:44
WBC 8.2
Hgb 9.1 L
Hct 28.2 L
Plt Count 273
Sodium 136
Potassium 4.7
Chloride 93 L
Carbon Dioxide 30
BUN 61 H
Creatinine 1.6 H
Glucose 143 H
Calcium 9.1
Vital Signs:
Vital Signs
Temp Pulse Resp BP Pulse Ox
97.8 F 61 16 120/42 94
02/12/24 23:50 02/12/24 23:50 02/12/24 23:50 02/12/24 23:50 02/12/24 23:50
I&O
02/12/24 02/13/24 02/14/24
06:59 06:59 06:59
Intake Total 720 / 720 1440 / 1440
Output Total 650 / 650 475 / 475
Balance 70 / 70 965 / 965
[2024-02-13] MEDS: ADVAIR HFA 115/21 MCG INHALER 2 PUFF INH ×2 (07:50→19:54)
[2024-02-13 07:59] VITALS: BP 128/58
[2024-02-13 08:25] LABS: Glucose - Point of Care 132 mg/dl (70-99)
[2024-02-13] MEDS: NOVOLOG FLEXPEN-LOW RESISTANCE SC ×3 (08:38→16:46)
[2024-02-13] MEDS: MIRALAX 17 GRAMS PO (09:01)
[2024-02-13] MEDS: LIDOCAINE 4% PATCH 1 PATCH TOPICAL (09:01)
[2024-02-13] MEDS: NEURONTIN 300 MG PO ×3 (09:01→22:28)
[2024-02-13] MEDS: THERAGRAN 1 TABLET PO (09:02)
[2024-02-13] MEDS: VITAMIN B-12 2500 MCG PO (09:02)
[2024-02-13] MEDS: PROTONIX 40 MG PO (09:02)
[2024-02-13] MEDS: PROCARDIA XL (EXTENDED RELEASE) 60 MG PO (09:03)
[2024-02-13] MEDS: TENORMIN 50 MG PO (09:03)
[2024-02-13] MEDS: FARXIGA 5 MG PO (09:03)
[2024-02-13] MEDS: VISBIOME 2 CAP PO (09:03)
[2024-02-13] MEDS: VITAMIN C 500 MG PO (09:03)
[2024-02-13] MEDS: VITAMIN D3 (cholecalciferol) 50 MCG PO (09:04)
[2024-02-13] MEDS: COZAAR 25 MG PO (09:04)
[2024-02-13] MEDS: NON-FORMULARY ITEM 150 MCG BUCCAL ×2 (09:05→16:43)
[2024-02-13] MEDS: NSS 1000 IV ×2 (09:05→18:29)
[2024-02-13] MEDS: DAKIN'S SOLUTION 0.125% 1/4 STRENGTH 50 ML TOPICAL (09:07)
--- NOTE | 2024-02-13 10:30 | WOUNDNOTE ---
[facility] RN Note: Patient needed help to turn this am to do her wound care. Sacral ulcer looks more necrotic at the L Iliac section compared to last week. She has intermittently refused turning as per chart review. Patient turned with R side position
with help from PCT Carol and RN Ferny during wound care. Patient turned to R semi side lying position after britton care given. Patient scratching her L hip skin d/t dry itch skin. Skin on her back, L hip, R lower buttocks and posterior legs cleansed
with body cleansing wipe and Petroleum Jelly ointment applied to dry skin. Encouraged patient to use Vaseline to dry itchy skin to avoid scratching. TruVue lite boots reapplied. Updated Dr. Jean and Dr. Marie re: L iliac section of wound appearance,
pic in chart. Patient's wound healing potential poor given history of radiation and osteomyelitis. Current wound care appropriate. Will follow as needed.
--- NOTE | 2024-02-13 11:43 | W.PN.PAL2 ---
Today's Communication
-
pain better controlled today. meet with daughter tomorrow PM. dispo unclear.
Assessment / Plan
-
Assessment/Plan:
- belbuca increased to 150mcg TID on Saturday PM. Pain much better controlled today, pleasant and calm at bedside.
- has used 3mg of IV dilaudid, 24mg PO dilaudid in last 24 hours.
- continue IV dilaudid 1mg PRN, 8mg PO ATC, refused a dose last night
- planned for TALLOW PUMPER to start today but with better pain control, will hold off on this.
- reassess 24 hour usage tomorrow and adjust belbuca dosing based on usage
- plan to meet with daughter Saturday PM at bedside. Unclear dispo as she is being denied from multiple SNFs due to acuity. Daughter didnt seem very interested in hospice, but even if she is, unclear where she would get hospice as she does not have
support at home, no resources to hire 05/11 help and daughter would not want her to be on hospice at a SNF
Reason for Admission
Illness Course/HPI
78 year old F with PMH of chronic sacral osteomyelitis 2/2 sacral wound with wound vac (developed 2022) s/p attempted flap/reconstruction with plastics 09/2023 at [facility] (unfortunately failed due to necrosis, now with wound vac), rectal cancer dx 1992
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
Upon admission, complaining of pain in sacrum. Also with decreased mental status and pain medications decreased. Wound vac in place. Had a recent admission last month for similar issue. Seen by surgery at that time who recommended no acute
intervention as wound did not appear infected. Wound cultures at that time were + for proteus mirabilis, ecoli and pseuodomonas. Seen by surgery on admission - s/p bedside debridement.
Continues on IV meropenem
Pain & Symptom Assessment
Patient Symptoms
Patient Symptoms: Pain
[place] Symptom Scale 0=none, 10=worst
Pain: 4
Objective Data
-
Objective Data:
Vital Signs
Temp Pulse Resp BP Pulse Ox
98.2 F 67 16 128/58 100
02/13/24 07:59 02/13/24 07:59 02/13/24 07:59 02/13/24 07:59 02/13/24 07:59
Laboratory Results
02/13/24 05:44
02/13/24 05:44
Hemoglobin A1c Cancelled 02/01/24 08:34
Total Protein 6.2 g/dl (6.3-8.2) L 02/01/24 02:47
Albumin 3.0 g/dl (3.5-5.0) L 02/01/24 02:47
Urine Color Yellow 02/01/24 04:42
Urine Clarity Slightly cloudy (Clear) 02/01/24 04:42
Urine pH 5.0 (5.0-9.0) 02/01/24 04:42
Ur Specific [place] 1.015 (<1.030) 02/01/24 04:42
Urine Ketones Negative (Negative) 02/01/24 04:42
Urine Bilirubin Negative (Negative) 02/01/24 04:42
Palliative Performance Scale
Palliative Performance Scale:
PPS Level Ambulation Activity & Evidence of Disease Self Care Intake Conscious Level
100% Full Normal Activity & Work; Full Intake Full
No Evidence of Disease
90% Full Normal Activity & Work; Full Normal Full
Some Evidence of Disease
80% Full Normal Activity with Effort Full Normal or Full
Some Evidence of Disease Reduced
70% Reduced Unable Normal Job/Work Full Normal or Full
Significant Disease Reduced
60% Reduced Unable Hobby/Housework Occasional Normal or Full or Confusion
Significant Disease Assistance Reduced
50% Mainly Sit/Lie Unable to do Any Work Considerable Normal or Full or Confusion
Extensive Disease Assistance Req'd Reduced
40% Mainly in Bed Unable to do Most Activity Mainly Assistance Normal or Full or Drowsy;
Extensive Disease Reduced +/- Confusion
30% Totally Bed Unable to do Any Activity Total Care Normal or Full or Drowsy;
Bound Extensive Disease Reduced +/- Confusion
20% Totally Bed Bound Unable to do Any Activity Total Care Minimal to Full or Drowsy;
Extensive Disease Sips +/- Confusion
10% Totally Bed Bound Unable to do Any Activity Total Care Mouth Care Drowsy or Coma;
Extensive Disease Only +/- Confusion
0%
PPS Score Level:
Physical Exam
-
General: Conversant and Appears Chronically Ill
HEENT: Normocephalic
Respiratory: Clear to Auscultation
Cardiac: Regular Rhythm
Peripheral Vascular: No Edema
GI: Soft and Colostomy
Skin: Warm
Neuro: AO x 3
Psych: Calm
Care Reviewed
Data Reviewed
Medical Tests: I reviewed
Reviewed with: Patient, Physician and Other (pharmacist Sean )
--- NOTE | 2024-02-13 11:47 | WOUNDNOTE ---
WO RN Note: Dr. Jean and Dr. Marie and Rain Acevedo, general surgery LEDGE MAN agree to add Santyl ointment prn necrotic tissue with current wound care. Care plan and discharge instructions to be updated.
[2024-02-13 12:01] LABS: Glucose - Point of Care 127 mg/dl (70-99)
--- NOTE | 2024-02-13 12:55 | CM ---
CM spoke via phone with daughter, Stephie; reported that patient and family do not want Hospice Care; want to continue treatment
Explained to daughter that [facility] declined transfer request; [facility] unable to accept referral
Offered to expand SNF search. Daughter plans to meet with Palliative Care CORPORATE LOGISTICS MANAGER tomorrow afternoon
Daughter reported that taking her mother home is not an option; CM will continue to follow and find placement
[2024-02-13 15:31] VITALS: BP 116/43
[2024-02-13 16:43] LABS: Glucose - Point of Care 169 mg/dl (70-99)
[2024-02-13] MEDS: LOVENOX 40 MG SC (18:29)
[2024-02-13 21:55] LABS: Glucose - Point of Care 125 mg/dl (70-99)
[2024-02-13] MEDS: NON-FORMULARY ITEM BUCCAL (22:30)
[2024-02-13] MEDS: DAKIN'S SOLUTION 0.125% 1/4 STRENGTH 473 ML TOPICAL (23:17)
[2024-02-13 23:40] VITALS: BP 102/48
[2024-02-14] MEDS: SANTYL OINTMENT 1 APPLIC TOPICAL
[2024-02-14] MEDS: DILAUDID 1 MG IV (02:10)
[2024-02-14] MEDS: NSS IV (04:14)
[2024-02-14] MEDS: DILAUDID 8 MG PO ×4 (05:06→21:38)
[2024-02-14 05:46] LABS: Hematocrit 26.6 % (37.0-47.0); Hemoglobin 8.8 g/dL (12.0-16.0); Mean Corp Hgb Conc. 33.1 g/dL (33.0-37.0); Mean Corpuscular Volume 87.8 fL (81.0-99.0); Platelet Count 199 10^3/uL (130-400); Red Blood Cell Count 3.03 10^6/uL (4.20-5.40); Red Cell Dist. Width 14.6 % (11.5-14.5); White Blood Cell Count 7.4 10^3/uL (4.8-10.8)
[2024-02-14 06:00] VITALS: BMI 27.5
[2024-02-14 06:46] LABS: Blood Urea Nitrogen 55 mg/dl (7-17); Calcium 8.7 mg/dl (8.4-10.2); Carbon Dioxide 24 mmol/L (22-30); Chloride 101 mmol/L (98-107); Estimated Creatinine Clearance 46 ml/min; Glucose 110 mg/dl (70-99); Magnesium 1.8 mg/dl (1.6-2.3); Phosphorus 3.9 mg/dl (2.5-4.5); Potassium 5.1 mmol/L (3.5-5.1); Sodium 138 mmol/L (135-145); eGFR 58.39
--- NOTE | 2024-02-14 07:21 | W.PN.HOSP.TC ---
Today's Communication/Plan
-
cont abx
wound care
pain control, belbuca increase with taper po dilaudid
PT/OT
stop IVF fluids, cont monitoring renal function off
Assessment / Plan
Assessment / Plan
Physical Exam
General: no acute distress, appears comfortable at this time.
CVS: S1-S2 normal
Chest: CTA B/L
Abdomen: Soft, NT, colostomy wih BM,bowel sounds present
: echevarria present
Extremities: No edema, able to wriggle toes/feet,
Neuro: AOx3 though some confusion noted conversant largely coherent
78F ext pmhx including rectal ca 1992 s/p abdominoperineal resection colostomy chemo radiation complicated with development stage IV sacral decubitus ulcer with associate chronic sacral osteomyelitis. Recent failed plastic flap reconstruction September
2023 attempted at [place]. Admitted here with acute on chronic sacral osteomyelitis and possible discitis and sacral-iliac septic arthritis further complicated with acute on chronic pain
CT pelvis 02/01/24- A 9 cm decubitus ulcer over left main sacrum posteriorly. Extensive sclerosis throughout the sacrum and medial aspect of the ilium bilaterally similar to 03/25/2023 may be seen on chronic osteomyelitis. Associated secondary
soft tissue in the presacral area as well as in the musculature of the left buttock.
Compressive compression screw and intramedullary ronan traversing an impacted intertrochanteric fracture of the right femur with incomplete osseous union. Threads of the screw extending into the cortical margin of the femoral head.
Lumbar DJD with postop changes.
13 cm midline anterior pelvic wall hernia
# Left hip pain- X ray with no fracture, Lidoderm patch ordered along with narcs
# Infected stage 4 sacral wounds
#Acute on Chronic Sacral Osteomyelitis
Status post bedside debridement by Dr. North on 02/03/2024
Wound cultures with Pseudomonas, Proteus, E. coli
Was on Fortaz changed to cefepime further changed to current meropenem 500 mg IV q6h x 14 days continue through 03/19/24 as per ID, given below MRI findings concerning for L5/S1 discitis and S-J joint septic arthritis.
Midline placed for AB, to be converted to PICC for extended course abx as above
CT with chronic osteomyelitis
No Wound Vac for discharge
# Acute on Chronic pain with opioid dependence- on Belbuca (patient's own med), gabapentin, Dilaudid PO, IV dilaudid added for severe breakthrough pain (home oral oxycodone on hold d/t concern polypharmacy contributing to TME present on admission)
Palliative eval appreciated po dilaudid prn increased from 4mg to 8mg, prn IV dilaudid severe breakthrough pain increase from 0.5 mg to 1 mg
02/10 Pain however remain uncontrolled, palliative discussion w/ pt's oupt pain specialist Dr Whelan appreciated, Belbuca increased to TID
02/11 pain remains uncontrolled, prn PO dilaudid 8mg converted to scheduled q6H
02/12 pain controlled, significant improvement noted, patient comfortable at rest on Belbuca 150 mcg TID, scheduled PO dilaudid 8 mg Q6, and IV dilaudid 1 mg prn severe breakthrough pain
02/13 As per Palliaitve Belbuca increased to 450 mg BID, PO Dilaudid tapered to Q8, IV dilaudid remains available for severe breakthrough pain
prn benadryl added for itching likely due to dilaudid
Patient's case was also discussed with Dr Mcmillan patient's plastic surgeon who attempted flap/reconstruction with patient 09/2023 that unfortunately failed d/t necrosis
Dr Mcmillan noted surgical options for correcting wound exhausted, poor prognosis, with poor ambulatory status, wound unlikely to heal, patient fits criteria for hospice 6 mo prognosis (patient's daughter Stephie and son-in-law Don made aware regarding
aforementioned discussion and poor prognosis)
02/10 MRI Lumbar spine obtained to evaluate possible benefit spinal intervention with regards to pain and to evaluate for possible spinal pathology contributing to pain
MRI appreciated:
1. Large 9.2 cm LEFT POSTERIOR STAGE IV SACRAL ULCER extending deep to the underlying bone.
2. Extensive bone marrow signal abnormality throughout the sacrum and left iliac bone suggesting SEVERE ACUTE on CHRONIC OSTEOMYELITIS.
3. Small left sacroiliac joint effusion and extensive bone marrow changes around the left sacroiliac joint suspicious for septic arthritis.
4. Small amount of fluid in the L5/S1 intervertebral disc and adjacent bone marrow signal intensity changes in the endplates adjacent to the left side of the disc suspicious for acute osteomyelitis. Degenerative disease is an alternative
diagnostic possibility.
5. Chronic inferior endplate fracture of L5 with mild loss of vertebral body height.
6. Severe left and moderate to severe right neural foraminal narrowing at L5/S1 with bilateral foraminal disc herniations causing bilateral exiting nerve root impingement (left greater than right).
7. 4.7 mm grade 1 anterolisthesis of L4 on L5 secondary to severe bilateral facet joint arthrosis. MODERATE CENTRAL CANAL STENOSIS at L4/L5.
8. Severe distention of the urinary bladder.
9. Mild left hydroureteronephrosis (probably secondary to vesicoureteral reflux).
Neurosurgery eval appreciated noted MRI as above demonstrates chronic spondylotic changes without any obvious evidence of acute neural compression. No indication for neurosurgical intervention was noted.
Per patient's family request, reached out to [place] for possible benefit transfer for hyperbaric oxygen treatment
-per discussion with [facility] however a transfer for inpt hyperbaric tx unlikely to add additional benefit at this time, transfer request was subsequently denied.
#Acute Urinary Retention noted on MRI as above
Likely d/t oversedation from pain meds and also likely contributing to pain
Echevarria started 02/11/24 with significant output noted
maintain Echevarria at this time
# Stage II right heel blister-patient has been refusing heel elevation. Wound care with air overlay or air mattress, soft heel relief boots
# TME-likely secondary to above along with possible polypharmacy with pain meds contributing
# Chronic HFpEF
Echo 02/03/2024-normal LV size and function. EF 55 to 60%. Mild MR. Trace TR.
Lasix placed on hold d/t ESTELLE since resumed. 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 Weight trending down
#ESTELLE
Cr rise to 1.6 likely due to urinary retention and poor oral intake due to pain
Since resolved with IVF support and hold on Lasix
IVF completed
Lasix resumed
#Hypomagnesemia
monitor and replete as necessary
# Diabetes-S new diagnosis this admission.
metformin 500 mg BID placed on hold d/t rising Cr
Hemoglobin A1c 8.1.
Accu-Cheks and sliding scale coverage.
Dietary/Diabetes education requested.
Farxiga 5 mg daily started, cont
# Compressive compression screw and intramedullary ronan traversing an impacted intertrochanteric fracture of the right femur with incomplete osseous union as noted above- Dr Martines discussed with who knows her well. Plan is not to
intervene as patient is not a good candidate for revision. No further intervention needed at this time.
# Anemia-adequate iron and B12. Likely secondary to chronic disease. Hgb improving
# COPD continue as needed nebs, fluticasone/salmeterol
# Hypertension-continue Nifedipine, Atenolol, Losartan
# Neurogenic bladder
# Chronic radiation cystitis
# GERD/hiatal hernia-PPI
# Anxiety-on as needed clonazepam increased to three times a day
# Severe discogenic DJD L5-S1
# 13 cm midline anterior pelvic wall hernia
# Fusiform infrarenal AAA 3.1 cm/Atherosclerosis
# Pulmonary nodule 1 cm right mid lung
# History of rectal cancer status post APR with colostomy 1982
# History of right nephrectomy for renal cancer 1981
# Ambulatory Dysfunction-PT OT as appropriate
# Ex-smoker
# DVT prophylaxis-Lovenox
# Full code
discussed with patient, patient's daughter Stephie, patient's Fede, Palliative, Pharmacy, and Case management
I spent a total of 50 minutes with the patient or on the floor. More than 50% of this time involved counseling and coordination of care.
Anticipated Discharge: > 48 hours
Subjective/Interval History
-
Date of Service: February 14, 2024
No acute distress. Appears comfortable at this time. Mild confusion noted.
Objective Data
-
Labs:
Laboratory Results
02/14/24
05:33
WBC 7.4
Hgb 8.8 L
Hct 26.6 L
Plt Count 199 D
Sodium 138
Potassium 5.1
Chloride 101
Carbon Dioxide 24
BUN 55 H
Creatinine 1.0
Glucose 110 H
Calcium 8.7
Vital Signs:
Vital Signs
Temp Pulse Resp BP Pulse Ox
98.5 F 87 16 102/48 94
02/13/24 23:40 02/13/24 23:40 02/13/24 23:40 02/13/24 23:40 02/13/24 23:40
I&O
02/13/24 02/14/24 02/15/24
06:59 06:59 06:59
Intake Total 1440 / 1440 1320 / 1320
Output Total 475 / 475 1050 / 1050
Balance 965 / 965 270 / 270
[2024-02-14 07:30] VITALS: BP 149/66
[2024-02-14] MEDS: ADVAIR HFA 115/21 MCG INHALER 2 PUFF INH ×2 (08:02→20:08)
[2024-02-14 08:14] LABS: Glucose - Point of Care 128 mg/dl (70-99)
[2024-02-14] MEDS: NOVOLOG FLEXPEN-LOW RESISTANCE SC ×2 (10:08→15:15)
[2024-02-14] MEDS: LIDOCAINE 4% PATCH 1 PATCH TOPICAL (10:09)
[2024-02-14] MEDS: NEURONTIN 300 MG PO ×3 (10:09→21:38)
[2024-02-14] MEDS: PROTONIX 40 MG PO (10:09)
[2024-02-14] MEDS: MIRALAX 17 GRAMS PO (10:09)
[2024-02-14] MEDS: PROCARDIA XL (EXTENDED RELEASE) 60 MG PO (10:10)
[2024-02-14] MEDS: VISBIOME 2 CAP PO (10:10)
[2024-02-14] MEDS: FARXIGA 5 MG PO (10:11)
[2024-02-14] MEDS: THERAGRAN 1 TABLET PO (10:11)
[2024-02-14] MEDS: VITAMIN B-12 2500 MCG PO (10:11)
[2024-02-14] MEDS: VITAMIN C 500 MG PO (10:11)
[2024-02-14] MEDS: MERREM 500 MG IV ×3 (10:12→23:07)
[2024-02-14] MEDS: VITAMIN D3 (cholecalciferol) 50 MCG PO (10:12)
[2024-02-14] MEDS: STERILE WATER FOR INJECTION 10 ML IV ×3 (10:13→23:07)
[2024-02-14] MEDS: COZAAR 25 MG PO (10:17)
[2024-02-14] MEDS: TENORMIN 50 MG PO (10:18)
[2024-02-14] MEDS: DAKIN'S SOLUTION 0.125% 1/4 STRENGTH 20 ML TOPICAL (10:38)
[2024-02-14] MEDS: NON-FORMULARY ITEM 150 MCG BUCCAL (11:35)
--- NOTE | 2024-02-14 11:37 | W.PN.ID1 ---
Date of Service
Date of Service: February 14, 2024
Today's Communication
Continue meropenem 500mg IV q8 (adjust renally prn) x 6 weeks through 03/19/2024
Assessment / Plan
# Acute on chronic sacral osteo; massive wound
# Possible septic arthritis of left S-I joint
# Possible left L5/S1 discitis/osteo vs DJD
# Intractable acute on chronic sacral pain better controlled
- Remote hx of rectal ca s/p APR, colostomy, chemo, XRT
- hx failed flap reconstruction, was following with Plastics Dr. Mcmillan at [place], no further options.
- s/p bedside debridement 02/03/24
- 02/01 wound swab Pseudomonas, Proteus, ESBL-E. coli.
- Continue meropenem 500mg IV q8 (adjust renally prn) x 6 weeks through 03/19/2024
- CRP trending down 208 -> 66
- Appreciate Palliative Care - will discuss goals of care with daughter today.
- If pt declines hospice, will need to change midline to PICC for extended course of abx.
- Appreciate Wound RN recs. No wound vac.
Encouraged pt to offload sacral wound.
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
Rectal ca 1992 s/ APR, colostomy at [facility] with adjuvant chemo XRT.
Renal ca, right s/p nephrectomy (1992).
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
Sacral wound reconstruction by Dr. Mcmillan at [facility] 10/08/23 (OR cx Klebsiella and Enterococcus) s/p 6 weeks IV Zosyn through 11/19/23
Sacral flap necrosis s/p I+D, wound vac application at [facility] 11/18/23 s/p IV Zosyn short course.
Sacral OR wound debridement 12/31/23, Tissue path fat necrosis, acute inflammation. Bone cx: Pseudomonas (panS), E. coli (panS), VRE (amp-resistant), Corynebacterium striatum (?untreated0
Hypertension.
Infrarenal AAA
COPD
Lung nodules.
Thrombocytopenia.
neurogenic bladder, receiving Botox, intermittent self-cath.
recurrent UTI
R hip fracture ORIF 03/2023
parastomal hernia repair with mesh
back surgery 07/2020
bilateral knee replacements
Chief Complaint
-: Other (sacral osteo)
Subjective / Review of Systems
Pain better controlled. Ethan comfortable.
Vital Signs / Physical Exam
Vital Signs
Vital Signs
Temp Pulse Resp BP Pulse Ox
98.5 F 77 16 149/66 94
02/14/24 07:30 02/14/24 10:10 02/14/24 08:08 02/14/24 10:10 02/14/24 08:08
Physical Exam
Constitutional: Comfortable
Cardiovascular: Regular Rate and S1/S2
Gastrointestinal: Soft, Non Tender and Non Distended
Genito-Urinary: Dial and Clear Urine
Extremities: Edema (1+)
Wound: Other (Reviewed wound photos: sacral wound with new necrotic tissue left side)
Neurological: AO x 3
Objective Data
Lab Data
Lab Results
02/14/24 05:33
02/14/24 05:33
ESR > 145 mm/hour (0-20) H 02/02/24 04:39
Estimated Creat Clear 46 ml/min 02/14/24 05:33
Lactic Acid 0.7 mmol/L (0.7-2.0) 02/01/24 02:47
Total Bilirubin 0.4 mg/dl (0.2-1.3) 02/01/24 02:47
AST 22 U/L (14-36) 02/01/24 02:47
ALT 16 U/L (0-35) 02/01/24 02:47
Alkaline Phosphatase 135 U/L (38-126) H 02/01/24 02:47
C-Reactive Protein 65.60 mg/L (0.0-10.00) H 02/13/24 05:44
Most recent labs reviewed.
Micro Results:
02/02/24 Unknown Wound Culture - Final
Sacral Proteus mirabilis
Pseudomonas aeruginosa
Escherichia coli - ESBL
Gram Stain - Final
02/01/24 02:59 Blood Culture - Final
Blood/Venous No Growth - Final Report
02/01/24 02:47 Blood Culture - Final
Blood/Venous No Growth - Final Report
02/01/24 04:42 Urine Culture - Final
Urine
02/01/24 02:47 Influenza Types A & B (ALTHEA) - Final
Nasal Swab Negative for Influenza A & B, NAAT
Negative results must be combined with clinical observations
and patient history.
Nucleic Acid Amplification test (NAAT)performed on the
[employer] platform.
02/01/[address]: There is 9 cm decubitus ulcer overlying the sacrum posteriorly. There is extensive sclerosis throughout the sacrum and medial aspect of the samantha bilaterally similar to that seen on the 03/25/2023 plain film examination such as
may be seen with chronic osteomyelitis.
There is associated inflammatory soft tissue in the presacral space as well as in the musculature of the left buttock
02/11/24 MRI lumbar without contrast: Large 9.2 cm LEFT POSTERIOR STAGE IV SACRAL ULCER extending deep to the underlying bone.
2. Extensive bone marrow signal abnormality throughout the sacrum and left iliac bone suggesting SEVERE ACUTE on CHRONIC OSTEOMYELITIS.
3. Small left sacroiliac joint effusion and extensive bone marrow changes around the left sacroiliac joint suspicious for septic arthritis.
4. Small amount of fluid in the L5/S1 intervertebral disc and adjacent bone marrow signal intensity changes in the endplates adjacent to the left side of the disc suspicious for acute osteomyelitis. Degenerative disease is an alternative
diagnostic possibility.
6. Severe left and moderate to severe right neural foraminal narrowing at L5/S1 with bilateral foraminal disc herniations causing bilateral exiting nerve root impingement (left greater than right).
7. 4.7 mm grade 1 anterolisthesis of L4 on L5 secondary to severe bilateral facet joint arthrosis. MODERATE CENTRAL CANAL STENOSIS at L4/L5.
--- NOTE | 2024-02-14 11:37 | CM ---
Patient with Dx Infected stage 4 sacral wounds/Sacral Osteomyelitis, Left hip pain/Acute on Chronic pain with opioid dependence, Acute Urinary Retention, Stage II right heel blister, TME, ESTELLE, new diabetes. Room air. Receiving IV Abx, Dilaudid PO
prn, Lidocaine Patch. PT Eval 02/09 recommends skilled rehab. OT Eval pending. Per nurse assessment; drowsy, lethargic.
Message from Dr Jean; patient may be ready for d/c 02/16.
Spoke with patient's daughter Stephie; informed her that [facility] SNF accepted and [facility] expressed interest, and provided [facility] ratings. Daughter not enthused about either SNF option due to location. Patient/family still upset about last SNF
experience at [facility] with facility that was dirty and had poor care. Patient was at [facility] previously and daughter liked the staff there. Daughter unsure if patient will stay at SNF for LTC. Daughter agrees to additional SNF referrals
closer to [place]: [facility], [facility], [facility], [facility] and [facility]. Strongly encouraged daughter to go and tour some SNFs this weekend including [facility] and [facility], in case no other SNFs accept by Saturday.
Daughter asked what time her meeting is today with Palliative Care - Message from Bree Trinidad who confirmed Palliative Care meeting today 12:30pm.
SNF referrals placed.
Plan follow up SNF referrals.
[2024-02-14 13:31] LABS: Glucose - Point of Care 151 mg/dl (70-99)
--- NOTE | 2024-02-14 13:38 | W.PN.PAL2 ---
Today's Communication
-
pain controlled. still using 3mg iv dilaudid and 24mg PO dilaudid consistently. Increase belbuca dose today. Wean dilaudid to home dose through weekend.
Assessment / Plan
-
Assessment/Plan:
- pain continues to be well controlled but with prn usage of dilaudid - 3mg IV dilaudid, 24mg PO dilaudid in 24 hours
- would increase belbuca to 450mcg BID starting tonight. Would DC mid day dose of 150mcg belbuca today if not already given.
- please start to wean dilaudid - patient with itching, more confusion today.
- decrease PO dilaudid to 8mg TID today, decrease to BID tomorrow and on Saturday decrease back down to home dose of 4mg PO dilaudid q4 PRN. Continue 1mg IV dilaudid for severe breakthrough pain and with wound care PRN.
- hopeful for discharge to SNF Saturday
- please send new script for 450mcg belbuca films to [facility] pharmacy on discharge.
- spoke with and daughter - to bring in more of the 150mcg films tomorrow as we only have enough supply to last through Saturday AM.
Case discussed extensively with patients family, physician, pharmacy, CM
Reason for Admission
Illness Course/HPI
78 year old F with PMH of chronic sacral osteomyelitis 2/2 sacral wound with wound vac (developed 2022) s/p attempted flap/reconstruction with plastics 09/2023 at [facility] (unfortunately failed due to necrosis, now with wound vac), rectal cancer dx 1992
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
Upon admission, complaining of pain in sacrum. Also with decreased mental status and pain medications decreased. Wound vac in place. Had a recent admission last month for similar issue. Seen by surgery at that time who recommended no acute
intervention as wound did not appear infected. Wound cultures at that time were + for proteus mirabilis, ecoli and pseuodomonas. Seen by surgery on admission - s/p bedside debridement.
Continues on IV meropenem
Goals of Care Discussion
-
Individuals Present for Discussion & Relationship to Patient:
met with patients daughter - goal for back to SNF to get her stronger and hopeful for hyperbaric chamber at [place] for her wound per patients surgeon at [facility]
Objective Data
-
Objective Data:
Vital Signs
Temp Pulse Resp BP Pulse Ox
98.5 F 77 16 149/66 94
02/14/24 07:30 02/14/24 10:10 02/14/24 08:08 02/14/24 10:10 02/14/24 08:08
Laboratory Results
02/14/24 05:33
02/14/24 05:33
Hemoglobin A1c Cancelled 02/01/24 08:34
Total Protein 6.2 g/dl (6.3-8.2) L 02/01/24 02:47
Albumin 3.0 g/dl (3.5-5.0) L 02/01/24 02:47
Urine Color Yellow 02/01/24 04:42
Urine Clarity Slightly cloudy (Clear) 02/01/24 04:42
Urine pH 5.0 (5.0-9.0) 02/01/24 04:42
Ur Specific [place] 1.015 (<1.030) 02/01/24 04:42
Urine Ketones Negative (Negative) 02/01/24 04:42
Urine Bilirubin Negative (Negative) 02/01/24 04:42
Palliative Performance Scale
Palliative Performance Scale:
PPS Level Ambulation Activity & Evidence of Disease Self Care Intake Conscious Level
100% Full Normal Activity & Work; Full Intake Full
No Evidence of Disease
90% Full Normal Activity & Work; Full Normal Full
Some Evidence of Disease
80% Full Normal Activity with Effort Full Normal or Full
Some Evidence of Disease Reduced
70% Reduced Unable Normal Job/Work Full Normal or Full
Significant Disease Reduced
60% Reduced Unable Hobby/Housework Occasional Normal or Full or Confusion
Significant Disease Assistance Reduced
50% Mainly Sit/Lie Unable to do Any Work Considerable Normal or Full or Confusion
Extensive Disease Assistance Req'd Reduced
40% Mainly in Bed Unable to do Most Activity Mainly Assistance Normal or Full or Drowsy;
Extensive Disease Reduced +/- Confusion
30% Totally Bed Unable to do Any Activity Total Care Normal or Full or Drowsy;
Bound Extensive Disease Reduced +/- Confusion
20% Totally Bed Bound Unable to do Any Activity Total Care Minimal to Full or Drowsy;
Extensive Disease Sips +/- Confusion
10% Totally Bed Bound Unable to do Any Activity Total Care Mouth Care Drowsy or Coma;
Extensive Disease Only +/- Confusion
0%
PPS Score Level:
Physical Exam
-
General: Comfortable
HEENT: Normocephalic
Respiratory: Clear to Auscultation
Cardiac: Regular Rhythm
Peripheral Vascular: No Edema
GI: Soft and Colostomy
Skin: Warm
Neuro: Awake, Alert and AO x 3
Psych: Confused
Care Reviewed
Data Reviewed
Medical Tests: I reviewed
[2024-02-14] MEDS: BENADRYL ELIXIR 12.5 MG PO (13:56)
[2024-02-14 15:25] VITALS: BP 100/38
[2024-02-14] MEDS: GLUCOPHAGE 500 MG PO (16:59)
[2024-02-14] MEDS: LOVENOX 40 MG SC (17:00)
[2024-02-14 17:35] LABS: Glucose - Point of Care 195 mg/dl (70-99)
[2024-02-14] MEDS: NOVOLOG FLEXPEN-LOW RESISTANCE 1 UNITS SC (17:54)
[2024-02-14] MEDS: NON-FORMULARY ITEM 450 MCG BUCCAL (19:31)
[2024-02-14] MEDS: DAKIN'S SOLUTION 0.125% 1/4 STRENGTH 1 ML TOPICAL (19:32)
[2024-02-14 21:39] VITALS: BP 110/50
[2024-02-14 21:43] LABS: Glucose - Point of Care 156 mg/dl (70-99)
[2024-02-14 23:40] VITALS: BP 125/48
[2024-02-15 06:00] VITALS: BMI 27.5
[2024-02-15 07:00] VITALS: BP 146/60
[2024-02-15 07:16] LABS: Hematocrit 24.9 % (37.0-47.0); Mean Corp Hgb Conc. 32.1 g/dL (33.0-37.0); Mean Corpuscular Volume 87.1 fL (81.0-99.0); Mean Platelet Volume 9.1 fL (7.4-10.4); Platelet Count 237 10^3/uL (130-400); Red Blood Cell Count 2.86 10^6/uL (4.20-5.40); Red Cell Dist. Width 14.6 % (11.5-14.5); White Blood Cell Count 7.7 10^3/uL (4.8-10.8)
[2024-02-15 07:36] LABS: Glucose - Point of Care 156 mg/dl (70-99)
--- NOTE | 2024-02-15 07:40 | W.PN.HOSP.TC ---
Today's Communication/Plan
-
cont wound care
pain control
taper PO dilaudid
cont prn IV dilaudid severe breakthrough pain
Belbuca 450 mcg BID
PT/OT
Benadryl prn itching
Assessment / Plan
Assessment / Plan
Physical Exam
General: no acute distress, appears comfortable at this time.
CVS: S1-S2 normal
Chest: CTA B/L
Abdomen: Soft, NT, colostomy wih BM,bowel sounds present
: echevarria present
Extremities: No edema, able to wriggle toes/feet,
Neuro: AOx2 disoriented to time, some confusion noted, though conversant and largely coherent
78F ext pmhx including rectal ca 1992 s/p abdominoperineal resection colostomy chemo radiation complicated with development stage IV sacral decubitus ulcer with associate chronic sacral osteomyelitis. Recent failed plastic flap reconstruction September
2023 attempted at [facility]. Admitted here with acute on chronic sacral osteomyelitis and possible discitis and sacral-iliac septic arthritis further complicated with acute on chronic pain
CT pelvis 02/01/24- A 9 cm decubitus ulcer over left main sacrum posteriorly. Extensive sclerosis throughout the sacrum and medial aspect of the ilium bilaterally similar to 03/25/2023 may be seen on chronic osteomyelitis. Associated secondary
soft tissue in the presacral area as well as in the musculature of the left buttock.
Compressive compression screw and intramedullary ronan traversing an impacted intertrochanteric fracture of the right femur with incomplete osseous union. Threads of the screw extending into the cortical margin of the femoral head.
Lumbar DJD with postop changes.
13 cm midline anterior pelvic wall hernia
# Left hip pain- X ray with no fracture, Lidoderm patch ordered along with narcs
# Infected stage 4 sacral wounds
#Acute on Chronic Sacral Osteomyelitis
Status post bedside debridement by Dr. North on 02/03/2024
Wound cultures with Pseudomonas, Proteus, E. coli
Was on Fortaz changed to cefepime further changed to current meropenem 500 mg IV q6h x 14 days continue through 03/19/24 as per ID, given below MRI findings concerning for L5/S1 discitis and S-J joint septic arthritis.
Midline placed for AB, to be converted to PICC for extended course abx as above
CT with chronic osteomyelitis
No Wound Vac for discharge
# Acute on Chronic pain with opioid dependence- on Belbuca (patient's own med), gabapentin, Dilaudid PO, IV dilaudid added for severe breakthrough pain (home oral oxycodone on hold d/t concern polypharmacy contributing to TME present on admission)
Palliative eval appreciated po dilaudid prn increased from 4mg to 8mg, prn IV dilaudid severe breakthrough pain increase from 0.5 mg to 1 mg
02/10 Pain however remain uncontrolled, palliative discussion w/ pt's oupt pain specialist Dr Whelan appreciated, Belbuca increased to TID
02/11 pain remains uncontrolled, prn PO dilaudid 8mg converted to scheduled q6H
02/12 pain controlled, significant improvement noted, patient comfortable at rest on Belbuca 150 mcg TID, scheduled PO dilaudid 8 mg Q6, and IV dilaudid 1 mg prn severe breakthrough pain
02/13 As per Palliaitve Belbuca increased to 450 mg BID, PO Dilaudid tapered to Q8, IV dilaudid remains available for severe breakthrough pain
prn benadryl added for itching likely due to dilaudid
02/14 8 mg +PO Dilaudid tapered to BID continued Belbuca 450 mg BID, IV dilaudid for severe breakthrough pain
Patient's case was also discussed with Dr Mcmillan patient's plastic surgeon who attempted flap/reconstruction with patient 09/2023 that unfortunately failed d/t necrosis
Dr Mcmillan noted surgical options for correcting wound exhausted, poor prognosis, with poor ambulatory status, wound unlikely to heal, patient fits criteria for hospice 6 mo prognosis (patient's daughter Stephie and son-in-law Don made aware regarding
aforementioned discussion and poor prognosis)
02/10 MRI Lumbar spine obtained to evaluate possible benefit spinal intervention with regards to pain and to evaluate for possible spinal pathology contributing to pain
MRI appreciated:
1. Large 9.2 cm LEFT POSTERIOR STAGE IV SACRAL ULCER extending deep to the underlying bone.
2. Extensive bone marrow signal abnormality throughout the sacrum and left iliac bone suggesting SEVERE ACUTE on CHRONIC OSTEOMYELITIS.
3. Small left sacroiliac joint effusion and extensive bone marrow changes around the left sacroiliac joint suspicious for septic arthritis.
4. Small amount of fluid in the L5/S1 intervertebral disc and adjacent bone marrow signal intensity changes in the endplates adjacent to the left side of the disc suspicious for acute osteomyelitis. Degenerative disease is an alternative
diagnostic possibility.
5. Chronic inferior endplate fracture of L5 with mild loss of vertebral body height.
6. Severe left and moderate to severe right neural foraminal narrowing at L5/S1 with bilateral foraminal disc herniations causing bilateral exiting nerve root impingement (left greater than right).
7. 4.7 mm grade 1 anterolisthesis of L4 on L5 secondary to severe bilateral facet joint arthrosis. MODERATE CENTRAL CANAL STENOSIS at L4/L5.
8. Severe distention of the urinary bladder.
9. Mild left hydroureteronephrosis (probably secondary to vesicoureteral reflux).
Neurosurgery eval appreciated noted MRI as above demonstrates chronic spondylotic changes without any obvious evidence of acute neural compression. No indication for neurosurgical intervention was noted.
Per patient's family request, reached out to [facility] for possible benefit transfer for hyperbaric oxygen treatment
-per discussion with [facility] however a transfer for inpt hyperbaric tx unlikely to add additional benefit at this time, transfer request was subsequently denied.
#Acute Urinary Retention noted on MRI as above
Likely d/t oversedation from pain meds and also likely contributing to pain
Echevarria started 02/11/24 with significant output noted
maintain Echevarria at this time
# Stage II right heel blister-patient has been refusing heel elevation. Wound care with air overlay or air mattress, soft heel relief boots
# TME-likely secondary to above along with possible polypharmacy with pain meds contributing
# Chronic HFpEF
Echo 02/03/2024-normal LV size and function. EF 55 to 60%. Mild MR. Trace TR.
Lasix placed on hold d/t ESTELLE since resumed. 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
#ESTELLE resolved
Cr rise to 1.6 likely due to urinary retention and poor oral intake due to pain
Since resolved with IVF support and hold on Lasix
IVF completed
Lasix resumed
#Hypomagnesemia
monitor and replete as necessary
# Diabetes-S new diagnosis this admission.
metformin 500 mg BID placed on hold d/t rising Cr
Hemoglobin A1c 8.1.
Accu-Cheks and sliding scale coverage.
Dietary/Diabetes education requested.
Farxiga 5 mg daily started, cont
# Compressive compression screw and intramedullary ronan traversing an impacted intertrochanteric fracture of the right femur with incomplete osseous union as noted above- Dr Martines discussed with who knows her well. Plan is not to
intervene as patient is not a good candidate for revision. No further intervention needed at this time.
# Anemia-adequate iron and B12. Likely secondary to chronic disease. Hgb improving
# COPD continue as needed nebs, fluticasone/salmeterol
# Hypertension-continue Nifedipine, Atenolol, Losartan
# Neurogenic bladder
# Chronic radiation cystitis
# GERD/hiatal hernia-PPI
# Anxiety-on as needed clonazepam increased to three times a day
# Severe discogenic DJD L5-S1
# 13 cm midline anterior pelvic wall hernia
# Fusiform infrarenal AAA 3.1 cm/Atherosclerosis
# Pulmonary nodule 1 cm right mid lung
# History of rectal cancer status post APR with colostomy 1982
# History of right nephrectomy for renal cancer 1981
# Ambulatory Dysfunction-PT OT as appropriate
# Ex-smoker
# DVT prophylaxis-Lovenox
# Full code
discussed with patient. Daughter called to provide update, no answer received, brief message left with update along with call back number.
I spent a total of 45 minutes with the patient or on the floor. More than 50% of this time involved counseling and coordination of care.
Anticipated Discharge: > 48 hours
Subjective/Interval History
-
Date of Service: February 15, 2024
No acute distress. Appears comfortable at this time. Some lethargy noted but arousable oriented x 2, disoriented to time but calm conversant coherent. Reports pain well controlled at this time. Some itching noted likely side effect Dilaudid.
Objective Data
-
Labs:
Laboratory Results
02/15/24
06:25
WBC 7.7
Hgb 8.0 L
Hct 24.9 L
Plt Count 237
Sodium Pending
Potassium Pending
Chloride Pending
Carbon Dioxide Pending
BUN Pending
Creatinine Pending
Glucose Pending
Calcium Pending
Vital Signs:
Vital Signs
Temp Pulse Resp BP Pulse Ox
98.3 F 78 20 125/48 98
02/14/24 23:40 02/14/24 23:40 02/14/24 23:40 02/14/24 23:40 02/14/24 23:40
I&O
02/14/24 02/15/24 02/16/24
06:59 06:59 05:59
Intake Total 1320 / 1320 600 / 600
Output Total 1050 / 1050 1100 / 1100
Balance 270 / 270 -500 / -500
[2024-02-15 07:48] LABS: Blood Urea Nitrogen 48 mg/dl (7-17); Calcium 8.7 mg/dl (8.4-10.2); Carbon Dioxide 29 mmol/L (22-30); Chloride 98 mmol/L (98-107); Estimated Creatinine Clearance 43 ml/min; Glucose 158 mg/dl (70-99); Magnesium 1.6 mg/dl (1.6-2.3); Phosphorus 3.2 mg/dl (2.5-4.5); Potassium 4.7 mmol/L (3.5-5.1); Sodium 137 mmol/L (135-145); eGFR 52.08
[2024-02-15] MEDS: ADVAIR HFA 115/21 MCG INHALER 2 PUFF INH ×2 (07:51→19:51)
[2024-02-15] MEDS: LIDOCAINE 4% PATCH 1 PATCH TOPICAL (09:02)
[2024-02-15] MEDS: COZAAR 25 MG PO (09:02)
[2024-02-15] MEDS: DILAUDID 8 MG PO ×2 (09:02→20:21)
[2024-02-15] MEDS: PROTONIX 40 MG PO (09:03)
[2024-02-15] MEDS: NEURONTIN 300 MG PO ×3 (09:03→22:58)
[2024-02-15] MEDS: PROCARDIA XL (EXTENDED RELEASE) 60 MG PO (09:03)
[2024-02-15] MEDS: TENORMIN 50 MG PO (09:03)
[2024-02-15] MEDS: VISBIOME 2 CAP PO (09:03)
[2024-02-15] MEDS: THERAGRAN 1 TABLET PO (09:03)
[2024-02-15] MEDS: FARXIGA 5 MG PO (09:03)
[2024-02-15] MEDS: GLUCOPHAGE 500 MG PO ×2 (09:03→18:31)
[2024-02-15] MEDS: LASIX 40 MG PO (09:04)
[2024-02-15] MEDS: VITAMIN D3 (cholecalciferol) 50 MCG PO (09:04)
[2024-02-15] MEDS: VITAMIN B-12 2500 MCG PO (09:04)
[2024-02-15] MEDS: VITAMIN C 500 MG PO (09:04)
[2024-02-15] MEDS: MERREM 500 MG IV ×3 (09:05→23:03)
[2024-02-15] MEDS: STERILE WATER FOR INJECTION 10 ML IV ×3 (09:05→23:03)
[2024-02-15] MEDS: MIRALAX 17 GRAMS PO (09:05)
[2024-02-15] MEDS: NON-FORMULARY ITEM 150 MCG BUCCAL (09:13)
[2024-02-15] MEDS: DAKIN'S SOLUTION 0.125% 1/4 STRENGTH 1 ML TOPICAL ×2 (09:30→20:21)
[2024-02-15] MEDS: NOVOLOG FLEXPEN-LOW RESISTANCE 1 UNITS SC (09:30)
[2024-02-15 11:36] LABS: Glucose - Point of Care 131 mg/dl (70-99)
[2024-02-15 11:49] LABS: Hematocrit 26.8 % (37.0-47.0); Hemoglobin 8.6 g/dL (12.0-16.0)
[2024-02-15] MEDS: BENADRYL ELIXIR 25 MG PO (12:48)
[2024-02-15] MEDS: NOVOLOG FLEXPEN-LOW RESISTANCE SC ×2 (12:52→18:22)
[2024-02-15] MEDS: DILAUDID 1 MG IV ×2 (15:04→23:15)
[2024-02-15 16:06] VITALS: BP 113/50
[2024-02-15 17:02] LABS: Glucose - Point of Care 129 mg/dl (70-99)
[2024-02-15] MEDS: LOVENOX 40 MG SC (18:31)
[2024-02-15] MEDS: NON-FORMULARY ITEM 450 MCG BUCCAL (20:18)
[2024-02-15 21:24] LABS: Glucose - Point of Care 144 mg/dl (70-99)
[2024-02-15 23:00] VITALS: BP 115/49
--- NOTE | 2024-02-15 23:38 | PTCARENOTE ---
Pt crying on and off, yelling 'my ankle, back and butt hurts!' prn Dilaudid given. pt refusing to be turned, holding the side rail to avoid staff moving her. Will attempt to turn pt again after pain medicine takes effect.
[2024-02-16] MEDS: DILAUDID 1 MG IV ×2 (03:41→09:31)
[2024-02-16 05:06] LABS: Hematocrit 24.3 % (37.0-47.0); Hemoglobin 7.8 g/dL (12.0-16.0); Mean Corp Hgb Conc. 32.1 g/dL (33.0-37.0); Mean Corpuscular Hgb 27.9 pg (27.0-31.0); Mean Corpuscular Volume 86.8 fL (81.0-99.0); Mean Platelet Volume 8.8 fL (7.4-10.4); Platelet Count 226 10^3/uL (130-400); Red Cell Dist. Width 14.6 % (11.5-14.5); White Blood Cell Count 7.8 10^3/uL (4.8-10.8)
[2024-02-16 05:29] LABS: Blood Urea Nitrogen 45 mg/dl (7-17); Calcium 9.1 mg/dl (8.4-10.2); Carbon Dioxide 29 mmol/L (22-30); Chloride 100 mmol/L (98-107); Estimated Creatinine Clearance 52 ml/min; Glucose 155 mg/dl (70-99); Magnesium 1.7 mg/dl (1.6-2.3); Phosphorus 2.7 mg/dl (2.5-4.5); Potassium 4.7 mmol/L (3.5-5.1); Sodium 138 mmol/L (135-145); eGFR > 60.00
[2024-02-16 06:00] VITALS: BMI 27.7
--- NOTE | 2024-02-16 06:40 | W.PN.HOSP.TC ---
Today's Communication/Plan
-
cont wound care
pain control
scheduled PO dilaudid tapered to 4mg PO TID due to uncontrolled pain while on 8 mg BID
home prn 4 mg PO dilaudid Q4Hprn resumed
cont prn IV dilaudid severe breakthrough pain
Benadryl prn itching d/t Dilaudid
Belbuca 450 mcg BID
Monitor H&H
PT/OT
Maintain Echevarria to help with wound healing.
Assessment / Plan
Assessment / Plan
Physical Exam
General: no acute distress, appears comfortable at this time.
CVS: S1-S2 normal
Chest: CTA B/L
Abdomen: Soft, NT, colostomy wih BM,bowel sounds present
: echevarria present
Extremities: No edema, able to wriggle toes/feet,
Neuro: AOx3, some confusion noted, though conversant and largely coherent
78F ext pmhx including rectal ca 1992 s/p abdominoperineal resection colostomy chemo radiation complicated with development stage IV sacral decubitus ulcer with associate chronic sacral osteomyelitis. Recent failed plastic flap reconstruction September
2023 attempted at [facility]. Admitted here with acute on chronic sacral osteomyelitis and possible discitis and sacral-iliac septic arthritis further complicated with acute on chronic pain
CT pelvis 02/01/24- A 9 cm decubitus ulcer over left main sacrum posteriorly. Extensive sclerosis throughout the sacrum and medial aspect of the ilium bilaterally similar to 03/25/2023 may be seen on chronic osteomyelitis. Associated secondary
soft tissue in the presacral area as well as in the musculature of the left buttock.
Compressive compression screw and intramedullary ronan traversing an impacted intertrochanteric fracture of the right femur with incomplete osseous union. Threads of the screw extending into the cortical margin of the femoral head.
Lumbar DJD with postop changes.
13 cm midline anterior pelvic wall hernia
# Left hip pain- X ray with no fracture, Lidoderm patch ordered along with narcs
# Infected stage 4 sacral wounds
#Acute on Chronic Sacral Osteomyelitis
Status post bedside debridement by Dr. North on 02/03/2024
Wound cultures with Pseudomonas, Proteus, E. coli
Was on Fortaz changed to cefepime further changed to current meropenem 500 mg IV q6h x 14 days continue through 03/19/24 as per ID, given below MRI findings concerning for L5/S1 discitis and S-J joint septic arthritis.
Midline placed for AB, to be converted to PICC for extended course abx as above
CT with chronic osteomyelitis
No Wound Vac for discharge as per surgery
# Acute on Chronic pain with opioid dependence- on Belbuca (patient's own med), gabapentin, Dilaudid PO, IV dilaudid added for severe breakthrough pain (home oral oxycodone on hold d/t concern polypharmacy contributing to TME present on admission)
Palliative eval appreciated po dilaudid prn increased from 4mg to 8mg, prn IV dilaudid severe breakthrough pain increase from 0.5 mg to 1 mg
02/10 Pain however remain uncontrolled, palliative discussion w/ pt's oupt pain specialist Dr Whelan appreciated, Belbuca increased to TID
02/11 pain remains uncontrolled, prn PO dilaudid 8mg converted to scheduled q6H
02/12 pain controlled, significant improvement noted, patient comfortable at rest on Belbuca 150 mcg TID, scheduled PO dilaudid 8 mg Q6, and IV dilaudid 1 mg prn severe breakthrough pain
02/13 As per Palliaitve Belbuca increased to 450 mg BID, PO Dilaudid tapered to Q8, IV dilaudid remains available for severe breakthrough pain
prn benadryl added for itching likely due to dilaudid
02/14 8 mg +PO Dilaudid tapered to BID continued Belbuca 450 mg BID, IV dilaudid for severe breakthrough pain
02/15 Pain seems uncontrolled resumed home PO prn 4 mg dilaudid q4hprn, scheduled PO dilaudid changed to 4mg TID PO, continued Belbuca 450 mg BID (additional supply brought in by patient's ) continued IV dilaudid for severe breakthrough pain,
benadryl prn for itching due to dilaudid
Patient's case was also discussed with Dr Mcmillan patient's plastic surgeon who attempted flap/reconstruction with patient 09/2023 that unfortunately failed d/t necrosis
Dr Mcmillan noted surgical options for correcting wound exhausted, poor prognosis, with poor ambulatory status, wound unlikely to heal, patient fits criteria for hospice 6 mo prognosis (patient's daughter Stephie and son-in-law Don made aware regarding
aforementioned discussion and poor prognosis)
-patient family not interested in Hospice at this time, especially given improvement in pain control with subsequent improvement in participation w PT/OT (patient able to stand with rolling walker)
-Daughter Stephie also reports per her discussion with Dr Mcmillan that a flap reconstruction may be attempted again in future, though she also understands that patient's ambulatory status will need to improve if reconstruction is going to succeed.
02/10 MRI Lumbar spine obtained to evaluate possible benefit spinal intervention with regards to pain and to evaluate for possible spinal pathology contributing to pain
MRI appreciated:
1. Large 9.2 cm LEFT POSTERIOR STAGE IV SACRAL ULCER extending deep to the underlying bone.
2. Extensive bone marrow signal abnormality throughout the sacrum and left iliac bone suggesting SEVERE ACUTE on CHRONIC OSTEOMYELITIS.
3. Small left sacroiliac joint effusion and extensive bone marrow changes around the left sacroiliac joint suspicious for septic arthritis.
4. Small amount of fluid in the L5/S1 intervertebral disc and adjacent bone marrow signal intensity changes in the endplates adjacent to the left side of the disc suspicious for acute osteomyelitis. Degenerative disease is an alternative
diagnostic possibility.
5. Chronic inferior endplate fracture of L5 with mild loss of vertebral body height.
6. Severe left and moderate to severe right neural foraminal narrowing at L5/S1 with bilateral foraminal disc herniations causing bilateral exiting nerve root impingement (left greater than right).
7. 4.7 mm grade 1 anterolisthesis of L4 on L5 secondary to severe bilateral facet joint arthrosis. MODERATE CENTRAL CANAL STENOSIS at L4/L5.
8. Severe distention of the urinary bladder.
9. Mild left hydroureteronephrosis (probably secondary to vesicoureteral reflux).
Neurosurgery eval appreciated noted MRI as above demonstrates chronic spondylotic changes without any obvious evidence of acute neural compression. No indication for neurosurgical intervention was noted.
Per patient's family request, reached out to [employer] for possible benefit transfer for hyperbaric oxygen treatment
-per discussion with [employer] however a transfer for inpt hyperbaric tx unlikely to add additional benefit to inpatient mgmt, transfer request was subsequently denied.
#Acute Urinary Retention noted on MRI as above
Likely d/t oversedation from pain meds and also likely contributing to pain
Echevarria started 02/11/24 with significant output noted
maintain Echevarria at this time to help with wound healing
# Stage II right heel blister-patient has been refusing heel elevation. Wound care with air overlay or air mattress, soft heel relief boots
# TME-likely secondary to above along with possible polypharmacy with pain meds contributing
# Chronic HFpEF
Echo 02/03/2024-normal LV size and function. EF 55 to 60%. Mild MR. Trace TR.
Lasix placed on hold d/t ESTELLE since resumed. MECHANICAL INTERN metolazone remains on hold, doesn't appear necessary at this time, consider discontinuing on discharge.
#ESTELLE resolved
Cr rise to 1.6 likely due to urinary retention and poor oral intake due to pain
Since resolved with IVF support and hold on Lasix
IVF completed
Lasix resumed
#Hypomagnesemia
monitor and replete as necessary
# Diabetes-S new diagnosis this admission.
metformin 500 mg BID placed on hold d/t rising Cr
Hemoglobin A1c 8.1.
Accu-Cheks and sliding scale coverage.
Dietary/Diabetes education requested.
Farxiga 5 mg daily started, cont
# Compressive compression screw and intramedullary ronan traversing an impacted intertrochanteric fracture of the right femur with incomplete osseous union as noted above- Dr Martines discussed with who knows her well. Plan is not to
intervene as patient is not a good candidate for revision. No further intervention needed at this time.
# Anemia-adequate iron and B12. Likely secondary to chronic disease. Hgb was improving, trickle down however noted since increase in Belbuca question possible side effect
-cont monitoring for now
-transfuse if Hgb<7
# COPD continue as needed nebs, fluticasone/salmeterol
# Hypertension-continue Nifedipine, Atenolol, Losartan
# Neurogenic bladder
# Chronic radiation cystitis
# GERD/hiatal hernia-PPI
# Anxiety-on as needed clonazepam increased to three times a day
# Severe discogenic DJD L5-S1
# 13 cm midline anterior pelvic wall hernia
# Fusiform infrarenal AAA 3.1 cm/Atherosclerosis
# Pulmonary nodule 1 cm right mid lung
# History of rectal cancer status post APR with colostomy 1982
# History of right nephrectomy for renal cancer 1981
# Ambulatory Dysfunction-PT OT as appropriate
# Ex-smoker
# DVT prophylaxis-Lovenox
# Full code
Discharge planning SNF rehab when stable, pain controlled without need for IV prn. Family has requested picture of wound prior to discharge to monitor patient's progress while at rehab.
discussed with patient, patient's Fede, Daughter Stephie, sister Iesha, and Nurse
I spent a total of 50 minutes with the patient or on the floor. More than 50% of this time involved counseling and coordination of care.
Anticipated Discharge: 24 - 48 hours
Subjective/Interval History
-
Date of Service: February 16, 2024
pain uncontrolled overnight with taper scheduled oral Dilaudid. Patient appears uncomfortable in morning mild moderate distress due to pain. Awake alert conversant coherent.
Objective Data
-
Labs:
Laboratory Results
02/16/24
04:45
WBC 7.8
Hgb 7.8 L
Hct 24.3 L
Plt Count 226
Sodium 138
Potassium 4.7
Chloride 100
Carbon Dioxide 29
BUN 45 H
Creatinine 0.9
Glucose 155 H
Calcium 9.1
Vital Signs:
Vital Signs
Temp Pulse Resp BP Pulse Ox
98.3 F 86 16 115/49 97
02/15/24 23:00 02/15/24 23:00 02/15/24 23:00 02/15/24 23:00 02/15/24 23:00
I&O
02/14/24 02/15/24 02/16/24
06:59 06:59 05:59
Intake Total 1320 / 1320 600 / 600
Output Total 1050 / 1050 1100 / 1100 550 / 550
Balance 270 / 270 -500 / -500 -550 / -550
[2024-02-16 07:00] VITALS: BP 137/55
[2024-02-16] MEDS: ADVAIR HFA 115/21 MCG INHALER 2 PUFF INH ×2 (07:24→19:57)
[2024-02-16 08:14] LABS: Iron 40 ug/dl (37-170)
[2024-02-16 08:24] LABS: Percent Saturation 21 % (20-50); Total Iron Binding Capacity 185 ug/dl (265-497)
[2024-02-16 08:27] LABS: Glucose - Point of Care 196 mg/dl (70-99)
[2024-02-16] MEDS: NOVOLOG FLEXPEN-LOW RESISTANCE 1 UNITS SC (08:45)
[2024-02-16] MEDS: NON-FORMULARY ITEM 450 MCG BUCCAL ×2 (08:45→20:41)
[2024-02-16] MEDS: MIRALAX 17 GRAMS PO (08:47)
[2024-02-16] MEDS: LIDOCAINE 4% PATCH 1 PATCH TOPICAL (08:47)
[2024-02-16] MEDS: PROCARDIA XL (EXTENDED RELEASE) 60 MG PO (08:47)
[2024-02-16] MEDS: VITAMIN D3 (cholecalciferol) 50 MCG PO (08:48)
[2024-02-16] MEDS: VISBIOME 2 CAP PO (08:48)
[2024-02-16] MEDS: PROTONIX 40 MG PO (08:48)
[2024-02-16] MEDS: VITAMIN B-12 2500 MCG PO (08:48)
[2024-02-16] MEDS: FARXIGA 5 MG PO (08:48)
[2024-02-16] MEDS: NEURONTIN 300 MG PO ×3 (08:48→21:22)
[2024-02-16] MEDS: MERREM 500 MG IV ×3 (08:49→23:19)
[2024-02-16] MEDS: VITAMIN C 500 MG PO (08:49)
[2024-02-16] MEDS: GLUCOPHAGE 500 MG PO ×2 (08:49→17:24)
[2024-02-16] MEDS: TENORMIN 50 MG PO (08:49)
[2024-02-16] MEDS: STERILE WATER FOR INJECTION 10 ML IV ×3 (08:50→23:19)
[2024-02-16] MEDS: LASIX 40 MG PO (08:50)
[2024-02-16] MEDS: COZAAR 25 MG PO (09:09)
[2024-02-16] MEDS: THERAGRAN 1 TABLET PO (09:09)
[2024-02-16] MEDS: DAKIN'S SOLUTION 0.125% 1/4 STRENGTH 473 ML TOPICAL ×2 (09:10→20:41)
[2024-02-16] MEDS: DESENEX/MITRAZOL/ZEASORB 1 APPLIC TOPICAL (09:11)
[2024-02-16] MEDS: DILAUDID 4 MG PO ×3 (10:39→21:22)
[2024-02-16] MEDS: BENADRYL ELIXIR 25 MG PO ×2 (10:42→20:50)
[2024-02-16 11:07] LABS: Folate 9.2 ng/ml (2.76-20)
[2024-02-16 12:29] LABS: Glucose - Point of Care 209 mg/dl (70-99)
[2024-02-16] MEDS: NOVOLOG FLEXPEN-LOW RESISTANCE 2 UNITS SC ×2 (13:18→17:25)
[2024-02-16 15:00] VITALS: BP 107/46
[2024-02-16 16:32] LABS: Glucose - Point of Care 203 mg/dl (70-99)
--- NOTE | 2024-02-16 16:48 | CM ---
Met with patient at her request. Patient's daughter and spouse were at bedside. Patient's daughter stated that she was hoping to be able to visit some facilities/SNFs this weekend, however there were no admissions to be able to take her on a tour.
Patient's family stated that they are hopeful that patient's daughter can see some facilities this week who are willing to accept her. Family was advised that CM will follow up with patient and facilities to determine where she can transition after
discharge.
Plan: Case management will continue to follow and assist with discharge planning. SNF when stable.
[2024-02-16] MEDS: LOVENOX 40 MG SC (17:25)
[2024-02-16 21:46] LABS: Glucose - Point of Care 126 mg/dl (70-99)
[2024-02-16 23:36] VITALS: BP 118/48
[2024-02-17] MEDS: SANTYL OINTMENT 1 APPLIC TOPICAL (05:15)
[2024-02-17 05:48] VITALS: BMI 27.2
[2024-02-17] MEDS: DAKIN'S SOLUTION 0.125% 1/4 STRENGTH 473 ML TOPICAL ×2 (05:48→20:39)
[2024-02-17 06:08] VITALS: BMI 27.2
[2024-02-17 07:15] VITALS: BP 112/50
[2024-02-17 07:39] LABS: Glucose - Point of Care 129 mg/dl (70-99)
[2024-02-17] MEDS: ADVAIR HFA 115/21 MCG INHALER 2 PUFF INH ×2 (07:58→19:42)
[2024-02-17 08:05] LABS: Hematocrit 26.3 % (37.0-47.0); Hemoglobin 8.6 g/dL (12.0-16.0); Mean Corp Hgb Conc. 32.7 g/dL (33.0-37.0); Mean Corpuscular Hgb 28.4 pg (27.0-31.0); Mean Corpuscular Volume 86.8 fL (81.0-99.0); Mean Platelet Volume 8.8 fL (7.4-10.4); Platelet Count 211 10^3/uL (130-400); Red Blood Cell Count 3.03 10^6/uL (4.20-5.40); Red Cell Dist. Width 14.9 % (11.5-14.5); White Blood Cell Count 7.5 10^3/uL (4.8-10.8)
[2024-02-17 08:42] LABS: Blood Urea Nitrogen 41 mg/dl (7-17); Calcium 9.1 mg/dl (8.4-10.2); Carbon Dioxide 30 mmol/L (22-30); Chloride 99 mmol/L (98-107); Estimated Creatinine Clearance 52 ml/min; Glucose 129 mg/dl (70-99); Magnesium 1.5 mg/dl (1.6-2.3); Phosphorus 3.3 mg/dl (2.5-4.5); Potassium 4.9 mmol/L (3.5-5.1); Sodium 139 mmol/L (135-145); eGFR > 60.00
[2024-02-17] MEDS: VISBIOME 2 CAP PO (08:48)
[2024-02-17] MEDS: FARXIGA 5 MG PO (08:48)
[2024-02-17] MEDS: GLUCOPHAGE 500 MG PO (08:48)
[2024-02-17] MEDS: TENORMIN 50 MG PO (08:49)
[2024-02-17] MEDS: LASIX 40 MG PO (08:49)
[2024-02-17] MEDS: DILAUDID 4 MG PO ×3 (08:49→21:24)
[2024-02-17] MEDS: PROTONIX 40 MG PO (08:49)
[2024-02-17] MEDS: THERAGRAN 1 TABLET PO (08:49)
[2024-02-17] MEDS: VITAMIN B-12 2500 MCG PO (08:49)
[2024-02-17] MEDS: NEURONTIN 300 MG PO ×3 (08:49→21:24)
[2024-02-17] MEDS: PROCARDIA XL (EXTENDED RELEASE) 60 MG PO (08:49)
[2024-02-17] MEDS: VITAMIN C 500 MG PO (08:50)
[2024-02-17] MEDS: VITAMIN D3 (cholecalciferol) 50 MCG PO (08:50)
[2024-02-17] MEDS: MERREM 500 MG IV ×2 (08:51→17:24)
[2024-02-17] MEDS: COZAAR 25 MG PO (08:51)
[2024-02-17] MEDS: LIDOCAINE 4% PATCH 1 PATCH TOPICAL (08:52)
[2024-02-17] MEDS: STERILE WATER FOR INJECTION 10 ML IV ×2 (09:05→17:24)
[2024-02-17] MEDS: NOVOLOG FLEXPEN-LOW RESISTANCE SC ×2 (09:11→17:19)
[2024-02-17] MEDS: MIRALAX PO (09:12)
[2024-02-17] MEDS: NON-FORMULARY ITEM 450 MCG BUCCAL ×2 (09:15→20:38)
[2024-02-17 11:20] VITALS: BP 116/53; PULSE 89; O2SAT 96
--- NOTE | 2024-02-17 11:44 | W.PN.PAL2 ---
Today's Communication
-
Patient seen at bedside, pain much improved after increase in belbuca. Still requiring prn IV dilaudid 1-2 x daily, but overall much more comfortable, able to tolerate care.
Discharge planning is underway. Patient to follow up with [facility] after discharge.
Assessment / Plan
-
Assessment/Plan:
Continue current doses of belbuca, gabapentin, dilaudid.
- please send new script for 450mcg belbuca films to [facility] pharmacy on discharge.
Reason for Admission
Illness Course/HPI
78 year old F with PMH of chronic sacral osteomyelitis 2/2 sacral wound with wound vac (developed 2022) s/p attempted flap/reconstruction with plastics 09/2023 at [facility] (unfortunately failed due to necrosis, now with wound vac), rectal cancer dx 1992
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
Upon admission, complaining of pain in sacrum. Also with decreased mental status and pain medications decreased. Wound vac in place. Had a recent admission last month for similar issue. Seen by surgery at that time who recommended no acute
intervention as wound did not appear infected. Wound cultures at that time were + for proteus mirabilis, ecoli and pseuodomonas. Seen by surgery on admission - s/p bedside debridement.
Continues on IV meropenem
Pain & Symptom Assessment
[place] Symptom Scale 0=none, 10=worst
Pain: 4 (Pain improved, worse with bm and when sitting on buttock)
Objective Data
-
Objective Data:
Vital Signs
Temp Pulse Resp BP Pulse Ox
98.4 F 79 17 112/50 97
02/17/24 07:15 02/17/24 08:01 02/17/24 08:01 02/17/24 08:49 02/17/24 08:01
Laboratory Results
02/17/24 07:48
02/17/24 07:48
Hemoglobin A1c Cancelled 02/01/24 08:34
Total Protein 6.2 g/dl (6.3-8.2) L 02/01/24 02:47
Albumin 3.0 g/dl (3.5-5.0) L 02/01/24 02:47
Urine Color Yellow 02/01/24 04:42
Urine Clarity Slightly cloudy (Clear) 02/01/24 04:42
Urine pH 5.0 (5.0-9.0) 02/01/24 04:42
Ur Specific [place] 1.015 (<1.030) 02/01/24 04:42
Urine Ketones Negative (Negative) 02/01/24 04:42
Urine Bilirubin Negative (Negative) 02/01/24 04:42
Palliative Performance Scale
Palliative Performance Scale:
PPS Level Ambulation Activity & Evidence of Disease Self Care Intake Conscious Level
100% Full Normal Activity & Work; Full Intake Full
No Evidence of Disease
90% Full Normal Activity & Work; Full Normal Full
Some Evidence of Disease
80% Full Normal Activity with Effort Full Normal or Full
Some Evidence of Disease Reduced
70% Reduced Unable Normal Job/Work Full Normal or Full
Significant Disease Reduced
60% Reduced Unable Hobby/Housework Occasional Normal or Full or Confusion
Significant Disease Assistance Reduced
50% Mainly Sit/Lie Unable to do Any Work Considerable Normal or Full or Confusion
Extensive Disease Assistance Req'd Reduced
40% Mainly in Bed Unable to do Most Activity Mainly Assistance Normal or Full or Drowsy;
Extensive Disease Reduced +/- Confusion
30% Totally Bed Unable to do Any Activity Total Care Normal or Full or Drowsy;
Bound Extensive Disease Reduced +/- Confusion
20% Totally Bed Bound Unable to do Any Activity Total Care Minimal to Full or Drowsy;
Extensive Disease Sips +/- Confusion
10% Totally Bed Bound Unable to do Any Activity Total Care Mouth Care Drowsy or Coma;
Extensive Disease Only +/- Confusion
0%
PPS Score Level:
Palliative Performance Score Response
Palliative Performance Score Response: 40%
Physical Exam
-
General: Well Developed and Well Nourished
Neuro: Awake and Alert
Psych: Calm
[2024-02-17 11:56] LABS: Glucose - Point of Care 206 mg/dl (70-99)
--- NOTE | 2024-02-17 12:00 | PTCARENOTE ---
Purewick was placed this am to help protect sacral wound and monitor urine output since patient was incontinent prior to Dial removal and retaining urine. Since Dial d/c'd, patient's canister with small amount of arleth urine and incontinent of
small amount of urine, will continue to monitor.
[2024-02-17] MEDS: NOVOLOG FLEXPEN-LOW RESISTANCE 2 UNITS SC (13:07)
--- NOTE | 2024-02-17 13:32 | PTCARENOTE ---
patient sitting oob in chair, tolerating activity, tolerating diet, participated with PT/OT and pain level remains 0 at rest and during activity, refused Miralax this am, vss, will continue to monitor.
--- NOTE | 2024-02-17 14:25 | CM ---
Addendum entered by Belen Booker 02/17/24 14:34:
Update to [facility]/admission
She will also look into pricing and deliver of Belbuca at SNF
Original Note:
CM reviewed pt with Dr Martines- awaiting dc date
Per Dr Marie, will need IV meropenem 500 mg Q6H through 03/19
Scripts uploaded into Care Port
Multiples call with dtr throughout the day
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
Reviewed accepting beds, [facility] and [facility]
She is interested in [facility] at this time for care ratings and location
Outreach to [facility], clinically accepted
She will look into if meropenem is in stock or needs to be ordered
She will also order mattress for wound needs
Pt will need picc placed for IV abx
Discharge Disposition- anticipate [facility]
--- NOTE | 2024-02-17 14:26 | W.PN.ID1 ---
Date of Service
Date of Service: February 17, 2024
Today's Communication
Continue meropenem.
Assessment / Plan
# Acute on chronic sacral osteo; massive wound
# Possible septic arthritis of left S-I joint
# Possible left L5/S1 discitis/osteo vs DJD
# Intractable acute on chronic sacral pain better controlled
- Remote hx of rectal ca s/p APR, colostomy, chemo, XRT
- hx failed flap reconstruction, was following with Plastics Dr. Mcmillan at [place], no further options.
- s/p bedside debridement 02/03/24
- 02/01 wound swab Pseudomonas, Proteus, ESBL-E. coli.
- Continue meropenem 500mg IV q8 (adjust renally prn) x 6 weeks through 03/19/2024
- Infusion submitted to case finisher.
- CRP trending down 208 -> 66
- Follow weekly CBVC, CMP, CRP.
- When close to discharge, will need to replace current midline with new midline since midline is only good for 30 days.
- Appreciate Wound RN recs. No wound vac.
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
Rectal ca 1992 s/ APR, colostomy at [facility] with adjuvant chemo XRT.
Renal ca, right s/p nephrectomy (1992).
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
Sacral wound reconstruction by Dr. Mcmillan at [facility] 10/08/23 (OR cx Klebsiella and Enterococcus) s/p 6 weeks IV Zosyn through 11/19/23
Sacral flap necrosis s/p I+D, wound vac application at [facility] 11/18/23 s/p IV Zosyn short course.
Sacral OR wound debridement 12/31/23, Tissue path fat necrosis, acute inflammation. Bone cx: Pseudomonas (panS), E. coli (panS), VRE (amp-resistant), Corynebacterium striatum (?untreated0
Hypertension.
Infrarenal AAA
COPD
Lung nodules.
Thrombocytopenia.
neurogenic bladder, receiving Botox, intermittent self-cath.
recurrent UTI
R hip fracture ORIF 03/2023
parastomal hernia repair with mesh
back surgery 07/2020
bilateral knee replacements
Chief Complaint
-: Other (sacral osteo)
Subjective / Review of Systems
Pain is much better controlled. Sat up for a while.
Vital Signs / Physical Exam
Vital Signs
Vital Signs
Temp Pulse Resp BP Pulse Ox
98.4 F 79 17 112/50 96
02/17/24 07:15 02/17/24 08:01 02/17/24 08:01 02/17/24 08:49 02/17/24 09:00
Physical Exam
Constitutional: Comfortable
Pulmonary: Clear
Gastrointestinal: Soft, Non Tender and Non Distended
Neurological: AO x 3
Objective Data
Lab Data
Lab Results
02/17/24 07:48
02/17/24 07:48
ESR > 145 mm/hour (0-20) H 02/02/24 04:39
Estimated Creat Clear 52 ml/min 02/17/24 07:48
Lactic Acid 0.7 mmol/L (0.7-2.0) 02/01/24 02:47
Total Bilirubin 0.4 mg/dl (0.2-1.3) 02/01/24 02:47
AST 22 U/L (14-36) 02/01/24 02:47
ALT 16 U/L (0-35) 02/01/24 02:47
Alkaline Phosphatase 135 U/L (38-126) H 02/01/24 02:47
C-Reactive Protein 65.60 mg/L (0.0-10.00) H 02/13/24 05:44
Most recent labs reviewed.
Micro Results:
02/02/24 Unknown Wound Culture - Final
Sacral Proteus mirabilis
Pseudomonas aeruginosa
Escherichia coli - ESBL
Gram Stain - Final
02/01/24 02:59 Blood Culture - Final
Blood/Venous No Growth - Final Report
02/01/24 02:47 Blood Culture - Final
Blood/Venous No Growth - Final Report
02/01/24 04:42 Urine Culture - Final
Urine
02/01/24 02:47 Influenza Types A & B (ALTHEA) - Final
Nasal Swab Negative for Influenza A & B, NAAT
Negative results must be combined with clinical observations
and patient history.
Nucleic Acid Amplification test (NAAT)performed on the
[employer] platform.
02/01/[address]: There is 9 cm decubitus ulcer overlying the sacrum posteriorly. There is extensive sclerosis throughout the sacrum and medial aspect of the samantha bilaterally similar to that seen on the 03/25/2023 plain film examination such as
may be seen with chronic osteomyelitis.
There is associated inflammatory soft tissue in the presacral space as well as in the musculature of the left buttock
02/11/24 MRI lumbar without contrast: Large 9.2 cm LEFT POSTERIOR STAGE IV SACRAL ULCER extending deep to the underlying bone.
2. Extensive bone marrow signal abnormality throughout the sacrum and left iliac bone suggesting SEVERE ACUTE on CHRONIC OSTEOMYELITIS.
3. Small left sacroiliac joint effusion and extensive bone marrow changes around the left sacroiliac joint suspicious for septic arthritis.
4. Small amount of fluid in the L5/S1 intervertebral disc and adjacent bone marrow signal intensity changes in the endplates adjacent to the left side of the disc suspicious for acute osteomyelitis. Degenerative disease is an alternative
diagnostic possibility.
6. Severe left and moderate to severe right neural foraminal narrowing at L5/S1 with bilateral foraminal disc herniations causing bilateral exiting nerve root impingement (left greater than right).
7. 4.7 mm grade 1 anterolisthesis of L4 on L5 secondary to severe bilateral facet joint arthrosis. MODERATE CENTRAL CANAL STENOSIS at L4/L5.
--- NOTE | 2024-02-17 14:57 | W.PN.HOSP.TC ---
Today's Communication/Plan
-
Discharge planning
Assessment / Plan
Assessment / Plan
78F ext pmhx including rectal ca 1992 s/p abdominoperineal resection colostomy chemo radiation complicated with development stage IV sacral decubitus ulcer with associate chronic sacral osteomyelitis. Recent failed plastic flap reconstruction September
2023 attempted at [facility] [place]. Admitted here with acute on chronic sacral osteomyelitis and possible discitis and sacral-iliac septic arthritis further complicated with acute on chronic pain
CT pelvis 02/01/24- A 9 cm decubitus ulcer over left main sacrum posteriorly. Extensive sclerosis throughout the sacrum and medial aspect of the ilium bilaterally similar to 03/25/2023 may be seen on chronic osteomyelitis. Associated secondary
soft tissue in the presacral area as well as in the musculature of the left buttock.
Compressive compression screw and intramedullary ronan traversing an impacted intertrochanteric fracture of the right femur with incomplete osseous union. Threads of the screw extending into the cortical margin of the femoral head.Lumbar DJD with
postop changes.13 cm midline anterior pelvic wall hernia
02/10 MRI Lumbar spine obtained to evaluate possible benefit spinal intervention with regards to pain and to evaluate for possible spinal pathology contributing to pain
MRI appreciated:
1. Large 9.2 cm LEFT POSTERIOR STAGE IV SACRAL ULCER extending deep to the underlying bone.
2. Extensive bone marrow signal abnormality throughout the sacrum and left iliac bone suggesting SEVERE ACUTE on CHRONIC OSTEOMYELITIS.
3. Small left sacroiliac joint effusion and extensive bone marrow changes around the left sacroiliac joint suspicious for septic arthritis.
4. Small amount of fluid in the L5/S1 intervertebral disc and adjacent bone marrow signal intensity changes in the endplates adjacent to the left side of the disc suspicious for acute osteomyelitis. Degenerative disease is an alternative
diagnostic possibility.
5. Chronic inferior endplate fracture of L5 with mild loss of vertebral body height.
6. Severe left and moderate to severe right neural foraminal narrowing at L5/S1 with bilateral foraminal disc herniations causing bilateral exiting nerve root impingement (left greater than right).
7. 4.7 mm grade 1 anterolisthesis of L4 on L5 secondary to severe bilateral facet joint arthrosis. MODERATE CENTRAL CANAL STENOSIS at L4/L5.
8. Severe distention of the urinary bladder.
9. Mild left hydroureteronephrosis (probably secondary to vesicoureteral reflux).
Patient was seated in a chair when I saw her earlier. I made her stand up with the help of the nurse To examine her sacral area. It is deep but mostly with some granulation tissue no discharge noted.
Cardiovascular system S1-S2 appreciated
Abdomen soft and nontender
Chest clear to auscultation
# Left hip pain- X ray with no fracture, Lidoderm patch ordered along with narcs
# Infected stage 4 sacral wounds
#Acute on Chronic Sacral Osteomyelitis
Status post bedside debridement by Dr. North on 02/03/2024
Wound cultures with Pseudomonas, Proteus, E. coli
Was on Fortaz changed to cefepime further changed to current meropenem 500 mg IV q6h to continue through 03/19/24 as per ID, given below MRI findings concerning for L5/S1 discitis and S-J joint septic arthritis.
PICC for extended course abx as above
CT with chronic osteomyelitis
No Wound Vac for discharge as per surgery
# Acute on Chronic pain with opioid dependence- on Belbuca (patient's own med), gabapentin, Dilaudid PO, IV Dilaudid for severe breakthrough pain (home oral oxycodone on hold d/t concern polypharmacy contributing to TME present on admission)
Palliative eval appreciated po Dilaudid prn increased from 4mg to 8mg, prn IV Dilaudid severe breakthrough pain increase from 0.5 mg to 1 mg
02/10 Pain however remain uncontrolled, palliative discussion w/ pt's oupt pain specialist Dr Whelan appreciated, Belbuca increased to TID
02/11 pain remains uncontrolled, prn PO Dilaudid 8mg converted to scheduled q6H
02/12 pain controlled, significant improvement noted, patient comfortable at rest on Belbuca 150 mcg TID, scheduled PO dilaudid 8 mg Q6, and IV dilaudid 1 mg prn severe breakthrough pain
02/13 As per Palliative Belbuca increased to 450 mg BID, PO Dilaudid tapered to Q8, IV Dilaudid remains available for severe breakthrough pain
prn Benadryl added for itching likely due to Dilaudid
02/14 8 mg +PO Dilaudid tapered to BID continued Belbuca 450 mg BID, IV Dilaudid for severe breakthrough pain
02/15 Pain seems uncontrolled resumed home PO prn 4 mg Dilaudid q4hprn, scheduled PO Dilaudid changed to 4mg TID PO, continued Belbuca 450 mg BID (additional supply brought in by patient's ) continued IV Dilaudid for severe breakthrough pain,
Benadryl prn for itching due to Dilaudid
02/16- Pain controlled -No change in regimen. Last IV dose was yesterday 9.30 am
Patient's case was also discussed with Dr Mcmillan patient's plastic surgeon who attempted flap/reconstruction with patient 09/2023 that unfortunately failed d/t necrosis ()
Dr Mcmillan noted surgical options for correcting wound exhausted, poor prognosis, with poor ambulatory status, wound unlikely to heal, patient fits criteria for hospice 6 mo prognosis (patient's daughter Stephie and son-in-law Don made aware regarding
aforementioned discussion and poor prognosis) ( )
-patient family not interested in Hospice at this time, especially given improvement in pain control with subsequent improvement in participation w PT/OT (patient able to stand with rolling walker) ()
-Daughter Stephie also reports per her discussion with Dr Mcmillan that a flap reconstruction may be attempted again in future, though she also understands that patient's ambulatory status will need to improve if reconstruction is going to succeed.
()
Neurosurgery eval appreciated noted MRI as above demonstrates chronic spondylotic changes without any obvious evidence of acute neural compression. No indication for neurosurgical intervention was noted.
Per patient's family request, reached out to [facility] for possible benefit transfer for hyperbaric oxygen treatment ()
-per discussion with [facility] however a transfer for inpt hyperbaric tx unlikely to add additional benefit to inpatient mgmt, transfer request was subsequently denied.
#Acute Urinary Retention noted on MRI as above
Likely d/t oversedation from pain meds and also likely contributing to pain
Dial started 02/11/24 with significant output noted
maintain Dial at this time to help with wound healing
# Stage II right heel blister-patient had been refusing heel elevation. Wound care with air overlay or air mattress, soft heel relief boots
# TME-likely secondary to above along with possible polypharmacy with pain meds contributing. AAO3 now
# Chronic HFpEF
Echo 02/03/2024-normal LV size and function. EF 55 to 60%. Mild MRAnita Moya TR.
Lasix placed on hold d/t ESTELLE since resumed. [employer] metolazone remains on hold, doesn't appear necessary at this time, consider discontinuing on discharge.
#ESTELLE resolved
Cr rise to 1.6 likely due to urinary retention and poor oral intake due to pain
Since resolved with IVF support and hold on Lasix
Back on Lasix
#Hypomagnesemia
monitor and replete as necessary
# Diabetes-S new diagnosis this admission.
metformin 500 mg BID
Hemoglobin A1c 8.1.
Accu-Cheks and sliding scale coverage.
Dietary/Diabetes education requested.
Farxiga 5 mg daily started, cont
# Compressive compression screw and intramedullary ronan traversing an impacted intertrochanteric fracture of the right femur with incomplete osseous union as noted above- Dr Martines discussed with who knows her well. Plan is not to
intervene as patient is not a good candidate for revision. No further intervention needed at this time.
# Anemia-adequate iron and B12. Likely secondary to chronic disease. Hgb was improving, trickle down however noted since increase in Belbuca question possible side effect
-cont monitoring for now
-transfuse if Hgb<7
# COPD continue as needed nebs, fluticasone/salmeterol
# Hypertension-continue Nifedipine, Atenolol, Losartan
# Neurogenic bladder
# Chronic radiation cystitis
# GERD/hiatal hernia-PPI
# Anxiety-on as needed clonazepam increased to three times a day
# Severe discogenic DJD L5-S1
# 13 cm midline anterior pelvic wall hernia
# Fusiform infrarenal AAA 3.1 cm/Atherosclerosis
# Pulmonary nodule 1 cm right mid lung
# History of rectal cancer status post APR with colostomy 1982
# History of right nephrectomy for renal cancer 1981
# Ambulatory Dysfunction-PT OT as appropriate
# Ex-smoker
# DVT prophylaxis-Lovenox
# Full code
Discharge planning SNF rehab when stable, pain controlled without need for IV prn. Family has requested picture of wound prior to discharge to monitor patient's progress while at rehab.
D/W Case management.
D/W Rn AT BED SIDE
Spoke to patient's daughter and updated plan of care
time spent over 50 min review chart, see pt, examined, notes, discussions and making a plan
Anticipated Discharge: Within 24 hours
Subjective/Interval History
-
Date of Service: February 17, 2024
Objective Data
-
Labs:
Laboratory Results
02/17/24
07:48
WBC 7.5
Hgb 8.6 L
Hct 26.3 L
Plt Count 211
Sodium 139
Potassium 4.9
Chloride 99
Carbon Dioxide 30
BUN 41 H
Creatinine 0.9
Glucose 129 H
Calcium 9.1
Vital Signs:
Vital Signs
Temp Pulse Resp BP Pulse Ox
98.4 F 79 17 112/50 96
02/17/24 07:15 02/17/24 08:01 02/17/24 08:01 02/17/24 08:49 02/17/24 09:00
I&O
02/16/24 02/17/24 02/18/24
06:59 06:59 06:59
Intake Total 1020 / 1020
Output Total 2600 / 2600
Balance -1580 / -1580
[2024-02-17 15:24] VITALS: BP 109/57
[2024-02-17] MEDS: MAGNESIUM SULFATE 50 IV (15:46)
[2024-02-17 17:05] LABS: Glucose - Point of Care 131 mg/dl (70-99)
[2024-02-17] MEDS: GLUCOPHAGE 1000 MG PO (17:19)
[2024-02-17] MEDS: LOVENOX 40 MG SC (17:23)
[2024-02-17 21:55] LABS: Glucose - Point of Care 133 mg/dl (70-99)
[2024-02-17 23:40] VITALS: BP 113/55
[2024-02-18] MEDS: MERREM 500 MG IV ×3 (00:11→12:25)
[2024-02-18] MEDS: STERILE WATER FOR INJECTION 10 ML IV ×3 (00:11→12:25)
[2024-02-18 05:39] LABS: Magnesium 1.5 mg/dl (1.6-2.3)
[2024-02-18 06:00] VITALS: BMI 27.5
[2024-02-18 06:23] VITALS: BMI 27.2
[2024-02-18 07:33] VITALS: BP 129/55
[2024-02-18] MEDS: ADVAIR HFA 115/21 MCG INHALER 2 PUFF INH (08:06)
[2024-02-18] MEDS: NOVOLOG FLEXPEN-LOW RESISTANCE SC ×2 (09:02→12:24)
[2024-02-18] MEDS: MAGNESIUM SULFATE 50 IV (09:04)
[2024-02-18] MEDS: DILAUDID 4 MG PO ×2 (09:07→15:45)
[2024-02-18] MEDS: GLUCOPHAGE 1000 MG PO (09:07)
[2024-02-18] MEDS: TENORMIN 50 MG PO (09:07)
[2024-02-18] MEDS: COZAAR 25 MG PO (09:07)
[2024-02-18] MEDS: LIDOCAINE 4% PATCH 1 PATCH TOPICAL (09:08)
[2024-02-18] MEDS: MIRALAX PO (09:08)
[2024-02-18] MEDS: PROCARDIA XL (EXTENDED RELEASE) 60 MG PO (09:09)
[2024-02-18] MEDS: LASIX 40 MG PO (09:09)
[2024-02-18] MEDS: VISBIOME 2 CAP PO (09:09)
[2024-02-18] MEDS: VITAMIN C 500 MG PO (09:10)
[2024-02-18] MEDS: THERAGRAN 1 TABLET PO (09:10)
[2024-02-18] MEDS: VITAMIN B-12 2500 MCG PO (09:10)
[2024-02-18] MEDS: VITAMIN D3 (cholecalciferol) 50 MCG PO (09:10)
[2024-02-18] MEDS: NEURONTIN 300 MG PO ×2 (09:10→15:44)
[2024-02-18] MEDS: PROTONIX 40 MG PO (09:10)
[2024-02-18] MEDS: FARXIGA 5 MG PO (09:10)
[2024-02-18] MEDS: NON-FORMULARY ITEM 450 MCG BUCCAL (09:18)
[2024-02-18] MEDS: DAKIN'S SOLUTION 0.125% 1/4 STRENGTH 473 ML TOPICAL (09:20)
--- NOTE | 2024-02-18 10:30 | W.PN.HOSP.TC ---
Addendum entered and electronically signed by Eliezer Martines MD 02/18/24 13:31:
Dictation- [id number]
Original Note:
Today's Communication/Plan
-
Picc line placed
Discharge planning
Assessment / Plan
Assessment / Plan
78F ext pmhx including rectal ca 1992 s/p abdominoperineal resection colostomy chemo radiation complicated with development stage IV sacral decubitus ulcer with associate chronic sacral osteomyelitis. Recent failed plastic flap reconstruction September
2023 attempted at [place]. Admitted here with acute on chronic sacral osteomyelitis and possible discitis and sacral-iliac septic arthritis further complicated with acute on chronic pain
CT pelvis 02/01/24- A 9 cm decubitus ulcer over left main sacrum posteriorly. Extensive sclerosis throughout the sacrum and medial aspect of the ilium bilaterally similar to 03/25/2023 may be seen on chronic osteomyelitis. Associated secondary
soft tissue in the presacral area as well as in the musculature of the left buttock.
Compressive compression screw and intramedullary ronan traversing an impacted intertrochanteric fracture of the right femur with incomplete osseous union. Threads of the screw extending into the cortical margin of the femoral head.Lumbar DJD with
postop changes.13 cm midline anterior pelvic wall hernia
02/10 MRI Lumbar spine obtained to evaluate possible benefit spinal intervention with regards to pain and to evaluate for possible spinal pathology contributing to pain
MRI appreciated:
1. Large 9.2 cm LEFT POSTERIOR STAGE IV SACRAL ULCER extending deep to the underlying bone.
2. Extensive bone marrow signal abnormality throughout the sacrum and left iliac bone suggesting SEVERE ACUTE on CHRONIC OSTEOMYELITIS.
3. Small left sacroiliac joint effusion and extensive bone marrow changes around the left sacroiliac joint suspicious for septic arthritis.
4. Small amount of fluid in the L5/S1 intervertebral disc and adjacent bone marrow signal intensity changes in the endplates adjacent to the left side of the disc suspicious for acute osteomyelitis. Degenerative disease is an alternative
diagnostic possibility.
5. Chronic inferior endplate fracture of L5 with mild loss of vertebral body height.
6. Severe left and moderate to severe right neural foraminal narrowing at L5/S1 with bilateral foraminal disc herniations causing bilateral exiting nerve root impingement (left greater than right).
7. 4.7 mm grade 1 anterolisthesis of L4 on L5 secondary to severe bilateral facet joint arthrosis. MODERATE CENTRAL CANAL STENOSIS at L4/L5.
8. Severe distention of the urinary bladder.
9. Mild left hydroureteronephrosis (probably secondary to vesicoureteral reflux).
Pleasant
Cardiovascular system S1-S2 appreciated
Abdomen soft and nontender
Chest clear to auscultation
# Left hip pain- X ray with no fracture, Lidoderm patch ordered along with narcs
# Infected stage 4 sacral wounds
#Acute on Chronic Sacral Osteomyelitis
Status post bedside debridement by Dr. North on 02/03/2024
Wound cultures with Pseudomonas, Proteus, E. coli
Was on Fortaz changed to cefepime further changed to current meropenem 500 mg IV q6h to continue through 03/19/24 as per ID, given below MRI findings concerning for L5/S1 discitis and S-J joint septic arthritis.
PICC placed
CT with chronic osteomyelitis
No Wound Vac for discharge as per surgery
# Acute on Chronic pain with opioid dependence- on Belbuca (patient's own med), gabapentin, Dilaudid PO, IV Dilaudid for severe breakthrough pain (home oral oxycodone on hold d/t concern polypharmacy contributing to TME present on admission)
Palliative eval appreciated po Dilaudid prn increased from 4mg to 8mg, prn IV Dilaudid severe breakthrough pain increase from 0.5 mg to 1 mg
02/10 Pain however remain uncontrolled, palliative discussion w/ pt's oupt pain specialist Dr Whelan appreciated, Belbuca increased to TID
02/11 pain remains uncontrolled, prn PO Dilaudid 8mg converted to scheduled q6H
02/12 pain controlled, significant improvement noted, patient comfortable at rest on Belbuca 150 mcg TID, scheduled PO dilaudid 8 mg Q6, and IV dilaudid 1 mg prn severe breakthrough pain
02/13 As per Palliative Belbuca increased to 450 mg BID, PO Dilaudid tapered to Q8, IV Dilaudid remains available for severe breakthrough pain
prn Benadryl added for itching likely due to Dilaudid
02/14 8 mg +PO Dilaudid tapered to BID continued Belbuca 450 mg BID, IV Dilaudid for severe breakthrough pain
02/15 Pain seems uncontrolled resumed home PO prn 4 mg Dilaudid q4hprn, scheduled PO Dilaudid changed to 4mg TID PO, continued Belbuca 450 mg BID (additional supply brought in by patient's ) continued IV Dilaudid for severe breakthrough pain,
Benadryl prn for itching due to Dilaudid
02/16- Pain controlled -No change in regimen. Last IV dose was 02/16/24-9.30 am
02/17- No change .Last IV dose was 02/16/24-9.30 am
Patient's case was also discussed with Dr Mcmillan patient's plastic surgeon who attempted flap/reconstruction with patient 09/2023 that unfortunately failed d/t necrosis ()
Dr Mcmillan noted surgical options for correcting wound exhausted, poor prognosis, with poor ambulatory status, wound unlikely to heal, patient fits criteria for hospice 6 mo prognosis (patient's daughter Stephie and son-in-law Don made aware regarding
aforementioned discussion and poor prognosis) ( )
-patient family not interested in Hospice at this time, especially given improvement in pain control with subsequent improvement in participation w PT/OT (patient able to stand with rolling walker) ()
-Daughter Stephie also reports per her discussion with Dr Mcmillan that a flap reconstruction may be attempted again in future, though she also understands that patient's ambulatory status will need to improve if reconstruction is going to succeed.
()
Neurosurgery eval appreciated noted MRI as above demonstrates chronic spondylotic changes without any obvious evidence of acute neural compression. No indication for neurosurgical intervention was noted.
Per patient's family request, reached out to [facility] for possible benefit transfer for hyperbaric oxygen treatment ()
-per discussion with [facility] however a transfer for inpt hyperbaric tx unlikely to add additional benefit to inpatient mgmt, transfer request was subsequently denied.
#Acute Urinary Retention noted on MRI as above
Likely d/t oversedation from pain meds and also likely contributing to pain
Dial started 02/11/24 with significant output noted
maintain Dial at this time to help with wound healing
# Stage II right heel blister-patient had been refusing heel elevation. Wound care with air overlay or air mattress, soft heel relief boots
# TME-likely secondary to above along with possible polypharmacy with pain meds contributing. AAO3 now
# Chronic HFpEF
Echo 02/03/2024-normal LV size and function. EF 55 to 60%. Mild MRAnita Trace TR.
Lasix placed on hold d/t ESTELLE since resumed. [employer] metolazone remains on hold, doesn't appear necessary at this time, consider discontinuing on discharge.
#ESTELLE resolved
Cr rise to 1.6 likely due to urinary retention and poor oral intake due to pain
Since resolved with IVF support and hold on Lasix
Back on Lasix
#Hypomagnesemia
monitor and replete as necessary
# Diabetes-S new diagnosis this admission.
metformin 500 mg BID
Hemoglobin A1c 8.1.
Accu-Cheks and sliding scale coverage.
Dietary/Diabetes education requested.
Farxiga 5 mg daily started, cont
# Compressive compression screw and intramedullary ronan traversing an impacted intertrochanteric fracture of the right femur with incomplete osseous union as noted above- Dr Martines discussed with who knows her well. Plan is not to
intervene as patient is not a good candidate for revision. No further intervention needed at this time.
# Anemia-adequate iron and B12. Likely secondary to chronic disease. Hgb was improving, trickle down however noted since increase in Belbuca question possible side effect
-cont monitoring for now
-transfuse if Hgb<7
# COPD continue as needed nebs, fluticasone/salmeterol
# Hypertension-continue Nifedipine, Atenolol, Losartan
# Neurogenic bladder
# Chronic radiation cystitis
# GERD/hiatal hernia-PPI
# Anxiety-on as needed clonazepam increased to three times a day
# Severe discogenic DJD L5-S1
# 13 cm midline anterior pelvic wall hernia
# Fusiform infrarenal AAA 3.1 cm/Atherosclerosis
# Pulmonary nodule 1 cm right mid lung
# History of rectal cancer status post APR with colostomy 1982
# History of right nephrectomy for renal cancer 1981
# Ambulatory Dysfunction-PT OT as appropriate
# Ex-smoker
# DVT prophylaxis-Lovenox
# Full code
02/17/24-Spoke to patient's daughter and updated plan of care
Anticipated Discharge: Today
Subjective/Interval History
-
Date of Service: February 18, 2024
Objective Data
-
Vital Signs:
Vital Signs
Temp Pulse Resp BP Pulse Ox
99.5 F 74 16 129/55 99
02/18/24 07:33 02/18/24 08:09 02/18/24 08:09 02/18/24 07:33 02/18/24 08:09
I&O
02/17/24 02/18/24 02/19/24
06:59 06:59 06:59
Intake Total 1020 / 1020 650 / 650
Output Total 2600 / 2600 200 / 200
Balance -1580 / -1580 450 / 450
--- NOTE | 2024-02-18 10:49 | W.PN.UPDATE ---
Addendum entered and electronically signed by Eliezer Martines MD 02/18/24 12:42:
D/w Pharmacy re meds
D/W Case management
More than 30 minutes spent in discharge including
Final examination of the patient
Summarizing hospital stay
Instructions for continuing care to all relevant caregivers
Preparation of discharge records, prescriptions, and referral forms
Total time spent (in minutes): 45 min
Original Note:
Update Note
Progress Note Update
loose stools
on probiotics
Will stop metformin and start Januvia and Farxiga to be continued
Mag replacement needed
--- NOTE | 2024-02-18 10:50 | CM ---
Rosa is ready for discharge to [facility] today. CM spoke with Ximena at [facility]; the only outstanding issue is the Belbuca which is about $500/month. This was prescribed by [facility], so our Palliatie team does not want to make any changes
to what has been working.
Ximena at [facility] will discuss with her human resources administrator to determine if they can accommodate this.
CM to follow, awaiting update from [facility].
--- NOTE | 2024-02-18 11:54 | CM ---
CA spoke with Rosa's daughter who asked that I clarify if she prefers [facility] or [facility]. She also advised that the Belbuca will be brought to [facility], so there are no concerns about the cost of the medication.
CA met with Rosa who definitely wants to go to [facility]. Transportation to be arranged via ambulance due to sacral wound. Forms completed and given to the Emergency Physician.
CA spoke with Rosa's who advised that the Belbuca was provided to the hospital. Per RN, there are 66 films at this time; she will send them with Rosa/ambulance crew at discharge.
Plan: Discharge to [facility] via ambulance.
Report: [phone]
[2024-02-18 12:17] LABS: Glucose - Point of Care 120 mg/dl (70-99)
--- NOTE | 2024-02-18 12:40 | W.DS.TRANS ---
DC Summary - [employer]
-
Discharge Instructions:
Discharge Diagnosis/Procedures Infected sacral stage IV wound
Stage II right heel blister
TME-resolved
Chronic heart failure
Diabetes
Anemia
COPD
Hypertension
Neurogenic bladder
Chronic pain with opiate dependence
GERD
Anxiety
Severe discogenic DJD
13 cm midline anterior pelvic wall hernia
Fusiform infrarenal AAA 3.1 cm
1 cm right midlung pulmonary nodule
Ambulatory dysfunction
History of rectal cancer status post APR and
colostomy
Ex-smoker
Diet Diabetic, Carb Controlled,Restrict fluids to 64
oz,2 Gram Sodium
Activity As tolerated,With assistance
Driving Restrictions No driving
Blood Work cbc,bmp mag in 3 days.
Other Services PT,OT
Instructions:
Stand-Alone Forms:
Changes to Home Medications: Yes
Discharge Medications:
DC Medications w/original date entered in [facility]
cyanocobalamin (vitamin B-12) 1,000 mcg tablet (Vitamin B-12) 2,500 mcg PO DAILY Supplement 03/25/23
losartan 50 mg tablet 25 mg PO DAILY Blood Pressure 03/25/23
atenolol 25 mg tablet 50 mg PO DAILY blood pressure 01/15/24
cholecalciferol (vitamin D3) 50 mcg (2,000 unit) capsule (Vitamin D3) 50 mcg PO DAILY supplement 01/15/24
hydroxyzine HCl 10 mg tablet 25 mg PO Q6HPRN PRN anxiety 01/15/24
nifedipine 60 mg tablet,extended release 24 hr 60 mg PO DAILY blood pressure 01/15/24
pantoprazole 40 mg tablet,delayed release 40 mg PO DAILY Gastrointestinal Issue 01/15/24
ascorbic acid (vitamin C) 500 mg tablet 500 mg PO DAILY Supplement 02/01/24
cranberry fruit 450 mg tablet (cranberry) 450 mg PO DAILY Supplement 02/01/24
fluticasone 250 mcg-salmeterol 50 mcg/dose blistr powdr for inhalation 1 inh inhalation R BID Lung/Breathing Issues 02/01/24
zinc sulfate 50 mg zinc (220 mg) tablet 50 mg PO DAILY Supplement 02/01/24
Lactobac/Bifidobac [Visbiome] 2 cap PO DAILY Supplement ##0 02/18/24
acetaminophen 325 mg tablet 1,000 mg (3.0769 x 325 mg) PO Q8HPRN PRN mild pain #0 tabs 02/18/24
buprenorphine HCl 150 mcg buccal film (Belbuca) 450 mcg buccal Q12 Pain #0 ea 02/18/24
clonazepam 0.5 mg tablet 0.5 mg PO DAILYPRN PRN anxiety #3 tabs 02/18/24
dapagliflozin propanediol 5 mg tablet 5 mg PO DAILY Diabetes #0 tabs 02/18/24
diphenhydramine HCl 12.5 mg/5 mL oral elixir 25 mg (10 mL) PO Q6HPRN PRN itching #0 mL 02/18/24
furosemide 20 mg tablet 40 mg (2 x 20 mg) PO DAILY Fluid retention/Swelling #0 tabs 02/18/24
gabapentin 300 mg capsule 300 mg PO TID Pain 30 days #90 caps 02/18/24
hydromorphone 4 mg tablet 4 mg PO Q6HPRN PRN moderate severe pain #0 tabs 02/18/24
hydromorphone 4 mg tablet 4 mg PO TID severe pain #20 tabs 02/18/24
lidocaine 4 % topical patch 1 patch topical DAILY Pain #0 ea 02/18/24
magnesium oxide 500 mg PO DAILY Electrolyte Repletion #0 tabs 02/18/24
meropenem 500 mg intravenous solution 500 mg IV Q6 Infection #0 ea 02/18/24
multivitamin with minerals (Multiple Vitamin-Minerals tablet) 2 tab PO DAILY Supplement #0 tabs 02/18/24
sitagliptin phosphate 100 mg tablet (Januvia) 100 mg PO DAILY Diabetes #0 tabs 02/18/24
Home Medication Changes
Belbuca increased
Oxycodone stopped
Dilaudid changed
Meropenem and Visbiome new
Lidocaine patch and Mag oxide new
Lasix dose changed
Metolazone stopped
Shashank new
Pending Results: No
--- NOTE | 2024-02-18 13:51 | PTCARENOTE ---
Patient c/o that no one will get her OOB or walk with her. RN made a plan with patient-after sacral wound is changed, RN will ambulate with patient and get her OOB.
RN encouraged patient to get OOB. Patient refused. Patient states, 'I can't get OOb and sit. My butt hurts too much.' RN asked patient to stand at bedside, patient refused.
== END 2024-02-18 15:59 | DRG 570 ==
LOC: 3 WEST ACU 06:35
PROVIDERS: Internal Medicine; Surgery; ADMITTING PHYSICIAN Hospitalist; ATTENDING PHYSICIAN Hospitalist; CONSULT PHYSICIAN Surgery; EMERGENCY PHYSICIAN Emergency Medicine; FAMILY PHYSICIAN Internal Medicine; OTHER PHYSICIAN Internal Medicine Infectious Disease; OTHER PHYSICIAN Neurological Surgery; OTHER PHYSICIAN Nurse Practitioner Gerontology
PROC: 0JB70ZZ Excision of Back Subcutaneous Tissue and Fascia, Open Approach (ICD-10-PCS; 2024-02-03)
DX: L89.154 Pressure ulcer of sacral region, stage 4 (principal); G92.8 Other toxic encephalopathy; M46.28 Osteomyelitis of vertebra, sacral and sacrococcygeal region; F11.20 Opioid dependence, uncomplicated; I50.32 Chronic diastolic (congestive) heart failure; N30.40 Irradiation cystitis without hematuria; S72.141K Displaced intertrochanteric fracture of right femur, subsequent encounter for closed fracture with nonunion; M00.88 Arthritis due to other bacteria, vertebrae; D63.8 Anemia in other chronic diseases classified elsewhere; I11.0 Hypertensive heart disease with heart failure; E11.40 Type 2 diabetes mellitus with diabetic neuropathy, unspecified; E11.69 Type 2 diabetes mellitus with other specified complication; I71.43 Infrarenal abdominal aortic aneurysm, without rupture; J44.9 Chronic obstructive pulmonary disease, unspecified; L89.612 Pressure ulcer of right heel, stage 2; B96.5 Pseudomonas (aeruginosa) (mallei) (pseudomallei) as the cause of diseases classified elsewhere; B96.4 Proteus (mirabilis) (morganii) as the cause of diseases classified elsewhere; B96.20 Unspecified Escherichia coli [E. coli] as the cause of diseases classified elsewhere; M46.47 Discitis, unspecified, lumbosacral region; F40.240 Claustrophobia; G89.4 Chronic pain syndrome; K21.9 Gastro-esophageal reflux disease without esophagitis; K44.9 Diaphragmatic hernia without obstruction or gangrene; K59.00 Constipation, unspecified; M19.90 Unspecified osteoarthritis, unspecified site; N31.9 Neuromuscular dysfunction of bladder, unspecified; R26.2 Difficulty in walking, not elsewhere classified; R53.81 Other malaise; R91.1 Solitary pulmonary nodule; Y84.2 Radiological procedure and radiotherapy as the cause of abnormal reaction of the patient, or of later complication, without mention of misadventure at the time of the procedure; Z96.653 Presence of artificial knee joint, bilateral; Z79.899 Other long term (current) drug therapy; Z87.891 Personal history of nicotine dependence; Z85.528 Personal history of other malignant neoplasm of kidney; Z90.5 Acquired absence of kidney; Z93.6 Other artificial openings of urinary tract status; Z85.048 Personal history of other malignant neoplasm of rectum, rectosigmoid junction, and anus; Z90.49 Acquired absence of other specified parts of digestive tract; Z93.3 Colostomy status; Z92.3 Personal history of irradiation; Z87.440 Personal history of urinary (tract) infections; Z86.73 Personal history of transient ischemic attack (TIA), and cerebral infarction without residual deficits; Z86.19 Personal history of other infectious and parasitic diseases; Z88.0 Allergy status to penicillin; Z88.1 Allergy status to other antibiotic agents; Z88.5 Allergy status to narcotic agent
CPT/HCPCS: 70450; 71045; 72148; 72192; 73502; 80048; 80053; 81003; 81015; 82607; 82728; 82746; 82962; 83036; 83540; 83550; 83605; 83735; 84100; 84443; 85014; 85018; 85025; 85027; 85652; 86140; 86850; 86900; 86901; 87040; 87070; 87071; 87086; 87186; 87205; 87502; 87811; 93005; 93306; 94640; 96361; 96374; 97112; 97116; 97163; 97167; 97530; 97535; 99285

== ENCOUNTER 2024-03-04 18:49 | Emergency (ER) | payer MEDICARE, OTHER, SELFPAY ==
[2024-03-04 19:03] VITALS: BP 127/91
--- NOTE | 2024-03-04 20:13 | ED.GENMED ---
History of Present Illness
General
Chief Complaint: Abnormal Lab Value
Source: patient
Exam Limitations: none
Time Seen by Provider: 03/04/24 20:06
Nursing documentation reviewed up to this point in time: agreed with
History of Present Illness
History of Present Illness:
Patient is a 78-year-old female with history of stage II right heel blister infected sacral for wound toxic metabolic encephalopathy CHF diabetes anemia COPD hypertension neurogenic bladder chronic pain with opiate dependence reflux, fusiform and
for abdominal aortic aneurysm rectal cancer with colostomy sent by [facility] for low HGB. He will findPt has no complaints. She reports stool in colostomy bag is brown. Patient's discharge hemoglobin on 02/16 was 8.6.
Patient is not on blood thinners
Past History
Past History
ED Past Medical History: Cancer (Colon Cancer. Kidney cancer), COPD, GERD, HTN, Psychiatric (Anxiety, Claustrophobia) and Other (: CVA, coccyx osteomyelitis, anemia, neurogenic bladder, Neuropathy, PNA, Hiatal hernia, UTI, Radiation Cystitis self
caths, Sacrococcygeal osteomyelitis, Lyme disease, Ulcers. MRSA)
ED Past Surgical History: Bowel resection (with Colostomy), Orthopedic (Josep knee replacements Back surgery,), Urological (Right nephrectomy) and Other (Colostomy, skin grafting, Cataracts)
Social History
Tobacco: Former smoker
Alcohol: Occasional
Drug: None
Personal:
Living: with family
Review of Systems
Review of Systems
Allergies reviewed?: Yes
All Other Systems: ROS reviewed and negative except as documented in HPI and ROS
Constitutional: Reports no symptoms; Denies fever, fatigue or chills
Respiratory: Reports no symptoms
Cardiac: Reports no symptoms
ABD/GI: Reports no symptoms
Musculoskeletal: Reports no symptoms
Skin: Reports no symptoms
Psychiatric: Reports no symptoms
Phy Exam
General Physical Exam
General Presentation: no apparent distress
General Skin: warm and dry
General Habitus: normal
General Mental: alert
General Hydration: appears well hydrated
Cardiovascular Exam
Cardiovascular Exam: regular rate/rhythm, no murmur and normal peripheral pulses
Pulmonary Exam
Pulmonary Exam: lungs clear and no respiratory distress
Gastrointestinal Exam
Gastrointestinal Exam: other (Colostomy draining brown stool heme-negative)
Neurological Exam
Neurological Exam: alert and oriented x3
Musculoskeletal Exam
Musculoskeletal Exam: full ROM
Skin Exam
Skin Exam: normal color and warm/dry
Psychiatric Exam
Psychiatric Exam: normal mood/affect
Course
Orders/Labs/Results
Orders:
Orders
03/04/24 20:18
Type+Screen Urgent
Complete Blood Count/With Diff Urgent
Comprehensive Metabolic Panel Urgent
Abnormal Lab Results
03/04/24
20:18
RBC 2.57 L 10^6/uL
(4.20-5.40)
Hgb 7.4 L g/dL
(12.0-16.0)
Hct 23.4 L %
(37.0-47.0)
MCHC 31.6 L g/dL
(33.0-37.0)
RDW 16.9 H %
(11.5-14.5)
Chloride 97 L mmol/L
(98-107)
Carbon Dioxide 32 H mmol/L
(22-30)
BUN 29 H mg/dl
(7-17)
Glucose 129 H mg/dl
(70-99)
Calcium 8.3 L mg/dl
(8.4-10.2)
Total Protein 6.1 L g/dl
(6.3-8.2)
Albumin 3.0 L g/dl
(3.5-5.0)
03/04/24 20:18
03/04/24 20:18
Vital Signs
Initial and Last Documented VS:
Initial Vital Signs
Temp Pulse Resp BP Pulse Ox
99.3 F 81 16 127/91 98
03/04/24 19:03 03/04/24 19:03 03/04/24 19:03 03/04/24 19:03 03/04/24 19:03
Last Documented Vital Signs
Temp Pulse Resp BP Pulse Ox
99.3 F 88 18 143/49 94
03/04/24 19:03 03/04/24 22:40 03/04/24 22:40 03/04/24 22:40 03/04/24 22:40
[employer] consulted with Physician
[employer] consulted with physician?: Yes
Name of Physician Consulted: Jaylen
MDM/Problems Addressed
Differential Diagnosis Includes:
Not limited to anemia, GI bleed
MDM/Problems Addressed:
Patient is a 78-year-old female that was sent from [facility] rehab for evaluation of low hemoglobin of 6.4. Patient's hemoglobin today 7.4. Prior labs reviewed when patient was here for admission her hemoglobin on 02/16 was 8.6 however it
was 7.8 02/15.again she does have a history of anemia. She has no complaints she denies any fatigue or weakness. She has a colostomy her stool is brown and heme-negative. She has a history of anemia and was on iron all the time however since being
at [facility] she has not been on iron however that was recently restarted again.
Chemistries are pending at this time will await chemistries and if unremarkable will plan to discharge back patient does not require transfusion at this time
Chronic conditions affecting care:
anemia
*Critical Care Note
Total Time (30-74mins, 75-104mins- exclusive of procedures): Not Applicable
ED Attending Note
-
Portions of this chart may have been created with voice recognition software.� Occasional wrong word or��sound alike� substitutions may have occurred due to the inherent limitations of voice recognition software.
Discharge Plan
Departure
Patient Disposition: Home (Routine Discharge)
Date of Disposition: 03/04/24
Time of Disposition: 21:55
Patient with high blood pressure during this ER visit?: Yes
Condition: Fair
Covid-19: Not Applicable
Discharge Problem:
Anemia
Instructions: BLOOD PRESSURE
Prescriptions:
No Action
losartan 50 mg tablet
25 mg PO DAILY
cyanocobalamin (vitamin B-12) [Vitamin B-12] 1,000 mcg Tablet
2,500 mcg PO DAILY
atenolol 25 mg tablet
50 mg PO DAILY
cholecalciferol (vitamin D3) [Vitamin D3] 50 mcg (2,000 unit) Capsule
50 mcg PO DAILY
nifedipine 60 mg tablet extended release 24hr
60 mg PO DAILY
pantoprazole 40 mg tablet,delayed release (DR/EC)
40 mg PO DAILY
hydroxyzine HCl 10 mg tablet
25 mg PO Q6HPRN PRN (Reason: anxiety)
fluticasone propion-salmeterol 250-50 mcg/dose Blister With Device
1 inh INHALATION R BID
zinc sulfate 50 mg zinc (220 mg) Tablet
50 mg PO DAILY
ascorbic acid (vitamin C) 500 mg Tablet
500 mg PO DAILY
cranberry 450 mg Tablet
450 mg PO DAILY
diphenhydramine HCl 12.5 mg/5 mL Elixir
25 mg PO Q6HPRN PRN (Reason: itching) Qty: 0 0RF
hydromorphone 4 mg Tablet
4 mg PO TID Qty: 20 0RF
hydromorphone 4 mg Tablet
4 mg PO Q6HPRN PRN (Reason: moderate severe pain) Qty: 0 0RF
dapagliflozin propanediol 5 mg Tablet
5 mg PO DAILY Qty: 0 0RF
Januvia 100 mg Tablet
100 mg PO DAILY Qty: 0 0RF
lidocaine 4 % Adhesive Patch,Medicated
1 patch topical DAILY Qty: 0 0RF
magnesium oxide 500 mg magnesium Tablet
500 mg PO DAILY Qty: 0 0RF
meropenem 500 mg Recon Soln
500 mg IV Q6 Qty: 0 0RF
Lactobac/Bifidobac [Visbiome]
2 cap PO DAILY Qty: 0 0RF
acetaminophen 325 mg Tablet
1,000 mg PO Q8HPRN PRN (Reason: mild pain ) Qty: 0 0RF
gabapentin 300 mg Capsule
300 mg PO TID 30 Days Qty: 90 0RF
furosemide 20 mg tablet
40 mg PO DAILY Qty: 0 0RF
Multiple Vitamin-Minerals Tablet
2 tab PO DAILY Qty: 0 0RF
buprenorphine HCl [Belbuca] 150 mcg film
450 mcg BUCCAL Q12 Qty: 0 0RF
clonazepam 0.5 mg Tablet
0.5 mg PO DAILYPRN PRN (Reason: anxiety) Qty: 3 0RF
Activity Restrictions/Additional Instructions:
Patient's hemoglobin was found to be 7.4 here in the ER She did not require blood transfusion. She must continue on iron. Hemoglobin must be rechecked in the next several days. She is to return if any worsening of symptoms.
Interventions
Interventions:
*Risk Screen - Suicide Last Done: 03/04/24 19:03
*General Assessment Last Done: 03/04/24 19:03
*Neglect/Abuse Screening Last Done: 03/04/24 19:03
ED- Fall Risk Assessment Last Done: 03/05/24 01:35
*ED COVID-19 Vaccine History Last Done: 03/04/24 19:03
*Nursing Disposition Last Done: 03/05/24 01:35
Discharge Date and Time
Discharge Date/Time: 03/05/24 01:36
Print Language: SINHALA
[2024-03-04 20:29] LABS: % Basophils 0.3 % (0-2); % Eosinophils 2.3 % (0-6); % Immature Granulocytes 0.3 % (0-0.5); % Lymphocytes 25.9 % (20.5-51.1); % Monocytes 8.2 % (1.7-9.3); Absolute Eosinophils 0.1 10^3/uL (0-0.7); Absolute Lymphocytes 1.5 10^3/uL (1.2-3.4); Absolute Monocytes 0.5 10^3/uL (0.1-0.6); Absolute Neutrophils 3.6 10^3/uL (1.4-6.5); Hematocrit 23.4 % (37.0-47.0); Hemoglobin 7.4 g/dL (12.0-16.0); Mean Corp Hgb Conc. 31.6 g/dL (33.0-37.0); Mean Corpuscular Hgb 28.8 pg (27.0-31.0); Mean Corpuscular Volume 91.1 fL (81.0-99.0); Mean Platelet Volume 8.6 fL (7.4-10.4); Nucleated Red Blood Cells % 0 %; Platelet Count 172 10^3/uL (130-400); Red Blood Cell Count 2.57 10^6/uL (4.20-5.40); Red Cell Dist. Width 16.9 % (11.5-14.5); White Blood Cell Count 5.8 10^3/uL (4.8-10.8)
[2024-03-04 21:28] LABS: AST (SGOT) 22 U/L (14-36); Carbon Dioxide 32 mmol/L (22-30); Total Bilirubin 0.2 mg/dl (0.2-1.3); Total Protein 6.1 g/dl (6.3-8.2); eGFR > 60.00
[2024-03-04 21:30] LABS: ALT (SGPT) 14 U/L (0-35); Alkaline Phosphatase 96 U/L (38-126); Blood Urea Nitrogen 29 mg/dl (7-17); Calcium 8.3 mg/dl (8.4-10.2); Chloride 97 mmol/L (98-107); Glucose 129 mg/dl (70-99); Potassium 4.2 mmol/L (3.5-5.1); Sodium 137 mmol/L (135-145)
[2024-03-04 22:40] VITALS: BP 143/49
== END 2024-03-05 01:36 ==
LOC: EMR 18:49
PROVIDERS: Emergency Medicine; EMERGENCY PHYSICIAN Emergency Medicine; FAMILY PHYSICIAN Family Medicine
DX: D64.9 Anemia, unspecified (principal); E11.9 Type 2 diabetes mellitus without complications; I11.0 Hypertensive heart disease with heart failure; I50.9 Heart failure, unspecified; K21.9 Gastro-esophageal reflux disease without esophagitis; N31.9 Neuromuscular dysfunction of bladder, unspecified; Z85.048 Personal history of other malignant neoplasm of rectum, rectosigmoid junction, and anus; Z85.528 Personal history of other malignant neoplasm of kidney; Z86.73 Personal history of transient ischemic attack (TIA), and cerebral infarction without residual deficits; Z87.891 Personal history of nicotine dependence; Z90.5 Acquired absence of kidney; Z93.3 Colostomy status; J44.9 Chronic obstructive pulmonary disease, unspecified
CPT/HCPCS: 99283; 80053; 85025; 86850; 86900; 86901

== ENCOUNTER 2024-04-04 13:50 | Inpatient (IN) | payer MEDICARE, OTHER, SELFPAY ==
[2024-04-04] VITALS (10 sets, daily range): BP systolic 138–160; BP diastolic 52–134; BMI 28.8; BMI 28.4
--- NOTE | 2024-04-04 09:00 | ED.GENMED ---
History of Present Illness
<Jose Armando Jefferson DO, Resident - Last Filed: 04/04/24 13:10>
General
Chief Complaint: Back Pain
Source: patient and records
Time Seen by Provider: 04/04/24 08:05
History of Present Illness
History of Present Illness:
78 female with past medical history significant for rectal carcinoma status post resection and radiation, infected stage IV sacral ulcer, chronic heart failure, diabetes, COPD, hypertension, neurogenic bladder, chronic pain with opioid dependence,
GERD, anxiety, ambulatory dysfunction with recent admission for stage IV sacral ulcer infection status post debridement presents after an unwitnessed fall at home. Patient reports she was holding onto a railing and began to slip, she subsequently
slipped down and landed on her back, patient reports not hitting her head not taking blood thinners. As of now she is complaining of severe midline lower back pain.
Past History
<Jose Armando Jefferson DO, Resident - Last Filed: 04/04/24 13:10>
Past History
ED Past Medical History: Cancer (Colon Cancer. Kidney cancer), COPD, GERD, HTN, Psychiatric (Anxiety, Claustrophobia) and Other (: CVA, coccyx osteomyelitis, anemia, neurogenic bladder, Neuropathy, PNA, Hiatal hernia, UTI, Radiation Cystitis self
caths, Sacrococcygeal osteomyelitis, Lyme disease, Ulcers. MRSA)
ED Past Surgical History: Bowel resection (with Colostomy), Orthopedic (Josep knee replacements Back surgery,), Urological (Right nephrectomy) and Other (Colostomy, skin grafting, Cataracts)
Social History
Tobacco: Former smoker
Alcohol: Occasional
Drug: None
Personal:
Living: with family
Review of Systems
<Jose Armando Jefferson DO, Resident - Last Filed: 04/04/24 13:10>
Review of Systems
Constitutional: Reports no symptoms
Respiratory: Reports no symptoms
Cardiac: Reports no symptoms
ABD/GI: Reports abdominal pain
Musculoskeletal: Reports back pain
Skin: Reports other (Stage IV sacral ulcer)
Phy Exam
<Jose Armando Jefferson DO, Resident - Last Filed: 04/04/24 13:10>
General Physical Exam
General Presentation: severe distress
General Skin: warm and dry
Cardiovascular Exam
Cardiovascular Exam: regular rate/rhythm and no murmur
Pulmonary Exam
Pulmonary Exam: lungs clear and no respiratory distress
Gastrointestinal Exam
Gastrointestinal Exam: soft, non distended and tender (Diffusely tender)
Musculoskeletal Exam
Musculoskeletal Exam: back pain and edema (Severe nonpitting lower extremity edema, worse in the left leg)
Skin Exam
Skin Exam: other (Large stage IV sacral ulcer diffusely across patient's entire sacral area, bilateral stage II heel ulcers)
Course
<Jose Armando Jefferson DO, Resident - Last Filed: 04/04/24 13:10>
Orders/Labs/Results
Orders:
Orders
04/04/24 08:54
HYDROmorphone [Dilaudid] 0.5 mg IV NOW STA
Iohexol [Omnipaque] See Protocol PO NOW STA
Ondansetron Injectable [Zofran] 4 mg IV NOW STA
US Periph Venous LOWER Ext Josep Urgent
Comment:
Reason For Exam: swelling
04/04/24 08:56
CT Abd/pel W Iv And Oral Contr Urgent
Comment:
Reason For Exam: Abdominal/back pain, hx colectomy with ostomy
CT Head W/o Iv Contrast Urgent
Comment:
Reason For Exam: Unwitnessed fall
04/04/24 08:59
WOUND/OSTOMY CONSULT Routine
Reason for Consult: Stage IV sacral ulcer, ostomy bag
04/04/24 09:13
CMP [Comprehensive Metabolic Panel] Urgent
Complete Blood Count/With Diff Urgent
04/04/24 09:25
Wound Culture [Wound/Abscess/Other Culture] Urgent
ASCENCION Source: Ulcer
Specimen Description:
Date Specimen was Collected: 04/04/24
Time Specimen was Collected: 09:24
Comment: Stage IV sacral ulcer
04/04/24 12:30
Straight cath- Treatment ONCE
04/04/24 12:50
Piperacillin/Tazo 4.5 Gram [Zosyn] 4.5 gram in 100 ml IV NOW
04/04/24 13:13
HYDROmorphone [Dilaudid] 1 mg IV NOW STA
04/04/24 13:19
Urinalysis Reflex To Culture Urgent
Date Specimen was Collected: 04/04/24
Time Specimen was Collected: 13:17
Urine Microscopic Reflex Cult Urgent
Urine Culture Urgent
ASCENCION Source: U
Specimen Description:
Date Specimen was Collected: 04/04/24
Time Specimen was Collected: 13:17
04/04/24 13:30
Admit/Transfer Patient As Directed
Co-Sign Provider:
Level of Care: Inpatient admission
Assign to:: Medical/Surgical
Physician / Group: [facility]
Diagnosis: Infected Sacral Wound
Reason for Hospitalization: IV abx
Expected length of stay greater than two midnights?: Yes
ELOS- Estimated Length of Stay in days: 3
I certify the patient meets the requirements for IP care: Yes
Dial Catheter [Catheter- Indwelling] As Directed
Reason for insertion: Stage 3 or 4 Ulcer
Assess insertion reason daily.Remove if no longer applicable: Yes
PRN Pain Medication Management As Directed
May give lesser potent ordered pain med per pt: Yes
preference::
Protocol:: Medication orders for pain may be administered in a
manner that supports deferring to patient preference
when the pt is:
- Requesting an ordered lesser potent pain medication.
Least to most potent pain medications are defined
as: acetaminophen < NSAID < tramadol < opioids
(morphine, oxycodone, hydromorphone).
- Requesting a lesser dose of the same medication IF
ORDERED.
- Requesting a less intrusive route of administration
if both routes are prescribed by the provider (PO <
IV).
04/04/24 13:33
Code Status As Directed
Resuscitation Status: Full Code
04/04/24 13:36
Add On- LAB Routine
Tests Added?: ESR, CRP
Abnormal Lab Results
04/04/24 04/04/24
09:13 13:19
WBC 17.3 H 10^3/uL
(4.8-10.8)
RBC 2.85 L 10^6/uL
(4.20-5.40)
Hgb 8.3 L g/dL
(12.0-16.0)
Hct 26.2 L %
(37.0-47.0)
MCHC 31.7 L g/dL
(33.0-37.0)
RDW 15.9 H %
(11.5-14.5)
Abs Immat Gran (auto) 0.1 H 10^3/uL
(0-0.05)
Absolute Neuts (auto) 15.8 H 10^3/uL
(1.4-6.5)
Absolute Lymphs (auto) 0.5 L 10^3/uL
(1.2-3.4)
Absolute Monos (auto) 0.8 H 10^3/uL
(0.1-0.6)
Immature Gran % 0.8 H %
(0-0.5)
Neutrophils % 91.2 H %
(42.2-75.2)
Lymphocytes % 2.8 L %
(20.5-51.1)
Glucose 176 H mg/dl
(70-99)
Albumin 3.2 L g/dl
(3.5-5.0)
Urine Ketones Trace A
(Negative)
Ur Occult Blood Reflex Trace A
(Negative)
Urine Nitrite (Reflex) Positive A
(Negative)
Leukocyte Esterase Rfl 2+ A
(Negative)
Urine RBC 3-6 A /HPF
(0-2)
Urine WBC (Reflex) >100 A /HPF
(0-5)
Urine Bacteria (Reflex) Many A
(Negative)
Urine Glucose 2+ A
(Negative)
Urine Albumin (Reflex) 1+ A
(Neg - Trace)
04/04/24 09:13
04/04/24 09:13
Vital Signs
Initial and Last Documented VS:
Initial Vital Signs
BP
160/72
04/04/24 08:00
Last Documented Vital Signs
Temp Pulse Resp BP Pulse Ox
99.5 F 93 18 138/52 100
04/04/24 08:01 04/04/24 08:01 04/04/24 08:01 04/04/24 14:00 04/04/24 14:00
<Guerrero Christina, DO - Last Filed: 04/04/24 14:27>
Orders/Labs/Results
Orders:
Orders
04/04/24 08:54
HYDROmorphone [Dilaudid] 0.5 mg IV NOW STA
Iohexol [Omnipaque] See Protocol PO NOW STA
Ondansetron Injectable [Zofran] 4 mg IV NOW STA
US Periph Venous LOWER Ext Josep Urgent
Comment:
Reason For Exam: swelling
04/04/24 08:56
CT Abd/pel W Iv And Oral Contr Urgent
Comment:
Reason For Exam: Abdominal/back pain, hx colectomy with ostomy
CT Head W/o Iv Contrast Urgent
Comment:
Reason For Exam: Unwitnessed fall
04/04/24 08:59
WOUND/OSTOMY CONSULT Routine
Reason for Consult: Stage IV sacral ulcer, ostomy bag
04/04/24 09:13
CMP [Comprehensive Metabolic Panel] Urgent
Complete Blood Count/With Diff Urgent
04/04/24 09:25
Wound Culture [Wound/Abscess/Other Culture] Urgent
ASCENCION Source: Ulcer
Specimen Description:
Date Specimen was Collected: 04/04/24
Time Specimen was Collected: 09:24
Comment: Stage IV sacral ulcer
04/04/24 12:30
Straight cath- Treatment ONCE
04/04/24 12:50
Piperacillin/Tazo 4.5 Gram [Zosyn] 4.5 gram in 100 ml IV NOW
04/04/24 13:13
HYDROmorphone [Dilaudid] 1 mg IV NOW STA
04/04/24 13:19
Urinalysis Reflex To Culture Urgent
Date Specimen was Collected: 04/04/24
Time Specimen was Collected: 13:17
Urine Microscopic Reflex Cult Urgent
Urine Culture Urgent
ASCENCION Source: U
Specimen Description:
Date Specimen was Collected: 04/04/24
Time Specimen was Collected: 13:17
04/04/24 13:30
Admit/Transfer Patient As Directed
Co-Sign Provider:
Level of Care: Inpatient admission
Assign to:: Medical/Surgical
Physician / Group: Htay
Diagnosis: Infected Sacral Wound
Reason for Hospitalization: IV abx
Expected length of stay greater than two midnights?: Yes
ELOS- Estimated Length of Stay in days: 3
I certify the patient meets the requirements for IP care: Yes
Dial Catheter [Catheter- Indwelling] As Directed
Reason for insertion: Stage 3 or 4 Ulcer
Assess insertion reason daily.Remove if no longer applicable: Yes
PRN Pain Medication Management As Directed
May give lesser potent ordered pain med per pt: Yes
preference::
Protocol:: Medication orders for pain may be administered in a
manner that supports deferring to patient preference
when the pt is:
- Requesting an ordered lesser potent pain medication.
Least to most potent pain medications are defined
as: acetaminophen < NSAID < tramadol < opioids
(morphine, oxycodone, hydromorphone).
- Requesting a lesser dose of the same medication IF
ORDERED.
- Requesting a less intrusive route of administration
if both routes are prescribed by the provider (PO <
IV).
04/04/24 13:33
Code Status As Directed
Resuscitation Status: Full Code
04/04/24 13:36
Add On- LAB Routine
Tests Added?: ESR, CRP
Abnormal Lab Results
04/04/24 04/04/24
09:13 13:19
WBC 17.3 H 10^3/uL
(4.8-10.8)
RBC 2.85 L 10^6/uL
(4.20-5.40)
Hgb 8.3 L g/dL
(12.0-16.0)
Hct 26.2 L %
(37.0-47.0)
MCHC 31.7 L g/dL
(33.0-37.0)
RDW 15.9 H %
(11.5-14.5)
Abs Immat Gran (auto) 0.1 H 10^3/uL
(0-0.05)
Absolute Neuts (auto) 15.8 H 10^3/uL
(1.4-6.5)
Absolute Lymphs (auto) 0.5 L 10^3/uL
(1.2-3.4)
Absolute Monos (auto) 0.8 H 10^3/uL
(0.1-0.6)
Immature Gran % 0.8 H %
(0-0.5)
Neutrophils % 91.2 H %
(42.2-75.2)
Lymphocytes % 2.8 L %
(20.5-51.1)
Glucose 176 H mg/dl
(70-99)
Albumin 3.2 L g/dl
(3.5-5.0)
Urine Ketones Trace A
(Negative)
Ur Occult Blood Reflex Trace A
(Negative)
Urine Nitrite (Reflex) Positive A
(Negative)
Leukocyte Esterase Rfl 2+ A
(Negative)
Urine RBC 3-6 A /HPF
(0-2)
Urine WBC (Reflex) >100 A /HPF
(0-5)
Urine Bacteria (Reflex) Many A
(Negative)
Urine Glucose 2+ A
(Negative)
Urine Albumin (Reflex) 1+ A
(Neg - Trace)
04/04/24 09:13
04/04/24 09:13
Vital Signs
Initial and Last Documented VS:
Initial Vital Signs
BP
160/72
04/04/24 08:00
Last Documented Vital Signs
Temp Pulse Resp BP Pulse Ox
99.5 F 93 18 138/52 100
04/04/24 08:01 04/04/24 08:01 04/04/24 08:01 04/04/24 14:00 04/04/24 14:00
<Jose Armando Jefferson DO, Resident - Last Filed: 04/04/24 13:10>
MDM/Problems Addressed
Differential Diagnosis Includes:
Traumatic spinal injury, stage IV sacral ulcer,
MDM/Problems Addressed:
78 female extensive past medical history presents via EMS for an unwitnessed fall out of bed, patient states she did not hit her head and is not on blood thinners
Will order CT head without contrast to rule out intracranial hemorrhage
Patient reporting severe lower back pain
Patient has history of rectal cancer s/p resection plus radiation and now has an ostomy bag, patient reporting abdominal pain
Will order CT abdomen pelvis with IV and oral contrast to evaluate
Lower extremities bilaterally swollen, nonpitting edema worse on left than right
Bilateral venous ultrasound Doppler to rule out DVT
Check CBC CMP and urinalysis
Severe diffuse stage IV sacral ulcer present, ostomy present, patient states she gets her wound care at [facility], and will not see them again till June? Will order wound culture and wound/ostomy consult
Symptomatic management with IV Dilaudid and IV Zofran as needed
Doppler venous ultrasound negative for DVT
CBC significant for leukocytosis 17.3
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
Previous admission grew Pseudomonas, Proteus and E. coli out of sacral ulcer-sensitive to Zosyn
Initiated IV Zosyn 4.5 g
Plan to admit patient due to suspected infected sacral with leukocytosis
<Jose Armando Jefferson DO, Resident - Last Filed: 04/04/24 13:10>
*Critical Care Note
Total Time (30-74mins, 75-104mins- exclusive of procedures): Not Applicable
ED Attending Note
<Jose Armando Jefferson DO, Resident - Last Filed: 04/04/24 13:10>
-
Portions of this chart may have been created with voice recognition software.� Occasional wrong word or��sound alike� substitutions may have occurred due to the inherent limitations of voice recognition software.
<Guerrero Christina DO - Last Filed: 04/04/24 14:27>
ED Attending Note
Patient seen and examined by attending physician: Yes
I performed a history and physical exam of patient and discussed management with resident, I reviewed resident's note and agree with documented findings and plan of care.: Yes
ED Attending Note:
I have reviewed and agree with history and treatment plan by Jose Armando Jefferson DO. My exam revealed
Physical Exam
General: Chronic ill appearance
Neck: supple. no meningeal signs. normal posterior pharynx
Heart: s1/s2 regular rate and rhythm, no murmur. equal radial
pulses.
HEENT: Pupils equal round reactive to light, EOMI
Lungs: no acute respiratory distress. clear bilaterally
Abdomen: normal bowel sounds. not tender. no CVAT
Neuro: alert and oriented. no focal neurological deficits cranial nerves II through XII intact
Skin: no rash, large sacral decubitus ulcer stage IV
Psychiatric: well kept. interactive and cooperative
Extremities: no edema. no calf tenderness. negative homans. good distal pulses
78-year-old female with back pain, fall, likely infected sacral ulcer. Admit to hospitalist. Daven given.
Discharge Plan
Departure
Patient Disposition: Admit
Date of Disposition: 04/04/24
Time of Disposition: 13:05
Admit to: Med/Surg
Presentation/result/management discussed w/ accepting MD/: Hospitalist
Patient with high blood pressure during this ER visit?: Yes
Condition: Fair
Discharge Problem:
Osteomyelitis of vertebra, sacral and sacrococcygeal region, Pressure ulcer of sacral region, stage 4, Accident due to mechanical fall without injury
Interventions
Interventions:
*Risk Screen - Suicide Last Done: 04/04/24 08:01
*General Assessment Last Done: 04/04/24 08:01
*Neglect/Abuse Screening Last Done: 04/04/24 08:01
*ED COVID-19 Vaccine History Last Done: 04/04/24 08:01
ED-Musculoskeletal Assessment Last Done: 04/04/24 08:05
[2024-04-04] MEDS: DILAUDID 0.5 MG IV (09:15)
[2024-04-04] MEDS: OMNIPAQUE 50 ML PO (09:15)
[2024-04-04] MEDS: ZOFRAN 4 MG IV (09:15)
[2024-04-04 09:22] LABS: % Basophils 0.3 % (0-2); % Immature Granulocytes 0.8 % (0-0.5); % Lymphocytes 2.8 % (20.5-51.1); % Monocytes 4.9 % (1.7-9.3); % Neutrophils 91.2 % (42.2-75.2); Absolute Basophils 0.1 10^3/uL (0-0.2); Absolute Immature Granulocytes 0.1 10^3/uL (0-0.05); Absolute Lymphocytes 0.5 10^3/uL (1.2-3.4); Absolute Monocytes 0.8 10^3/uL (0.1-0.6); Absolute Neutrophils 15.8 10^3/uL (1.4-6.5); Hematocrit 26.2 % (37.0-47.0); Hemoglobin 8.3 g/dL (12.0-16.0); Mean Corp Hgb Conc. 31.7 g/dL (33.0-37.0); Mean Corpuscular Hgb 29.1 pg (27.0-31.0); Mean Corpuscular Volume 91.9 fL (81.0-99.0); Mean Platelet Volume 8.3 fL (7.4-10.4); Nucleated Red Blood Cells % 0 %; Platelet Count 230 10^3/uL (130-400); Red Blood Cell Count 2.85 10^6/uL (4.20-5.40); Red Cell Dist. Width 15.9 % (11.5-14.5); White Blood Cell Count 17.3 10^3/uL (4.8-10.8)
[2024-04-04 09:40] LABS: ALT (SGPT) 13 U/L (0-35); AST (SGOT) 16 U/L (14-36); Albumin 3.2 g/dl (3.5-5.0); Alkaline Phosphatase 104 U/L (38-126); Blood Urea Nitrogen 16 mg/dl (7-17); Calcium 8.8 mg/dl (8.4-10.2); Carbon Dioxide 24 mmol/L (22-30); Chloride 101 mmol/L (98-107); Glucose 176 mg/dl (70-99); Potassium 4.2 mmol/L (3.5-5.1); Sodium 135 mmol/L (135-145); Total Bilirubin 0.5 mg/dl (0.2-1.3); Total Protein 6.7 g/dl (6.3-8.2); eGFR > 60.00
--- NOTE | 2024-04-04 13:09 | HPS.HSE ---
Family Physician
-
Family Physician: Berry Knight
Chief Complaint
-
Fall
History of Present Illness
Patient is a 78 y/o female past medical history of chronic sacral wound with chronic osteomyelitis, diabetes mellitus, chronic heart failure and COPD who presents following a fall. Patient reports she was brought in after she slid out of bed.
While in the emergency department patient was found to have to mildly elevated temperature with significant leukocytosis. Staff found her sacral wound to have significant foul smelling drainage. Per prior records patient completed a coarse of
meropenem on 03/19. Previously patient had a Dial catheter due to retention, and to aid in wound healing which has subsequently been removed.
Medical History
Past Medical History
Past Medical History: Reports Other
Additional Past Medical History:
Chronic Coccyx/Gluteal Cleft Wound
Chronic Sacral Osteomyelitis
Chronic HFpEF
Diabetes Mellitus, Type II
Essential Hypertension
Neurogenic Bladder
COPD
Anemia of Chronic Disease
Chronic Pain with Opioid Dependence
Rectal Cancer s/p APR with Colostomy
Renal Cancer s/p Right Nephrectomy
Past Surgical History: Reports Other
Additional Past Surgical History:
Right Nephrectomy - 1981
Colon Resection with Colostomy - 1982
Parastomal Hernia Repair with Mesh
Bilateral Knee Replacement
Back Surgery
Right Hip ORIF
Social History
Tobacco: Non-smoker
Drug: None
Family History
Family History: Not pertinent
Allergies / Home Medications
Allergies reflects when Allergies were last updated in [email or web address].
Home Medications with original date entered in [email or web address]
Allergy/Medication List:
Allergies
Allergy/AdvReac Type Severity Reaction Status Date / Time
levofloxacin Allergy Rash Verified 02/01/24 03:12
morphine Allergy Rash Verified 02/01/24 03:12
prochlorperazine Allergy Rash Verified 02/01/24 03:12
[From Compazine]
doxycycline AdvReac Mild Shortness Verified 02/01/24 03:12
of Breath
vancomycin AdvReac Mild Shortness Verified 02/01/24 03:12
of Breath
Home Medications
nifedipine 60 mg tablet,extended release 24 hr 60 mg PO DAILY blood pressure 01/15/24
pantoprazole 40 mg tablet,delayed release 40 mg PO DAILY Gastrointestinal Issue 01/15/24
dapagliflozin propanediol 5 mg tablet 5 mg PO DAILY Diabetes #0 tabs 02/18/24
furosemide 20 mg tablet 40 mg (2 x 20 mg) PO DAILY Fluid retention/Swelling #0 tabs 02/18/24
sitagliptin phosphate 100 mg tablet (Januvia) 100 mg PO DAILY Diabetes #0 tabs 02/18/24
buprenorphine HCl 150 mcg buccal film (Belbuca) 150 mcg buccal QID Pain 04/04/24
losartan 25 mg tablet 25 mg PO DAILY 04/04/24
Review of Systems
-
A 12 point ROS was completed and negative except as noted: Yes
Constitutional: Denies Fever or Chills
Respiratory: Denies Cough or Trouble Breathing
Cardiac: Denies Chest Pain or Palpitations
Abdomen/GI: Denies Abdominal Pain, Nausea or Vomiting
: Denies Dysuria or Frequency
Physical Exam
Vital Signs
Vital Signs
Temp Pulse Resp BP Pulse Ox
99.5 F 93 18 148/67 91
04/04/24 08:01 04/04/24 08:01 04/04/24 08:01 04/04/24 12:05 04/04/24 12:05
Physical Exam
General: Well Developed, Well Nourished and Conversant
HEENT: Anicteric and Moist mucous membranes
Respiratory: Clear and Non Labored Respirations
Cardiac: S1/S2 and Regular Rhythm
GI: Soft, Non Tender, Ostomy and Other (Positive hernia)
Genito-urinary: Other (Cloudy urine noted in cup at bedside)
Musculoskeletal: No Clubbing, No Cyanosis and Other (Pitting edema bilateral lower extremities)
Skin: Ulcers (Large sacral ulcer with foul smelling drainage)
Laboratory Results
-
04/04/24 09:13
04/04/24 09:13
Laboratory Results
Total Bilirubin 0.5 mg/dl (0.2-1.3) 04/04/24 09:13
AST 16 U/L (14-36) 04/04/24 09:13
ALT 13 U/L (0-35) 04/04/24 09:13
Alkaline Phosphatase 104 U/L (38-126) 04/04/24 09:13
Data Reviewed
-
CT Scan: Report Reviewed by me
Lab Data: Labs Reviewed by me
Old Records: Reviewed
Impression/Plan
-
Acute on Chronic Infected Sacral Wound
-Consult Infectious Disease, Surgery and Wound Care
-Continue empiric Zosyn
Left Hydroureteronephrosis, new compared to prior ultrasound in January 2024
-Consult Urology
-Place Dial catheter due to prior history of retention which will also aid in wound healing
-Await urinalysis result
Chronic HFpEF
-Continue Lasix
-Monitor Is&Os and Daily Weights
Diabetes Mellitus, Type II
-Continue dapagliflozin and sitagliptin
Essential Hypertension
-Continue losartan and nifedipine
Anemia of Chronic Disease
-Hgb stable compared to previous
Chronic Pain with Opioid Dependence
-Continue buprenorphine
Hx Rectal Cancer s/p APR with Colostomy
Hx Renal Cancer s/p Right Nephrectomy
DVT proph: Lovenox
Code Status: Full Code
[2024-04-04] MEDS: DILAUDID 1 MG IV (13:21)
[2024-04-04] MEDS: ZOSYN 100 IV (13:22)
--- NOTE | 2024-04-04 13:33 | W.PN.UPDATE ---
Update Note
Progress Note Update
This note serves as an addendum to the H&P by rope walker ABUNDIO Angela LYMAN
HPI
78y F with PMH significant for chronic sacral osteomyelitis / wound, rectal cancer with chronic colostomy and chronic pain syndrome seen at ER
- recently here for stage 4 sacral ulcer infection and debridement.
- unwitnessed fall out of bed, she�s complaining of lower back pain.
- CT didn�t show any acute fracture, but it did show chronic osteomyelitis and her sacral ulcer is extremely large.
- wound cultures and started her on zosyn.
PHX
Chronic Coccyx/Gluteal Cleft Wound
COPD
Essential Hypertension
Neurogenic Bladder
Chronic Pain with Opioid Dependence
Rectal Cancer s/p APR with Colostomy
Renal Cancer s/p Right Nephrostomy
Right Nephrectomy - 1981
Colon Resection with Colostomy - 1982
Parastomal Hernia Repair with Mesh
Bilateral Knee Replacement
Back Surgery
Right Hip ORIF
Vital Signs
Temp Pulse Resp BP Pulse Ox
99.5 F 93 18 148/67 91
04/04/24 08:01 04/04/24 08:01 04/04/24 08:01 04/04/24 12:05 04/04/24 12:05
PE
General: conversant
HEENT: Moist mucous membranes and PERRLA
Respiratory: Decreased at bases otherwise clear.
Cardiac: S1/S2 and Regular Rhythm; No Murmur
GI: Soft, Non Tender, Non Distended and Normal Bowel Sounds
Musculoskeletal: No Clubbing, No Cyanosis and Other (2+ pitting edema bilateral LEs.)
Skin: Sacral wound with wound vac in place. Difficult exam as patient does not tolerate bed mobility required to fully expose wound
Neuro: Answers some questions
Data
Abnormal Lab Results
04/04/24
09:13
WBC 17.3 H
RBC 2.85 L
Hgb 8.3 L
Hct 26.2 L
MCHC 31.7 L
RDW 15.9 H
Abs Immat Gran (auto) 0.1 H
Absolute Neuts (auto) 15.8 H
Absolute Lymphs (auto) 0.5 L
Absolute Monos (auto) 0.8 H
Immature Gran % 0.8 H
Neutrophils % 91.2 H
Lymphocytes % 2.8 L
Glucose 176 H
Albumin 3.2 L
04/04/24 CT Head W/o Iv Contrast
No acute intracranial abnormality noted
04/04/24 CT Abd/pel W Iv And Oral Contr
1. Moderate left hydroureteronephrosis without evidence for an obstructing ureteral calculus.
Stricture at the level of the distal left ureter/ureterovesicular junction is not excluded.
2. 10 mm solid pulmonary nodule in the left lower lobe.
Consider a chest CT in 3 months, PET/CT, or tissue sampling per Fleischner Society guidelines.
3. Large sacral decubitus ulceration with chronic osteomyelitis of the sacrum and coccyx.
4. Chronic insufficiency fractures with bands of sclerosis in the bilateral iliac bones and sacrum.
5. 3.1 cm infrarenal abdominal aortic aneurysm.
6. Other chronic findings, as above.
Last hospitalist admission:
DATE OF ADMISSION: 02/01/2024 - DATE OF DISCHARGE: 02/18/2024
DISCHARGE DIAGNOSES:
1. Infected sacral stage IV wound.
2. Stage II right heel blister.
3. Toxic-metabolic encephalopathy-resolved.
4. Chronic heart failure.
ASSESSMENT & PLAN
Pending Rx reconciliation
Large Sacral Wound foul odour and drainage
Chronic Osteomyelitis
- Cultures done on 01/10/24 with growth of Pseudomonas, Proteus and E coli.
- Continue IV Zosyn
- Wound Care evaluation for vac management / local care.
- GS consult - though no intervention recommended during recent admission.
Chronic Pain Syndrome
Chronic Opioid Dependence
- Continue Belbuca
- On oxycodone.
- On Dilaudid
- Continue gabapentin.
Chr Ousmane Edema / CHF
- Patient started on metolazone daily .
- Lasix to 40mg daily
- Follow I/Os, daily weights, etc.
- Follow for changes in renal function with diuresis.
Benign Hypertension
- Continue home med regimen with holding parameters.
COPD without Acute Exacerbation
- Stable.
- Continue inhaled medications / DuoNebs PRN.
Neurogenic Bladder
Solitary Kidney s/p Nephrectomy (RCC)
- Follow bladder scan and straight cath as needed.
- Place Dial if significant retention.
- Patient chronically requires catheterization.
History of Rectal Cancer
Ostomy Status
- Wound Care / ostomy management.
DVT Prophylaxis: Lovenox
Code Status: Full
IP MS
--- NOTE | 2024-04-04 13:55 | PHANOTE ---
[employer](04/04/24)-identified medications in her box by Mary, unable to identify OTC medications. Spoke with family on phone, confirmed with them buprenorphine film dosage, which was not in her boxes. She did not want to go over OTC drugs,
but stated I had all the important ones.
--- NOTE | 2024-04-04 13:57 | CON.GS ---
Addendum entered and electronically signed by Sergey Lawson MD 04/05/24 09:04:
Patient seen and examined. Agree with assessment plan as documented below.
Patient is a 78 yo F with a PMH of rectal and renal cancer treated surgically and XRT maintained with chronic colostomy, chronic pain syndrome (opioid dependent), neurogenic bladder previously maintained with echevarria and chronic sacral wound with
osteomyelitis s/p flap management which subsequently failed with wound dehiscence. She is being followed for her wound at [facility] wound care center with recent evaluation by Dr. Alfred less than a week ago. She reports recent discharge from a skilled
nursing rehab facility to home with visiting nurses changing her dressings for her. She presents to the emergency department today after sliding off her bed earlier this morning and notes that at the time her legs were quite week. She called an
ambulance and was brought to for further evaluation. She had noted leukocytosis and was admitted for infectious work up. She reports significant pain with repositioning in bed to her wound and back. She does not report any fevers and has been
afebrile here.
Gen: NAD
Rectal: large well drainage sacral ulcer, healthy granulation tissue throughout majority of wound, small areas of fibrinous debris, no carlo purulence, no necrosis, palpable bone
Labs and CT scan were reviewed.
Patient is a 78 yo F p/w a leukocytosis and FTT in the setting of a chronic sacral wound with osteomyelitis
No indication or role for further surgical debridement or management at this time. Her wound itself is not causing her issues. Possible that her symptoms are related to chronic osteomyelitis resulting in lower back discomfort and a leukocytosis.
Differential also includes renal pathology with new onset hydronephrosis as well as a chronic neurogenic bladder with a recently removed Echevarria. Her UA is positive. All questions answered.
-- No surgical indication for debridement
-- Local wound care ordered with 1/4 strength dakins soaked Kerlix gauze to wound bed with overlying pad/Mepilex dressing
-- Consult wound care to follow
-- Please call with questions or concerns
Original Note:
Medical History
-
Chief Complaint: weakness
History of Present Illness:
78-year-old female with a h/o rectal and renal cancer treated surgically and XRT maintained with chronic colostomy, chronic pain syndrome (opioid dependent), neurogenic bladder previously maintained with echevarria and chronic sacral wound with
osteomyelitis s/p flap management which subsequently failed with wound dehiscence. She is being followed for her wound at [facility] wound care center with recent evaluation by Dr. Alfred less than a week ago. She reports recent discharge from a skilled
nursing rehab facility to home with visiting nurses changing her dressings for her. She presents to the emergency department today after sliding off her bed earlier this morning and notes that at the time her legs were quite week. She called an
ambulance and was brought to for further evaluation. She had noted leukocytosis and was admitted for infectious work up. On exam, the wound is large but relatively stable from previous admission in January with fibrinous exudate in base of wound
which is otherwise clean with pink tissue noted. There is some slough to the wound bed but no necrotic or eschar tissue noted. She reports significant pain with repositioning in bed to her wound and back. She does not report any fevers and has been
afebrile here.
Past Medical History
Past Medical History: Cancer (rectal and renal) and Other (Chronic sacral wound, neurogenic bladder, chronic pain on opioids)
Past Surgical History: Bowel Resection (Permanent end colostomy status post colon resection 1982), Orthopedic (knee replacements, back surgery, right hip ORIF), Urological (right nephrectomy 1981) and Other (parastomal hernia repair, sacral wound
flap)
Social History
Tobacco: Non-Smoker
Alcohol: None
Family History
Family History: Reviewed & Not Pertinent
Allergies / Home Medications
Allergy/AdvReac Type Severity Reaction Status Date / Time
levofloxacin Allergy Rash Verified 02/01/24 03:12
morphine Allergy Rash Verified 02/01/24 03:12
prochlorperazine Allergy Rash Verified 02/01/24 03:12
[From Compazine]
doxycycline AdvReac Mild Shortness Verified 02/01/24 03:12
of Breath
vancomycin AdvReac Mild Shortness Verified 02/01/24 03:12
of Breath
�Medication �Instructions �Recorded �Confirmed �Type
nifedipine 60 mg tablet,extended 60 mg PO DAILY blood pressure 01/15/24 04/04/24 History
release 24 hr
pantoprazole 40 mg tablet,delayed 40 mg PO DAILY Gastrointestinal 01/15/24 04/04/24 History
release Issue
dapagliflozin propanediol 5 mg 5 mg PO DAILY Diabetes #0 tabs 02/18/24 04/04/24 Rx
tablet
furosemide 20 mg tablet 40 mg (2 x 20 mg) PO DAILY Fluid 02/18/24 04/04/24 Rx
retention/Swelling #0 tabs
sitagliptin phosphate 100 mg 100 mg PO DAILY Diabetes #0 tabs 02/18/24 04/04/24 Rx
tablet (Januvia)
buprenorphine HCl 150 mcg buccal 150 mcg buccal QID Pain 04/04/24 04/04/24 History
film (Belbuca)
losartan 25 mg tablet 25 mg PO DAILY 04/04/24 04/04/24 History
Review of Systems
-
History Source: Patient and Family
All other systems: Negative unless noted
A 10 point review of systems was completed, and was negative except as per HPI.
Physical Exam
Vital Signs
Temp Pulse Resp BP Pulse Ox
99.5 F 93 18 148/67 91
04/04/24 08:01 04/04/24 08:01 04/04/24 08:01 04/04/24 12:05 04/04/24 12:05
04/03/24 04/04/24 04/05/24
06:59 06:59 06:59
Actual Weight 73.7 kg
Body Mass Index (BMI) 28.8
Lab Results
04/04/24 09:13
04/04/24 09:13
WBC 17.3 10^3/uL (4.8-10.8) H 04/04/24 09:13
Hgb 8.3 g/dL (12.0-16.0) L 04/04/24 09:13
Hct 26.2 % (37.0-47.0) L 04/04/24 09:13
Plt Count 230 10^3/uL (130-400) 04/04/24 09:13
Abs Immat Gran (auto) 0.1 10^3/uL (0-0.05) H 04/04/24 09:13
Neutrophils % 91.2 % (42.2-75.2) H 04/04/24 09:13
Physical Exam
General: Well Developed; Negative Comfortable
HEENT: Normocephalic and Moist Mucous Membranes
Respiratory: Non Labored Respirations
GI: Soft, Non Tender, Non Distended and Other (stoma pink, functioning)
Skin: Warm, Dry and Other (large wide mouthed stage 4 sacral decubitus ulcer with fibrinous exudate to wound and some slough but the majority of the wound bed is pink/healthy tissue)
Neuro: Awake, Alert and AO x 3
Psych: Other (tearful); Negative Calm
Data Reviewed
-
CT Scan: Image Personally Visualized and interpreted, Report Reviewed by me, Discussed with Physician, Discussed with Patient and Discussed with Family
Ultrasound: Image Personally Visualized and interpreted (No hydro on US from 01/15/24)
Labs: Labs Reviewed by me, Discussed with Physician, Discussed with Patient and Discussed with Family
Old Records: Reviewed
Assessment / Plan
-
78-year-old female with a h/o rectal and renal cancer treated surgically and XRT maintained with chronic colostomy, chronic pain syndrome (opioid dependent), neurogenic bladder previously maintained with echevarria and chronic sacral wound with
osteomyelitis s/p flap management which subsequently failed with wound dehiscence. Presenting with increasing weakness after recent discharge from rehab center with leukocytosis present. CT imaging reviewed and discussed with hospitalist. Chronic
osteomyelitis of the sacrum and coccyx from large wound again noted. Chronic insufficiency fractures with bands of sclerosis in the bilateral iliac bones and sacrum. There is also new left hydronephrosis. AFVSS. WBC of 17.3. Abnormal UA with
nitrates/leuks with cx pending. On exam, there is a relatively stable large wide mouthed stage 4 sacral decubitus ulcer with fibrinous exudate to wound and some slough but the majority of the wound bed is pink/healthy tissue.
--No surgical indication for debridement
--Local wound care ordered with 1/4 strength dakins soaked Kerlix gauze to wound bed with overlying pad/Mepilex dressing
--Consult wound care to follow
Do not think that her current leukocytosis is related to chronic osteo of her sacrum/coccyx as it appears to be draining well without necrosis/eschar noted to wound bed but it does remain on the differential. Suspect urologic etiology as primary
source. ABX and infectious work up as per primary team
[2024-04-04 14:06] LABS: Urine Albumin 1+ (Neg - Trace); Urine Bilirubin Negative (Negative); Urine Character Slightly Cloudy (Clear); Urine Color Yellow; Urine Glucose 2+ (Negative); Urine Ketone Trace (Negative); Urine Leukocyte 2+ (Negative); Urine Nitrite Positive (Negative); Urine Occult Blood Trace (Negative); Urine Specific Gravity 1.015 (<1.030); Urine Urobilinogen Negative (Neg - 1+)
[2024-04-04 14:16] LABS: Urine Mucus Few; Urine Squamous Cell >30 /LPF (Few)
[2024-04-04 14:18] LABS: Urine Bacteria Many (Negative); Urine White Cell >100 /HPF (0-5)
[2024-04-04 15:28] LABS: Erythrocyte Sed Rate 83 mm/hour (0-20)
--- NOTE | 2024-04-04 17:00 | CON.ID ---
Consultation
-
Date/Time Consultation Requested: 04/04/24 15:18
Date/Time Consultation Performed: 04/04/24 16:00
Requesting Provider: Baljeet KINGSLEY
Performing Provider: Dr Judd
Reason for Consultation: fall
Chief Complaint / Past History
Chief Complaint
fall
History of Present Illness
Ms Ozuna is a 78 year old female with chronic sacral wound with possible underlying osteomyelitis, chronic pain on buprenorphine who presents here after she sild out of her bed. She has recently been see by her wound care physician and reports
she was told that the wound had slough, no odor, no fevers or chills. Also reports no dysuria, urgency, suprapubic tenderness or frequency.
Since arrival here she has been afebrile, bp stable, wbc 17, hgb 8.3, ptl 230, L shift is noted, cr 0.9, crp 254, ua with >100 wbc/hpf urine culture pending, a superficial wound culture was done with few gpcs, few gpr, rare gnr, on exam there is no
probe to bone. 02/01 (remote) wound culture is notbale for colonization with an ESBL. Seen by general surgery who note no exposed bone, there is slough, no necrotic tissue, currently on zosyn
Past History
Additional Past Medical History:
Chronic Coccyx/Gluteal Cleft Wound
Chronic Sacral Osteomyelitis
Chronic HFpEF
Diabetes Mellitus, Type II
Essential Hypertension
Neurogenic Bladder
COPD
Anemia of Chronic Disease
Chronic Pain with Opioid Dependence
Rectal Cancer s/p APR with Colostomy
Renal Cancer s/p Right Nephrectomy
Additional Past Surgical History:
Right Nephrectomy - 1981
Colon Resection with Colostomy - 1982
Parastomal Hernia Repair with Mesh
Bilateral Knee Replacement
Back Surgery
Right Hip ORIF
Allergy History:
levofloxacin Allergy (Verified 02/01/24 03:12)
Rash
morphine Allergy (Verified 02/01/24 03:12)
Rash
prochlorperazine [From Compazine] Allergy (Verified 02/01/24 03:12)
Rash
doxycycline Adverse Reaction (Mild, Verified 02/01/24 03:12)
Shortness of Breath
vancomycin Adverse Reaction (Mild, Verified 02/01/24 03:12)
Shortness of Breath
Medications Reviewed: Yes
Social History
Tobacco: Non-Smoker
Drug: Other (on prescription buprenorphine)
Living: With Family
Family History
Family History: Not Pertinent
Review of Systems
Review of Systems
General: Negative Fever or Chills
All systems: All other systems were reviewed and were negative
Vital Signs
Temp Pulse Resp BP Pulse Ox
99.4 F 92 20 152/65 98
04/04/24 16:00 04/04/24 16:00 04/04/24 16:00 04/04/24 16:00 04/04/24 16:00
Physical Exam
Physical Exam
Constitutional: No Acute Distress
Cardiovascular: Regular Rate and S1/S2; Negative Murmur or Rub
Pulmonary: Clear and Symmetric; Negative Wheezes, Rales or Rhonchi
Gastrointestinal: Soft, Non Tender, Non Distended, Normal Bowel Sounds and Other (stoma pink)
Genito-Urinary: Negative Suprapubic Tenderness
Skin: Warm and Dry; Negative Rash or Jaundice
Wound: Other (sacral wound evaluated, no erythema, there is slough, no probe to bone, no odor, no necrotic tissue)
Lab / Diagnostic Study Results
04/04/24 09:13
04/04/24 09:13
Abs Immat Gran (auto) 0.1 10^3/uL (0-0.05) H 04/04/24 09:13
Absolute Neuts (auto) 15.8 10^3/uL (1.4-6.5) H 04/04/24 09:13
Absolute Lymphs (auto) 0.5 10^3/uL (1.2-3.4) L 04/04/24 09:13
Absolute Monos (auto) 0.8 10^3/uL (0.1-0.6) H 04/04/24 09:13
Absolute Basos (auto) 0.1 10^3/uL (0-0.2) 04/04/24 09:13
Immature Gran % 0.8 % (0-0.5) H 04/04/24 09:13
Neutrophils % 91.2 % (42.2-75.2) H 04/04/24 09:13
Lymphocytes % 2.8 % (20.5-51.1) L 04/04/24 09:13
Monocytes % 4.9 % (1.7-9.3) 04/04/24 09:13
Eosinophils % 0.0 % (0-6) 04/04/24 09:13
Basophils % 0.3 % (0-2) 04/04/24 09:13
ESR 83 mm/hour (0-20) H 04/04/24 09:13
C-Reactive Protein 257.40 mg/L (0.0-10.00) H 04/04/24 09:13
Ur Squamous Epith Cells >30 /LPF (Few) 04/04/24 13:19
Microbiology Results
Micro:
04/04/24 13:19 Urine Culture - Pending
Urine
04/04/24 09:25 Wound Culture - Pending
Ulcer Gram Stain - Preliminary
Assessment / Plan
Possible UTI
Colonization with ESBL
- plan short course of therapy given patients notable weakness
- continue zosyn
chronic sacral wound with possible underlying osteomyelitis
- no evidence of acute infection on exam
- wound culture was done and expect it to remain polymicrobial - continue local wound care no indcation for systemic antibiotics based on exam
[2024-04-04] MEDS: NON-FORMULARY ITEM 150 MCG BUCCAL ×2 (18:00→22:34)
[2024-04-04] MEDS: LOVENOX 40 MG SC (18:03)
[2024-04-04 18:07] LABS: Glucose - Point of Care 152 mg/dl (70-99)
[2024-04-04] MEDS: NOVOLOG FLEXPEN-LOW RESISTANCE 1 UNITS SC (19:48)
[2024-04-04] MEDS: ZOSYN 50 IV (19:50)
[2024-04-04] MEDS: FLUSH (NSS) 2 FLUSH IV ×2 (19:57→23:15)
[2024-04-04 21:20] LABS: Glucose - Point of Care 144 mg/dl (70-99)
[2024-04-04] MEDS: DILAUDID 0.25 MG IV (23:13)
[2024-04-05] MEDS: ZOSYN 50 IV ×4 (02:08→21:02)
[2024-04-05] MEDS: FLUSH (NSS) 2 FLUSH IV ×5 (02:11→15:03)
[2024-04-05 02:25] VITALS: BMI 27.9
[2024-04-05] MEDS: DILAUDID 0.25 MG IV ×4 (04:26→21:44)
[2024-04-05 04:35] VITALS: BMI 27.9
[2024-04-05 05:46] LABS: Hematocrit 24.8 % (37.0-47.0); Hemoglobin 7.9 g/dL (12.0-16.0); Mean Corp Hgb Conc. 31.9 g/dL (33.0-37.0); Mean Corpuscular Hgb 28.5 pg (27.0-31.0); Mean Corpuscular Volume 89.5 fL (81.0-99.0); Mean Platelet Volume 8.7 fL (7.4-10.4); Platelet Count 272 10^3/uL (130-400); Red Blood Cell Count 2.77 10^6/uL (4.20-5.40); Red Cell Dist. Width 15.9 % (11.5-14.5); White Blood Cell Count 16.3 10^3/uL (4.8-10.8)
[2024-04-05 06:00] VITALS: BMI 27.9
[2024-04-05 06:14] LABS: Blood Urea Nitrogen 17 mg/dl (7-17); Calcium 8.6 mg/dl (8.4-10.2); Carbon Dioxide 23 mmol/L (22-30); Chloride 100 mmol/L (98-107); Estimated Creatinine Clearance 45 ml/min; Glucose 143 mg/dl (70-99); Potassium 4.7 mmol/L (3.5-5.1); Sodium 136 mmol/L (135-145); eGFR 58.39
[2024-04-05 07:25] VITALS: BP 146/63
[2024-04-05 07:55] LABS: Glucose - Point of Care 191 mg/dl (70-99)
--- NOTE | 2024-04-05 08:10 | W.PN.HOSP.TC ---
Today's Communication/Plan
-
Continue antibiotics
Bowel regimen
Assessment / Plan
Assessment / Plan
Physical Exam
General: Not in acute distress
HEENT: Moist mucous membranes
Respiratory: Clear to Auscultation Bilaterally
Cardiac: S1/S2 and Regular Rhythm
GI: Soft, Non Tender, Non Distended and Normal Bowel Sounds
Musculoskeletal: No Cyanosis and Other (2+ pitting edema bilateral LEs.)
Skin: Sacral wound.
Neuro: Alert. Awake.

Assessment/Plan
Possible UTI
Colonization with ESBL
- Continue Zosyn
Large Sacral Wound foul odour and drainage
Chronic Underlying Osteomyelitis associated with sacral wound
Back Pain Suspected from Stool [place] and Osteomyelitis
Chronic insufficiency fractures with bands of sclerosis in the bilateral iliac bones and sacrum as on CT Imaging report
- Wound Care evaluation for vac management / local care.
- General Surgery consult - no further surgical debridement or management at this time
- Pain regimen was discussed on a previous hospitalization -- see discharge summary from 02/18/24
Moderate Stool [place]
- Miralax and Docusate
Chronic Pain Syndrome
Chronic Pain with Opioid Dependence
- Continue Belbuca
- On oxycodone.
- On Dilaudid
- Continue gabapentin.
Chr Ousmane Edema / CHF
- Patient started on metolazone daily .
- Lasix 40mg daily
- Follow I/Os, daily weights, etc.
- Follow for changes in renal function with diuresis.
- No DVT on lower extremity ultrasound
Benign Hypertension
- Continue home med regimen with holding parameters.
COPD without Acute Exacerbation
- Stable.
- Continue inhaled medications / DuoNebs PRN.
Moderate left hydroureteronephrosis -- chronic (was present on patient's January CT Imaging, but not reported)
Neurogenic Bladder
Recent Urinary Retention from Recent Hospitalization
Solitary Kidney s/p Nephrectomy (RCC)
- Follow bladder scan and straight cath as needed.
- Continue Dial Catheter
- Patient chronically requires catheterization.
- Urology consulted at the time of admission, no intervention needed
History of Rectal Cancer with radiation in the past and with chronic colostomy
Ostomy Status
- Wound Care / ostomy management.
History of chronic heart failure
-Daily weights
-I's and O's
Diabetes mellitus
-Diagnosed on recent hospitalization, A1c 8.1%
-Sliding Scale Insulin
Normocytic Anemia, suspected from chronic disease
Gastroesophageal reflux disease.
Anxiety.
History of Hypomagnesemia
-Monitor electrolytes and magnesium
Compression screw and intramedullary ronan traversing and impacted intertrochanteric fracture of the right femur with incomplete osseous union
-During recent admission here, hospitalist discussed with Dr. Nichols who recommended no intervention was recommended as she is not a good candidate for revision
Splenomegaly on CT Imaging
3.1 cm infrarenal abdominal aortic aneurysm
Severe aortoiliac calcified atherosclerosis
-Outpatient PCP follow-up
10 mm solid pulmonary nodule in the left lower lobe
-Will need fairly close outpatient pulmonary evaluation; consider a chest CT in 3 months, PET/CT, or tissue sampling per Fleischner Society guidelines.
Parastomal hernia
13 cm midline anterior pelvic wall hernia.
Uterine fibroid
Severe osteoarthrosis of the right hip
DVT Prophylaxis: Lovenox
Code Status: Full
Anticipated Discharge: > 48 hours
Subjective/Interval History
-
Date of Service: April 05, 2024
Patient was seen and examined. She reported back pain in the afternoon.
Objective Data
-
Labs:
Laboratory Results
04/05/24
04:59
WBC 16.3 H
Hgb 7.9 L
Hct 24.8 L
Plt Count 272
Sodium 136
Potassium 4.7
Chloride 100
Carbon Dioxide 23
BUN 17
Creatinine 1.0
Glucose 143 H
Calcium 8.6
Vital Signs:
Vital Signs
Temp Pulse Resp BP Pulse Ox
99.3 F 100 16 152/69 93
04/04/24 23:10 04/04/24 23:10 04/04/24 23:10 04/04/24 23:10 04/04/24 23:10
I&O
04/04/24 04/05/24 04/06/24
06:59 06:59 06:59
Intake Total 580 / 580
Output Total 700 / 700
Balance -120 / -120
[2024-04-05] MEDS: NOVOLOG FLEXPEN-LOW RESISTANCE 1 UNITS SC ×2 (09:20→12:59)
[2024-04-05] MEDS: PROCARDIA XL (EXTENDED RELEASE) 60 MG PO (09:22)
[2024-04-05] MEDS: JANUVIA 100 MG PO (09:22)
[2024-04-05] MEDS: DAKIN'S SOLUTION 0.125% 1/4 STRENGTH 473 ML TOPICAL (09:22)
[2024-04-05] MEDS: PROTONIX 40 MG PO (09:22)
[2024-04-05] MEDS: FARXIGA 5 MG PO (09:22)
[2024-04-05] MEDS: COZAAR 25 MG PO (09:22)
[2024-04-05] MEDS: LASIX 40 MG PO (09:22)
[2024-04-05] MEDS: NON-FORMULARY ITEM 150 MCG BUCCAL ×4 (09:27→21:43)
--- NOTE | 2024-04-05 10:20 | W.PN.URO.CBU ---
Today's Communication / Plan
-
No role for urologic intervention
May remove Dial when no longer warranted
Assessment / Plan
-
Chronic left hydroureteronephrosis likely due to neurogenic bladder
Solitary left kidney
Preserved renal function
Diagnosis
-
Date of Service: April 05, 2024
-
Patient Diagnosis:
Solitary left kidney: s/p right radical nephrectomy for renal cell carcinoma 1981
Left hydroureteronephrosis
History of neurogenic bladder due to pelvic surgery/irradiation
Sacral decubitus with osteomyelitis and chronic pain
Subjective
-
tearful
c/o back pain
Objective
-
Vital Signs
Temp Pulse Resp BP Pulse Ox
99.3 F 106 16 146/63 92
04/05/24 07:25 04/05/24 07:25 04/05/24 07:25 04/05/24 07:25 04/05/24 07:25
Intake and Output
04/04/24 04/05/24 04/06/24
06:59 06:59 06:59
Intake Total 580 / 580
Output Total 700 / 700
Balance -120 / -120
Intake:
Oral fluids 480 / 480
IV piggybacks 100 / 100
Output:
Urine, Dial 700 / 700
Laboratory Results
04/05/24 04:59
04/05/24 04:[address] scans from 04/04/24 and 02/01/24 personally reviewed: left hydroureteronephrosis present on both and unchanged
Review of Systems
-
Constitutional: Other
: Incontinence
Physical Exam
-
General - tearful, uncomfortable
Abdomen - soft, no left flank pain
Counseling
-
May remove Dial when medically indicated
[2024-04-05 10:35] LABS: Glycohemoglobin (HgbA1c) 5.9 % (4.0-5.6)
[2024-04-05 12:35] LABS: Glucose - Point of Care 186 mg/dl (70-99)
--- NOTE | 2024-04-05 13:05 | CM ---
Patient seen at bedside, patient tearful and concerned about . Patient states that she was at home where she lives with her in a 2 story home; primarily they stay on the first floor. Patient has been to [facility] and [facility]
in the past. Most recently patient was at [facility]. Patient indicated that patient was doing very well there and would like for her to return to [facility] if needed. Per patient he is afraid patient used up all of her time under insurance at
the facility. Patient stated that he has incurable CA and is not supposed to do nursing care for his . Patient indicated that he would talk to his family and about planning for discharge when patient medically appropriate.
Patient has had [facility] in the past and liked them. Patient indicated that he would agree to try to take patient home one more time if she was independent. Patient indicated that he would talk to his family and patient to review what
their plan would be for discharge. CM will continue to follow for discharge planning needs.
PLan; pending medical treatment plan home with [facility]/family vs SNF.
[2024-04-05] MEDS: LIDOCAINE 4% PATCH 1 PATCH TOPICAL (14:59)
[2024-04-05] MEDS: TYLENOL 650 MG PO ×2 (15:04→23:30)
[2024-04-05] MEDS: COLACE 100 MG PO ×2 (15:04→21:02)
[2024-04-05 15:37] VITALS: BP 109/49
[2024-04-05 17:38] LABS: Glucose - Point of Care 215 mg/dl (70-99)
[2024-04-05] MEDS: NOVOLOG FLEXPEN-LOW RESISTANCE 2 UNITS SC (17:58)
[2024-04-05] MEDS: LOVENOX 40 MG SC (17:59)
[2024-04-05] MEDS: MIRALAX 17 GRAMS PO (21:02)
[2024-04-05 21:32] LABS: Glucose - Point of Care 183 mg/dl (70-99)
[2024-04-05 23:24] VITALS: BP 136/59
[2024-04-06] MEDS: ZOSYN 50 IV ×4 (02:26→19:44)
[2024-04-06] MEDS: DILAUDID IV (04:33)
[2024-04-06] MEDS: DILAUDID 0.25 MG IV ×3 (05:24→12:54)
[2024-04-06 06:00] VITALS: BMI 27.6
--- NOTE | 2024-04-06 06:40 | W.PN.HOSP.TC ---
Today's Communication/Plan
-
cont abx
pain control
PT/OT
wound care
Assessment / Plan
Assessment / Plan
Physical Exam
General: Not in acute distress
HEENT: Moist mucous membranes
Respiratory: Clear to Auscultation Bilaterally
Cardiac: S1/S2 and Regular Rhythm
GI: Soft, Non Tender, Non Distended and Normal Bowel Sounds
Musculoskeletal: No Cyanosis and Other (2+ pitting edema bilateral LEs.)
Skin: Sacral wound.
Neuro: Alert. Awake.

Assessment/Plan
UTI
Colonization with ESBL
- Continue Zosyn
Large Sacral Wound foul odour and drainage
Chronic Underlying Osteomyelitis associated with sacral wound
Back Pain Suspected from Stool [place] and Osteomyelitis
Chronic insufficiency fractures with bands of sclerosis in the bilateral iliac bones and sacrum as on CT Imaging report
- Wound Care evaluation for vac management / local care.
- General Surgery consult - no further surgical debridement or management at this time
- Pain regimen was discussed on a previous hospitalization -- see discharge summary from 02/18/24
Moderate Stool [place]
- Miralax and Docusate
Chronic Pain Syndrome
Chronic Pain with Opioid Dependence
- Continue Belbuca
- On oxycodone.
- On Dilaudid
- Continue gabapentin.
Chr Ousmane Edema / CHF
- Lasix 40mg daily
- Follow I/Os, daily weights, etc.
- Follow for changes in renal function with diuresis.
- No DVT on lower extremity ultrasound
Benign Hypertension
- Continue home med regimen with holding parameters.
COPD without Acute Exacerbation
- Stable.
- Continue inhaled medications / DuoNebs PRN.
Moderate left hydroureteronephrosis -- chronic (was present on patient's January CT Imaging, but not reported)
Neurogenic Bladder
Recent Urinary Retention from Recent Hospitalization
Solitary Kidney s/p Nephrectomy (RCC)
- Follow bladder scan and straight cath as needed.
- Continue Dial Catheter
- Patient chronically requires catheterization.
- Urology consulted at the time of admission, no intervention needed
History of Rectal Cancer with radiation in the past and with chronic colostomy
Ostomy Status
- Wound Care / ostomy management.
History of chronic heart failure
-Daily weights
-I's and O's
Diabetes mellitus
-Diagnosed on recent hospitalization, A1c 8.1% repeat Ai1c however notes improvement 5.9 non-diabetic range
-cont Sliding Scale Insulin for now
Normocytic Anemia, suspected from chronic disease
Gastroesophageal reflux disease.
Anxiety.
History of Hypomagnesemia
-Monitor electrolytes and magnesium
Compression screw and intramedullary ronan traversing and impacted intertrochanteric fracture of the right femur with incomplete osseous union
-During recent admission here, hospitalist discussed with Dr. Nichols who recommended no intervention was recommended as she is not a good candidate for revision
Splenomegaly on CT Imaging
3.1 cm infrarenal abdominal aortic aneurysm
Severe aortoiliac calcified atherosclerosis
-Outpatient PCP follow-up
10 mm solid pulmonary nodule in the left lower lobe
-Will need fairly close outpatient pulmonary evaluation; consider a chest CT in 3 months, PET/CT, or tissue sampling per Fleischner Society guidelines.
Parastomal hernia
13 cm midline anterior pelvic wall hernia.
Uterine fibroid
Severe osteoarthrosis of the right hip
DVT Prophylaxis: Lovenox
Code Status: Full
I spent a total of 50 minutes with the patient or on the floor. More than 50% of this time involved counseling and coordination of care.
Anticipated Discharge: 24 - 48 hours
Subjective/Interval History
-
Date of Service: April 06, 2024
In distress due to back pain. prn Pain regimen subsequently increased
Objective Data
-
Labs:
Laboratory Results
04/06/24
06:00
WBC Pending
Hgb Pending
Hct Pending
Plt Count Pending
Sodium Pending
Potassium Pending
Chloride Pending
Carbon Dioxide Pending
BUN Pending
Creatinine Pending
Glucose Pending
Calcium Pending
Vital Signs:
Vital Signs
Temp Pulse Resp BP Pulse Ox
97.5 F 95 16 136/59 96
04/06/24 02:33 04/05/24 23:24 04/05/24 23:24 04/05/24 23:24 04/06/24 00:55
I&O
04/04/24 04/05/24 04/06/24
06:59 06:59 06:59
Intake Total 580 / 580 1360 / 1360
Output Total 700 / 700 2525 / 2525
Balance -120 / -120 -1165 / -1165
[2024-04-06 07:51] LABS: Glucose - Point of Care 159 mg/dl (70-99)
[2024-04-06 07:52] VITALS: BP 110/48
--- NOTE | 2024-04-06 08:35 | VNURNOTE ---
Chart reviewed. Patient is current with [facility] nursing, PT, OT. Will continue to follow hospital course and DC plans.
[2024-04-06 08:49] LABS: % Basophils 0.3 % (0-2); % Eosinophils 0.3 % (0-6); % Immature Granulocytes 0.6 % (0-0.5); % Monocytes 4.7 % (1.7-9.3); % Neutrophils 87.1 % (42.2-75.2); Absolute Immature Granulocytes 0.1 10^3/uL (0-0.05); Absolute Lymphocytes 0.8 10^3/uL (1.2-3.4); Absolute Monocytes 0.5 10^3/uL (0.1-0.6); Absolute Neutrophils 9.4 10^3/uL (1.4-6.5); Hematocrit 27.1 % (37.0-47.0); Hemoglobin 8.9 g/dL (12.0-16.0); Mean Corp Hgb Conc. 32.8 g/dL (33.0-37.0); Mean Corpuscular Hgb 29.1 pg (27.0-31.0); Mean Corpuscular Volume 88.6 fL (81.0-99.0); Nucleated Red Blood Cells % 0 %; Red Blood Cell Count 3.06 10^6/uL (4.20-5.40); Red Cell Dist. Width 15.8 % (11.5-14.5); White Blood Cell Count 10.8 10^3/uL (4.8-10.8)
[2024-04-06] MEDS: NON-FORMULARY ITEM 150 MCG BUCCAL ×3 (08:55→17:00)
[2024-04-06] MEDS: COLACE 100 MG PO ×2 (08:59→19:44)
[2024-04-06] MEDS: FARXIGA 5 MG PO (08:59)
[2024-04-06] MEDS: COZAAR PO (09:00)
[2024-04-06] MEDS: DAKIN'S SOLUTION 0.125% 1/4 STRENGTH 1 ML TOPICAL (09:01)
[2024-04-06] MEDS: PROTONIX 40 MG PO (09:01)
[2024-04-06] MEDS: LASIX 40 MG PO (09:01)
[2024-04-06] MEDS: JANUVIA 100 MG PO (09:01)
[2024-04-06] MEDS: PROCARDIA XL (EXTENDED RELEASE) PO (09:02)
[2024-04-06] MEDS: MIRALAX 17 GRAMS PO ×2 (09:02→19:44)
[2024-04-06] MEDS: LIDOCAINE 4% PATCH 1 PATCH TOPICAL (09:02)
[2024-04-06] MEDS: NOVOLOG FLEXPEN-LOW RESISTANCE 1 UNITS SC ×2 (09:03→12:52)
[2024-04-06 09:55] VITALS: BP 119/56; PULSE 94; O2SAT 96
[2024-04-06 10:00] VITALS: BP 112/67
[2024-04-06 10:17] LABS: Blood Urea Nitrogen 24 mg/dl (7-17); Calcium 8.7 mg/dl (8.4-10.2); Carbon Dioxide 25 mmol/L (22-30); Chloride 98 mmol/L (98-107); Estimated Creatinine Clearance 45 ml/min; Glucose 128 mg/dl (70-99); Potassium 4.5 mmol/L (3.5-5.1); Sodium 134 mmol/L (135-145); eGFR 58.39
[2024-04-06 12:37] LABS: Glucose - Point of Care 189 mg/dl (70-99)
--- NOTE | 2024-04-06 12:45 | WOUNDNOTE ---
[facility] RN note: Patient admitted with infected sacral pressure injury. Patient stated she lives at home with her spouse and is current with [facility]. She stated she was home for 3 days after coming home from rehab prior to admission.
See H&P for complete history.
PMH: solitary L kidney, nephrectomy for renal cell ca, chronic pain, DM, heart failure, neurogenic bladder, HTN, COPD, colostomy, parastomal hernia repair.
Wound Location and type/assessment: Patient admitted with: chronic large stage 4 sacral pressure injury to the bone with chronic osteomyelitis with area of black necrotic tissue and scattered yellow slough, otherwise clean with dull erythema around
wound mostly distally and L side. She has trouble off loading sacrum d/t pain in her hip legs (not new). General surgery team saw patient this admission and placed wound care instructions.
Appetite: po intake 50-100% documented.
Pressure redistribution devices in place: [employer] air mattress on a Centrella Pro bed frame. Checked pump height/weight settings. Patient assists with turning. Pillow off loading heels.
Plan: Sacral dressing changed. Patient turned to L side. Heels off bed with pillow and air chair cushion. Emotional support offered patient. Patient instructed pressure injury prevention measures. Healing potential poor d/t history of radiation,
chronic osteomyelitis, chronic pain and difficulty off loading. Discussed with MARIA ESTHER Arroyo.
Updated care plan and will follow as needed.
Note to case management of equipment requested for discharge: Air mattress.
Recommend follow up with your wound care physician.
--- NOTE | 2024-04-06 14:32 | CM ---
Reviewed the chart notes and spoke with the patient at the bedside. Reviewed PT recommendation of SNF. Patient agreeable to area SNF referrals. CM continues to be available to patient/family and is monitoring medical plan for needs at discharge.
Plan: Discharge to SNF/rehab once medically stable and a bed is secured. No precert required.
[2024-04-06 16:02] VITALS: BP 131/56
[2024-04-06 16:13] VITALS: BMI 27.6
[2024-04-06] MEDS: LOVENOX 40 MG SC (17:01)
[2024-04-06] MEDS: NOVOLOG FLEXPEN-LOW RESISTANCE SC (17:19)
--- NOTE | 2024-04-06 17:20 | PTCARENOTE ---
Pt refused accucheck for dinner time, no insulin to be dosed without accucheck.
[2024-04-06] MEDS: NON-FORMULARY ITEM 1 MCG BUCCAL (21:28)
[2024-04-06] MEDS: DILAUDID 0.5 MG IV (21:32)
[2024-04-06 23:15] VITALS: BP 122/55
[2024-04-07] MEDS: ZOSYN 50 IV ×4 (02:08→20:15)
--- NOTE | 2024-04-07 04:33 | PTCARENOTE ---
Patient is refusing AC and HS bedside glucose monitoring. Patient informed of importance of following blood glucose levels. Information will be passed to day shift nurse. Last three readings 189, 159, and 183.
[2024-04-07 06:00] VITALS: BMI 27.1
[2024-04-07] MEDS: DILAUDID 0.5 MG IV ×4 (06:41→20:13)
[2024-04-07 07:25] VITALS: BP 145/60
[2024-04-07 07:44] LABS: Glucose - Point of Care 165 mg/dl (70-99)
--- NOTE | 2024-04-07 08:26 | W.PN.HOSP.TC ---
Today's Communication/Plan
-
Farxiga discontinued d/t frequent UTI's
cont pain control
resume home Gabapentin
PT/OT
abx completed as per ID
Assessment / Plan
Assessment / Plan
Physical Exam
General: no acute distress, appears comfortable at this time
HEENT: Moist mucous membranes
Respiratory: Clear to Auscultation Bilaterally
Cardiac: S1/S2 and Regular Rhythm
GI: Soft, Non Tender, Non Distended and Normal Bowel Sounds
Musculoskeletal: No Cyanosis and Other (2+ pitting edema bilateral LEs.)
Skin: Sacral wound.
Neuro: AOx3

Assessment/Plan
UTI
Hx Colonization with ESBL
urine cx however noted pansensitive E. coli
ID eval appreciated completed adequate course Zosyn since completed
Large Chronic Sacral Wound
Chronic Underlying Osteomyelitis associated with sacral wound
Back Pain Suspected from Osteomyelitis vs UTI
Chronic insufficiency fractures with bands of sclerosis in the bilateral iliac bones and sacrum as on CT Imaging report
- Wound Care eval appreciated
- General Surgery consult appreciated no surgical indication for debridement Local wound care ordered with 1/4 strength dakins soaked Kerlix gauze to wound bed with overlying pad/Mepilex dressing
-ID eval appreciated no evidence acute infection sacral wound, wound cx expected polymicrobial cont local wound care no indication for systemic abx with regards to sacral wound
- Home pain regimen Belbuca continued, IV dilaudid prn
MRSA pos in wound culture and screen
-maintain contact precautions.
Moderate Stool [place]
- Miralax and Docusate
Chronic Pain Syndrome
Chronic Pain with Opioid Dependence
Sciatica Right leg shooting pain on ambulation
- Continue Belbuca
- On oxycodone.
- On Dilaudid
- gabapentin resumed
Chr Ousmane Edema / CHF
- Lasix 40mg daily
- Follow I/Os, daily weights, etc.
- Follow for changes in renal function with diuresis.
- No DVT on lower extremity ultrasound
-Farxiga discontinued due to hx frequent UTIs, risk seems to outweigh benefit at this time
Benign Hypertension
- Continue home med regimen with holding parameters.
COPD without Acute Exacerbation
- Stable.
- Continue inhaled medications / DuoNebs PRN.
Moderate left hydroureteronephrosis -- chronic (was present on patient's January CT Imaging, but not reported)
Neurogenic Bladder
Recent Urinary Retention from Recent Hospitalization
Solitary Kidney s/p Nephrectomy (RCC)
- Follow bladder scan and straight cath as needed.
- Continue Dial Catheter
- Patient chronically requires catheterization.
- Urology consulted at the time of admission, no intervention needed
History of Rectal Cancer with radiation in the past and with chronic colostomy
Ostomy Status
- Wound Care / ostomy management.
History of chronic heart failure
-Daily weights
-I's and O's
Diabetes mellitus
-Diagnosed on recent hospitalization, A1c 8.1% repeat Ai1c however notes improvement 5.9 non-diabetic range (though this seems too good to be true given relative short time frame and FS values seen here so far)
-cont Sliding Scale Insulin for now
-Farxiga discontinued due to hx frequent UTI's, risk appears to outweigh benefits at this time
-cont Januvia
-repeat A1c in 3 months
-diabetic education
Normocytic Anemia, suspected from chronic disease
Gastroesophageal reflux disease.
Anxiety.
History of Hypomagnesemia
-Monitor electrolytes and magnesium
Compression screw and intramedullary ronan traversing and impacted intertrochanteric fracture of the right femur with incomplete osseous union
-During recent admission here, hospitalist discussed with Dr. Nichols who recommended, poor candidate for revision
Splenomegaly on CT Imaging
3.1 cm infrarenal abdominal aortic aneurysm
Severe aortoiliac calcified atherosclerosis
-Outpatient PCP follow-up
10 mm solid pulmonary nodule in the left lower lobe
-Will need fairly close outpatient pulmonary evaluation; consider a chest CT in 3 months, PET/CT, or tissue sampling per Fleischner Society guidelines.
Parastomal hernia
13 cm midline anterior pelvic wall hernia.
Uterine fibroid
Severe osteoarthrosis of the right hip
PT/OT appreciated SNF rehab
DVT Prophylaxis: Lovenox
Code Status: Full
Discussed with patient and patient's daughter Stephie
I spent a total of 45 minutes with the patient or on the floor. More than 50% of this time involved counseling and coordination of care.
Anticipated Discharge: 24 - 48 hours
Subjective/Interval History
-
Date of Service: April 07, 2024
reports improvement in pain control though right shooting leg pain persists interfering with ambulation as noted in PT report.
Objective Data
-
Labs:
Laboratory Results
04/07/24
06:00
WBC Pending
Hgb Pending
Hct Pending
Plt Count Pending
Sodium Pending
Potassium Pending
Chloride Pending
Carbon Dioxide Pending
BUN Pending
Creatinine Pending
Glucose Pending
Calcium Pending
Vital Signs:
Vital Signs
Temp Pulse Resp BP Pulse Ox
98.0 F 59 16 145/60 95
04/07/24 07:25 04/07/24 07:25 04/07/24 07:25 04/07/24 07:25 04/07/24 07:25
I&O
04/06/24 04/07/24 04/08/24
06:59 06:59 06:59
Intake Total 0 / 2079 1070 / 1070
Output Total 2975 / 2975 1180 / 1180
Balance -895 / -895 -110 / -110
[2024-04-07 09:16] LABS: % Basophils 0.2 % (0-2); % Eosinophils 0.2 % (0-6); % Immature Granulocytes 0.6 % (0-0.5); % Lymphocytes 8.8 % (20.5-51.1); % Monocytes 8.3 % (1.7-9.3); % Neutrophils 81.9 % (42.2-75.2); Absolute Immature Granulocytes 0.1 10^3/uL (0-0.05); Absolute Lymphocytes 0.8 10^3/uL (1.2-3.4); Absolute Monocytes 0.7 10^3/uL (0.1-0.6); Absolute Neutrophils 7.1 10^3/uL (1.4-6.5); Hematocrit 25.5 % (37.0-47.0); Hemoglobin 8.1 g/dL (12.0-16.0); Mean Corp Hgb Conc. 31.8 g/dL (33.0-37.0); Mean Corpuscular Hgb 28.2 pg (27.0-31.0); Mean Corpuscular Volume 88.9 fL (81.0-99.0); Mean Platelet Volume 8.7 fL (7.4-10.4); Nucleated Red Blood Cells % 0 %; Platelet Count 239 10^3/uL (130-400); Red Blood Cell Count 2.87 10^6/uL (4.20-5.40); Red Cell Dist. Width 15.7 % (11.5-14.5); White Blood Cell Count 8.7 10^3/uL (4.8-10.8)
[2024-04-07] MEDS: NOVOLOG FLEXPEN-LOW RESISTANCE 1 UNITS SC (09:42)
[2024-04-07] MEDS: MIRALAX 17 GRAMS PO (09:42)
[2024-04-07] MEDS: COZAAR 25 MG PO (09:45)
[2024-04-07] MEDS: PROCARDIA XL (EXTENDED RELEASE) 60 MG PO (09:45)
[2024-04-07] MEDS: COLACE 100 MG PO ×2 (09:45→20:16)
[2024-04-07] MEDS: LIDOCAINE 4% PATCH 1 PATCH TOPICAL (09:45)
[2024-04-07] MEDS: JANUVIA 100 MG PO (09:45)
[2024-04-07] MEDS: PROTONIX 40 MG PO (09:45)
[2024-04-07] MEDS: LASIX 40 MG PO (09:45)
--- NOTE | 2024-04-07 09:48 | PN.CDI ---
CDI
- -
CDI:
Physician Documentation Request
Admit Date: 04/04/24 13:50
Dear Doctor Miranda,
Clinical Indicators:
Patient admitted with acute on chronic sacral wound & UTI.
WBC on admission:
04/04/24
09:13
WBC 17.3 H
HR trend on admission:
04/04/24
08:01 04/04/24
16:00 04/04/24
23:10
Pulse 93 92 100
04/05/24
07:25 04/05/24
15:37 04/05/24
23:24
Pulse 106 102 95
Temp trend:
04/04/24
08:01 04/05/24
15:37
Temp 99.5 F 100.6 F H
Please clarify which of the following most accurately describes the status of the patient's infection:
Sepsis, POA
- Systemic manifestations of infection, with 2 or more SIRS criteria which include:
- Fever >100.4 degrees F or hypothermia < 96.8 degrees F
- Leukocytosis - WBC > 12,000 or leukopenia - WBC < 4,000 or > 10% bands
- Tachycardia > 90 beats per minute
- Tachypnea - RR > 20 breaths per minute or PaCO2 , 32mmHg
Source: Merck Manual 2013
UTI Only, Without Systemic Illness
Other
Use of terms such as suspected, likely, concern for, or probable (associated with a specific diagnosis that is being evaluated, monitored, or treated as if it exists) are acceptable and can be coded in the inpatient setting, when documented at the
time of discharge.
Thank you,
Neli Horvath RN BSN
CDI Specialist
available via tiger text
Please use your independent medical judgment in providing your response.
[2024-04-07] MEDS: NON-FORMULARY ITEM 150 MCG BUCCAL ×3 (09:52→17:22)
[2024-04-07] MEDS: DAKIN'S SOLUTION 0.125% 1/4 STRENGTH 473 ML TOPICAL (09:56)
[2024-04-07 10:26] LABS: Blood Urea Nitrogen 21 mg/dl (7-17); Calcium 8.3 mg/dl (8.4-10.2); Carbon Dioxide 30 mmol/L (22-30); Chloride 94 mmol/L (98-107); Estimated Creatinine Clearance 45 ml/min; Glucose 146 mg/dl (70-99); Potassium 3.9 mmol/L (3.5-5.1); Sodium 132 mmol/L (135-145); eGFR 58.39
[2024-04-07] MEDS: FARXIGA PO (10:28)
[2024-04-07 12:56] LABS: Glucose - Point of Care 215 mg/dl (70-99)
[2024-04-07] MEDS: DESENEX/MITRAZOL/ZEASORB 1 APPLIC TOPICAL ×2 (14:15→20:18)
[2024-04-07] MEDS: NOVOLOG FLEXPEN-LOW RESISTANCE 2 UNITS SC (14:15)
--- NOTE | 2024-04-07 15:09 | W.PN.ID1 ---
Date of Service
Date of Service: April 07, 2024
Today's Communication
- has completed an adequate course of zosyn
- stable for dc from ID perspective
Assessment / Plan
Possible UTI
Colonization with ESBL
- has completed an adequate course of zosyn
- stable for dc from ID perspective
chronic sacral wound with possible underlying osteomyelitis
- no evidence of acute infection on exam
- wound culture was done and expect it to remain polymicrobial - continue local wound care no indication for systemic antibiotics based on exam
Intertrigo
-topical therapy
Chief Complaint
-: UTI
Subjective / Review of Systems
afebrile
bp stable
no events overnight
Vital Signs / Physical Exam
Vital Signs
Vital Signs
Temp Pulse Resp BP Pulse Ox
98.0 F 59 16 145/60 95
04/07/24 07:25 04/07/24 07:25 04/07/24 07:25 04/07/24 07:25 04/07/24 07:25
Physical Exam
Constitutional: No Acute Distress
Cardiovascular: Regular Rate and S1/S2; Negative Murmur or Rub
Pulmonary: Clear and Symmetric; Negative Wheezes or Rales
Gastrointestinal: Soft, Non Tender, Non Distended and Normal Bowel Sounds
Genito-Urinary: Negative Suprapubic Tenderness
Skin: Warm and Dry; Negative Rash or Jaundice
Objective Data
Lab Data
Lab Results
04/07/24 08:52
04/07/24 08:52
ESR 83 mm/hour (0-20) H 04/04/24 09:13
Estimated Creat Clear 45 ml/min 04/07/24 08:52
Total Bilirubin 0.5 mg/dl (0.2-1.3) 04/04/24 09:13
AST 16 U/L (14-36) 12/21/24 09:13
ALT 13 U/L (0-35) 04/04/24 09:13
Alkaline Phosphatase 104 U/L (38-126) 04/04/24 09:13
C-Reactive Protein 257.40 mg/L (0.0-10.00) H 04/04/24 09:13
Most recent labs reviewed.
Micro Results:
04/04/24 09:25 Wound Culture - Final
Ulcer Pseudomonas aeruginosa
Staph aureus MRSA
Streptococcus species
Diptheroids
Gram Stain - Final
04/05/24 13:10 MRSA Screen - Final
Nose Staph aureus MRSA
04/04/24 13:19 Urine Culture - Final
Urine Escherichia coli
--- NOTE | 2024-04-07 15:36 | CM ---
Reviewed the chart notes and spoke with the patient at the bedside. [facility], [facility], and [facility] are willing to accept patient. [facility] unable to accept. CM continues to be available to patient/family and is monitoring medical plan
for needs at discharge.
Plan: Discharge to SNF/rehab. No precert required.
[2024-04-07 16:38] VITALS: BP 107/56
[2024-04-07] MEDS: LOVENOX 40 MG SC (17:23)
[2024-04-07] MEDS: NOVOLOG FLEXPEN-LOW RESISTANCE SC (17:24)
[2024-04-07 17:25] LABS: Glucose - Point of Care 142 mg/dl (70-99)
[2024-04-07] MEDS: MIRALAX PO ×2 (20:14→21:55)
[2024-04-07 21:29] LABS: Glucose - Point of Care 174 mg/dl (70-99)
[2024-04-07] MEDS: NEURONTIN 300 MG PO (21:38)
[2024-04-07] MEDS: NON-FORMULARY ITEM 1 MCG BUCCAL (21:39)
[2024-04-07 23:17] VITALS: BP 119/59
[2024-04-08 06:28] VITALS: BMI 27.2
--- NOTE | 2024-04-08 07:12 | W.PN.HOSP.TC ---
Today's Communication/Plan
-
cont pain control
Gabapentin
Glycemic control
PT/OT
discharge planning
Assessment / Plan
Assessment / Plan
Physical Exam
General: no acute distress, appears comfortable at this time
HEENT: Moist mucous membranes
Respiratory: Clear to Auscultation Bilaterally
Cardiac: S1/S2 and Regular Rhythm
GI: Soft, Non Tender, Non Distended and Normal Bowel Sounds
Musculoskeletal: No Cyanosis and Other (2+ pitting edema bilateral LEs.)
Skin: Sacral wound.
Neuro: AOx3

Assessment/Plan
Sepsis UTI (white count elevation, fever)
Hx Colonization with ESBL
urine cx however noted pansensitive E. coli
ID eval appreciated completed adequate course Zosyn since completed
Large Chronic Sacral Wound
Chronic Underlying Osteomyelitis associated with sacral wound
Back Pain Suspected from Osteomyelitis vs UTI
Chronic insufficiency fractures with bands of sclerosis in the bilateral iliac bones and sacrum as on CT Imaging report
- Wound Care eval appreciated
- General Surgery consult appreciated no surgical indication for debridement Local wound care ordered with 1/4 strength dakins soaked Kerlix gauze to wound bed with overlying pad/Mepilex dressing
-ID eval appreciated no evidence acute infection sacral wound, wound cx expected polymicrobial cont local wound care no indication for systemic abx with regards to sacral wound
- Home pain regimen Belbuca continued, IV dilaudid prn
MRSA pos in wound culture and screen
-maintain contact precautions.
Moderate Stool [place]
- Miralax and Docusate
Chronic Pain Syndrome
Chronic Pain with Opioid Dependence
Sciatica Right leg shooting pain on ambulation
- Continue Belbuca
- On oxycodone.
- On Dilaudid
- gabapentin resumed
Chr Ousmane Edema / CHF
- Lasix 40mg daily
- Follow I/Os, daily weights, etc.
- Follow for changes in renal function with diuresis.
- No DVT on lower extremity ultrasound
-Farxiga discontinued due to hx frequent UTIs, risk seems to outweigh benefit at this time
Benign Hypertension
- Continue home med regimen with holding parameters.
COPD without Acute Exacerbation
- Stable.
- Continue inhaled medications / DuoNebs PRN.
Moderate left hydroureteronephrosis -- chronic (was present on patient's January CT Imaging, but not reported)
Neurogenic Bladder
Recent Urinary Retention from Recent Hospitalization
Solitary Kidney s/p Nephrectomy (RCC)
- Follow bladder scan and straight cath as needed.
- Continue Dial Catheter
- Patient chronically requires catheterization.
- Urology consulted at the time of admission, no intervention needed
-patient notes difficulty with self catherization prior to admission. Would plan to discharge with Dial and outpatient follow up with her urologist.
History of Rectal Cancer with radiation in the past and with chronic colostomy
Ostomy Status
- Wound Care / ostomy management.
History of chronic heart failure
-Daily weights
-I's and O's
Diabetes mellitus
-Diagnosed on recent hospitalization, A1c 8.1% repeat Ai1c however notes improvement 5.9 non-diabetic range (though this seems too good to be true given relative short time frame and FS values seen here so far)
-cont Sliding Scale Insulin for now
-Farxiga discontinued due to hx frequent UTI's, risk appears to outweigh benefits at this time
-cont Januvia
-repeat A1c in 3 months
-diabetic education
Normocytic Anemia, suspected from chronic disease
Gastroesophageal reflux disease.
Anxiety.
History of Hypomagnesemia
-Monitor electrolytes and magnesium
Compression screw and intramedullary ronan traversing and impacted intertrochanteric fracture of the right femur with incomplete osseous union
-During recent admission here, hospitalist discussed with Dr. Nichols who recommended, poor candidate for revision
Splenomegaly on CT Imaging
3.1 cm infrarenal abdominal aortic aneurysm
Severe aortoiliac calcified atherosclerosis
-Outpatient PCP follow-up
10 mm solid pulmonary nodule in the left lower lobe
-Will need fairly close outpatient pulmonary evaluation; consider a chest CT in 3 months, PET/CT, or tissue sampling per Fleischner Society guidelines.
Parastomal hernia
13 cm midline anterior pelvic wall hernia.
Uterine fibroid
Severe osteoarthrosis of the right hip
PT/OT appreciated SNF rehab
DVT Prophylaxis: Lovenox
Code Status: Full
Discussed with patient and patient's daughter Stephie
I spent a total of 45 minutes with the patient or on the floor. More than 50% of this time involved counseling and coordination of care.
Anticipated Discharge: 24 - 48 hours
Subjective/Interval History
-
Date of Service: April 08, 2024
no acute distress. Reports some improvement in pain though still requiring prn dilaudid.
Objective Data
-
Vital Signs:
Vital Signs
Temp Pulse Resp BP Pulse Ox
98.2 F 93 14 119/59 98
04/07/24 23:17 04/07/24 23:17 04/07/24 23:17 04/07/24 23:17 04/07/24 23:17
I&O
04/07/24 04/08/24 04/09/24
06:59 06:59 06:59
Intake Total 1070 / 1070
Output Total 1180 / 1180 450 / 450
Balance -110 / -110 -450 / -450
[2024-04-08 07:25] VITALS: BP 161/70
[2024-04-08] MEDS: NON-FORMULARY ITEM 150 MCG BUCCAL ×3 (08:18→17:22)
[2024-04-08] MEDS: PROTONIX 40 MG PO (08:20)
[2024-04-08] MEDS: COLACE 100 MG PO ×2 (08:20→22:14)
[2024-04-08] MEDS: MIRALAX 17 GRAMS PO ×2 (08:20→22:14)
[2024-04-08] MEDS: COZAAR 25 MG PO (08:20)
[2024-04-08] MEDS: LIDOCAINE 4% PATCH 1 PATCH TOPICAL (08:20)
[2024-04-08] MEDS: NEURONTIN 300 MG PO ×3 (08:20→22:14)
[2024-04-08] MEDS: JANUVIA 100 MG PO (08:20)
[2024-04-08] MEDS: DAKIN'S SOLUTION 0.125% 1/4 STRENGTH 473 ML TOPICAL (08:21)
[2024-04-08] MEDS: NOVOLOG FLEXPEN-LOW RESISTANCE 1 UNITS SC ×2 (08:21→17:23)
[2024-04-08] MEDS: DESENEX/MITRAZOL/ZEASORB 1 APPLIC TOPICAL ×2 (08:21→22:21)
[2024-04-08 08:22] LABS: Glucose - Point of Care 170 mg/dl (70-99)
[2024-04-08] MEDS: DILAUDID 0.5 MG IV ×4 (08:24→22:26)
[2024-04-08] MEDS: FLUSH (NSS) 2 FLUSH IV ×3 (08:25→18:07)
[2024-04-08] MEDS: LASIX 40 MG PO (08:39)
[2024-04-08] MEDS: PROCARDIA XL (EXTENDED RELEASE) 60 MG PO (08:40)
[2024-04-08 13:27] LABS: Glucose - Point of Care 248 mg/dl (70-99)
[2024-04-08] MEDS: NOVOLOG FLEXPEN-LOW RESISTANCE 2 UNITS SC (13:27)
[2024-04-08 15:15] VITALS: BP 117/53
[2024-04-08 17:20] LABS: Glucose - Point of Care 194 mg/dl (70-99)
[2024-04-08] MEDS: LOVENOX 40 MG SC (17:21)
[2024-04-08 21:48] LABS: Glucose - Point of Care 241 mg/dl (70-99)
[2024-04-08] MEDS: NON-FORMULARY ITEM 1 MCG BUCCAL (22:15)
[2024-04-08 23:26] VITALS: BP 144/67
[2024-04-09] MEDS: DILAUDID 0.5 MG IV (02:27)
[2024-04-09 05:45] VITALS: BMI 27.4
--- NOTE | 2024-04-09 06:45 | W.PN.HOSP.TC ---
Today's Communication/Plan
-
cont pain control
PO Dilaudid prn mod severe pain, IV Dilaudid for severe breakthrough pain
Lidocaine patch right thigh
low dose baclofen
PT/OT
glycemic control
discharge planning
Assessment / Plan
Assessment / Plan
Physical Exam
General: no acute distress, appears comfortable at this time
HEENT: Moist mucous membranes
Respiratory: Clear to Auscultation Bilaterally
Cardiac: S1/S2 and Regular Rhythm
GI: Soft, Non Tender, Non Distended and Normal Bowel Sounds
Musculoskeletal: No Cyanosis or edema, right thigh tenderness
Skin: Sacral wound.
Neuro: AOx3

Assessment/Plan
Sepsis UTI (white count elevation, fever)
Hx Colonization with ESBL
urine cx however noted pansensitive E. coli
ID eval appreciated completed adequate course Zosyn since completed
Large Chronic Sacral Wound
Chronic Underlying Osteomyelitis associated with sacral wound
Back Pain Suspected from Osteomyelitis vs UTI
Chronic insufficiency fractures with bands of sclerosis in the bilateral iliac bones and sacrum as on CT Imaging report
- Wound Care eval appreciated
- General Surgery consult appreciated no surgical indication for debridement Local wound care ordered with 1/4 strength dakins soaked Kerlix gauze to wound bed with overlying pad/Mepilex dressing
-ID eval appreciated no evidence acute infection sacral wound, wound cx expected polymicrobial cont local wound care no indication for systemic abx with regards to sacral wound
- Home pain regimen Belbuca continued, IV dilaudid prn
MRSA pos in wound culture and screen
-maintain contact precautions.
Moderate Stool [place]
- Miralax and Docusate
Chronic Pain Syndrome
Chronic Pain with Opioid Dependence
Sciatica Right leg shooting pain on ambulation
Possible Muscle cramping spasticity also contributing
- Continue home Belbuca Gabapentin
- PO Dilaudid prn mod severe pain, IV dilaudid for severe breakthrough pain
-Lidocaine patch right thigh
- low dose baclofen
Chr Ousmane Edema / CHF
- Lasix 40mg daily
- Follow I/Os, daily weights, etc.
- Follow for changes in renal function with diuresis.
- No DVT on lower extremity ultrasound
-Farxiga discontinued due to hx frequent UTIs, risk seems to outweigh benefit at this time
Benign Hypertension
- Continue home med regimen with holding parameters.
COPD without Acute Exacerbation
- Stable.
- Continue inhaled medications / DuoNebs PRN.
Moderate left hydroureteronephrosis -- chronic (was present on patient's January CT Imaging, but not reported)
Neurogenic Bladder
Recent Urinary Retention from Recent Hospitalization
Solitary Kidney s/p Nephrectomy (RCC)
- Follow bladder scan and straight cath as needed.
- Continue Dial Catheter
- Patient chronically requires catheterization.
- Urology consulted at the time of admission, no intervention needed
-patient notes difficulty with self catherization prior to admission. Would plan to discharge with Dial and outpatient follow up with her urologist.
History of Rectal Cancer with radiation in the past and with chronic colostomy
Ostomy Status
- Wound Care / ostomy management.
History of chronic heart failure
-Daily weights
-I's and O's
Diabetes mellitus
-Diagnosed on recent hospitalization, A1c 8.1% repeat Ai1c however notes improvement 5.9 non-diabetic range (though this seems too good to be true given relative short time frame and FS values seen here so far)
-cont Sliding Scale Insulin for now
-Farxiga discontinued due to hx frequent UTI's, risk appears to outweigh benefits at this time
-cont Januvia
-repeat A1c in 3 months
-diabetic education
Normocytic Anemia, suspected from chronic disease
Gastroesophageal reflux disease.
Anxiety.
History of Hypomagnesemia
-Monitor electrolytes and magnesium
Compression screw and intramedullary ronan traversing and impacted intertrochanteric fracture of the right femur with incomplete osseous union
-During recent admission here, hospitalist discussed with Dr. Nichols who recommended, poor candidate for revision
Splenomegaly on CT Imaging
3.1 cm infrarenal abdominal aortic aneurysm
Severe aortoiliac calcified atherosclerosis
-Outpatient PCP follow-up
10 mm solid pulmonary nodule in the left lower lobe
-Will need fairly close outpatient pulmonary evaluation; consider a chest CT in 3 months, PET/CT, or tissue sampling per Fleischner Society guidelines.
Parastomal hernia
13 cm midline anterior pelvic wall hernia.
Uterine fibroid
Severe osteoarthrosis of the right hip
PT/OT appreciated SNF rehab
DVT Prophylaxis: Lovenox
Code Status: Full
Discussed with patient and patient's daughter Stephie
I spent a total of 45 minutes with the patient or on the floor. More than 50% of this time involved counseling and coordination of care.
Anticipated Discharge: 24 - 48 hours
Subjective/Interval History
-
Date of Service: April 09, 2024
no acute distress. Pain control improving. Notes RLE pain associated with stiffness, possible muscle cramping.
Objective Data
-
Vital Signs:
Vital Signs
Temp Pulse Resp BP Pulse Ox
98.9 F 93 16 144/67 95
04/08/24 23:26 04/08/24 23:26 04/08/24 23:26 04/08/24 23:26 04/08/24 23:26
I&O
04/07/24 04/08/24 04/09/24
06:59 06:59 06:59
Intake Total 1070 / 1070 1380 / 1380
Output Total 1180 / 1180 450 / 450 650 / 650
Balance -110 / -110 -450 / -450 730 / 757
--- NOTE | 2024-04-09 06:55 | PTCARENOTE ---
Colostomy appliance changed this shift.
[2024-04-09 07:52] VITALS: BP 135/60
[2024-04-09 07:52] LABS: Glucose - Point of Care 167 mg/dl (70-99)
[2024-04-09] MEDS: PROTONIX 40 MG PO (08:43)
[2024-04-09] MEDS: JANUVIA 100 MG PO (08:43)
[2024-04-09] MEDS: LASIX 40 MG PO (08:43)
[2024-04-09] MEDS: COLACE 100 MG PO ×2 (08:44→20:46)
[2024-04-09] MEDS: NEURONTIN 300 MG PO ×3 (08:44→23:00)
[2024-04-09] MEDS: PROCARDIA XL (EXTENDED RELEASE) 60 MG PO (08:44)
[2024-04-09] MEDS: NON-FORMULARY ITEM 150 MCG BUCCAL ×3 (08:45→17:44)
[2024-04-09] MEDS: LIDOCAINE 4% PATCH 1 PATCH TOPICAL ×2 (08:45→10:56)
[2024-04-09] MEDS: NOVOLOG FLEXPEN-LOW RESISTANCE 1 UNITS SC ×2 (08:46→12:47)
[2024-04-09] MEDS: COZAAR 25 MG PO (08:46)
[2024-04-09] MEDS: DAKIN'S SOLUTION 0.125% 1/4 STRENGTH 1 ML TOPICAL (08:47)
[2024-04-09] MEDS: DESENEX/MITRAZOL/ZEASORB 1 APPLIC TOPICAL ×2 (08:47→20:47)
[2024-04-09] MEDS: MIRALAX PO (08:47)
[2024-04-09] MEDS: LIORESAL 2.5 MG PO ×2 (10:56→20:45)
[2024-04-09 11:44] LABS: Glucose - Point of Care 174 mg/dl (70-99)
[2024-04-09] MEDS: DILAUDID 2 MG PO ×3 (12:54→23:54)
[2024-04-09 15:10] VITALS: BP 105/53
--- NOTE | 2024-04-09 15:24 | W.PN.ID1 ---
Date of Service
Date of Service: April 09, 2024
Today's Communication
ID service will no longer actively follow this patient please recall for further questions
Assessment / Plan
Possible UTI
Colonization with ESBL
- has completed an adequate course of zosyn
- stable for dc from ID perspective
chronic sacral wound with possible underlying osteomyelitis
- no evidence of acute infection on exam
- wound culture was done and expect it to remain polymicrobial - continue local wound care no indication for systemic antibiotics based on exam
Intertrigo
-topical therapy
ID service will no longer actively follow this patient please recall for further questions
Chief Complaint
-: UTI
Subjective / Review of Systems
afebrile
bp stable
no events overnight
Vital Signs / Physical Exam
Vital Signs
Vital Signs
Temp Pulse Resp BP Pulse Ox
98.7 F 100 17 105/53 93
04/09/24 15:10 04/09/24 15:10 04/09/24 15:10 04/09/24 15:10 04/09/24 15:10
Physical Exam
Constitutional: No Acute Distress
Cardiovascular: Regular Rate and S1/S2; Negative Murmur or Rub
Pulmonary: Clear and Symmetric; Negative Wheezes or Rales
Gastrointestinal: Soft, Non Tender, Non Distended and Normal Bowel Sounds
Skin: Warm and Dry; Negative Rash or Jaundice
Objective Data
Lab Data
Lab Results
04/07/24 08:52
04/07/24 08:52
ESR 83 mm/hour (0-20) H 04/04/24 09:13
Estimated Creat Clear 45 ml/min 04/07/24 08:52
Total Bilirubin 0.5 mg/dl (0.2-1.3) 04/04/24 09:13
AST 16 U/L (14-36) 04/04/24 09:13
ALT 13 U/L (0-35) 04/04/24 09:13
Alkaline Phosphatase 104 U/L (38-126) 04/04/24 09:13
C-Reactive Protein 257.40 mg/L (0.0-10.00) H 04/04/24 09:13
Most recent labs reviewed.
Micro Results:
04/04/24 09:25 Wound Culture - Final
Ulcer Pseudomonas aeruginosa
Staph aureus MRSA
Streptococcus species
Diptheroids
Gram Stain - Final
04/05/24 13:10 MRSA Screen - Final
Nose Staph aureus MRSA
04/04/24 13:19 Urine Culture - Final
Urine Escherichia coli
--- NOTE | 2024-04-09 16:30 | CM ---
Addendum entered by Alyssia Negron RN 04/12/24 15:57:
Reviewed the chart notes and attempted to reach out to [facility] to see if benefit for SNF is active in plan, offices closed.
Addendum entered by Aline Juarez RN 04/10/24 17:08:
Patient and family is agreeable to [facility]. Patient has [facility] as a secondary and they may authorize SNF stay if needed. CM will ask [facility] if they will accept [facility]. Referral sent via [facility].
Original Note:
Reviewed the chart notes and spoke with the patient and her daughter at the bedside. Discuss recommendation of SNF/rehab. Patient has uses all her Medicare days. Discussed options of home with [facility] services or private pay at a facility for room
and board. Patient's daughter to discuss with the patient's father. Daughter stated 'my dad can't take care of my mother and I don't know if he can be around her due to ongoing chemo therapy'. CM did discuss with patient and daughter facilities
that do not have MD beds and a few that do. CM continues to be available to patient/family and is monitoring medical plan for needs at discharge.
Plan: Discharge to SNF (private pay) or home with VN services.
[2024-04-09] MEDS: LOVENOX 40 MG SC (17:44)
[2024-04-09] MEDS: NOVOLOG FLEXPEN-LOW RESISTANCE 2 UNITS SC (17:45)
[2024-04-09 17:46] LABS: Glucose - Point of Care 205 mg/dl (70-99)
[2024-04-09] MEDS: MIRALAX 17 GRAMS PO (20:46)
[2024-04-09 21:06] LABS: Glucose - Point of Care 182 mg/dl (70-99)
[2024-04-09] MEDS: NON-FORMULARY ITEM 1 MCG BUCCAL (23:00)
[2024-04-09 23:32] VITALS: BP 149/59
[2024-04-10 05:27] VITALS: BMI 27.1
[2024-04-10] MEDS: DILAUDID 2 MG PO ×2 (05:31→13:09)
[2024-04-10 07:50] VITALS: BP 133/61
[2024-04-10 07:50] LABS: Glucose - Point of Care 209 mg/dl (70-99)
[2024-04-10] MEDS: NON-FORMULARY ITEM 150 MCG BUCCAL ×4 (08:16→23:15)
[2024-04-10] MEDS: COZAAR 25 MG PO (08:16)
[2024-04-10] MEDS: NOVOLOG FLEXPEN-LOW RESISTANCE 2 UNITS SC (08:16)
[2024-04-10] MEDS: LIORESAL 2.5 MG PO ×2 (08:17→21:22)
[2024-04-10] MEDS: PROCARDIA XL (EXTENDED RELEASE) 60 MG PO (08:18)
[2024-04-10] MEDS: JANUVIA 100 MG PO (08:18)
[2024-04-10] MEDS: COLACE 100 MG PO ×2 (08:18→21:22)
[2024-04-10] MEDS: PROTONIX 40 MG PO (08:18)
[2024-04-10] MEDS: LASIX 40 MG PO (08:18)
[2024-04-10] MEDS: NEURONTIN 300 MG PO ×3 (08:18→23:16)
[2024-04-10] MEDS: LIDOCAINE 4% PATCH 1 PATCH TOPICAL ×3 (08:19→15:16)
[2024-04-10] MEDS: DAKIN'S SOLUTION 0.125% 1/4 STRENGTH 1 ML TOPICAL (08:20)
[2024-04-10] MEDS: DESENEX/MITRAZOL/ZEASORB 1 APPLIC TOPICAL ×2 (08:20→21:26)
[2024-04-10] MEDS: MIRALAX PO ×2 (08:20→21:23)
--- NOTE | 2024-04-10 08:42 | W.PN.HOSP.TC ---
Today's Communication/Plan
-
Pain control
Bengay-like cream RLE added to pain regimen
cont PT/OT
discharge planning SNF rehab
Assessment / Plan
Assessment / Plan
Physical Exam
General: no acute distress, appears comfortable at this time
HEENT: Moist mucous membranes
Respiratory: Clear to Auscultation Bilaterally
Cardiac: S1/S2 and Regular Rhythm
GI: Soft, Non Tender, Non Distended and Normal Bowel Sounds
Musculoskeletal: No Cyanosis or edema, right thigh tenderness
Skin: Sacral wound.
Neuro: AOx3

Assessment/Plan
Sepsis UTI (white count elevation, fever)
Hx Colonization with ESBL
urine cx however noted pansensitive E. coli
ID eval appreciated completed adequate course Zosyn since completed
Large Chronic Sacral Wound
Chronic Underlying Osteomyelitis associated with sacral wound
Back Pain Suspected from Osteomyelitis vs UTI
Chronic insufficiency fractures with bands of sclerosis in the bilateral iliac bones and sacrum as on CT Imaging report
- Wound Care eval appreciated
- General Surgery consult appreciated no surgical indication for debridement Local wound care ordered with 1/4 strength dakins soaked Kerlix gauze to wound bed with overlying pad/Mepilex dressing
-ID eval appreciated no evidence acute infection sacral wound, wound cx expected polymicrobial cont local wound care no indication for systemic abx with regards to sacral wound
- Home pain regimen Belbuca continued, IV dilaudid prn
MRSA pos in wound culture and screen
-maintain contact precautions.
Moderate Stool [place]
- Miralax and Docusate
Chronic Pain Syndrome
Chronic Pain with Opioid Dependence
Sciatica Right leg shooting pain on ambulation
Possible Muscle cramping spasticity also contributing
- Continue home Belbuca Gabapentin
- PO Dilaudid prn mod severe pain, IV dilaudid for severe breakthrough pain
-Lidocaine patch right thigh and hip
- low dose baclofen
-bengay-like cream added
Chr Ousmane Edema / CHF
- Lasix 40mg daily
- Follow I/Os, daily weights, etc.
- Follow for changes in renal function with diuresis.
- No DVT on lower extremity ultrasound
-Farxiga discontinued due to hx frequent UTIs, risk seems to outweigh benefit at this time
Benign Hypertension
- Continue home med regimen with holding parameters.
COPD without Acute Exacerbation
- Stable.
- Continue inhaled medications / DuoNebs PRN.
Moderate left hydroureteronephrosis -- chronic (was present on patient's January CT Imaging, but not reported)
Neurogenic Bladder
Recent Urinary Retention from Recent Hospitalization
Solitary Kidney s/p Nephrectomy (RCC)
- Follow bladder scan and straight cath as needed.
- Continue Dial Catheter
- Patient chronically requires catheterization.
- Urology consulted at the time of admission, no intervention needed
-patient notes difficulty with self catherization prior to admission. Would plan to discharge with Dial and outpatient follow up with her urologist.
History of Rectal Cancer with radiation in the past and with chronic colostomy
Ostomy Status
- Wound Care / ostomy management.
History of chronic heart failure
-Daily weights
-I's and O's
Diabetes mellitus
-Diagnosed on recent hospitalization, A1c 8.1% repeat Ai1c however notes improvement 5.9 non-diabetic range (though this seems too good to be true given relative short time frame and FS values seen here so far)
-cont Sliding Scale Insulin for now
-Farxiga discontinued due to hx frequent UTI's, risk appears to outweigh benefits at this time
-cont Januvia
-repeat A1c in 3 months
-diabetic education
Normocytic Anemia, suspected from chronic disease
Gastroesophageal reflux disease.
Anxiety.
History of Hypomagnesemia
-Monitor electrolytes and magnesium
Compression screw and intramedullary ronan traversing and impacted intertrochanteric fracture of the right femur with incomplete osseous union
-During recent admission here, hospitalist discussed with Dr. Nichols who recommended, poor candidate for revision
Splenomegaly on CT Imaging
3.1 cm infrarenal abdominal aortic aneurysm
Severe aortoiliac calcified atherosclerosis
-Outpatient PCP follow-up
10 mm solid pulmonary nodule in the left lower lobe
-Will need fairly close outpatient pulmonary evaluation; consider a chest CT in 3 months, PET/CT, or tissue sampling per Fleischner Society guidelines.
Parastomal hernia
13 cm midline anterior pelvic wall hernia.
Uterine fibroid
Severe osteoarthrosis of the right hip
PT/OT appreciated SNF rehab
DVT Prophylaxis: Lovenox
Code Status: Full
Discussed with patient, patient's Fede, and patient's daughter Stephie
I spent a total of 40 minutes with the patient or on the floor. More than 50% of this time involved counseling and coordination of care.
Anticipated Discharge: 24 - 48 hours
Subjective/Interval History
-
Date of Service: April 10, 2024
Some improvement pain control noted. Has not required IV dilaudid with PO dilaudid available as needed.
Objective Data
-
Vital Signs:
Vital Signs
Temp Pulse Resp BP Pulse Ox
97.9 F 92 18 133/61 95
04/10/24 07:50 04/10/24 08:16 04/10/24 07:50 04/10/24 08:16 04/10/24 07:50
I&O
04/09/24 04/10/24 04/11/24
06:59 06:59 06:59
Intake Total 1380 / 1380 1380 / 1380
Output Total 650 / 650 455 / 455
Balance 730 / 730 925 / 925
[2024-04-10 12:36] VITALS: BP 119/54
[2024-04-10 12:40] VITALS: BP 119/54; PULSE 101
[2024-04-10 13:03] LABS: Glucose - Point of Care 170 mg/dl (70-99)
[2024-04-10] MEDS: NOVOLOG FLEXPEN-LOW RESISTANCE 1 UNITS SC ×2 (13:10→17:18)
[2024-04-10 15:44] VITALS: BP 109/72
--- NOTE | 2024-04-10 16:25 | PTCARENOTE ---
I met with Rosa to review basic diabetes management and blood glucose monitoring. Currently her A1c was 5.9 % and she was started on Januvia, 100 mg daily. We discussed pre-diabetes and type 2 diabetes and nutrition. She is currently experiencing
pain in her right leg and hip and is only able to walk with PT assistance. She was unaware if she will be going home or to another rehab facility. I explained how to set up and use the [employer] glucometer and Rosa was able to obtain a
fingerstick glucose with my assistance. Her blood sugar within 1 hour of eating was 148 mg/dL. We reviewed a monitoring schedule of fasting and 2 hours post meals. Reinforcement will be needed in order for her to monitor her blood glucose alone.
[2024-04-10 16:52] LABS: Glucose - Point of Care 195 mg/dl (70-99)
[2024-04-10] MEDS: LOVENOX 40 MG SC (17:16)
[2024-04-10] MEDS: BenGay-Like 1 APPLIC TOPICAL ×2 (17:16→23:16)
[2024-04-10 21:03] LABS: Glucose - Point of Care 210 mg/dl (70-99)
[2024-04-10 23:51] VITALS: BP 134/53
[2024-04-11] MEDS: DILAUDID 2 MG PO ×4 (01:56→20:41)
[2024-04-11 06:00] VITALS: BMI 27.0
[2024-04-11 07:00] VITALS: BP 154/66
[2024-04-11 07:52] LABS: Glucose - Point of Care 164 mg/dl (70-99)
[2024-04-11] MEDS: NOVOLOG FLEXPEN-LOW RESISTANCE 1 UNITS SC (09:19)
[2024-04-11] MEDS: LIORESAL 2.5 MG PO ×2 (09:21→20:39)
[2024-04-11] MEDS: PROCARDIA XL (EXTENDED RELEASE) 60 MG PO (09:22)
[2024-04-11] MEDS: NEURONTIN 300 MG PO ×3 (09:22→21:48)
[2024-04-11] MEDS: COLACE 100 MG PO ×2 (09:22→20:39)
[2024-04-11] MEDS: LASIX 40 MG PO (09:22)
[2024-04-11] MEDS: PROTONIX 40 MG PO (09:22)
[2024-04-11] MEDS: JANUVIA 100 MG PO (09:22)
[2024-04-11] MEDS: LIDOCAINE 4% PATCH 1 PATCH TOPICAL ×3 (09:23→09:24)
[2024-04-11] MEDS: COZAAR 25 MG PO (09:23)
[2024-04-11] MEDS: MIRALAX PO ×2 (09:25→20:43)
[2024-04-11] MEDS: NON-FORMULARY ITEM 150 MCG BUCCAL ×4 (09:31→21:48)
[2024-04-11] MEDS: DAKIN'S SOLUTION 0.125% 1/4 STRENGTH 473 ML TOPICAL (09:33)
[2024-04-11] MEDS: DESENEX/MITRAZOL/ZEASORB 1 APPLIC TOPICAL ×2 (09:33→20:42)
[2024-04-11] MEDS: BenGay-Like 1 APPLIC TOPICAL ×3 (09:33→17:28)
[2024-04-11 11:33] LABS: Glucose - Point of Care 224 mg/dl (70-99)
--- NOTE | 2024-04-11 12:18 | W.PN.HOSP.TC ---
Today's Communication/Plan
-
cont pain control
PT/OT
wound care
discharge planning SNF rehab
Assessment / Plan
Assessment / Plan
Physical Exam
General: no acute distress, appears comfortable at this time
HEENT: Moist mucous membranes
Respiratory: Clear to Auscultation Bilaterally
Cardiac: S1/S2 and Regular Rhythm
GI: Soft, Non Tender, Non Distended and Normal Bowel Sounds
Musculoskeletal: No Cyanosis or edema, right thigh tenderness
Skin: Sacral wound.
Neuro: AOx3

Assessment/Plan
Sepsis UTI (white count elevation, fever)
Hx Colonization with ESBL
urine cx however noted pansensitive E. coli
ID eval appreciated completed adequate course Zosyn since completed
Large Chronic Sacral Wound
Chronic Underlying Osteomyelitis associated with sacral wound
Back Pain Suspected from Osteomyelitis vs UTI
Chronic insufficiency fractures with bands of sclerosis in the bilateral iliac bones and sacrum as on CT Imaging report
- Wound Care eval appreciated
- General Surgery consult appreciated no surgical indication for debridement Local wound care ordered with 1/4 strength dakins soaked Kerlix gauze to wound bed with overlying pad/Mepilex dressing
-ID eval appreciated no evidence acute infection sacral wound, wound cx expected polymicrobial cont local wound care no indication for systemic abx with regards to sacral wound
- Home pain regimen Belbuca continued, IV dilaudid prn
MRSA pos in wound culture and screen
-maintain contact precautions.
Moderate Stool [place]
- Miralax and Docusate
Chronic Pain Syndrome
Chronic Pain with Opioid Dependence
Sciatica Right leg shooting pain on ambulation
Possible Muscle cramping spasticity also contributing
- Continue home Belbuca Gabapentin
- PO Dilaudid prn mod severe pain, IV dilaudid for severe breakthrough pain
-Lidocaine patch right thigh and hip
- low dose baclofen
-bengay-like cream added
Chr Ousmane Edema / CHF
- Lasix 40mg daily
- Follow I/Os, daily weights, etc.
- Follow for changes in renal function with diuresis.
- No DVT on lower extremity ultrasound
-Farxiga discontinued due to hx frequent UTIs, risk seems to outweigh benefit at this time
Benign Hypertension
- Continue home med regimen with holding parameters.
COPD without Acute Exacerbation
- Stable.
- Continue inhaled medications / DuoNebs PRN.
Moderate left hydroureteronephrosis -- chronic (was present on patient's January CT Imaging, but not reported)
Neurogenic Bladder
Recent Urinary Retention from Recent Hospitalization
Solitary Kidney s/p Nephrectomy (RCC)
- Follow bladder scan and straight cath as needed.
- Continue Dial Catheter
- Patient chronically requires catheterization.
- Urology consulted at the time of admission, no intervention needed
-patient notes difficulty with self catherization prior to admission. Would plan to discharge with Dial and outpatient follow up with her urologist.
History of Rectal Cancer with radiation in the past and with chronic colostomy
Ostomy Status
- Wound Care / ostomy management.
History of chronic heart failure
-Daily weights
-I's and O's
Diabetes mellitus
-Diagnosed on recent hospitalization, A1c 8.1% repeat Ai1c however notes improvement 5.9 non-diabetic range (though this seems too good to be true given relative short time frame and fasting glucose values consistently in line with diabetes >126)
-cont Sliding Scale Insulin for now
-Farxiga discontinued due to hx frequent UTI's, risk appears to outweigh benefits at this time
-cont Januvia
-repeat A1c in 3 months
-diabetic education
Normocytic Anemia, suspected from chronic disease
Gastroesophageal reflux disease.
Anxiety.
History of Hypomagnesemia
-Monitor electrolytes and magnesium
Compression screw and intramedullary ronan traversing and impacted intertrochanteric fracture of the right femur with incomplete osseous union
-During recent admission here, hospitalist discussed with Dr. Nichols who recommended, poor candidate for revision
Splenomegaly on CT Imaging
3.1 cm infrarenal abdominal aortic aneurysm
Severe aortoiliac calcified atherosclerosis
-Outpatient PCP follow-up
10 mm solid pulmonary nodule in the left lower lobe
-Will need fairly close outpatient pulmonary evaluation; consider a chest CT in 3 months, PET/CT, or tissue sampling per Fleischner Society guidelines.
Parastomal hernia
13 cm midline anterior pelvic wall hernia.
Uterine fibroid
Severe osteoarthrosis of the right hip
PT/OT appreciated SNF rehab
DVT Prophylaxis: Lovenox
Code Status: Full
Discussed with patient and patient's Fede
I spent a total of 40 minutes with the patient or on the floor. More than 50% of this time involved counseling and coordination of care.
Anticipated Discharge: 24 - 48 hours
Subjective/Interval History
-
Date of Service: April 11, 2024
No acute distress. notes some improvement in RLE pain. Denies new acute issues.
Objective Data
-
Vital Signs:
Vital Signs
Temp Pulse Resp BP Pulse Ox
98.8 F 84 18 154/66 92
04/11/24 07:00 04/11/24 07:00 04/11/24 07:00 04/11/24 07:00 04/11/24 07:00
I&O
04/10/24 04/11/24 04/12/24
06:59 06:59 06:59
Intake Total 1380 / 1380 900 / 900 240 / 240
Output Total 455 / 455 1355 / 1355 450 / 450
Balance 925 / 925 -455 / -455 -210 / -210
[2024-04-11] MEDS: NOVOLOG FLEXPEN-LOW RESISTANCE 2 UNITS SC ×2 (12:49→17:23)
[2024-04-11 15:45] VITALS: BP 123/63
--- NOTE | 2024-04-11 16:22 | PTCARENOTE ---
pt tolearting getting OOB x2 with RW, pain medicine given prior to wound change and transfer.
[2024-04-11 16:36] LABS: Glucose - Point of Care 223 mg/dl (70-99)
[2024-04-11] MEDS: LOVENOX 40 MG SC (17:23)
[2024-04-11 21:30] LABS: Glucose - Point of Care 164 mg/dl (70-99)
[2024-04-11] MEDS: BenGay-Like TOPICAL (21:48)
[2024-04-11 23:30] VITALS: BP 117/60
[2024-04-12] MEDS: DILAUDID 2 MG PO ×3 (01:21→20:57)
[2024-04-12 06:00] VITALS: BMI 26.7
--- NOTE | 2024-04-12 06:22 | W.PN.HOSP.TC ---
Today's Communication/Plan
-
Discharge planning SNF rehab
duloxetine 20 mg daily started for neuropathy pain
cont pain control
PT/OT
Assessment / Plan
Assessment / Plan
Physical Exam
General: no acute distress, appears comfortable at this time
HEENT: Moist mucous membranes
Respiratory: Clear to Auscultation Bilaterally
Cardiac: S1/S2 and Regular Rhythm
GI: Soft, Non Tender, Non Distended and Normal Bowel Sounds
Musculoskeletal: No Cyanosis or edema, right thigh tenderness
Skin: Sacral wound.
Neuro: AOx3

Assessment/Plan
Sepsis UTI (white count elevation, fever)
Hx Colonization with ESBL
urine cx however noted pansensitive E. coli
ID eval appreciated completed adequate course Zosyn since completed
Large Chronic Sacral Wound
Chronic Underlying Osteomyelitis associated with sacral wound
Back Pain Suspected from Osteomyelitis vs UTI
Chronic insufficiency fractures with bands of sclerosis in the bilateral iliac bones and sacrum as on CT Imaging report
- Wound Care eval appreciated
- General Surgery consult appreciated no surgical indication for debridement Local wound care ordered with 1/4 strength dakins soaked Kerlix gauze to wound bed with overlying pad/Mepilex dressing
-ID eval appreciated no evidence acute infection sacral wound, wound cx expected polymicrobial cont local wound care no indication for systemic abx with regards to sacral wound
- Home pain regimen Belbuca continued, IV dilaudid prn
MRSA pos in wound culture and screen
-maintain contact precautions.
Moderate Stool [place]
- Miralax and Docusate
Chronic Pain Syndrome
Chronic Pain with Opioid Dependence
Sciatica Right leg shooting pain on ambulation
Possible Muscle cramping spasticity also contributing
- Continue home Belbuca Gabapentin
- PO Dilaudid prn mod severe pain, IV dilaudid for severe breakthrough pain
-Lidocaine patch right thigh and hip
- low dose baclofen 2.5 mg BID
-bengay-like cream added
-Duloxetine 20 mg daily started
Chr Ousmane Edema / CHF
- Lasix 40mg daily
- Follow I/Os, daily weights, etc.
- Follow for changes in renal function with diuresis.
- No DVT on lower extremity ultrasound
-Farxiga discontinued due to hx frequent UTIs, risk seems to outweigh benefit at this time
Benign Hypertension
- Continue home med regimen with holding parameters.
COPD without Acute Exacerbation
- Stable.
- Continue inhaled medications / DuoNebs PRN.
Moderate left hydroureteronephrosis -- chronic (was present on patient's January CT Imaging, but not reported)
Neurogenic Bladder
Recent Urinary Retention from Recent Hospitalization
Solitary Kidney s/p Nephrectomy (RCC)
- Follow bladder scan and straight cath as needed.
- Continue Dial Catheter
- Patient chronically requires catheterization.
- Urology consulted at the time of admission, no intervention needed
-patient notes difficulty with self catherization prior to admission. Would plan to discharge with Dial and outpatient follow up with her urologist.
History of Rectal Cancer with radiation in the past and with chronic colostomy
Ostomy Status
- Wound Care / ostomy management.
History of chronic heart failure
-Daily weights
-I's and O's
Diabetes mellitus
-Diagnosed on recent hospitalization, A1c 8.1% repeat Ai1c however notes improvement 5.9 non-diabetic range (though this seems too good to be true given relative short time frame and fasting glucose values consistently in line with diabetes >126)
-cont Sliding Scale Insulin for now
-Farxiga discontinued due to hx frequent UTI's, risk appears to outweigh benefits at this time
-cont Januvia
-repeat A1c in 3 months
-diabetic education
Normocytic Anemia, suspected from chronic disease
Gastroesophageal reflux disease.
Anxiety.
History of Hypomagnesemia
-Monitor electrolytes and magnesium
Compression screw and intramedullary ronan traversing and impacted intertrochanteric fracture of the right femur with incomplete osseous union
-During recent admission here, hospitalist discussed with Dr. Nichols who recommended, poor candidate for revision
Splenomegaly on CT Imaging
3.1 cm infrarenal abdominal aortic aneurysm
Severe aortoiliac calcified atherosclerosis
-Outpatient PCP follow-up
10 mm solid pulmonary nodule in the left lower lobe
-Will need fairly close outpatient pulmonary evaluation; consider a chest CT in 3 months, PET/CT, or tissue sampling per Fleischner Society guidelines.
Parastomal hernia
13 cm midline anterior pelvic wall hernia.
Uterine fibroid
Severe osteoarthrosis of the right hip
PT/OT appreciated SNF rehab
DVT Prophylaxis: Lovenox
Code Status: Full
Discussed with patient and patient's Fede
I spent a total of 40 minutes with the patient or on the floor. More than 50% of this time involved counseling and coordination of care.
Anticipated Discharge: Within 24 hours
Subjective/Interval History
-
Date of Service: April 12, 2024
No acute distress, appears comfortable at rest. Right lower ext shooting pain persist.
Objective Data
-
Vital Signs:
Vital Signs
Temp Pulse Resp BP Pulse Ox
98.6 F 107 16 117/60 94
04/11/24 23:30 04/11/24 23:30 04/11/24 23:30 04/11/24 23:30 04/11/24 23:30
I&O
04/10/24 04/11/24 04/12/24
06:59 06:59 06:59
Intake Total 1380 / 1380 900 / 900 240 / 240
Output Total 455 / 455 1355 / 1355 1150 / 1150
Balance 925 / 925 -455 / -455 -910 / -910
[2024-04-12 07:12] LABS: Glucose - Point of Care 158 mg/dl (70-99)
[2024-04-12 07:20] VITALS: BP 147/72
[2024-04-12] MEDS: NON-FORMULARY ITEM 150 MCG BUCCAL ×4 (08:49→21:05)
[2024-04-12] MEDS: NEURONTIN 300 MG PO ×3 (08:50→20:57)
[2024-04-12] MEDS: LASIX 40 MG PO (08:50)
[2024-04-12] MEDS: COZAAR 25 MG PO (08:50)
[2024-04-12] MEDS: PROTONIX 40 MG PO (08:50)
[2024-04-12] MEDS: LIORESAL 2.5 MG PO ×2 (08:50→21:08)
[2024-04-12] MEDS: COLACE 100 MG PO ×2 (08:50→20:57)
[2024-04-12] MEDS: JANUVIA 100 MG PO (08:50)
[2024-04-12] MEDS: PROCARDIA XL (EXTENDED RELEASE) 60 MG PO (08:50)
[2024-04-12] MEDS: BenGay-Like 1 APPLIC TOPICAL ×4 (08:51→22:33)
[2024-04-12] MEDS: NOVOLOG FLEXPEN-LOW RESISTANCE 1 UNITS SC (08:51)
[2024-04-12] MEDS: LIDOCAINE 4% PATCH 1 PATCH TOPICAL ×3 (08:52→08:53)
[2024-04-12] MEDS: DESENEX/MITRAZOL/ZEASORB 1 APPLIC TOPICAL ×2 (08:52→21:09)
[2024-04-12] MEDS: MIRALAX PO ×3 (08:54→21:00)
[2024-04-12 12:06] LABS: Glucose - Point of Care 256 mg/dl (70-99)
[2024-04-12] MEDS: CYMBALTA DELAYED RELEASE 20 MG PO (13:00)
[2024-04-12] MEDS: DAKIN'S SOLUTION 0.125% 1/4 STRENGTH 473 ML TOPICAL (13:00)
[2024-04-12] MEDS: NOVOLOG FLEXPEN-LOW RESISTANCE 3 UNITS SC (13:02)
[2024-04-12] MEDS: DILAUDID 0.5 MG IV ×2 (15:03→21:57)
[2024-04-12 15:20] VITALS: BP 101/58
[2024-04-12 15:25] VITALS: BP 101/58
--- NOTE | 2024-04-12 15:59 | CM ---
Reviewed the chart notes. Attempt to contact [facility] to review possible benefits for SNF. Offices are closed.
[2024-04-12 16:38] LABS: Glucose - Point of Care 232 mg/dl (70-99)
[2024-04-12] MEDS: LOVENOX 40 MG SC (17:00)
[2024-04-12] MEDS: NOVOLOG FLEXPEN-LOW RESISTANCE 2 UNITS SC (17:49)
[2024-04-12 21:05] LABS: Glucose - Point of Care 155 mg/dl (70-99)
[2024-04-12 23:00] VITALS: BP 108/54
[2024-04-13] MEDS: DILAUDID 2 MG PO ×4 (05:14→22:54)
--- NOTE | 2024-04-13 06:32 | W.PN.HOSP.TC ---
Today's Communication/Plan
-
pain control
extra lidocaine patch for back ordered
Baclofen increased to 5 mg BID
K-pad back
PT/OT
Discharge planning SNF rehab
Assessment / Plan
Assessment / Plan
Physical Exam
General: no acute distress, appears comfortable at this time
HEENT: Moist mucous membranes
Respiratory: Clear to Auscultation Bilaterally
Cardiac: S1/S2 and Regular Rhythm
GI: Soft, Non Tender, Non Distended and Normal Bowel Sounds
Musculoskeletal: No Cyanosis or edema, right thigh tenderness
Skin: Sacral wound.
Neuro: AOx3

Assessment/Plan
Sepsis UTI (white count elevation, fever)
Hx Colonization with ESBL
urine cx however noted pansensitive E. coli
ID eval appreciated completed adequate course Zosyn since completed
Large Chronic Sacral Wound
Chronic Underlying Osteomyelitis associated with sacral wound
Back Pain Suspected from Osteomyelitis vs UTI
Chronic insufficiency fractures with bands of sclerosis in the bilateral iliac bones and sacrum as on CT Imaging report
- Wound Care eval appreciated
- General Surgery consult appreciated no surgical indication for debridement Local wound care ordered with 1/4 strength dakins soaked Kerlix gauze to wound bed with overlying pad/Mepilex dressing
-ID eval appreciated no evidence acute infection sacral wound, wound cx expected polymicrobial cont local wound care no indication for systemic abx with regards to sacral wound
- Home pain regimen Belbuca continued, IV dilaudid prn
MRSA pos in wound culture and screen
-maintain contact precautions.
Moderate Stool [place]
- Miralax and Docusate
Chronic Pain Syndrome
Chronic Pain with Opioid Dependence
Sciatica Right leg shooting pain on ambulation
Possible Muscle cramping spasticity also contributing
Acute worsening lower back pain overnight 04/13 unclear etiology labs repeated noted no acute abn's leukocytosis or ESTELLE, urinalysis suggestive UTI but recently completed broad spectrum abx no fever or dysuria
-K-pad ordered, holding off on repeating imaging for now as patient has had extensive imaging done recently, may need to reconsider if pain doesn't improve with conservative measures.
- Continue home Belbuca Gabapentin
- PO Dilaudid prn mod severe pain, IV dilaudid for severe breakthrough pain
-Lidocaine patch right thigh and hip (increased lidocaine patches back from 1 to 2)
- low dose baclofen 2.5 mg BID increased to 5 mg BID
-bengay-like cream started, cont
-Duloxetine 20 mg daily started, cont
Chr Ousmane Edema / CHF
- Lasix 40mg daily
- Follow I/Os, daily weights, etc.
- Follow for changes in renal function with diuresis.
- No DVT on lower extremity ultrasound
-Farxiga discontinued due to hx frequent UTIs, risk seems to outweigh benefit at this time
Benign Hypertension
- Continue home med regimen with holding parameters. Lasix Losartan Nifedipine
COPD without Acute Exacerbation
- Stable.
- Continue inhaled medications / DuoNebs PRN.
Moderate left hydroureteronephrosis -- chronic (was present on patient's January CT Imaging, but not reported)
Neurogenic Bladder
Recent Urinary Retention from Recent Hospitalization
Solitary Kidney s/p Nephrectomy (RCC)
- Follow bladder scan and straight cath as needed.
- Continue Dial Catheter
- Patient chronically requires catheterization.
- Urology consulted at the time of admission, no intervention needed
-patient notes difficulty with self catherization prior to admission. Would plan to discharge with Dial and outpatient follow up with her urologist.
History of Rectal Cancer with radiation in the past and with chronic colostomy
Ostomy Status
- Wound Care / ostomy management.
History of chronic heart failure
-Daily weights
-I's and O's
Diabetes mellitus
-Diagnosed on recent hospitalization, A1c 8.1% repeat Ai1c however notes improvement 5.9 non-diabetic range (though this seems too good to be true given relative short time frame and fasting glucose values consistently in line with diabetes >126)
-cont Sliding Scale Insulin for now
-Farxiga discontinued due to hx frequent UTI's, risk appears to outweigh benefits at this time
-cont Januvia
-repeat A1c in 3 months
-diabetic education
Normocytic Anemia, suspected from chronic disease
Gastroesophageal reflux disease.
Anxiety.
History of Hypomagnesemia
-Monitor electrolytes and magnesium
Compression screw and intramedullary ronan traversing and impacted intertrochanteric fracture of the right femur with incomplete osseous union
-During recent admission here, hospitalist discussed with Dr. Nichols who recommended, poor candidate for revision
Splenomegaly on CT Imaging
3.1 cm infrarenal abdominal aortic aneurysm
Severe aortoiliac calcified atherosclerosis
-Outpatient PCP follow-up
10 mm solid pulmonary nodule in the left lower lobe
-Will need fairly close outpatient pulmonary evaluation; consider a chest CT in 3 months, PET/CT, or tissue sampling per Fleischner Society guidelines.
Parastomal hernia
13 cm midline anterior pelvic wall hernia.
Uterine fibroid
Severe osteoarthrosis of the right hip
PT/OT appreciated SNF rehab
DVT Prophylaxis: Lovenox
Code Status: Full
Discussed with patient and patient's Fede
I spent a total of 50 minutes with the patient or on the floor. More than 50% of this time involved counseling and coordination of care.
Anticipated Discharge: 24 - 48 hours
Subjective/Interval History
-
Date of Service: April 13, 2024
Developed acute worsening back pain overnight required IV Dilaudid, severe breakthrough pain, for pain control. Patient is able to localize pain to lower back, centrally located, tenderness to palpation. No significant erythema discoloration or
wounds noted in the area..
Objective Data
-
Vital Signs:
Vital Signs
Temp Pulse Resp BP Pulse Ox
99.1 F 122 16 108/54 94
04/12/24 23:00 04/12/24 23:00 04/12/24 23:00 04/12/24 23:00 04/12/24 23:00
I&O
04/11/24 04/12/24 04/13/24
06:59 06:59 06:59
Intake Total 900 / 900 720 / 720 480 / 480
Output Total 1355 / 1355 1575 / 1575 1225 / 1225
Balance -455 / -455 -855 / -855 -745 / -745
[2024-04-13 07:41] VITALS: BP 144/69
[2024-04-13 07:41] LABS: Glucose - Point of Care 180 mg/dl (70-99)
[2024-04-13] MEDS: NOVOLOG FLEXPEN-LOW RESISTANCE 1 UNITS SC ×3 (08:49→17:34)
[2024-04-13] MEDS: NEURONTIN 300 MG PO ×3 (08:50→22:32)
[2024-04-13] MEDS: PROCARDIA XL (EXTENDED RELEASE) 60 MG PO (08:50)
[2024-04-13] MEDS: JANUVIA 100 MG PO (08:50)
[2024-04-13] MEDS: COLACE 100 MG PO (08:51)
[2024-04-13] MEDS: CYMBALTA DELAYED RELEASE 20 MG PO (08:51)
[2024-04-13] MEDS: LASIX 40 MG PO (08:51)
[2024-04-13] MEDS: LIORESAL 5 MG PO ×2 (08:51→20:26)
[2024-04-13] MEDS: COZAAR 25 MG PO (08:51)
[2024-04-13] MEDS: PROTONIX 40 MG PO (08:51)
[2024-04-13] MEDS: NON-FORMULARY ITEM 1 MCG BUCCAL ×3 (08:55→17:29)
[2024-04-13] MEDS: LIDOCAINE 4% PATCH 1 PATCH TOPICAL ×2 (08:55→08:56)
[2024-04-13] MEDS: LIDOCAINE 4% PATCH 2 PATCH TOPICAL (08:57)
[2024-04-13] MEDS: DESENEX/MITRAZOL/ZEASORB 1 APPLIC TOPICAL ×2 (09:05→20:27)
[2024-04-13] MEDS: DAKIN'S SOLUTION 0.125% 1/4 STRENGTH 473 ML TOPICAL (09:05)
[2024-04-13] MEDS: BenGay-Like 1 APPLIC TOPICAL ×3 (09:06→22:35)
[2024-04-13] MEDS: MIRALAX PO ×2 (09:07→20:28)
[2024-04-13 11:02] LABS: Blood Urea Nitrogen 29 mg/dl (7-17); Calcium 8.9 mg/dl (8.4-10.2); Carbon Dioxide 28 mmol/L (22-30); Chloride 94 mmol/L (98-107); Estimated Creatinine Clearance 49 ml/min; Glucose 149 mg/dl (70-99); Magnesium 1.9 mg/dl (1.6-2.3); Phosphorus 3.9 mg/dl (2.5-4.5); Potassium 4.5 mmol/L (3.5-5.1); Sodium 130 mmol/L (135-145); eGFR > 60.00
--- NOTE | 2024-04-13 11:50 | CM ---
Addendum entered by Alyssia Negron RN 04/13/24 16:46:
IMM on chart.
Addendum entered by Alyssia Negron RN 04/13/24 16:24:
[facility] accepting patient with [facility] insurance if auth obtainable. Auth started for 04/14/2024.
[facility] [employer] ([phone])
Clinicals faxed to: [phone]
Status check call: [phone]
Pended Ref # [id number]
[facility]
Dr. Marquis
Original Note:
Reviewed the chart notes and spoke with Ximena Immunology Teacher for [facility] regarding [facility] insurance. She will check with administration. CM spoke with Chel at [facility] and explained patient has exhausted her 100 days of Medicare coverage for SNF. Per
Chel, patient could try going under [employer] medical with [facility] ([phone]) for precert. There is a $250 deductible. Once met patient would be responsible for 20%. CM continues to be available to patient/family and is monitoring
medical plan for needs at discharge.
Plan: Discharge to SNF/rehab once bed secure and auth obtained.
[2024-04-13 11:51] LABS: Urine Albumin 1+ (Neg - Trace); Urine Bilirubin Negative (Negative); Urine Character Very Cloudy (Clear); Urine Color Yellow; Urine Glucose Negative (Negative); Urine Ketone Negative (Negative); Urine Leukocyte 2+ (Negative); Urine Nitrite Positive (Negative); Urine Occult Blood 2+ (Negative); Urine Specific Gravity 1.025 (<1.030); Urine Urobilinogen Negative (Neg - 1+)
[2024-04-13 11:58] LABS: Hematocrit 24.9 % (37.0-47.0); Hemoglobin 7.9 g/dL (12.0-16.0); Mean Corp Hgb Conc. 31.7 g/dL (33.0-37.0); Mean Corpuscular Hgb 28.3 pg (27.0-31.0); Mean Corpuscular Volume 89.2 fL (81.0-99.0); Mean Platelet Volume 8.5 fL (7.4-10.4); Platelet Count 289 10^3/uL (130-400); Red Blood Cell Count 2.79 10^6/uL (4.20-5.40); Red Cell Dist. Width 16.7 % (11.5-14.5); White Blood Cell Count 8.7 10^3/uL (4.8-10.8)
[2024-04-13 12:00] LABS: Glucose - Point of Care 169 mg/dl (70-99)
[2024-04-13 12:12] LABS: Urine Bacteria Moderate (Negative); Urine White Cell 40-50 /HPF (0-5)
[2024-04-13 16:00] VITALS: BP 108/69
[2024-04-13] MEDS: LOVENOX 40 MG SC (17:28)
[2024-04-13 17:36] LABS: Glucose - Point of Care 174 mg/dl (70-99)
[2024-04-13] MEDS: BenGay-Like TOPICAL (17:43)
[2024-04-13] MEDS: COLACE PO (20:29)
[2024-04-13 21:18] LABS: Glucose - Point of Care 171 mg/dl (70-99)
[2024-04-13] MEDS: NON-FORMULARY ITEM 150 MCG BUCCAL (22:31)
[2024-04-13 22:55] VITALS: BP 123/49
[2024-04-14 06:00] VITALS: BMI 27.3
[2024-04-14 07:18] VITALS: BP 134/68
[2024-04-14 08:46] LABS: Glucose - Point of Care 163 mg/dl (70-99)
--- NOTE | 2024-04-14 08:57 | W.PN.HOSP.TC ---
Today's Communication/Plan
-
Discharge planning
Case management alerted
Assessment / Plan
Assessment / Plan
78-year-old female slid and fell out of bed. In the ER she was found to have slightly elevated temperature and leukocytosis and sacral decubitus ulcer with foul-smelling drainage. Patient's Dial catheter had been removed prior to admission which
was replaced in the ER.
CVS: S1-S2 normal
Chest: CTA B/L
Abdomen: Soft, NT / Bowel sounds present
Extremities: No edema, normal pulses
#Sepsis UTI (white count elevation, fever)
Hx Colonization with ESBL
urine cx however noted pansensitive E. coli
ID eval appreciated completed adequate course Zosyn since completed
#Large Chronic Sacral Wound
Chronic Underlying Osteomyelitis associated with sacral wound
Back Pain Suspected from Osteomyelitis vs UTI
Chronic insufficiency fractures with bands of sclerosis in the bilateral iliac bones and sacrum as on CT Imaging report
Wound Care eval appreciated
General Surgery consult appreciated no surgical indication for debridement Local wound care ordered with 1/4 strength Dakins soaked Kerlix gauze to wound bed with overlying pad/Mepilex dressing
ID eval appreciated no evidence acute infection sacral wound, wound cx expected polymicrobial cont local wound care no indication for systemic abx with regards to sacral wound
Dr Mcmillan patient's plastic surgeon attempted flap/reconstruction with patient 09/2023 that unfortunately failed d/t necrosis
Home pain regimen Belbuca continued, IV Dilaudid prn
#MRSA pos in wound culture and screen-maintain contact precautions.
#Constipation- Moderate Stool [place]- Miralax and Docusate
#Chronic Pain Syndrome
Chronic Pain with Opioid Dependence
Sciatica Right leg shooting pain on ambulation
Possible Muscle cramping spasticity also contributing
Acute worsening lower back pain overnight 04/13 unclear etiology labs repeated noted no acute abn's leukocytosis or ESTELLE, urinalysis suggestive UTI but recently completed broad spectrum abx no fever or dysuria
K-pad ordered, holding off on repeating imaging for now as patient has had extensive imaging done recently, may need to reconsider if pain doesn't improve with conservative measures.
Continue home Belbuca Gabapentin
PO Dilaudid prn mod severe pain, IV Dilaudid for severe breakthrough pain
Lidocaine patch right thigh and hip (increased lidocaine patches back from 1 to 2)
Low dose baclofen 2.5 mg BID increased to 5 mg BID
Bengay-like cream started, cont
Duloxetine 20 mg daily started, cont
Her pain has mostly been controlled with p.o. Dilaudid, Neurontin and Belbuca. She does not want to start OxyContin or long-acting morphine.
#Chr Ousmane Edema /chronic HFpEF
Lasix 40mg daily
Follow I/Os, daily weights, etc.
No DVT on lower extremity ultrasound
Farxiga discontinued due to hx frequent UTIs, risk seems to outweigh benefit at this time
#Benign Hypertension - Continue home med regimen with holding parameters. Lasix Losartan Nifedipine
#COPD without Acute Exacerbation-Continue inhaled medications / DuoNebs PRN.
#Moderate left hydroureteronephrosis -- chronic (was present on patient's January CT Imaging, but not reported)
Neurogenic Bladder
Chronic radiation cystitis
Recent Urinary Retention from Recent Hospitalization
Solitary Kidney s/p Nephrectomy (RCC)
Continue Dial Catheter
Urology consulted at the time of admission, no intervention needed, Chronic left hydroureteronephrosis likely due to neurogenic bladder
Patient notes difficulty with self catherization prior to admission. Would plan to discharge with Dial and outpatient follow up with her urologist.
#Diabetes mellitus
Diagnosed on recent hospitalization, A1c 8.1% repeat Ai1c however notes improvement 5.9 non-diabetic range (though this seems too good to be true given relative short time frame and fasting glucose values consistently in line with diabetes >126)
cont Sliding Scale Insulin for now
Did not tolerate metformin
Farxiga discontinued due to hx frequent UTI's, risk appears to outweigh benefits at this time
Cont Januvia
Repeat A1c in 3 months
#Normocytic Anemia, suspected from chronic disease
#Gastroesophageal reflux disease /Hiatal hernia-continue PPI
#Hypertension-continue nifedipine 60 mg, losartan 25 mg daily
#History of Hypomagnesemia-Monitor electrolytes and magnesium
#Compression screw and intramedullary ronan traversing and impacted intertrochanteric fracture of the right femur with incomplete osseous union
-During recent admission here, hospitalist discussed with Dr. Nichols who recommended, poor candidate for revision
#Splenomegaly on CT Imaging
#3.1 cm infrarenal abdominal aortic aneurysm/atherosclerosis
#Severe aortoiliac calcified atherosclerosis
#10 mm solid pulmonary nodule in the left lower lobe-Will need fairly close outpatient pulmonary evaluation; consider a chest CT in 3 months, PET/CT, or tissue sampling per Fleischner Society guidelines.
#Parastomal hernia
#13 cm midline anterior pelvic wall hernia.
#Uterine fibroid
#Severe osteoarthrosis of the right hip
#Severe discogenic DJD L5-S1,Chronic mild inferior endplate compression fracture of L5
#History of rectal cancer status post APR with colostomy 1982 and had radiation
#History of right nephrectomy for renal cancer 1981
#Ambulatory Dysfunction-PT OT as appropriate
#Ex-smoker
#DVT Prophylaxis: Lovenox
#Code Status: Full
Discussed with nursing
Messaged case management regarding placement
Discussed with patient's on the phone in detail.
Anticipated Discharge: Today
Subjective/Interval History
-
Date of Service: April 14, 2024
Objective Data
-
Vital Signs:
Vital Signs
Temp Pulse Resp BP Pulse Ox
99.8 F 99 16 134/68 93
04/14/24 07:18 04/14/24 07:18 04/14/24 07:18 04/14/24 07:18 04/14/24 07:18
I&O
04/13/24 04/14/24 04/15/24
06:59 06:59 06:59
Intake Total 480 / 480 1260 / 1260
Output Total 1225 / 1225 1430 / 1430
Balance -745 / -745 -170 / -170
[2024-04-14] MEDS: NOVOLOG FLEXPEN-LOW RESISTANCE 1 UNITS SC (09:08)
[2024-04-14] MEDS: NON-FORMULARY ITEM 150 MCG BUCCAL ×4 (09:12→22:42)
[2024-04-14] MEDS: PROCARDIA XL (EXTENDED RELEASE) 60 MG PO (09:18)
[2024-04-14] MEDS: CYMBALTA DELAYED RELEASE 20 MG PO (09:18)
[2024-04-14] MEDS: LASIX 40 MG PO (09:18)
[2024-04-14] MEDS: MIRALAX 17 GRAMS PO (09:18)
[2024-04-14] MEDS: COZAAR 25 MG PO (09:19)
[2024-04-14] MEDS: COLACE 100 MG PO ×2 (09:19→20:18)
[2024-04-14] MEDS: PROTONIX 40 MG PO (09:19)
[2024-04-14] MEDS: LIORESAL 5 MG PO ×2 (09:19→20:24)
[2024-04-14] MEDS: JANUVIA 100 MG PO (09:19)
[2024-04-14] MEDS: NEURONTIN 300 MG PO ×3 (09:19→22:44)
[2024-04-14] MEDS: LIDOCAINE 4% PATCH 1 PATCH TOPICAL ×2 (09:20)
[2024-04-14] MEDS: LIDOCAINE 4% PATCH 2 PATCH TOPICAL (09:20)
[2024-04-14] MEDS: BenGay-Like 1 APPLIC TOPICAL ×4 (09:27→22:45)
[2024-04-14] MEDS: DESENEX/MITRAZOL/ZEASORB 1 APPLIC TOPICAL ×2 (09:28→20:21)
[2024-04-14] MEDS: DAKIN'S SOLUTION 0.125% 1/4 STRENGTH 473 ML TOPICAL (09:29)
--- NOTE | 2024-04-14 10:51 | CM ---
Addendum entered by Celina Benites 04/14/24 16:12:
CM able to confirm that authorization approved for 04/14/2024-04/21/2024. [facility] not able to admit today due to staffing issues and concern for patient safety. Dr. Fernandes notified of same. CM will need to follow up with [facility] at 10 AM tomorrow to
discuss transfer due to possible staffing concerns.
[facility] Report: [phone]
[facility]
Original Note:
CM spoke with Penelope at [facility] to check status of authorization for Rosa to transfer to [facility]. Authorization is still being reviewed, being expedited, but no confirmation that it will be finalized today. Authorization will be faxed to [facility] once
approved.
Plan: CM to call [facility] again later today to check auth again. [facility] will notify me if/when they receive authorization from [facility].
[2024-04-14 11:47] LABS: Glucose - Point of Care 200 mg/dl (70-99)
[2024-04-14] MEDS: NOVOLOG FLEXPEN-LOW RESISTANCE 2 UNITS SC (12:43)
[2024-04-14 15:30] VITALS: BP 134/54
[2024-04-14 17:29] LABS: Glucose - Point of Care 139 mg/dl (70-99)
[2024-04-14] MEDS: NOVOLOG FLEXPEN-LOW RESISTANCE SC (17:38)
[2024-04-14] MEDS: LOVENOX 40 MG SC (17:56)
[2024-04-14] MEDS: DILAUDID 2 MG PO ×2 (18:04→23:02)
[2024-04-14] MEDS: MIRALAX PO (20:19)
[2024-04-14 21:40] LABS: Glucose - Point of Care 141 mg/dl (70-99)
[2024-04-14 23:20] VITALS: BP 128/51
[2024-04-15 05:49] VITALS: BMI 26.2
[2024-04-15 07:25] VITALS: BP 140/68
[2024-04-15 07:58] LABS: Glucose - Point of Care 146 mg/dl (70-99)
[2024-04-15] MEDS: NOVOLOG FLEXPEN-LOW RESISTANCE SC ×2 (08:00→17:05)
[2024-04-15] MEDS: NON-FORMULARY ITEM 150 MCG BUCCAL ×3 (08:01→17:27)
[2024-04-15] MEDS: LIDOCAINE 4% PATCH 1 PATCH TOPICAL ×2 (08:01)
[2024-04-15] MEDS: LIORESAL 5 MG PO ×2 (08:02→20:37)
[2024-04-15] MEDS: NEURONTIN 300 MG PO ×3 (08:02→21:37)
[2024-04-15] MEDS: PROCARDIA XL (EXTENDED RELEASE) 60 MG PO (08:02)
[2024-04-15] MEDS: JANUVIA 100 MG PO (08:02)
[2024-04-15] MEDS: LASIX 40 MG PO (08:02)
[2024-04-15] MEDS: LIDOCAINE 4% PATCH 2 PATCH TOPICAL (08:02)
[2024-04-15] MEDS: CYMBALTA DELAYED RELEASE 20 MG PO (08:02)
[2024-04-15] MEDS: COZAAR 25 MG PO (08:03)
[2024-04-15] MEDS: COLACE 100 MG PO ×2 (08:04→20:37)
[2024-04-15] MEDS: PROTONIX 40 MG PO (08:04)
[2024-04-15] MEDS: BenGay-Like 1 APPLIC TOPICAL ×4 (08:09→21:38)
[2024-04-15] MEDS: DESENEX/MITRAZOL/ZEASORB 1 APPLIC TOPICAL ×2 (08:09→20:37)
[2024-04-15] MEDS: DAKIN'S SOLUTION 0.125% 1/4 STRENGTH 473 ML TOPICAL (08:09)
[2024-04-15] MEDS: MIRALAX PO (08:10)
[2024-04-15 12:13] LABS: Glucose - Point of Care 161 mg/dl (70-99)
[2024-04-15] MEDS: NOVOLOG FLEXPEN-LOW RESISTANCE 1 UNITS SC (12:47)
[2024-04-15] MEDS: AYR SALINE NASAL GEL 1 APPLIC NASAL (12:47)
[2024-04-15 14:15] LABS: Blood Urea Nitrogen 26 mg/dl (7-17); Calcium 8.9 mg/dl (8.4-10.2); Carbon Dioxide 29 mmol/L (22-30); Chloride 93 mmol/L (98-107); Estimated Creatinine Clearance 49 ml/min; Glucose 157 mg/dl (70-99); Potassium 4.3 mmol/L (3.5-5.1); Sodium 131 mmol/L (135-145); eGFR > 60.00
[2024-04-15 14:53] LABS: Osmolality Serum 285 mOsm/kg (275-300)
[2024-04-15 15:30] VITALS: BP 123/64
[2024-04-15 15:52] LABS: Cortisol, Random 18.9 ug/dl
--- NOTE | 2024-04-15 15:58 | W.PN.HOSP.TC ---
Today's Communication/Plan
-
osm studies
D/W Case management to arrange discharge for am
Assessment / Plan
Assessment / Plan
78-year-old female slid and fell out of bed. In the ER she was found to have slightly elevated temperature and leukocytosis and sacral decubitus ulcer with foul-smelling drainage. Patient's Dial catheter had been removed prior to admission which
was replaced in the ER.
CVS: S1-S2 normal
Chest: CTA B/L
Abdomen: Soft, NT / Bowel sounds present
Extremities: No edema
wound , sacrum- Deep no discharge
#Sepsis UTI (white count elevation, fever)
Hx Colonization with ESBL
urine cx however noted pansensitive E. coli
ID eval appreciated completed adequate course Zosyn since completed
#Large Chronic Sacral Wound
Chronic Underlying Osteomyelitis associated with sacral wound
Back Pain Suspected from Osteomyelitis vs UTI
Chronic insufficiency fractures with bands of sclerosis in the bilateral iliac bones and sacrum as on CT Imaging report
Wound Care eval appreciated
General Surgery consult appreciated no surgical indication for debridement Local wound care ordered with 1/4 strength Dakins soaked Kerlix gauze to wound bed with overlying pad/Mepilex dressing
ID eval appreciated no evidence acute infection sacral wound, wound cx expected polymicrobial cont local wound care no indication for systemic abx with regards to sacral wound
Dr Mcmillan patient's plastic surgeon attempted flap/reconstruction with patient 09/2023 that unfortunately failed d/t necrosis
Home pain regimen Belbuca continued, IV Dilaudid prn
#MRSA pos in wound culture and screen-maintain contact precautions.
#Constipation- Moderate Stool [place]- Miralax and Docusate
#Chronic Pain Syndrome
Chronic Pain with Opioid Dependence
Sciatica Right leg shooting pain on ambulation
Possible Muscle cramping spasticity also contributing
Acute worsening lower back pain overnight 04/13 unclear etiology labs repeated noted no acute abn's leukocytosis or ESTELLE, urinalysis suggestive UTI but recently completed broad spectrum abx no fever or dysuria
K-pad ordered, holding off on repeating imaging for now as patient has had extensive imaging done recently, may need to reconsider if pain doesn't improve with conservative measures.
Continue home Belbuca Gabapentin
PO Dilaudid prn mod severe pain, IV Dilaudid for severe breakthrough pain
Lidocaine patch right thigh and hip (increased lidocaine patches back from 1 to 2)
Low dose baclofen 2.5 mg BID increased to 5 mg BID
Bengay-like cream started, cont
Duloxetine 20 mg daily started, cont
Her pain has mostly been controlled with p.o. Dilaudid, Neurontin and Belbuca. She does not want to start OxyContin or long-acting morphine.
#Chronic LE Edema /chronic HFpEF
Lasix 40mg daily
Follow I/Os, daily weights, etc.
No DVT on lower extremity ultrasound
Farxiga discontinued due to hx frequent UTIs, risk seems to outweigh benefit at this time
#Benign Hypertension - Continue home med regimen with holding parameters. Lasix Losartan Nifedipine
#COPD without Acute Exacerbation-Continue inhaled medications / DuoNebs PRN.
#Moderate left hydroureteronephrosis -- chronic (was present on patient's January CT Imaging, but not reported)
Neurogenic Bladder
Chronic radiation cystitis
Recent Urinary Retention from Recent Hospitalization
Solitary Kidney s/p Nephrectomy (RCC)
Continue Dial Catheter
Urology consulted at the time of admission, no intervention needed, Chronic left hydroureteronephrosis likely due to neurogenic bladder
Patient notes difficulty with self catherization prior to admission. Would plan to discharge with Dial and outpatient follow up with her urologist.
#Diabetes mellitus
Diagnosed on recent hospitalization, A1c 8.1% repeat Ai1c however notes improvement 5.9 non-diabetic range (though this seems too good to be true given relative short time frame and fasting glucose values consistently in line with diabetes >126)
cont Sliding Scale Insulin for now
Did not tolerate metformin
Farxiga discontinued due to hx frequent UTI's, risk appears to outweigh benefits at this time
Cont Januvia
Repeat A1c in 3 months
# Hyponatremia-check urine osmolality, serum osmolality, urine sodium
#Normocytic Anemia, suspected from chronic disease
#Gastroesophageal reflux disease /Hiatal hernia-continue PPI
#Hypertension-continue nifedipine 60 mg, losartan 25 mg daily
#History of Hypomagnesemia-Monitor electrolytes and magnesium
#Compression screw and intramedullary ronan traversing and impacted intertrochanteric fracture of the right femur with incomplete osseous union
-During recent admission here, hospitalist discussed with Dr. Nichols who recommended, poor candidate for revision
#Splenomegaly on CT Imaging
#3.1 cm infrarenal abdominal aortic aneurysm/atherosclerosis
#Severe aortoiliac calcified atherosclerosis
#10 mm solid pulmonary nodule in the left lower lobe-Will need fairly close outpatient pulmonary evaluation; consider a chest CT in 3 months, PET/CT, or tissue sampling per Fleischner Society guidelines.
#Parastomal hernia
#13 cm midline anterior pelvic wall hernia.
#Uterine fibroid
#Severe osteoarthrosis of the right hip
#Severe discogenic DJD L5-S1,Chronic mild inferior endplate compression fracture of L5
#History of rectal cancer status post APR with colostomy 1982 and had radiation
#History of right nephrectomy for renal cancer 1981
#Ambulatory Dysfunction-PT OT as appropriate
#Ex-smoker
#DVT Prophylaxis: Lovenox
#Code Status: Full
Discussed with nursing.
Discussed with patient's on the phone in detail 04/14/24.
Anticipated Discharge: Within 24 hours
Subjective/Interval History
-
Date of Service: April 15, 2024
Objective Data
-
Labs:
Laboratory Results
04/15/24 04/15/24
12:28 13:53
Sodium Cancelled 131 L
Potassium Cancelled 4.3
Chloride Cancelled 93 L
Carbon Dioxide Cancelled 29
BUN Cancelled 26 H
Creatinine Cancelled 0.8
Glucose Cancelled 157 H
Calcium Cancelled 8.9
Vital Signs:
Vital Signs
Temp Pulse Resp BP Pulse Ox
98.3 F 100 18 123/64 90
04/15/24 15:30 04/15/24 15:30 04/15/24 15:30 04/15/24 15:30 04/15/24 15:30
I&O
04/14/24 04/15/24 04/16/24
06:59 06:59 06:59
Intake Total 1260 / 1260 360 / 360
Output Total 1430 / 1430 225 / 225
Balance -170 / -170 135 / 135
[2024-04-15 16:13] LABS: Osmolality Urine 444 mOsm/kg (300-900)
[2024-04-15 16:19] LABS: Urine Sodium 18 mmol/L (30-90)
[2024-04-15 16:19] LABS: TSH 7.45 uIU/ml (0.47-4.68)
[2024-04-15 16:43] LABS: Glucose - Point of Care 134 mg/dl (70-99)
[2024-04-15] MEDS: DILAUDID 2 MG PO (16:46)
[2024-04-15] MEDS: LOVENOX 40 MG SC (17:26)
[2024-04-15] MEDS: MIRALAX 17 GRAMS PO (20:37)
[2024-04-15 21:22] LABS: Glucose - Point of Care 180 mg/dl (70-99)
[2024-04-15] MEDS: NON-FORMULARY ITEM 1 MCG BUCCAL (21:37)
[2024-04-15 23:55] VITALS: BP 113/63
[2024-04-16 05:20] VITALS: BMI 25.8
[2024-04-16 08:00] VITALS: BP 121/66
[2024-04-16 08:31] LABS: Glucose - Point of Care 157 mg/dl (70-99)
[2024-04-16] MEDS: LASIX 40 MG PO (08:55)
[2024-04-16] MEDS: LIDOCAINE 4% PATCH 1 PATCH TOPICAL ×2 (08:55)
[2024-04-16] MEDS: LIDOCAINE 4% PATCH 2 PATCH TOPICAL (08:55)
[2024-04-16] MEDS: PROCARDIA XL (EXTENDED RELEASE) 60 MG PO (08:56)
[2024-04-16] MEDS: LIORESAL 5 MG PO ×2 (08:56→20:37)
[2024-04-16] MEDS: NOVOLOG FLEXPEN-LOW RESISTANCE 1 UNITS SC (08:57)
[2024-04-16] MEDS: JANUVIA 100 MG PO (08:57)
[2024-04-16] MEDS: CYMBALTA DELAYED RELEASE 20 MG PO (08:57)
[2024-04-16] MEDS: NEURONTIN 300 MG PO ×3 (08:57→22:16)
[2024-04-16] MEDS: COLACE 100 MG PO ×2 (08:57→20:37)
[2024-04-16] MEDS: COZAAR 25 MG PO (08:57)
[2024-04-16] MEDS: PROTONIX 40 MG PO (08:57)
[2024-04-16] MEDS: DESENEX/MITRAZOL/ZEASORB 1 APPLIC TOPICAL ×2 (08:58→20:37)
[2024-04-16] MEDS: MIRALAX PO (08:59)
[2024-04-16] MEDS: DAKIN'S SOLUTION 0.125% 1/4 STRENGTH 473 ML TOPICAL (08:59)
[2024-04-16] MEDS: BenGay-Like 1 APPLIC TOPICAL ×4 (08:59→22:17)
[2024-04-16] MEDS: NON-FORMULARY ITEM 150 MCG BUCCAL ×3 (09:00→17:31)
--- NOTE | 2024-04-16 10:56 | W.PN.HOSP.TC ---
Today's Communication/Plan
-
Await T4
Discharge planning
Assessment / Plan
Assessment / Plan
78-year-old female slid and fell out of bed. In the ER she was found to have slightly elevated temperature and leukocytosis and sacral decubitus ulcer with foul-smelling drainage. Patient's Dial catheter had been removed prior to admission which
was replaced in the ER.
CVS: S1-S2 normal
Chest: CTA B/L
Abdomen: Soft, NT / Bowel sounds present
Extremities: No edema
wound , sacrum- Deep no discharge
#Sepsis UTI (white count elevation, fever)
Hx Colonization with ESBL
urine cx however noted pansensitive E. coli
ID eval appreciated completed adequate course Zosyn since completed
#Large Chronic Sacral Wound
Chronic Underlying Osteomyelitis associated with sacral wound
Back Pain Suspected from Osteomyelitis vs UTI
Chronic insufficiency fractures with bands of sclerosis in the bilateral iliac bones and sacrum as on CT Imaging report
Wound Care eval appreciated
General Surgery consult appreciated no surgical indication for debridement Local wound care ordered with 1/4 strength Dakins soaked Kerlix gauze to wound bed with overlying pad/Mepilex dressing
ID eval appreciated no evidence acute infection sacral wound, wound cx expected polymicrobial cont local wound care no indication for systemic abx with regards to sacral wound
Dr Mcmillan patient's plastic surgeon attempted flap/reconstruction with patient 09/2023 that unfortunately failed d/t necrosis
Home pain regimen Belbuca continued, IV Dilaudid prn
#MRSA pos in wound culture and screen-maintain contact precautions.
#Constipation-resolved. Moderate Stool [place]- Miralax and Docusate
#Chronic Pain Syndrome
Chronic Pain with Opioid Dependence
Sciatica Right leg shooting pain on ambulation
Possible Muscle cramping spasticity also contributing
Acute worsening lower back pain overnight 04/13 unclear etiology labs repeated noted no acute abn's leukocytosis or ESTELLE, urinalysis suggestive UTI but recently completed broad spectrum abx no fever or dysuria
K-pad ordered, holding off on repeating imaging for now as patient has had extensive imaging done recently, may need to reconsider if pain doesn't improve with conservative measures.
Continue home Belbuca Gabapentin
PO Dilaudid prn mod severe pain, IV Dilaudid for severe breakthrough pain
Lidocaine patch right thigh and hip (increased lidocaine patches back from 1 to 2)
Low dose baclofen 2.5 mg BID increased to 5 mg BID
Bengay-like cream started, cont
Duloxetine 20 mg daily started, cont
Her pain has mostly been controlled with p.o. Dilaudid, Neurontin and Belbuca. She does not want to start OxyContin or long-acting morphine.
#Chronic LE Edema /chronic HFpEF
Lasix 40mg daily
Follow I/Os, daily weights, etc.
No DVT on lower extremity ultrasound
Farxiga discontinued due to hx frequent UTIs, risk seems to outweigh benefit at this time
#Benign Hypertension - Continue home med regimen with holding parameters. Lasix Losartan Nifedipine
#COPD without Acute Exacerbation-Continue inhaled medications / DuoNebs PRN.
#Moderate left hydroureteronephrosis -- chronic (was present on patient's January CT Imaging, but not reported)
Neurogenic Bladder
Chronic radiation cystitis
Recent Urinary Retention from Recent Hospitalization
Solitary Kidney s/p Nephrectomy (RCC)
Continue Dial Catheter
Urology consulted at the time of admission, no intervention needed, Chronic left hydroureteronephrosis likely due to neurogenic bladder
Patient notes difficulty with self catherization prior to admission. Would plan to discharge with Dial and outpatient follow up with her urologist.
#Diabetes mellitus
Diagnosed on recent hospitalization, A1c 8.1% repeat Ai1c however notes improvement 5.9 non-diabetic range (though this seems too good to be true given relative short time frame and fasting glucose values consistently in line with diabetes >126)
cont Sliding Scale Insulin for now
Did not tolerate metformin
Farxiga discontinued due to hx frequent UTI's, risk appears to outweigh benefits at this time
Cont Januvia
Repeat A1c in 3 months
# Hyponatremia-osmolality studies noted
# Elevated TSH-T4 levels pending
#Normocytic Anemia, suspected from chronic disease
#Gastroesophageal reflux disease /Hiatal hernia-continue PPI
#Hypertension-continue nifedipine 60 mg, losartan 25 mg daily
#History of Hypomagnesemia-Monitor electrolytes and replace magnesium as needed
#Compression screw and intramedullary ronan traversing and impacted intertrochanteric fracture of the right femur with incomplete osseous union
-During recent admission here, hospitalist discussed with Dr. Nichols who recommended, poor candidate for revision
#Splenomegaly on CT Imaging
#3.1 cm infrarenal abdominal aortic aneurysm/atherosclerosis
#Severe aortoiliac calcified atherosclerosis
#10 mm solid pulmonary nodule in the left lower lobe-Will need fairly close outpatient pulmonary evaluation; consider a chest CT in 3 months, PET/CT, or tissue sampling per Fleischner Society guidelines.
#Parastomal hernia
#13 cm midline anterior pelvic wall hernia.
#Uterine fibroid
#Severe osteoarthrosis of the right hip
#Severe discogenic DJD L5-S1,Chronic mild inferior endplate compression fracture of L5
#History of rectal cancer status post APR with colostomy 1982 and had radiation
#History of right nephrectomy for renal cancer 1981
#Ambulatory Dysfunction-PT OT as appropriate
#Ex-smoker
#DVT Prophylaxis: Lovenox
#Code Status: Full
Discussed with nursing.
Discussed with patient's on the phone in detail 04/14/24.
Anticipated Discharge: Today
Subjective/Interval History
-
Date of Service: April 16, 2024
Objective Data
-
Vital Signs:
Vital Signs
Temp Pulse Resp BP Pulse Ox
98.3 F 94 18 121/66 96
04/16/24 08:00 04/16/24 08:57 04/16/24 08:00 04/16/24 08:57 04/16/24 08:00
I&O
04/15/24 04/16/24 04/17/24
06:59 06:59 06:59
Intake Total 360 / 360 960 / 960
Output Total 225 / 225 775 / 775
Balance 135 / 135 185 / 185
--- NOTE | 2024-04-16 12:10 | CM ---
Reviewed the chart notes. IMM reviewed with patient. Left voice message for Ximena [facility] Admissions Liaison to inquire about bed availability and insurance auth that was per notes faxed to facility. CM spoke with Puma HARRY at [facility] to inquire if
bed is available today. He will reach out to his window systems administrator. CM continues to be available to patient/family and is monitoring medical plan for needs at discharge.
Plan: Discharge to [facility] when bed available. Precert was obtained earlier
[facility] Report: [phone] [phone]
[facility]
Medical necessity and transport forms on chart.
[2024-04-16 12:17] LABS: Glucose - Point of Care 232 mg/dl (70-99)
[2024-04-16] MEDS: NOVOLOG FLEXPEN-LOW RESISTANCE 2 UNITS SC (12:18)
[2024-04-16] MEDS: DILAUDID 2 MG PO (12:23)
[2024-04-16 13:10] VITALS: BP 108/51; BP 124/62; PULSE 97; O2SAT 93
--- NOTE | 2024-04-16 14:17 | W.PN.UPDATE ---
Update Note
Progress Note Update
Unfortunately T4 was ordered this morning which was changed over to tomorrow draw without making me aware.
Will get TSH reflex to T4 repeated urgent prior to discharge.
[2024-04-16 15:53] VITALS: BP 131/55
[2024-04-16 17:01] LABS: Glucose - Point of Care 129 mg/dl (70-99)
[2024-04-16 17:06] LABS: Blood Urea Nitrogen 32 mg/dl (7-17); Carbon Dioxide 30 mmol/L (22-30); Chloride 92 mmol/L (98-107); Estimated Creatinine Clearance 44 ml/min; Glucose 116 mg/dl (70-99); Potassium 4.8 mmol/L (3.5-5.1); Sodium 130 mmol/L (135-145); eGFR > 60.00
[2024-04-16] MEDS: NOVOLOG FLEXPEN-LOW RESISTANCE SC (17:28)
[2024-04-16] MEDS: LOVENOX 40 MG SC (17:29)
[2024-04-16 17:30] LABS: Mean Corp Hgb Conc. 30.8 g/dL (33.0-37.0); Mean Corpuscular Hgb 28.3 pg (27.0-31.0); Mean Corpuscular Volume 91.9 fL (81.0-99.0); Mean Platelet Volume 8.5 fL (7.4-10.4); Platelet Count 285 10^3/uL (130-400); Red Blood Cell Count 2.83 10^6/uL (4.20-5.40); Red Cell Dist. Width 16.8 % (11.5-14.5); White Blood Cell Count 9.8 10^3/uL (4.8-10.8)
[2024-04-16 17:37] LABS: TSH Reflex To Free T4 8.84 uIU/ml (0.47-4.68)
[2024-04-16 18:03] LABS: Free T4 1.23 ng/dl (0.78-2.19)
[2024-04-16] MEDS: MIRALAX 17 GRAMS PO (20:37)
[2024-04-16 21:19] LABS: Glucose - Point of Care 119 mg/dl (70-99)
[2024-04-16] MEDS: NON-FORMULARY ITEM 1 MCG BUCCAL (22:16)
[2024-04-16 23:23] VITALS: BP 115/52
[2024-04-17 06:00] VITALS: BMI 26.1
[2024-04-17 07:30] LABS: Glucose - Point of Care 163 mg/dl (70-99)
[2024-04-17 07:44] VITALS: BP 135/68
[2024-04-17] MEDS: NOVOLOG FLEXPEN-LOW RESISTANCE 1 UNITS SC (08:53)
[2024-04-17] MEDS: LIORESAL 5 MG PO (08:56)
[2024-04-17] MEDS: LASIX 40 MG PO (08:56)
[2024-04-17] MEDS: COZAAR 25 MG PO (08:57)
[2024-04-17] MEDS: JANUVIA 100 MG PO (08:57)
[2024-04-17] MEDS: LIDOCAINE 4% PATCH 1 PATCH TOPICAL ×2 (08:57→08:58)
[2024-04-17] MEDS: PROCARDIA XL (EXTENDED RELEASE) 60 MG PO (08:57)
[2024-04-17] MEDS: NEURONTIN 300 MG PO ×2 (08:57→16:33)
[2024-04-17] MEDS: COLACE 100 MG PO (08:57)
[2024-04-17] MEDS: PROTONIX 40 MG PO (08:57)
[2024-04-17] MEDS: CYMBALTA DELAYED RELEASE 20 MG PO (08:57)
[2024-04-17] MEDS: LIDOCAINE 4% PATCH 2 PATCH TOPICAL (08:58)
[2024-04-17 09:01] LABS: Total Thyroxine 6.11 ug/dl (5.5-11.0)
[2024-04-17] MEDS: SYNTHROID 25 MCG PO (09:02)
[2024-04-17] MEDS: NON-FORMULARY ITEM 150 MCG BUCCAL ×2 (09:03→17:02)
[2024-04-17] MEDS: DAKIN'S SOLUTION 0.125% 1/4 STRENGTH 473 ML TOPICAL (09:13)
[2024-04-17] MEDS: DESENEX/MITRAZOL/ZEASORB 1 APPLIC TOPICAL (09:13)
[2024-04-17] MEDS: BenGay-Like 1 APPLIC TOPICAL ×2 (09:13→17:05)
[2024-04-17] MEDS: MIRALAX PO (09:15)
--- NOTE | 2024-04-17 11:04 | W.PN.HOSP.TC ---
Today's Communication/Plan
-
discharge
Assessment / Plan
Assessment / Plan
78-year-old female slid and fell out of bed. In the ER she was found to have slightly elevated temperature and leukocytosis and sacral decubitus ulcer with foul-smelling drainage. Patient's Dial catheter had been removed prior to admission which
was replaced in the ER.
CVS: S1-S2 normal
Chest: CTA B/L
Abdomen: Soft, NT / Bowel sounds present
Extremities: No edema
wound , sacrum- Deep no discharge
#Sepsis UTI (white count elevation, fever)
Hx Colonization with ESBL
urine cx however noted pansensitive E. coli
ID eval appreciated completed adequate course Zosyn since completed
#Large Chronic Sacral Wound
Chronic Underlying Osteomyelitis associated with sacral wound
Back Pain Suspected from Osteomyelitis vs UTI
Chronic insufficiency fractures with bands of sclerosis in the bilateral iliac bones and sacrum as on CT Imaging report
Wound Care eval appreciated
General Surgery consult appreciated no surgical indication for debridement Local wound care ordered with 1/4 strength Dakins soaked Kerlix gauze to wound bed with overlying pad/Mepilex dressing
ID eval appreciated no evidence acute infection sacral wound, wound cx expected polymicrobial cont local wound care no indication for systemic abx with regards to sacral wound
Dr Mcmillan patient's plastic surgeon attempted flap/reconstruction with patient 09/2023 that unfortunately failed d/t necrosis
Home pain regimen Belbuca continued, IV Dilaudid prn
#MRSA pos in wound culture and screen-maintain contact precautions.
#Constipation-resolved. Moderate Stool [place]- Miralax and Docusate
#Chronic Pain Syndrome
Chronic Pain with Opioid Dependence
Sciatica Right leg shooting pain on ambulation
Possible Muscle cramping spasticity also contributing
Acute worsening lower back pain overnight 04/13 unclear etiology labs repeated noted no acute abn's leukocytosis or ESTELLE, urinalysis suggestive UTI but recently completed broad spectrum abx no fever or dysuria
K-pad ordered, holding off on repeating imaging for now as patient has had extensive imaging done recently, may need to reconsider if pain doesn't improve with conservative measures.
Continue home Belbuca Gabapentin
PO Dilaudid prn mod severe pain, IV Dilaudid for severe breakthrough pain
Lidocaine patch right thigh and hip (increased lidocaine patches back from 1 to 2)
Low dose baclofen 2.5 mg BID increased to 5 mg BID
Bengay-like cream started, cont
Duloxetine 20 mg daily started, cont
Her pain has mostly been controlled with p.o. Dilaudid, Neurontin and Belbuca. She does not want to start OxyContin or long-acting morphine.
#Chronic LE Edema /chronic HFpEF
Lasix 40mg daily
Follow I/Os, daily weights, etc.
No DVT on lower extremity ultrasound
Farxiga discontinued due to hx frequent UTIs, risk seems to outweigh benefit at this time
#Benign Hypertension - Continue home med regimen with holding parameters. Lasix Losartan Nifedipine
#COPD without Acute Exacerbation-Continue inhaled medications / DuoNebs PRN.
#Moderate left hydroureteronephrosis -- chronic (was present on patient's January CT Imaging, but not reported)
Neurogenic Bladder
Chronic radiation cystitis
Recent Urinary Retention from Recent Hospitalization
Solitary Kidney s/p Nephrectomy (RCC)
Continue Dial Catheter
Urology consulted at the time of admission, no intervention needed, Chronic left hydroureteronephrosis likely due to neurogenic bladder
Patient notes difficulty with self catheterization prior to admission. Would plan to discharge with Dial and outpatient follow up with her urologist.
#Diabetes mellitus
Diagnosed on recent hospitalization, A1c 8.1% repeat Ai1c however notes improvement 5.9 non-diabetic range (though this seems too good to be true given relative short time frame and fasting glucose values consistently in line with diabetes >126)
cont Sliding Scale Insulin for now
Did not tolerate metformin
Farxiga discontinued due to hx frequent UTI's, risk appears to outweigh benefits at this time
Cont Januvia
Repeat A1c in 3 months
# Hyponatremia-osmolality studies noted
# Elevated TSH-T4 levels pending. Treat as early hypothyroidism. TFTs in 6 weeks.
#Normocytic Anemia, suspected from chronic disease
#Gastroesophageal reflux disease /Hiatal hernia-continue PPI
#Hypertension-continue nifedipine 60 mg, losartan 25 mg daily
#History of Hypomagnesemia-Monitor electrolytes and replace magnesium as needed
#Compression screw and intramedullary ronan traversing and impacted intertrochanteric fracture of the right femur with incomplete osseous union
-During recent admission here, hospitalist discussed with Dr. Nichols who recommended, poor candidate for revision
#Splenomegaly on CT Imaging
#3.1 cm infrarenal abdominal aortic aneurysm/atherosclerosis
#Severe aortoiliac calcified atherosclerosis
#10 mm solid pulmonary nodule in the left lower lobe-Will need fairly close outpatient pulmonary evaluation; consider a chest CT in 3 months, PET/CT, or tissue sampling per Fleischner Society guidelines.
#Parastomal hernia
#13 cm midline anterior pelvic wall hernia.
#Uterine fibroid
#Severe osteoarthrosis of the right hip
#Severe discogenic DJD L5-S1,Chronic mild inferior endplate compression fracture of L5
#History of rectal cancer status post APR with colostomy 1982 and had radiation
#History of right nephrectomy for renal cancer 1981
#Ambulatory Dysfunction-PT OT as appropriate
#Ex-smoker
#DVT Prophylaxis: Lovenox
#Code Status: Full
Discussed with nursing.
Discussed with patient's on the phone in detail 04/17/24
Discussed with case management
More than 30 minutes spent in discharge including
Final examination of the patient
Summarizing hospital stay
Instructions for continuing care to all relevant caregivers
Preparation of discharge records, prescriptions, and referral forms
Total time spent (in minutes): 38 min
Anticipated Discharge: Today
Subjective/Interval History
-
Date of Service: April 17, 2024
Objective Data
-
Vital Signs:
Vital Signs
Temp Pulse Resp BP Pulse Ox
98.3 F 91 18 135/68 92
04/17/24 07:44 04/17/24 08:57 04/17/24 07:44 04/17/24 08:57 04/17/24 07:44
I&O
04/16/24 04/17/24 04/18/24
06:59 06:59 06:59
Intake Total 960 / 960 720 / 720
Output Total 775 / 775 400 / 400
Balance 185 / 185 320 / 320
--- NOTE | 2024-04-17 11:18 | W.DS.TRANS ---
Addendum entered and electronically signed by Eliezer Martines MD 04/18/24 08:38:
Dictation- [id number]
Original Note:
DC Summary - [employer]
-
Discharge Instructions:
Discharge Diagnosis/Procedures Sepsis Urinary Tract Infection (neurogenic
bladder self catheterized at baseline)
Large Chronic Sacral Wound
Chronic Underlying Osteomyelitis associated with
sacral wound
Chronic insufficiency fractures with bands of
sclerosis in the bilateral iliac bones and
sacrum as noted on CT Imaging report
MRSA colonization
Chronic Pain Syndrome with Opioid Dependence
Sciatica
Neuropathy
Chronic Heart Failure with Preserved Ejection
Fraction
Hypertension
COPD
Solitary Kidney, history Nephrectomy due to
renal cell carcinoma
History of Rectal Cancer with radiation in the
past and with chronic colostomy
Diabetes mellitus
Chronic Anemia
Gastroesophageal reflux disease.
Anxiety.
3.1 cm Infrarenal abdominal aortic aneurysm
10 mm solid pulmonary nodule in the left lower
lobe
Parastomal hernia
13 cm midline anterior pelvic wall hernia.
Uterine fibroid
Severe osteoarthrosis of the right hip
Diet Diabetic, Carb Controlled
Activity As tolerated,With Walker
Driving Restrictions No driving
Blood Work Repeat CBC and BMP with primary care provider in
1 week of discharge. Thyroid function tests 6
weeks. HbA1C 3 months
Others Tests With primary care provider obtain Abdomen
Ultrasound (to follow up 3.1 cm Infrarenal
abdominal aortic aneurysm) and CT chest (to
follow up 10 mm solid pulmonary nodule in the
left lower lobe) in 3 months of discharge.
Other Services PT,OT
Instructions:
Stand-Alone Forms:
Changes to Home Medications: Yes
Discharge Medications:
DC Medications w/original date entered in [id number]
nifedipine 60 mg tablet,extended release 24 hr 60 mg PO DAILY blood pressure 01/15/24
pantoprazole 40 mg tablet,delayed release 40 mg PO DAILY Gastrointestinal Issue 01/15/24
furosemide 20 mg tablet 40 mg (2 x 20 mg) PO DAILY Fluid retention/Swelling #0 tabs 02/18/24
sitagliptin phosphate 100 mg tablet (Januvia) 100 mg PO DAILY Diabetes #0 tabs 02/18/24
buprenorphine HCl 150 mcg buccal film (Belbuca) 150 mcg buccal QID Pain 04/04/24
losartan 25 mg tablet 25 mg PO DAILY Blood Pressure 04/04/24
baclofen 5 mg tablet 5 mg PO BID Pain #60 tabs 04/14/24
duloxetine 20 mg capsule,delayed release 20 mg PO DAILY Pain #30 caps 04/14/24
lidocaine 4 % topical patch 2 patch topical DAILY PRN Pain #30 ea 04/14/24
methyl salicylate 15 %-menthol 10 % topical cream (Analgesic [place] (m.salic-menthol)) 1 applic topical QID PRN muscle pain #85 grams 04/14/24
miconazole nitrate 2 % topical powder (Miconazorb AF) 1 applic topical BID Skin issues #85 grams 04/14/24
sodium hypochlorite 0.125 % solution (Dakin's Solution) 1 applic topical DAILY Skin issues #473 mL 04/14/24
buprenorphine HCl 150 mcg buccal film 150 mcg buccal QID Pain #8 ea 04/17/24
gabapentin 300 mg capsule 300 mg PO TID Pain #0 caps 04/17/24
hydromorphone 2 mg tablet (Dilaudid) 2 mg PO Q4H PRN Pain #10 tabs 04/17/24
levothyroxine 25 mcg tablet 25 mcg PO DAILY @ 0600 Thyroid #0 tabs 04/17/24
polyethylene glycol 3350 17 gram oral powder packet 17 g PO DAILY Constipation #0 ea 04/17/24
Home Medication Changes
new
hydromorphone 2 mg tablet (Dilaudid) 2 mg PO Q4H PRN Pain #10 tabs 04/17/24
levothyroxine 25 mcg tablet 25 mcg PO DAILY @ 0600 Thyroid #0 tabs 04/17/24
polyethylene glycol 3350 17 gram oral powder packet 17 g PO DAILY Constipation #0 ea 04/17/24
Pending Results: No
[2024-04-17 12:00] LABS: Glucose - Point of Care 147 mg/dl (70-99)
[2024-04-17] MEDS: NOVOLOG FLEXPEN-LOW RESISTANCE SC (12:02)
--- NOTE | 2024-04-17 12:04 | CM ---
Reviewed the chart notes. Per attending, ready for discharge.
Plan: Discharge to [facility] when bed available. Precert was obtained earlier
[facility] Report: [phone]
[facility]
Medical necessity and transport forms on chart.
[2024-04-17] MEDS: BenGay-Like TOPICAL (12:10)
[2024-04-17] MEDS: NON-FORMULARY ITEM BUCCAL (12:11)
[2024-04-17 15:45] VITALS: BP 134/75
[2024-04-17 16:39] LABS: Glucose - Point of Care 209 mg/dl (70-99)
[2024-04-17] MEDS: NOVOLOG FLEXPEN-LOW RESISTANCE 2 UNITS SC (16:39)
[2024-04-17] MEDS: DILAUDID 2 MG PO (17:02)
--- NOTE | 2024-04-17 19:18 | PTCARENOTE ---
Patient discharged to [facility], transported by [facility]. This RN called report to Khadra at facility, removed patient's IV, and gathered patient belongings in room. Patient medicated with scheduled Bengay cream, buccal buprenorphine, and PRN PO
dilaudid prior to transport -see JUN. Home buccal buprenorphine med placed in patient belonging bag, transport team and facility made aware of home medication in bag. Dial emptied, colostomy appliance changed, and vitals taken prior to transport.
Patient holding cell phone, jacket, and glasses prior to transport. Sacral wound dressing C/D/I.
== END 2024-04-17 19:06 | DRG 871 ==
LOC: 2 NORTH 13:50
PROVIDERS: Hospitalist; Internal Medicine; Physician Assistant Medical; ADMITTING PHYSICIAN Internal Medicine; ATTENDING PHYSICIAN Hospitalist; CONSULT PHYSICIAN Specialist; CONSULT PHYSICIAN Student in an Organized Health Care Education/Training Program; CONSULT PHYSICIAN Surgery; EMERGENCY PHYSICIAN Emergency Medicine; FAMILY PHYSICIAN Family Medicine
DX: A41.51 Sepsis due to Escherichia coli [E. coli] (principal); L89.154 Pressure ulcer of sacral region, stage 4; N13.6 Pyonephrosis; F11.20 Opioid dependence, uncomplicated; I50.32 Chronic diastolic (congestive) heart failure; M46.28 Osteomyelitis of vertebra, sacral and sacrococcygeal region; M84.48XA Pathological fracture, other site, initial encounter for fracture; E87.1 Hypo-osmolality and hyponatremia; E11.69 Type 2 diabetes mellitus with other specified complication; I11.0 Hypertensive heart disease with heart failure; N31.9 Neuromuscular dysfunction of bladder, unspecified; D63.8 Anemia in other chronic diseases classified elsewhere; G89.4 Chronic pain syndrome; L30.4 Erythema intertrigo; J44.9 Chronic obstructive pulmonary disease, unspecified; K59.00 Constipation, unspecified; E11.40 Type 2 diabetes mellitus with diabetic neuropathy, unspecified; F40.240 Claustrophobia; B95.7 Other staphylococcus as the cause of diseases classified elsewhere; K21.9 Gastro-esophageal reflux disease without esophagitis; Z96.653 Presence of artificial knee joint, bilateral; Z90.5 Acquired absence of kidney; Z92.3 Personal history of irradiation; Z90.49 Acquired absence of other specified parts of digestive tract; Z88.5 Allergy status to narcotic agent; Z88.1 Allergy status to other antibiotic agents; Z87.891 Personal history of nicotine dependence; Z85.528 Personal history of other malignant neoplasm of kidney; Z85.048 Personal history of other malignant neoplasm of rectum, rectosigmoid junction, and anus; Z79.899 Other long term (current) drug therapy; Z79.84 Long term (current) use of oral hypoglycemic drugs; Z93.3 Colostomy status
CPT/HCPCS: 51701; 70450; 74177; 80048; 80053; 81003; 81015; 82533; 82962; 83036; 83735; 83930; 83935; 84100; 84300; 84436; 84439; 84443; 85025; 85027; 85652; 86140; 87070; 87077; 87086; 87147; 87186; 87205; 93970; 96365; 96375; 96376; 97116; 97162; 97166; 97530; 97535; 99285; Q9967

== ENCOUNTER 2024-04-27 20:15 | Inpatient (IN) | payer MEDICARE, OTHER, SELFPAY ==
[2024-04-27] VITALS (9 sets, daily range): BP systolic 92–124; BP diastolic 47–66; BMI 26.5
[2024-04-27 17:07] LABS: % Basophils 0.3 % (0-2); % Eosinophils 0.8 % (0-6); % Immature Granulocytes 0.8 % (0-0.5); % Lymphocytes 9.5 % (20.5-51.1); % Monocytes 6.2 % (1.7-9.3); % Neutrophils 82.4 % (42.2-75.2); Absolute Basophils 0.1 10^3/uL (0-0.2); Absolute Eosinophils 0.1 10^3/uL (0-0.7); Absolute Immature Granulocytes 0.1 10^3/uL (0-0.05); Absolute Lymphocytes 1.5 10^3/uL (1.2-3.4); Absolute Neutrophils 12.8 10^3/uL (1.4-6.5); Hematocrit 25.8 % (37.0-47.0); Hemoglobin 7.8 g/dL (12.0-16.0); Mean Corp Hgb Conc. 30.2 g/dL (33.0-37.0); Mean Corpuscular Hgb 27.4 pg (27.0-31.0); Mean Corpuscular Volume 90.5 fL (81.0-99.0); Mean Platelet Volume 8.5 fL (7.4-10.4); Nucleated Red Blood Cells % 0 %; Platelet Count 261 10^3/uL (130-400); Red Blood Cell Count 2.85 10^6/uL (4.20-5.40); Red Cell Dist. Width 16.4 % (11.5-14.5); White Blood Cell Count 15.5 10^3/uL (4.8-10.8)
[2024-04-27] MEDS: DILAUDID 0.5 MG IV (17:10)
[2024-04-27 17:14] LABS: Lactic Acid 1.3 mmol/L (0.7-2.0)
[2024-04-27 17:16] LABS: ALT (SGPT) 22 U/L (0-35); AST (SGOT) 39 U/L (14-36); Albumin 2.9 g/dl (3.5-5.0); Alkaline Phosphatase 171 U/L (38-126); Blood Urea Nitrogen 54 mg/dl (7-17); Calcium 8.9 mg/dl (8.4-10.2); Carbon Dioxide 32 mmol/L (22-30); Chloride 91 mmol/L (98-107); Estimated Creatinine Clearance 46 ml/min; Glucose 146 mg/dl (70-99); Potassium 4.3 mmol/L (3.5-5.1); Sodium 132 mmol/L (135-145); Total Bilirubin 0.5 mg/dl (0.2-1.3); Total Protein 6.9 g/dl (6.3-8.2); eGFR > 60.00
[2024-04-27 17:19] LABS: COVID-19 Antigen Negative (Negative)
[2024-04-27] MEDS: TYLENOL 1000 MG PO (17:29)
[2024-04-27 17:55] LABS: Urine Albumin Trace (Neg - Trace); Urine Bilirubin Negative (Negative); Urine Character Very Cloudy (Clear); Urine Color Yellow; Urine Glucose Negative (Negative); Urine Ketone Negative (Negative); Urine Leukocyte 2+ (Negative); Urine Nitrite Negative (Negative); Urine Occult Blood 2+ (Negative); Urine Specific Gravity 1.015 (<1.030); Urine Urobilinogen Negative (Neg - 1+)
[2024-04-27 18:00] LABS: Urine Squamous Cell >30 /LPF (Few)
[2024-04-27 18:01] LABS: Urine Bacteria Many (Negative); Urine White Cell 50-60 /HPF (0-5)
[2024-04-27] MEDS: NSS 500 IV (18:15)
[2024-04-27 18:23] LABS: Venous Blood Gas B.E. 3.1 mmol/L (-4 to +4); Venous Blood Gas HCO3 29.3 mmol/L (22-27); Venous Blood Gas O2 Sat % 84.7 %; Venous Blood Gas pCO2 53 mmHg (35-48); Venous Blood Gas pH 7.35 (7.32-7.43); Venous Blood Gas pO2 54 mmHg (30-50)
--- NOTE | 2024-04-27 18:38 | ED.GENMED ---
History of Present Illness
General
Chief Complaint: Weakness
Source: family and ambulance crew
Time Seen by Provider: 04/27/24 16:34
History of Present Illness
History of Present Illness:
78-year-old female sent to the emergency room for [facility] her staff noted the patient to be lethargic and slow to answer questions. She was noted to be hypoxic on room air there. Patient arrives to the emergency room yelling due to
apparent pain in her right leg and sacrum. Patient noted to have a rectal temperature here of 100.4. Though she yells and indicates she has pain in her sacrum she is not able to provide a detailed history. Review of the patient's recent
hospitalization reveals the patient has a large sacral wound that apparently developed secondary to radiation treatment of rectal cancer. She has an ostomy. She has chronic indwelling Dial catheter and was recently hospitalized for urinary tract
infection. Also patient has history of chronic pain which is opiate dependent.
Past History
Past History
ED Past Medical History: Cancer (Colon Cancer. Kidney cancer), COPD, GERD, HTN, Psychiatric (Anxiety, Claustrophobia) and Other (: CVA, coccyx osteomyelitis, anemia, neurogenic bladder, Neuropathy, PNA, Hiatal hernia, UTI, Radiation Cystitis self
caths, Sacrococcygeal osteomyelitis, Lyme disease, Ulcers. MRSA)
ED Past Surgical History: Bowel resection (with Colostomy), Orthopedic (Josep knee replacements Back surgery,), Urological (Right nephrectomy) and Other (Colostomy, skin grafting, Cataracts)
Social History
Tobacco: Former smoker
Alcohol: Occasional
Drug: None
Personal:
Living: with family
Phy Exam
Physical Exam
Physical Exam:
General: Awake, sleepy but arousable. Oriented to person. Appears chronically ill
Vitals: Hypoxic on room air
Head: Atraumatic
Eyes: Pupils equal, EOMI
Throat: Airway intact, no exudates, dry mucosa
Neck: Trachea midline
Lungs: Clear and equal b/l
Heart: Regular rate, no murmurs
Abd: Soft, ostomy in place, no apparent abdominal tenderness,
Rectal: Sacral wound
Neuro: Grossly nonfocal
Skin: Warm, dry, no rash
Extremities: pulses equal b/l, no edema. No significant pain with palpation over the foot, ankle, lower extremity or knee bilaterally. No significant tenderness over the distal femurs bilaterally. Patient does have tenderness to palpation once
the pelvic region was palpated particularly posteriorly. Pain seems primarily related to the sacral wound.
Course
Orders/Labs/Results
Orders:
Orders
04/27/24 16:32
Electrocardiogram (*1) Urgent
Reason for Study: Other
Other Reason for Exam: Possible Sepsis
Cardiac Monitoring- Treatment ONCE
EKG- Treatment ONCE
IV Insert/Care/Rem.- Treatment PRN
O2 Therapy [RESP] Urgent
Titrate/Wean O2 to maintain O2 sat greater than (%): 93
Special Instructions: TO MAINTAIN CONTINUOUS O2 SATS > OR = 93%
Pulse Ox/cont/shift [RESP] Urgent
Quantity: 1
Special Instructions: CONTINUOUS
04/27/24 16:38
COVID-19 Antigen Urgent
Source: Nasal Swab
Complete Blood Count/With Diff Urgent
Comprehensive Metabolic Panel Urgent
Lactic Acid Q4H
Comment: ON ICE, CANCEL 2ND ORDER IF FIRST LACTIC ACID LEVEL <2
Influenza A+B Rapid Molecular Urgent
ASCENCION Source: Nasal Swab
Specimen Description:
04/27/24 17:05
Dial Placement- Treatment ONCE
Reason for insertion: Chronic Dial on Admit
Acetaminophen [Tylenol] 1,000 mg PO NOW STA
HYDROmorphone [Dilaudid] 0.5 mg IV NOW STA
04/27/24 17:27
Urinalysis Reflex To Culture Urgent
Date Specimen was Collected: 04/27/24
Time Specimen was Collected: 16:32
Urine Microscopic Reflex Cult Urgent
Blood Culture Routine
ASCENCION Source: Blood/Venous
Specimen Description:
Urine Culture Urgent
ASCENCION Source: U
Specimen Description:
Date Specimen was Collected: 04/27/24
Time Specimen was Collected: 16:32
04/27/24 17:34
0.9% Sodium Chloride 500 ml [Nss] 500 ml IV BOLUS
04/27/24 18:17
Venous Blood Gas Urgent
%Oxygen/Room Air: 80
04/27/24 18:36
Piperacillin/Tazo 3.375 Gram [Zosyn] 3.375 gram in 50 ml IV NOW
04/27/24 18:38
CR Chest Portable - 1 View Urgent
Comment:
Reason For Exam: hypoxia
Reason Study Needs to be Portable: Unable to Transport
04/27/24 20:01
Admit/Transfer Patient As Directed
Co-Sign Provider:
Level of Care: Inpatient admission
Assign to:: Medical/Surgical
Physician / Group: [email or web address]
Diagnosis: catheter associated uti
Reason for Hospitalization: catheter associated uti
Expected length of stay greater than two midnights?: Yes
ELOS- Estimated Length of Stay in days: 2
I certify the patient meets the requirements for IP care: Yes
04/27/24 20:04
Code Status As Directed
Resuscitation Status: Full Code
PRN Pain Medication Management As Directed
May give lesser potent ordered pain med per pt: Yes
preference::
Protocol:: Medication orders for pain may be administered in a
manner that supports deferring to patient preference
when the pt is:
- Requesting an ordered lesser potent pain medication.
Least to most potent pain medications are defined
as: acetaminophen < NSAID < tramadol < opioids
(morphine, oxycodone, hydromorphone).
- Requesting a lesser dose of the same medication IF
ORDERED.
- Requesting a less intrusive route of administration
if both routes are prescribed by the provider (PO <
IV).
Abnormal Lab Results
04/27/24 04/27/24 04/27/24
16:38 17:27 18:17
WBC 15.5 H 10^3/uL
(4.8-10.8)
RBC 2.85 L 10^6/uL
(4.20-5.40)
Hgb 7.8 L g/dL
(12.0-16.0)
Hct 25.8 L %
(37.0-47.0)
MCHC 30.2 L g/dL
(33.0-37.0)
RDW 16.4 H %
(11.5-14.5)
Abs Immat Gran (auto) 0.1 H 10^3/uL
(0-0.05)
Absolute Neuts (auto) 12.8 H 10^3/uL
(1.4-6.5)
Absolute Monos (auto) 1.0 H 10^3/uL
(0.1-0.6)
Immature Gran % 0.8 H %
(0-0.5)
Neutrophils % 82.4 H %
(42.2-75.2)
Lymphocytes % 9.5 L %
(20.5-51.1)
VBG pCO2 53 H mmHg
(35-48)
VBG pO2 54 H mmHg
(30-50)
VBG HCO3 29.3 H mmol/L
(22-27)
Sodium 132 L mmol/L
(135-145)
Chloride 91 L mmol/L
(98-107)
Carbon Dioxide 32 H mmol/L
(22-30)
BUN 54 H mg/dl
(7-17)
Glucose 146 H mg/dl
(70-99)
AST 39 H U/L
(14-36)
Alkaline Phosphatase 171 H U/L
(38-126)
Albumin 2.9 L g/dl
(3.5-5.0)
Ur Occult Blood Reflex 2+ A
(Negative)
Leukocyte Esterase Rfl 2+ A
(Negative)
Urine RBC 3-6 A /HPF
(0-2)
Urine WBC (Reflex) 50-60 A /HPF
(0-5)
Urine Bacteria (Reflex) Many A
(Negative)
04/27/24 16:38
04/27/24 16:38
Vital Signs
Initial and Last Documented VS:
Initial Vital Signs
Pulse Resp
105 19
04/27/24 16:32 04/27/24 16:32
Last Documented Vital Signs
Temp Pulse Resp BP Pulse Ox
100.4 F H 94 9 97/48 99
04/27/24 16:53 04/27/24 21:00 04/27/24 21:00 04/27/24 21:00 04/27/24 21:00
MDM/Problems Addressed
Differential Diagnosis Includes:
UTI, viral illness such as COVID or influenza, overmedication, aspiration
MDM/Problems Addressed:
Patient is febrile here. The source appears to be her urine based upon a straight cath specimen that shows an elevated number of white blood cells per high-power field. Her other labs appear to be at her baseline other than her BUN which is
elevated indicating prerenal azotemia. IV fluid administered. Zosyn administered for antibiotic coverage.
Chronic conditions affecting care: HTN, COPD and Other (Chronic pain syndrome)
Acute Exacerbation and/or Progression of Chronic Illness: Other (Neurogenic bladder)
*Radiology
Radiology exam reviewed: radiology read reviewed
*Pulse Oximetry
Patient hypoxic: yes
*EKG
Interpreted by ED Provider?: Yes
Heart Rate: 101
Rate: tachycardiac
Rhythm: sinus tachycardia
Boulevard: normal axis
Interval: normal interval
QRS Pattern: normal QRS
Ischemia: no ischemia
*Maint Mechanic Interpretation
Rate: tachycardiac
Interpretation: abnormal
Heart Rate: 101
Rhythm: sinus tachycardia
*Critical Care Note
Total Time (30-74mins, 75-104mins- exclusive of procedures): Not Applicable
ED Attending Note
-
Portions of this chart may have been created with voice recognition software.� Occasional wrong word or��sound alike� substitutions may have occurred due to the inherent limitations of voice recognition software.
Discharge Plan
Departure
Patient Disposition: Admit
Date of Disposition: 04/27/24
Time of Disposition: 18:38
Admit to: Med/Surg
Presentation/result/management discussed w/ accepting MD/DO: Hospitalist
Condition: Fair
Discharge Problem:
Acute UTI, Hypoxia, Altered mental status
Interventions
Interventions:
*Risk Screen - Suicide Last Done: 04/27/24 16:59
*General Assessment Last Done: 04/27/24 16:59
*Neglect/Abuse Screening Last Done: 04/27/24 16:59
ED- Fall Risk Assessment Last Done: 04/27/24 16:59
*ED COVID-19 Vaccine History Last Done: 04/27/24 16:59
ED- Cardiac Assessment Last Done: 04/27/24 16:59
ED- Neurological Assessment Last Done: 04/27/24 16:59
ED- Pulmonary Assessment Last Done: 04/27/24 16:59
[2024-04-27] MEDS: ZOSYN 50 IV (18:41)
--- NOTE | 2024-04-27 20:12 | HPS.HSE ---
Family Physician
-
Family Physician: Berry Knight
Chief Complaint
-
weakness
History of Present Illness
78-year-old female past medical history of large sacral wound associate with osteomyelitis, chronic pain, chronic HFpEF, hypertension, COPD, neurogenic bladder, history of renal cancer status post right nephrectomy, diabetes, normocytic anemia,
GERD, hypomagnesemia, osteoarthritis, rectal cancer status post APR with colostomy, amatory dysfunction presenting for confusion and complaining about her wound.
Patient is a very poor historian and feels confused. She states that she had some nausea and abdominal pain and diarrhea but her answers are unreliable.
Medical History
Past Medical History
Past Medical History: Reports Other (large sacral wound associate with osteomyelitis, chronic pain, chronic HFpEF, hypertension, COPD, neurogenic bladder, history of renal cancer status post right nephrectomy, diabetes, normocytic anemia, GERD,
hypomagnesemia, osteoarthritis, rectal cancer status post APR with colostomy, amatory dysfun)
Past Surgical History: Reports Other ( Bowel resection (with Colostomy), Orthopedic (Josep knee replacements Back surgery,), Urological (Right nephrectomy) and Other (Colostomy, skin grafting, Cataracts))
Social History
Tobacco: Non-smoker
Alcohol: None
Drug: None
Family History
Family History: Not pertinent
Allergies / Home Medications
Allergies reflects when Allergies were last updated in [employer].
Home Medications with original date entered in [employer]
Allergy/Medication List:
Allergies
Allergy/AdvReac Type Severity Reaction Status Date / Time
levofloxacin Allergy Rash Verified 02/01/24 03:12
morphine Allergy Rash Verified 02/01/24 03:12
prochlorperazine Allergy Rash Verified 02/01/24 03:12
[From Compazine]
doxycycline AdvReac Mild Shortness Verified 02/01/24 03:12
of Breath
vancomycin AdvReac Mild Shortness Verified 10/19/24 03:12
of Breath
Home Medications
nifedipine 60 mg tablet,extended release 24 hr 60 mg PO DAILY blood pressure 01/15/24
pantoprazole 40 mg tablet,delayed release 40 mg PO DAILY Gastrointestinal Issue 01/15/24
sitagliptin phosphate 100 mg tablet (Januvia) 100 mg PO DAILY Diabetes #0 tabs 02/18/24
buprenorphine HCl 150 mcg buccal film (Belbuca) 150 mcg buccal QID Pain 04/04/24
losartan 25 mg tablet 25 mg PO DAILY Blood Pressure 04/04/24
baclofen 5 mg tablet 5 mg PO BID Pain #60 tabs 04/14/24
duloxetine 20 mg capsule,delayed release 20 mg PO DAILY Pain #30 caps 04/14/24
lidocaine 4 % topical patch 2 patch topical DAILY PRN Pain #30 ea 04/14/24
gabapentin 300 mg capsule 300 mg PO TID Pain #0 caps 04/17/24
levothyroxine 25 mcg tablet 25 mcg PO DAILY @ 0600 Thyroid #0 tabs 04/17/24
polyethylene glycol 3350 17 gram oral powder packet 17 g PO DAILY Constipation #0 ea 04/17/24
acetaminophen 325 mg tablet (Tylenol) 650 mg PO Q6HPRN PRN mild pain/temp>100 04/27/24
bisacodyl 10 mg rectal suppository (Dulcolax (bisacodyl)) 10 mg WI DAILYPRN PRN constipation, if mom ineffective 04/27/24
collagenase clostridium histo. 250 unit/gram topical ointment (Santyl) 1 applic topical BID 04/27/24
furosemide 40 mg tablet (Lasix) 40 mg PO DAILY 04/27/24
hydromorphone 2 mg tablet (Dilaudid) 2 mg PO Q4HPRN PRN severe pain 04/27/24
magnesium hydroxide 400 mg/5 mL oral suspension (Milk of Magnesia) 30 ml PO [id number] PRN no bm x3 days 04/27/24
methyl salicylate 15 %-menthol 10 % topical cream (Analgesic Yeaddiss (m.salic-menthol)) 1 applic topical Q6HPRN PRN muscle pain 04/27/24
sodium phosphates 19 gram-7 gram/118 mL enema (Fleet Enema) 118 ml WI DAILYPRN PRN constipation, bisacodyl ineffective 04/27/24
therapeutic multivitamin 1 tab PO DAILY 04/27/24
Review of Systems
-
History Source: Patient
A 12 point ROS was completed and negative except as noted: Yes
Constitutional: Reports No Symptoms
EENT: Reports No Symptoms
Respiratory: Reports No Symptoms
Cardiac: Reports No Symptoms
Abdomen/GI: Reports No Symptoms
: Reports No Symptoms
Musculoskeletal: Reports No Symptoms
Skin: Reports No Symptoms
Neurological: Reports No Symptoms
Endocrine: Reports No Symptoms
Hematologic/Lymphatic: Reports No Symptoms
Psych: Reports No Symptoms
Physical Exam
Vital Signs
Vital Signs
Temp Pulse Resp BP Pulse Ox
100.4 F H 96 8 98/54 94
04/27/24 16:53 04/27/24 20:00 04/27/24 20:00 04/27/24 20:00 04/27/24 20:00
Physical Exam
General: Well Developed, Well Nourished and No Apparent Distress
HEENT: NormoCephalic, Moist mucous membranes and Atraumatic
Respiratory: Clear
Cardiac: S1/S2 and Regular Rhythm; No Murmur or Rub
GI: Soft, Non Tender, Non Distended and Normal Bowel Sounds; No Organomegaly
Rectal: Deferred by Provider
Musculoskeletal: No Clubbing, No Cyanosis and No Edema
Skin: No Rash
Neuro: Nonfocal/grossly intact
Laboratory Results
-
04/27/24 16:38
04/27/24 16:38
Laboratory Results
Lactic Acid Cancelled 04/27/24 20:45
Total Bilirubin 0.5 mg/dl (0.2-1.3) 04/27/24 16:38
AST 39 U/L (14-36) H 04/27/24 16:38
ALT 22 U/L (0-35) 04/27/24 16:38
Alkaline Phosphatase 171 U/L (38-126) H 04/27/24 16:38
Data Reviewed
-
Lab Data: Labs Reviewed by me
Old Records: Reviewed
Impression/Plan
-
IMPRESSION:
PLAN:
# Sepsis/metabolic encephalopathy (fever, tachycardia, leukocytosis) secondary to catheter associated UTI
# History of ESBL E. coli
-Patient with history of ESBL E. coli resistant to ceftriaxone
-Patient with chronic Dial catheter which appears to have been replaced
-Urine culture
-Blood cultures
-IV fluids
-Zosyn
Large chronic sacral wound with associated osteomyelitis
History of MRSA associated wound
-Wound care
Chronic pain
Chronic HFpEF
-Hold Lasix
Essential hypertension
-Continue losartan
-Continue to feta pain
COPD
Neurogenic bladder with chronic Dial catheter
Chronic left hydroureteronephrosis secondary to neurogenic bladder
-Seen by urology during recent admission and no intervention recommended
History of right renal cancer status post right nephrectomy
Type 2 diabetes
-Hold Januvia
-Insulin sliding scale
History of hyponatremia
Hypothyroidism
-Continue levothyroxine
History of infrarenal abdominal aortic aneurysm
Severe osteoarthritis/sciatica
-Continue baclofen, Tylenol, duloxetine, gabapentin, Dilaudid, lidocaine patch
History of rectal cancer status post APR with colostomy 1983 status post radiation colostomy
Chronic ambulatory dysfunction
Anxiety
GERD
Full code
DVT prophylaxis�heparin
Regular diet
[2024-04-27 22:11] LABS: Glucose - Point of Care 182 mg/dl (70-99)
[2024-04-27] MEDS: NSS 1000 IV (22:18)
[2024-04-27] MEDS: NEURONTIN 300 MG PO (22:31)
[2024-04-28] VITALS (29 sets, daily range): BP systolic 95–126; BP diastolic 40–67; BMI 26.5
[2024-04-28] MEDS: ZOSYN 50 IV ×4 (01:00→18:08)
[2024-04-28] MEDS: SYNTHROID 25 MCG PO (04:24)
[2024-04-28] MEDS: DILAUDID 2 MG PO (04:24)
[2024-04-28 05:05] LABS: ALT (SGPT) 19 U/L (0-35); AST (SGOT) 32 U/L (14-36); Albumin 2.4 g/dl (3.5-5.0); Alkaline Phosphatase 136 U/L (38-126); Blood Urea Nitrogen 57 mg/dl (7-17); Calcium 8.1 mg/dl (8.4-10.2); Carbon Dioxide 28 mmol/L (22-30); Chloride 97 mmol/L (98-107); Estimated Creatinine Clearance 38 ml/min; Glucose 157 mg/dl (70-99); Potassium 4.2 mmol/L (3.5-5.1); Sodium 134 mmol/L (135-145); Total Bilirubin 0.5 mg/dl (0.2-1.3); Total Protein 5.8 g/dl (6.3-8.2); eGFR 52.08
[2024-04-28 05:52] LABS: % Basophils 0.3 % (0-2); % Eosinophils 0.9 % (0-6); % Immature Granulocytes 0.5 % (0-0.5); % Lymphocytes 6.5 % (20.5-51.1); % Monocytes 5.5 % (1.7-9.3); % Neutrophils 86.3 % (42.2-75.2); Absolute Eosinophils 0.1 10^3/uL (0-0.7); Absolute Immature Granulocytes 0.1 10^3/uL (0-0.05); Absolute Lymphocytes 0.8 10^3/uL (1.2-3.4); Absolute Monocytes 0.7 10^3/uL (0.1-0.6); Absolute Neutrophils 11.1 10^3/uL (1.4-6.5); Hematocrit 21.4 % (37.0-47.0); Hemoglobin 6.6 g/dL (12.0-16.0); Mean Corp Hgb Conc. 30.8 g/dL (33.0-37.0); Mean Corpuscular Hgb 28.1 pg (27.0-31.0); Mean Corpuscular Volume 91.1 fL (81.0-99.0); Mean Platelet Volume 8.8 fL (7.4-10.4); Nucleated Red Blood Cells % 0 %; Platelet Count 214 10^3/uL (130-400); Red Blood Cell Count 2.35 10^6/uL (4.20-5.40); Red Cell Dist. Width 16.7 % (11.5-14.5); White Blood Cell Count 12.9 10^3/uL (4.8-10.8)
--- NOTE | 2024-04-28 08:00 | PTCARENOTE ---
Patient drowsy, responds to verbal stimuli, talks with eyes closed, Patient AAOx2, confused to time, and calling out. RR 7-9 sleeping, BP 102/40. Patient repositioned, HOB elevated.
--- NOTE | 2024-04-28 08:23 | PTCARENOTE ---
Physician made aware of patient being a bit confused and drowsy, RR 7-9. Order obtained to hold sedating meds: Neurontin and Baclofen.
[2024-04-28 08:46] LABS: Hematocrit 21.4 % (37.0-47.0); Hemoglobin 6.5 g/dL (12.0-16.0)
[2024-04-28] MEDS: NSS 1000 IV ×2 (09:00→22:21)
[2024-04-28] MEDS: MIRALAX 17 GRAMS PO (10:07)
[2024-04-28] MEDS: LIDOCAINE 4% PATCH 3 PATCH TOPICAL (10:09)
[2024-04-28] MEDS: LIORESAL PO (10:10)
[2024-04-28] MEDS: COZAAR PO (10:10)
[2024-04-28] MEDS: PROTONIX PO (10:11)
[2024-04-28] MEDS: NEURONTIN PO ×2 (10:11→16:35)
[2024-04-28] MEDS: THERAGRAN 1 TABLET PO (10:13)
[2024-04-28 10:21] LABS: Glucose - Point of Care 159 mg/dl (70-99)
[2024-04-28 10:22] LABS: Iron < 20 ug/dl (37-170)
[2024-04-28 10:26] LABS: Total Iron Binding Capacity 162 ug/dl (265-497)
[2024-04-28] MEDS: CYMBALTA DELAYED RELEASE 20 MG PO (11:58)
[2024-04-28] MEDS: NOVOLOG FLEXPEN-LOW RESISTANCE 1 UNITS SC ×3 (11:58→18:09)
[2024-04-28] MEDS: NSS (PRESERVATIVE FREE) 10 ML IV (11:59)
[2024-04-28] MEDS: PROTONIX IV 40 MG IV (12:00)
[2024-04-28 12:03] LABS: Folate 8.2 ng/ml (2.76-20); Vitamin B12 899 pg/ml (239-931)
--- NOTE | 2024-04-28 12:07 | W.PN.HOSP.TC ---
Today's Communication/Plan
-
Monitor vital signs see plan
Transfuse 1 unit PRBC and recheck hemoglobin later today
Discussed CODE STATUS with spouse over the phone, remains full code
Continue with antibiotics
ID evaluation
Wound care
Assessment / Plan
Assessment / Plan
General: Well Developed, appears chronically ill
HEENT: NormoCephalic, Moist mucous membranes and Atraumatic
Respiratory: Clear
Cardiac: S1/S2 and Regular Rhythm; No Murmur or Rub
GI: Soft, Non Tender, Non Distended and Normal Bowel Sounds
Musculoskeletal: No Edema
Neuro: Nonfocal/grossly intact
Sepsis/metabolic encephalopathy (fever, tachycardia, leukocytosis) secondary to catheter associated UTI or sacral wound
# History of ESBL E. coli
-Patient with history of ESBL E. coli resistant to ceftriaxone
-Patient with chronic Dial catheter which appears to have been replaced
-Urine culture
-Blood cultures growing gram-positive cocci, repeat blood culture. ID evaluation
-IV fluids
-cw Zosyn
Large chronic sacral wound with associated osteomyelitis
Chronic Underlying Osteomyelitis associated with sacral wound
History of MRSA associated wound
Dr Mcmillan patient's plastic surgeon attempted flap/reconstruction with patient 09/2023 that unfortunately failed d/t necrosis
Discussed with spouse, to bring [facility].
-Wound care
This likely will not completely go away, discussed with spouse
Chronic pain syndrome
Chronic pain with opioid dependence
Sciatica right leg shooting pain with ambulation
Continue with baclofen (hold if sedated)
Anemia, likely acute on chronic
Check iron panel, B12, folate
Hemoglobin 6.5, blood consented over the phone with spouse
Transfuse 1 unit PRBC and recheck hemoglobin later today
Currently no signs of bleeding
Heme test stool
Chronic HFpEF
-Hold Lasix
Essential hypertension
Blood pressure low, hold losartan
COPD, currently not in exacerbation
Monitor
Neurogenic bladder with chronic Dial catheter
Chronic left hydroureteronephrosis secondary to neurogenic bladder
-Seen by urology during recent admission and no intervention recommended
History of right renal cancer status post right nephrectomy
Type 2 diabetes
-Hold Januvia
-Insulin sliding scale
History of hyponatremia
Hypothyroidism
-Continue levothyroxine
History of infrarenal abdominal aortic aneurysm
Severe osteoarthritis/sciatica
-Continue baclofen, Tylenol, duloxetine, gabapentin, Dilaudid, lidocaine patch
History of rectal cancer status post APR with colostomy 1983 status post radiation colostomy
Chronic ambulatory dysfunction
Anxiety
GERD
Full code; discussed with spouse over the phone
DVT prophylaxis�heparin
Total Critical Care Time__48___ minutes. I was immediately available to the patient and staff. I personally examined, reviewed labs, diagnostic images/reports, interpretations, treatment plans, discussed patient care with other providers and
family or caregivers (if patient is unable to make decisions), entered orders as appropriate and documented the medical record.
Anticipated Discharge: > 48 hours
Subjective/Interval History
-
Date of Service: April 28, 2024
Denies nausea
Objective Data
-
Labs:
Laboratory Results
04/28/24 04/28/24
04:18 07:27
WBC 12.9 H
Hgb 6.6 L* 6.5 L*
Hct 21.4 L 21.4 L
Plt Count 214
Sodium 134 L
Potassium 4.2
Chloride 97 L
Carbon Dioxide 28
BUN 57 H
Creatinine 1.1 H
Glucose 157 H
Calcium 8.1 L
Total Bilirubin 0.5
AST 32
ALT 19
Alkaline Phosphatase 136 H
Vital Signs:
Vital Signs
Temp Pulse Resp BP Pulse Ox
97.7 F 92 10 116/47 97
04/28/24 07:55 04/28/24 11:00 04/28/24 11:00 04/28/24 11:00 04/28/24 11:00
I&O
04/27/24 04/28/24 04/29/24
06:59 06:59 06:59
Intake Total 960 / 960
Output Total 300 / 300
Balance 660 / 660
--- NOTE | 2024-04-28 12:48 | CM ---
Addendum entered by Belen Booker 04/28/24 13:48:
Call from [facility]
Pt NOT a bed hold
Conversation initiated with spouse re: MA at SNF but spouse has not submitted shanta yet
Pt out of [facility] days, will need auth again through secondary insurance HOP
Original Note:
CM spoke with spouse?michele as confusion noted
Pt was dc to [facility] on 04/17/24 from
She has exhausted her 100 days with Medicare, auth was obtained through secondary HOP
Spouse with cancer and receiving chemo
He noted he has completed MA shanta for LTC at SNF, pt is not able to return home
Outreach/[facility] SNF admissions
She will confirm bed-hold
Call with nursing staff for PLOF
Pt non-ambulatory and myranda list with staff
1-2 person assist with therapy team
Pt with significant wound and pain
Often declined getting out of bed and therapy per staff
Will participate in personal care tasks at times dependent on pain level
Return SNF referral sent via [facility]
Discharge Disposition- return [facility] for LTC
[2024-04-28 13:14] LABS: Glucose - Point of Care 196 mg/dl (70-99)
[2024-04-28] MEDS: SANTYL OINTMENT 1 APPLIC TOPICAL (14:00)
--- NOTE | 2024-04-28 14:31 | CON.ID ---
Consultation
-
Date/Time Consultation Requested: April 28, 2024
Date/Time Consultation Performed: April 28, 2024
Requesting Provider: Dr. Amador Ramirez
Performing Provider: Dr. Shirley Marie
Reason for Consultation: Bacteremia
Chief Complaint / Past History
Chief Complaint
Slid off bed. Sacral pain.
History of Present Illness
78 year old female with hx rectal ca 1992 s/p APR, colostomy, chemo XRT, developed sacral wound/osteo failed flap, with chronic massive wound and chronic osteo, urinary retention with echevarria since last admission in Mar 2024, who presented to ED from
home yesterday 04/27 with weakness. She states she slid off the bed and unable to get up. Denies fevers or chills. In ED WBC 15.5. Rectal temp 100.4. Echevarria was changed. She was started on Zosyn yesterday. She has chronic pain, opioid dependent,
follows with palliative care. Chief complaint today is severe wound pain. Denies cough, SOB, abd pain, change in bowel habits, nor flank pain.
Past History
Additional Past Medical History:
Hx Rectal ca 1992 s/ APR, colostomy at [facility] with adjuvant chemo XRT.
Renal ca, right s/p nephrectomy (1992).
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
Sacral wound reconstruction by Dr. Mcmillan at [facility] 10/08/23 (OR cx Klebsiella and Enterococcus) s/p 6 weeks IV Zosyn through 11/19/23
Sacral flap necrosis s/p I+D, wound vac application at [facility] 11/18/23 s/p IV Zosyn short course.
Sacral OR wound debridement 12/31/23, Tissue path fat necrosis, acute inflammation. Bone cx: Pseudomonas (panS), E. coli (panS), VRE (amp-resistant), Corynebacterium striatum (?untreated)
Chronic large sacral decubitus/chronic osteo/ possible L5/S1 discitis s/p 6 weeks meropenem through 03/19/24.
Hypertension.
Infrarenal AAA
Chronic pain, opioid dependence
COPD
Lung nodules.
Thrombocytopenia.
neurogenic bladder, receiving Botox, now with echevarria catheter since 03/2024
Ambulatory dysfunction with falls.
Sacral insufficiency fractture
R hip fracture ORIF 03/2023
parastomal hernia repair with mesh
back surgery 07/2020
bilateral knee replacements
Allergy History:
doxycycline Allergy (Verified 04/27/24 21:55)
Shortness of Breath
levofloxacin Allergy (Verified 02/01/24 03:12)
Rash
morphine Allergy (Verified 02/01/24 03:12)
Rash
prochlorperazine [From Compazine] Allergy (Verified 02/01/24 03:12)
Rash
vancomycin Allergy (Verified 04/27/24 21:55)
Shortness of Breath
Medications Reviewed: Yes
Current Antibiotics:
Zosyn
Social History
Tobacco: Non-Smoker
Alcohol: None
Drug: None
Personal:
Family History
Family History: Not Pertinent
Review of Systems
Review of Systems
General: Negative Fever or Chills
HEENT: Negative Stiff Neck, Sinus Problems, Headache or Pharyngitis
Cardiovascular: Negative Chest Pain or Dyspnea
Respiratory: Negative Dyspnea or Cough
Gasteroenterology: Negative Nausea, Vomiting or Diarrhea
Genital / Urological: Negative Dysuria or Flank Pain
Endocrine: Weakness
Skin / Hair / Nails: Negative Rash
Neurological: Negative Dizziness
All systems: All other systems were reviewed and were negative
Vital Signs
Temp Pulse Resp BP Pulse Ox
98.4 F 97 10 110/49 97
04/28/24 13:54 04/28/24 13:54 04/28/24 13:54 04/28/24 13:54 04/28/24 11:00
Physical Exam
Physical Exam
Constitutional: Chronically Ill and Other (Uncomfortable due to pain)
Eyes: No Conjunctival Hemorrhage and Sclera Anicteric
Cardiovascular: Regular Rate and S1/S2
Pulmonary: Clear
Gastrointestinal: Soft, Non Tender, Non Distended and Normal Bowel Sounds
Genito-Urinary: Echevarria (+ sediments on tubing) and Clear Urine; Negative CVA Tenderness
Extremities: Negative Edema
Wound: Other (Reviewed today's wound photo, large sacral wound stage 4, dry, few areas of necrosis, no infection. )
Neurological: AO x 3
Lab / Diagnostic Study Results
04/28/24 04:18
Abs Immat Gran (auto) 0.1 10^3/uL (0-0.05) H 04/28/24 04:18
Absolute Neuts (auto) 11.1 10^3/uL (1.4-6.5) H 04/28/24 04:18
Absolute Lymphs (auto) 0.8 10^3/uL (1.2-3.4) L 04/28/24 04:18
Absolute Monos (auto) 0.7 10^3/uL (0.1-0.6) H 04/28/24 04:18
Absolute Basos (auto) 0.0 10^3/uL (0-0.2) 04/28/24 04:18
Immature Gran % 0.5 % (0-0.5) 04/28/24 04:18
Neutrophils % 86.3 % (42.2-75.2) H 04/28/24 04:18
Lymphocytes % 6.5 % (20.5-51.1) L 04/28/24 04:18
Monocytes % 5.5 % (1.7-9.3) 04/28/24 04:18
Eosinophils % 0.9 % (0-6) 04/28/24 04:18
Basophils % 0.3 % (0-2) 04/28/24 04:18
Lactic Acid Cancelled 04/27/24 20:45
Ur Squamous Epith Cells >30 /LPF (Few) 04/27/24 17:27
Microbiology Results
Micro:
04/28/24 13:31 Blood Culture - Pending
Blood/Venous
04/27/24 17:27 Urine Culture - Preliminary
Urine Escherichia coli
04/27/24 17:27 Blood Culture - Preliminary
Blood/Venous Positive culture in progress
Gram Stain - Final
04/28/24 04:18 MRSA Screen - Pending
Nose
04/27/24 16:38 Influenza Types A & B (ALTHEA) - Final
Nasal Swab Negative for Influenza A & B, NAAT
Negative results must be combined with clinical observations
and patient history.
Nucleic Acid Amplification test (NAAT)performed on the
[employer] platform.
04/27/24 CXR: Low lung volumes. Mild left basilar discoid atelectasis.
Assessment / Plan
# GPC in chains bacteremia 04/15 set bcx, anaerobic bottle
- Suspect Strep. ?contaminant
- Repeat bcx x 1 pending. Ordered second set of blood cx.
- Continue Zosyn for now pending repeat bcx's
# Leukocytosis trending down.
# Rectal temp 100.4, not fever.
- follow wbc
# Chronic echevarria since 03/2024
# E. coli bacteruria
- echevarria changed in ED
-UA >30 sq epith cells suggestive of contaminated specimen
# Chronic osteo of sacrum
# Chronic stage 4 large sacral wound
- Wound does not appear to have acute infection
-Continue wound care and off-loading
# Chronic pain, opioid dependence
--- NOTE | 2024-04-28 14:33 | WOUNDNOTE ---
CLOSER VIEW OF SACRUM, BONE EXPOSED
--- NOTE | 2024-04-28 14:35 | WOUNDNOTE ---
WON RN note: Patient admitted with Acute UTI and hypoxia.
See H&P for complete history. Patient confirmed she lives at home with her spouse who takes care of her and has Visiting Nurses.
PMH: solitary L kidney, nephrectomy for renal cell ca, chronic pain, DM, heart failure, neurogenic bladder, HTN, COPD, colostomy, parastomal hernia repair, Stage 4 sacral ulcer, Flap done by plastic surgeon September 2023.
Wound Location and type/assessment: Patient known to service, last seen 04/06/24 for stage 4 sacral pressure injury. Compared to last seen, wound is larger with deeper undermining. Bone is exposed, maharaj/travis slough and pink at base, distal edge of
wound DTI-dark maroon color. Patient complains of extreme pain when doing wound care. R heel new large serous blister, distal edge blood filled blister, evolving DTI. Skin on both feet warm and dry, faint palpable pedal pulses. Patient states at
home she does not have an air mattress or offloading cushion for chair. Patient has looked into rental air mattress/cushion but it was too expensive. Patient's gets her oob to chair daily, patient states. Reviewed Dr. Ho's note from
09/19/23 at wound care center. At that time wound classified as irradiated surgical wound, measured 1.7x0.8x3.2 with undermining. Patient was scheduled for flap at [facility] by a plastic surgeon October [id number]. Patient did confirm she had the flap
done. Colostomy stoma pink, no reports of peristomal skin issues. Patient did not bring own supplies, using 2 3/4' 2 piece with flat wafer. Appliance changed yesterday and patient independent with care she states.
Appetite: Fair, patient states she supplements with ensure drinks at home. Encouraged protein in diet.
Pressure redistribution devices in place: Is on Centrella Pro bed called veronica Srivastava who will bring a Centrella air mattress to . Called [facility] for offloading heel boots. Pressure ulcer prevention measures reviewed with patient.
Plan: Sacral dressing changed with Elsa already on order, Saline moist gauze packing and dry dressing. R heel applied silicone foam, offloading boots to be placed on both heels by nurse Julian. Nurse also aware that bed needs to be switched when
able. Patient turned to R semi side lying position. Heels off bed with pillows under calves. Requested surgical consult from Dr. Ramirez for sacral ulcer. Healing potential poor d/t history of radiation, chronic osteomyelitis, chronic pain and
difficulty off loading. Supplies for Colostomy ordered from [facility] nurse Iesha aware.
Updated nurse uJlian, care plan and will follow as needed.
Note to case management of equipment requested for discharge: Air mattress. Roho cushion for chair
Recommend follow up with your plastic surgeon.
--- NOTE | 2024-04-28 14:57 | CON.GS ---
Medical History
-
Chief Complaint: Back pain and malaise
History of Present Illness:
Patient is a 78-year-old female with a PMH pf rectal and renal cancer treated surgically and XRT maintained with chronic colostomy, chronic pain syndrome (opioid dependent), neurogenic bladder maintained with Dial, and chronic sacral wound with
osteomyelitis s/p flap management which subsequently failed with wound dehiscence. She is being followed for her wound at [facility] wound care center with previous evaluations by Dr. Alfred. She presents to the emergency department with back/sacral pain
and malaise. No fevers.
Past Medical History
Past Medical History: Cancer (Rectal and renal) and Other (Chronic sacral wound, chronic pain, neurogenic bladder)
Past Surgical History: Bowel Resection (LAR with permanent end colostomy), Hernia Repair (Parastomal hernia repair), Orthopedic (Bl knee replacement, back, R hip ORIF), Urological (RIGHT nephrectomy) and Other (Sacral wound debridements and flap
reconstruction at [facility])
Social History
Tobacco: Non-Smoker
Alcohol: None
Drug: None
Family History
Family History: Reviewed & Not Pertinent
Allergies / Home Medications
Allergy/AdvReac Type Severity Reaction Status Date / Time
doxycycline Allergy Shortness Verified 04/27/24 21:55
of Breath
levofloxacin Allergy Rash Verified 02/01/24 03:12
morphine Allergy Rash Verified 02/01/24 03:12
prochlorperazine Allergy Rash Verified 02/01/24 03:12
[From Compazine]
vancomycin Allergy Shortness Verified 04/27/24 21:55
of Breath
�Medication �Instructions �Recorded �Confirmed �Type
nifedipine 60 mg tablet,extended 60 mg PO DAILY blood pressure 01/15/24 04/27/24 History
release 24 hr
pantoprazole 40 mg tablet,delayed 40 mg PO DAILY Gastrointestinal 01/15/24 04/27/24 History
release Issue
sitagliptin phosphate 100 mg 100 mg PO DAILY Diabetes #0 tabs 02/18/24 04/27/24 Rx
tablet (Januvia)
buprenorphine HCl 150 mcg buccal 150 mcg buccal QID Pain 04/04/24 04/27/24 History
film (Belbuca)
losartan 25 mg tablet 25 mg PO DAILY Blood Pressure 04/04/24 04/27/24 History
baclofen 5 mg tablet 5 mg PO BID Pain #60 tabs 04/14/24 04/27/24 Rx
duloxetine 20 mg capsule,delayed 20 mg PO DAILY Pain #30 caps 04/14/24 04/27/24 Rx
release
lidocaine 4 % topical patch 2 patch topical DAILY PRN Pain #30 04/14/24 04/27/24 Rx
ea
gabapentin 300 mg capsule 300 mg PO TID Pain #0 caps 04/17/24 04/27/24 Rx
levothyroxine 25 mcg tablet 25 mcg PO DAILY @ 0600 Thyroid #0 04/17/24 04/27/24 Rx
tabs
polyethylene glycol 3350 17 gram 17 g PO DAILY Constipation #0 ea 04/17/24 04/27/24 Rx
oral powder packet
acetaminophen 325 mg tablet 650 mg PO Q6HPRN PRN mild 04/27/24 04/27/24 History
(Tylenol) pain/temp>100
bisacodyl 10 mg rectal suppository 10 mg LA DAILYPRN PRN 04/27/24 04/27/24 History
(Dulcolax (bisacodyl)) constipation, if mom ineffective
collagenase clostridium histo. 250 1 applic topical BID 04/27/24 04/27/24 History
unit/gram topical ointment (Santyl)
furosemide 40 mg tablet (Lasix) 40 mg PO DAILY 04/27/24 04/27/24 History
hydromorphone 2 mg tablet 2 mg PO Q4HPRN PRN severe pain 04/27/24 04/27/24 History
(Dilaudid)
magnesium hydroxide 400 mg/5 mL 30 ml PO [id number] PRN no bm x3 days 04/27/24 04/27/24 History
oral suspension (Milk of Magnaury)
methyl salicylate 15 %-menthol 10 1 applic topical Q6HPRN PRN muscle 04/27/24 04/27/24 History
% topical cream (Analgesic [place] pain
(m.salic-menthol))
sodium phosphates 19 gram-7 118 ml LA DAILYPRN PRN 04/27/24 04/27/24 History
gram/118 mL enema (Fleet Enema) constipation, bisacodyl ineffective
therapeutic multivitamin 1 tab PO DAILY 04/27/24 04/27/24 History
Review of Systems
-
A 10 point review of systems was completed, and was negative except as per HPI.
Physical Exam
Vital Signs
Temp Pulse Resp BP Pulse Ox
98.4 F 97 10 110/49 97
04/28/24 13:54 04/28/24 13:54 04/28/24 13:54 04/28/24 13:54 04/28/24 11:00
04/27/24 04/28/24 04/29/24
06:59 06:59 06:59
Actual Weight 70 kg
Body Mass Index (BMI) 26.5
Lab Results
04/28/24 04:18
WBC 12.9 10^3/uL (4.8-10.8) H 04/28/24 04:18
Hgb 6.5 g/dL (12.0-16.0) L* 04/28/24 07:27
Hct 21.4 % (37.0-47.0) L 04/28/24 07:27
Plt Count 214 10^3/uL (130-400) 04/28/24 04:18
Abs Immat Gran (auto) 0.1 10^3/uL (0-0.05) H 04/28/24 04:18
Neutrophils % 86.3 % (42.2-75.2) H 04/28/24 04:18
Physical Exam
General: Well Developed, Well Nourished and No Apparent Distress
Respiratory: Non Labored Respirations
GI: Soft, Non Tender, Non Distended and Other (ostomy PPV)
Rectal: Other (large well drainage sacral ulcer, healthy granulation tissue throughout majority of wound, small areas of fibrinous debris, no carlo purulence, no necrosis, palpable bone)
Skin: Warm and Dry
Data Reviewed
-
Labs: Labs Reviewed by me
Old Records: Reviewed
Assessment / Plan
-
Patient is a 78 yo F presenting with back/sacral pain and malaise
Several chronic medical issues with failure to thrive as an outpatient. Current admission for acute anemia and recurrent UTI. Chronic stage IV sacral decubitus ulcer. Majority of wound is comprised of healthy granulation tissue, small areas of
fibrinous necrosis and debris, no undrained abscess these, no spreading erythema. No need or indication for acute surgical intervention. Wound is very unlikely to heal given her multiple medical comorbidities and history. No plans or indication
for surgical debridement. Outpatient follow-up at [facility]. Agree with goals of care discussion; palliative care would be appropriate.
-- No plans or indication for acute surgical debridement
-- Continue with local wound care
-- Outpatient follow-up at [facility]
-- Please call with any questions or concerns
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
--- NOTE | 2024-04-28 16:35 | PTCARENOTE ---
Patient thinks there is a dog in her room and is concerned for fleas. Patient reoriented to room and no dog present.
[2024-04-28 17:32] LABS: Glucose - Point of Care 165 mg/dl (70-99)
[2024-04-28 22:17] LABS: Glucose - Point of Care 203 mg/dl (70-99)
[2024-04-28] MEDS: LIORESAL 5 MG PO (22:23)
[2024-04-28] MEDS: NEURONTIN 300 MG PO (22:25)
[2024-04-28 22:32] LABS: Hematocrit 24.1 % (37.0-47.0); Hemoglobin 7.6 g/dL (12.0-16.0)
[2024-04-29] VITALS (16 sets, daily range): BP systolic 106–144; BP diastolic 47–73
[2024-04-29] MEDS: ZOSYN 50 IV ×3 (00:07→11:27)
--- NOTE | 2024-04-29 01:43 | PTCARENOTE ---
Pt assessed as per nsg assessment. Labs drawn with H&H now noted to be 7.6. Pt sleeping between cares. No s/s of distress assessed. Will continue to monitor.
[2024-04-29 04:14] LABS: % Basophils 0.3 % (0-2); % Eosinophils 0.9 % (0-6); % Immature Granulocytes 0.9 % (0-0.5); % Lymphocytes 8.8 % (20.5-51.1); % Monocytes 7.3 % (1.7-9.3); % Neutrophils 81.8 % (42.2-75.2); Absolute Eosinophils 0.1 10^3/uL (0-0.7); Absolute Immature Granulocytes 0.1 10^3/uL (0-0.05); Absolute Lymphocytes 0.8 10^3/uL (1.2-3.4); Absolute Monocytes 0.7 10^3/uL (0.1-0.6); Absolute Neutrophils 7.8 10^3/uL (1.4-6.5); Hematocrit 24.4 % (37.0-47.0); Hemoglobin 7.9 g/dL (12.0-16.0); Mean Corp Hgb Conc. 32.4 g/dL (33.0-37.0); Mean Corpuscular Hgb 28.9 pg (27.0-31.0); Mean Corpuscular Volume 89.4 fL (81.0-99.0); Mean Platelet Volume 8.6 fL (7.4-10.4); Nucleated Red Blood Cells % 0 %; Platelet Count 181 10^3/uL (130-400); Red Blood Cell Count 2.73 10^6/uL (4.20-5.40); White Blood Cell Count 9.5 10^3/uL (4.8-10.8)
[2024-04-29 04:43] LABS: ALT (SGPT) 16 U/L (0-35); AST (SGOT) 26 U/L (14-36); Albumin 2.4 g/dl (3.5-5.0); Alkaline Phosphatase 143 U/L (38-126); Blood Urea Nitrogen 38 mg/dl (7-17); Calcium 8.4 mg/dl (8.4-10.2); Carbon Dioxide 27 mmol/L (22-30); Chloride 101 mmol/L (98-107); Estimated Creatinine Clearance 52 ml/min; Glucose 151 mg/dl (70-99); Potassium 3.7 mmol/L (3.5-5.1); Sodium 134 mmol/L (135-145); Total Bilirubin 0.4 mg/dl (0.2-1.3); eGFR > 60.00
[2024-04-29] MEDS: NSS IV (05:56)
[2024-04-29] MEDS: SYNTHROID 25 MCG PO (05:58)
[2024-04-29 08:22] LABS: Glucose - Point of Care 176 mg/dl (70-99)
[2024-04-29] MEDS: MIRALAX 17 GRAMS PO (09:58)
[2024-04-29] MEDS: NOVOLOG FLEXPEN-LOW RESISTANCE 1 UNITS SC (09:59)
[2024-04-29] MEDS: THERAGRAN 1 TABLET PO (10:00)
[2024-04-29] MEDS: NEURONTIN 300 MG PO ×3 (10:00→20:58)
[2024-04-29] MEDS: NSS (PRESERVATIVE FREE) 10 ML IV (10:01)
[2024-04-29] MEDS: LIDOCAINE 4% PATCH 3 PATCH TOPICAL (10:01)
[2024-04-29] MEDS: PROTONIX IV 40 MG IV (10:01)
[2024-04-29] MEDS: SANTYL OINTMENT 1 APPLIC TOPICAL (10:03)
[2024-04-29] MEDS: LIORESAL 5 MG PO ×2 (10:03→20:58)
[2024-04-29] MEDS: CYMBALTA DELAYED RELEASE 20 MG PO (10:03)
--- NOTE | 2024-04-29 13:24 | W.PN.HOSP.TC ---
Today's Communication/Plan
-
monitor vitals
see plan
PT/OT
heme test neg
advance diet to fulls
cw abx
follow cultures
discussed with spouse over the phone
Assessment / Plan
Assessment / Plan
General: Well Developed, appears chronically ill
HEENT: NormoCephalic, Moist mucous membranes and Atraumatic
Respiratory: Clear
Cardiac: S1/S2 and Regular Rhythm; No Murmur or Rub
GI: Soft, Non Tender, Non Distended and Normal Bowel Sounds
Musculoskeletal: No Edema
Neuro: Nonfocal/grossly intact
Sepsis/metabolic encephalopathy (fever, tachycardia, leukocytosis) secondary to catheter associated UTI or sacral wound
# History of ESBL E. coli
-Patient with history of ESBL E. coli resistant to ceftriaxone
-Patient with chronic Dial catheter which appears to have been replaced
-Urine culture with ecoli
-Blood cultures growing strep species, repeat blood culture pending. ID following
-cw Zosyn
Large chronic sacral wound with associated osteomyelitis
Chronic Underlying Osteomyelitis associated with sacral wound
History of MRSA associated wound
Dr Mcmillan patient's plastic surgeon attempted flap/reconstruction with patient 09/2023 that unfortunately failed d/t necrosis
Discussed with spouse, to bring [facility] [place].
Wound care following, surgery evaluated the wound and does not think need any debridement. Patient should follow-up with surgery at [place]
-Wound care
This likely will not completely go away, discussed with spouse
Chronic pain syndrome
Chronic pain with opioid dependence
Sciatica right leg shooting pain with ambulation
Continue with baclofen (hold if sedated)
Anemia, likely acute on chronic
Hemoglobin 6.5, blood consented over the phone with spouse. Status post 1 unit PRBC 04/28. Hemoglobin now 7.9. Heme test neg
Currently no signs of bleeding
Chronic HFpEF
-Hold Lasix
Essential hypertension
Blood pressure low normal, hold losartan
COPD, currently not in exacerbation
Monitor
Hyponatremia
monitor
Neurogenic bladder with chronic Dial catheter
Chronic left hydroureteronephrosis secondary to neurogenic bladder
-Seen by urology during recent admission and no intervention recommended
History of right renal cancer status post right nephrectomy
Type 2 diabetes
-Hold Januvia
-Insulin sliding scale
History of hyponatremia
Hypothyroidism
-Continue levothyroxine
History of infrarenal abdominal aortic aneurysm
Severe osteoarthritis/sciatica
-Continue baclofen, Tylenol, duloxetine, gabapentin, Dilaudid, lidocaine patch
History of rectal cancer status post APR with colostomy 1983 status post radiation colostomy
Chronic ambulatory dysfunction
Anxiety
GERD
Full code; discussed with spouse over the phone
DVT prophylaxis�heparin
PT/OT
I spent a total of 52 minutes with the patient or on the floor. More than 50% of this time involved counseling and coordination of care.
Anticipated Discharge: > 48 hours
Subjective/Interval History
-
Date of Service: April 29, 2024
denies pain
Objective Data
-
Labs:
Laboratory Results
04/29/24
04:02
WBC 9.5
Hgb 7.9 L
Hct 24.4 L
Plt Count 181
Sodium 134 L
Potassium 3.7
Chloride 101
Carbon Dioxide 27
BUN 38 H
Creatinine 0.8
Glucose 151 H
Calcium 8.4
Total Bilirubin 0.4
AST 26
ALT 16
Alkaline Phosphatase 143 H
Vital Signs:
Vital Signs
Temp Pulse Resp BP Pulse Ox
98.0 F 71 11 119/52 96
04/29/24 04:00 04/29/24 07:00 04/29/24 07:00 04/29/24 07:00 04/28/24 17:00
I&O
04/28/24 04/29/24 04/30/24
06:59 06:59 06:59
Intake Total 960 / 960 3090 / 3090
Output Total 300 / 300 1600 / 1600
Balance 660 / 660 1490 / 1490
[2024-04-29 13:32] LABS: Glucose - Point of Care 258 mg/dl (70-99)
--- NOTE | 2024-04-29 14:14 | PTCARENOTE ---
Colostomy bag exploded with massive amount of formed stool, followed by large amount of loose stool. Ostomy appliance changed.Heme test was negative.
[2024-04-29] MEDS: NOVOLOG FLEXPEN-LOW RESISTANCE 3 UNITS SC ×2 (14:20→17:57)
--- NOTE | 2024-04-29 14:33 | W.PN.ID1 ---
Date of Service
Date of Service: April 29, 2024
Today's Communication
- Narrow Zosyn to ceftriaxone.
- At time of dc, transition to Augmentin 875mg po bid through 05/07/24.
Assessment / Plan
# Strep bacteremia 04/15 set bcx, anaerobic bottle
- ?contaminant
- Repeat bcx x 1 neg to date.
- Narrow Zosyn to ceftriaxone.
- At time of dc, transition to Augmentin 875mg po bid through 05/07/24.
# Leukocytosis trending down.
# Rectal temp 100.4, not fever.
- follow wbc
# Chronic echevarria since 03/2024
# E. coli bacteruria
- echevarria changed in ED
-UA >30 sq epith cells suggestive of contaminated specimen
# Chronic osteo of sacrum
# Chronic stage 4 large sacral wound
- Wound does not appear to have acute infection
-Continue wound care and off-loading
# Chronic pain, opioid dependence
Chief Complaint
-: Leukocytosis
Subjective / Review of Systems
Sacral pain better controlled.
Vital Signs / Physical Exam
Vital Signs
Vital Signs
Temp Pulse Resp BP Pulse Ox
98.0 F 78 13 119/53 96
04/29/24 04:00 04/29/24 13:30 04/29/24 13:30 04/29/24 12:00 04/29/24 13:30
Physical Exam
Constitutional: Comfortable and Chronically Ill
Pulmonary: Clear
Gastrointestinal: Soft, Non Tender and Non Distended
Genito-Urinary: Echevarria; Negative CVA Tenderness
Extremities: Negative Edema
Neurological: AO x 3
Objective Data
Lab Data
Lab Results
04/29/24 04:02
04/29/24 04:02
Estimated Creat Clear 52 ml/min 04/29/24 04:02
Lactic Acid Cancelled 04/27/24 20:45
Total Bilirubin 0.4 mg/dl (0.2-1.3) 04/29/24 04:02
AST 26 U/L (14-36) 04/29/24 04:02
ALT 16 U/L (0-35) 04/29/24 04:02
Alkaline Phosphatase 143 U/L (38-126) H 04/29/24 04:02
Most recent labs reviewed.
Micro Results:
04/28/24 13:31 Blood Culture - Preliminary
Blood/Venous No Growth in 24 hours- Final report to follow
04/27/24 17:27 Blood Culture - Preliminary
Blood/Venous Streptococcus species
Gram Stain - Final
04/27/24 17:27 Urine Culture - Final
Urine Escherichia coli
04/28/24 04:18 MRSA Screen - Final
Nose Staph aureus MRSA
04/27/24 16:38 Influenza Types A & B (ALTHEA) - Final
Nasal Swab Negative for Influenza A & B, NAAT
Negative results must be combined with clinical observations
and patient history.
Nucleic Acid Amplification test (NAAT)performed on the
[employer] platform.
04/27/24 CXR: Low lung volumes. Mild left basilar discoid atelectasis.
[2024-04-29] MEDS: STERILE WATER FOR INJECTION 10 ML IV (16:26)
[2024-04-29] MEDS: ROCEPHIN 1000 MG IV (16:26)
--- NOTE | 2024-04-29 17:52 | CM ---
Addendum entered by Aline Juarez RN 04/29/24 18:17:
Ximena stated that patient did meet with [employer] installation service representative.
Original Note:
CM spoke with patient's . stated that he met with a [facility] admissions representative that was sent by [facility] to move forward with MA shanta.
CM requested further update from Ximena.
[2024-04-29 17:57] LABS: Glucose - Point of Care 258 mg/dl (70-99)
--- NOTE | 2024-04-29 18:40 | PTCARENOTE ---
Received patient from ED into room 2125. Patient AAOX2, VSS, drowsy but able to make needs known. Transported on air bed, fiber filled boots on patient, echevarria draining yellow urine and RLQ colostomy appliance intact. Heel foam on R heel intact.
Sacrum dressing saturated, wound area redressed per wound care order by this RN. Patient oriented to room and call jade, states no concerns at this time.
[2024-04-29 21:19] LABS: Glucose - Point of Care 193 mg/dl (70-99)
[2024-04-30] VITALS (7 sets, daily range): BP systolic 139–154; BP diastolic 58–66; BMI 26.4
[2024-04-30 05:02] LABS: Transferrin 109 mg/dL (200-360)
[2024-04-30] MEDS: SYNTHROID 25 MCG PO (05:15)
[2024-04-30 06:29] LABS: % Basophils 0.4 % (0-2); % Eosinophils 0.8 % (0-6); % Immature Granulocytes 0.8 % (0-0.5); % Lymphocytes 11.1 % (20.5-51.1); % Monocytes 6.5 % (1.7-9.3); % Neutrophils 80.4 % (42.2-75.2); Absolute Eosinophils 0.1 10^3/uL (0-0.7); Absolute Immature Granulocytes 0.1 10^3/uL (0-0.05); Absolute Lymphocytes 0.8 10^3/uL (1.2-3.4); Absolute Monocytes 0.5 10^3/uL (0.1-0.6); Absolute Neutrophils 6.1 10^3/uL (1.4-6.5); Hematocrit 24.9 % (37.0-47.0); Hemoglobin 7.6 g/dL (12.0-16.0); Mean Corp Hgb Conc. 30.5 g/dL (33.0-37.0); Mean Corpuscular Hgb 27.7 pg (27.0-31.0); Mean Corpuscular Volume 90.9 fL (81.0-99.0); Mean Platelet Volume 8.7 fL (7.4-10.4); Nucleated Red Blood Cells % 0 %; Platelet Count 205 10^3/uL (130-400); Red Blood Cell Count 2.74 10^6/uL (4.20-5.40); Red Cell Dist. Width 15.9 % (11.5-14.5); White Blood Cell Count 7.6 10^3/uL (4.8-10.8)
[2024-04-30 07:02] LABS: ALT (SGPT) 15 U/L (0-35); AST (SGOT) 20 U/L (14-36); Albumin 2.3 g/dl (3.5-5.0); Alkaline Phosphatase 127 U/L (38-126); Blood Urea Nitrogen 20 mg/dl (7-17); Calcium 8.1 mg/dl (8.4-10.2); Carbon Dioxide 28 mmol/L (22-30); Chloride 101 mmol/L (98-107); Estimated Creatinine Clearance 69 ml/min; Glucose 144 mg/dl (70-99); Potassium 3.6 mmol/L (3.5-5.1); Sodium 136 mmol/L (135-145); Total Bilirubin 0.2 mg/dl (0.2-1.3); Total Protein 5.7 g/dl (6.3-8.2); eGFR > 60.00
[2024-04-30 07:53] LABS: Glucose - Point of Care 196 mg/dl (70-99)
[2024-04-30] MEDS: NEURONTIN 300 MG PO ×3 (08:51→22:49)
[2024-04-30] MEDS: CYMBALTA DELAYED RELEASE 20 MG PO (08:51)
[2024-04-30] MEDS: LIORESAL 5 MG PO ×2 (08:51→19:47)
[2024-04-30] MEDS: LIDOCAINE 4% PATCH 3 PATCH TOPICAL (08:52)
[2024-04-30] MEDS: NSS (PRESERVATIVE FREE) 10 ML IV (08:53)
[2024-04-30] MEDS: PROTONIX IV 40 MG IV (08:53)
[2024-04-30] MEDS: THERAGRAN 1 TABLET PO (08:53)
[2024-04-30] MEDS: NOVOLOG FLEXPEN-LOW RESISTANCE 1 UNITS SC ×2 (08:54→17:03)
[2024-04-30] MEDS: MIRALAX PO (08:57)
[2024-04-30] MEDS: DILAUDID 2 MG PO ×2 (09:15→17:02)
--- NOTE | 2024-04-30 09:17 | PTCARENOTE ---
pt refused miralax for this nurse this morning. prn pain medication given dilaudid PO for 10/10 sacral wound pain. pt washed by nursing center tutor and pct this morning. lidocaine patches applied to desired locations. breakfast on full liquid diet
ordered.
--- NOTE | 2024-04-30 09:21 | W.PN.ID1 ---
Date of Service
Date of Service: April 30, 2024
Today's Communication
Start daptomycin pending susceptibility of S. aureus
Assessment / Plan
# Staph aureus and Strep species bacteremia 04/15 set bcx
- ? contaminants vs uncomplicated S. aureus bacteremia
- Repeat bcx x 1 neg to date.
- Ordered another set of blood cx
- Check TTE
- Start daptomycin pending susceptibility of S. aureus.
Follow CK while on dapto
# Leukocytosis resolved
# Chronic echevarria since 03/2024
# E. coli bacteruria
- echevarria changed in ED
-UA >30 sq epith cells suggestive of contaminated specimen
# Chronic osteo of sacrum
# Chronic stage 4 large sacral wound
- Wound does not appear to have acute infection
-Continue wound care and off-loading
# Chronic pain, opioid dependence
Past History
Hx Rectal ca 1992 s/ APR, colostomy at [facility] with adjuvant chemo XRT.
Renal ca, right s/p nephrectomy (1992).
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
Sacral wound reconstruction by Dr. Mcmillan at [facility] 10/08/23 (OR cx Klebsiella and Enterococcus) s/p 6 weeks IV Zosyn through 11/19/23
Sacral flap necrosis s/p I+D, wound vac application at [facility] 11/18/23 s/p IV Zosyn short course.
Sacral OR wound debridement 12/31/23, Tissue path fat necrosis, acute inflammation. Bone cx: Pseudomonas (panS), E. coli (panS), VRE (amp-resistant), Corynebacterium striatum (?untreated)
Chronic large sacral decubitus/chronic osteo/ possible L5/S1 discitis s/p 6 weeks meropenem through 03/19/24.
Hypertension.
Infrarenal AAA
Chronic pain, opioid dependence
COPD
Lung nodules.
Thrombocytopenia.
neurogenic bladder, receiving Botox, now with echevarria catheter since 03/2024
Ambulatory dysfunction with falls.
Sacral insufficiency fractture
R hip fracture ORIF 03/2023
parastomal hernia repair with mesh
back surgery 07/2020
bilateral knee replacements
Chief Complaint
-: Leukocytosis and Bacteremia
Vital Signs / Physical Exam
Vital Signs
Vital Signs
Temp Pulse Resp BP Pulse Ox
98.6 F 88 14 149/61 94
04/30/24 08:00 04/30/24 08:00 04/30/24 08:00 04/30/24 08:00 04/30/24 08:00
Physical Exam
Constitutional: Chronically Ill
Cardiovascular: Regular Rate and S1/S2
Pulmonary: Clear
Gastrointestinal: Soft, Non Tender and Non Distended
Genito-Urinary: Echevarria; Negative CVA Tenderness
Extremities: Negative Edema
Neurological: AO x 3
Objective Data
Lab Data
Lab Results
04/30/24 05:14
04/30/24 05:14
Estimated Creat Clear 69 ml/min 04/30/24 05:14
Lactic Acid Cancelled 04/27/24 20:45
Total Bilirubin 0.2 mg/dl (0.2-1.3) 04/30/24 05:14
AST 20 U/L (14-36) 04/30/24 05:14
ALT 15 U/L (0-35) 04/30/24 05:14
Alkaline Phosphatase 127 U/L (38-126) H 04/30/24 05:14
Most recent labs reviewed.
Micro Results:
04/27/24 17:27 Blood Culture - Preliminary
Blood/Venous Staphylococcus aureus
Streptococcus species
Additional testing on request
Gram Stain - Final
04/28/24 13:31 Blood Culture - Preliminary
Blood/Venous No Growth in 24 hours- Final report to follow
04/27/24 17:27 Urine Culture - Final
Urine Escherichia coli
04/28/24 04:18 MRSA Screen - Final
Nose Staph aureus MRSA
04/27/24 16:38 Influenza Types A & B ([facility]) - Final
Nasal Swab Negative for Influenza A & B, NAAT
Negative results must be combined with clinical observations
and patient history.
Nucleic Acid Amplification test (NAAT)performed on the
[employer] platform.
04/27/24 CXR: Low lung volumes. Mild left basilar discoid atelectasis.
--- NOTE | 2024-04-30 11:12 | W.PN.HOSP.TC ---
Today's Communication/Plan
-
Monitor vital signs see plan
PT/OT
Advance diet
Antibiotics switched to daptomycin
Follow cultures
ID following
Assessment / Plan
Assessment / Plan
General: Well Developed, appears chronically ill
HEENT: NormoCephalic, Moist mucous membranes and Atraumatic
Respiratory: Clear
Cardiac: S1/S2 and Regular Rhythm; No Murmur or Rub
GI: Soft, Non Tender, Non Distended and Normal Bowel Sounds
Musculoskeletal: No Edema
Neuro: Nonfocal/grossly intact
Sepsis/metabolic encephalopathy (fever, tachycardia, leukocytosis) secondary to catheter associated UTI or sacral wound
# History of ESBL E. coli
-Patient with history of ESBL E. coli resistant to ceftriaxone
-Patient with chronic Dial catheter which appears to have been replaced
-Urine culture with ecoli
-Blood cultures growing strep species, now with Staph aureus., repeat blood culture pending. ID following
Started on daptomycin, ID following
Large chronic sacral wound with associated osteomyelitis
Chronic Underlying Osteomyelitis associated with sacral wound
History of MRSA associated wound
Dr Mcmillan patient's plastic surgeon attempted flap/reconstruction with patient 09/2023 that unfortunately failed d/t necrosis
Discussed with spouse, to bring [facility].
Wound care following, surgery evaluated the wound and does not think need any debridement. Patient should follow-up with surgery at [place]
-Wound care
This likely will not completely go away, discussed with spouse
Chronic pain syndrome
Chronic pain with opioid dependence
Sciatica right leg shooting pain with ambulation
Continue with baclofen (hold if sedated)
Anemia, likely acute on chronic
Hemoglobin 6.5, blood consented over the phone with spouse. Status post 1 unit PRBC 04/28. Hemoglobin now 7.6. Heme test neg
Currently no signs of bleeding
Chronic HFpEF
-Hold Lasix
Essential hypertension
Blood pressure low normal, hold losartan
COPD, currently not in exacerbation
Monitor
Hyponatremia
monitor
Neurogenic bladder with chronic Dial catheter
Chronic left hydroureteronephrosis secondary to neurogenic bladder
-Seen by urology during recent admission and no intervention recommended
History of right renal cancer status post right nephrectomy
Type 2 diabetes
-Hold Januvia
-Insulin sliding scale
History of hyponatremia
Hypothyroidism
-Continue levothyroxine
History of infrarenal abdominal aortic aneurysm
Severe osteoarthritis/sciatica
-Continue baclofen, Tylenol, duloxetine, gabapentin, Dilaudid, lidocaine patch
History of rectal cancer status post APR with colostomy 1983 status post radiation colostomy
Chronic ambulatory dysfunction
Anxiety
GERD
Full code; discussed with spouse over the phone
DVT prophylaxis�heparin
PT/OT
I spent a total of 51 minutes with the patient or on the floor. More than 50% of this time involved counseling and coordination of care.
Anticipated Discharge: 24 - 48 hours
Subjective/Interval History
-
Date of Service: April 30, 2024
Denies pain
Objective Data
-
Labs:
Laboratory Results
04/30/24
05:14
WBC 7.6
Hgb 7.6 L
Hct 24.9 L
Plt Count 205
Sodium 136
Potassium 3.6
Chloride 101
Carbon Dioxide 28
BUN 20 H
Creatinine 0.6
Glucose 144 H
Calcium 8.1 L
Total Bilirubin 0.2
AST 20
ALT 15
Alkaline Phosphatase 127 H
Vital Signs:
Vital Signs
Temp Pulse Resp BP Pulse Ox
98.7 F 78 14 139/62 96
04/30/24 11:09 04/30/24 11:09 04/30/24 11:09 04/30/24 11:04/30/24 11:09
I&O
04/29/24 04/30/24 05/01/24
06:59 06:59 06:59
Intake Total 3090 / 3090 480 / 480
Output Total 1600 / 1600 875 / 875
Balance 1490 / 1490 -395 / -395
[2024-04-30] MEDS: CUBICIN 10 MG IV (11:16)
[2024-04-30 12:18] LABS: Glucose - Point of Care 181 mg/dl (70-99)
[2024-04-30] MEDS: NOVOLOG FLEXPEN-LOW RESISTANCE SC (13:43)
[2024-04-30 16:36] LABS: Glucose - Point of Care 153 mg/dl (70-99)
[2024-04-30] MEDS: STERILE WATER FOR INJECTION IV (17:01)
[2024-04-30] MEDS: SANTYL OINTMENT 1 APPLIC TOPICAL (17:02)
--- NOTE | 2024-04-30 17:21 | CM ---
Chart reviewed-Patient from [facility] not a bed hold, out of medicare days
PT/OT attempted to eval patient - refused d/t pain
agreeable to visit tomorrow
Patient on IV dapto
met with Sonny bartholomew to move forward with MA shanta
PLAN: Await PT/OT recs, anticipate SNF
[2024-04-30 22:18] LABS: Glucose - Point of Care 153 mg/dl (70-99)
[2024-04-30] MEDS: NON-FORMULARY ITEM 150 MCG BUCCAL (22:49)
[2024-05-01] VITALS (8 sets, daily range): BP systolic 116–139; BP diastolic 50–60; PULSE 95; O2SAT 96; BMI 26.3
[2024-05-01] MEDS: SYNTHROID 25 MCG PO (05:47)
[2024-05-01] MEDS: DILAUDID 2 MG PO ×3 (06:10→15:06)
[2024-05-01 06:38] LABS: % Basophils 0.3 % (0-2); % Eosinophils 0.3 % (0-6); % Immature Granulocytes 0.7 % (0-0.5); % Lymphocytes 17.8 % (20.5-51.1); % Monocytes 6.1 % (1.7-9.3); % Neutrophils 74.8 % (42.2-75.2); Absolute Immature Granulocytes 0.1 10^3/uL (0-0.05); Absolute Lymphocytes 1.5 10^3/uL (1.2-3.4); Absolute Monocytes 0.5 10^3/uL (0.1-0.6); Absolute Neutrophils 6.4 10^3/uL (1.4-6.5); Hematocrit 24.2 % (37.0-47.0); Hemoglobin 7.5 g/dL (12.0-16.0); Mean Corpuscular Hgb 27.9 pg (27.0-31.0); Mean Platelet Volume 8.5 fL (7.4-10.4); Nucleated Red Blood Cells % 0 %; Platelet Count 191 10^3/uL (130-400); Red Blood Cell Count 2.69 10^6/uL (4.20-5.40); Red Cell Dist. Width 15.9 % (11.5-14.5); White Blood Cell Count 8.6 10^3/uL (4.8-10.8)
[2024-05-01 07:08] LABS: Glucose - Point of Care 180 mg/dl (70-99)
[2024-05-01 07:27] LABS: ALT (SGPT) 11 U/L (0-35); AST (SGOT) 17 U/L (14-36); Albumin 2.4 g/dl (3.5-5.0); Alkaline Phosphatase 120 U/L (38-126); Blood Urea Nitrogen 14 mg/dl (7-17); Calcium 8.2 mg/dl (8.4-10.2); Carbon Dioxide 26 mmol/L (22-30); Chloride 100 mmol/L (98-107); Creatine Phosphokinase < 20 U/L (30-135); Estimated Creatinine Clearance 69 ml/min; Glucose 164 mg/dl (70-99); Potassium 4.2 mmol/L (3.5-5.1); Sodium 134 mmol/L (135-145); Total Bilirubin 0.2 mg/dl (0.2-1.3); Total Protein 5.7 g/dl (6.3-8.2); eGFR > 60.00
[2024-05-01] MEDS: NEURONTIN 300 MG PO ×3 (09:17→22:15)
[2024-05-01] MEDS: CYMBALTA DELAYED RELEASE 20 MG PO (09:17)
[2024-05-01] MEDS: NON-FORMULARY ITEM 150 MCG BUCCAL ×3 (09:17→22:13)
[2024-05-01] MEDS: LIORESAL 5 MG PO ×2 (09:17→21:47)
[2024-05-01] MEDS: LIDOCAINE 4% PATCH 3 PATCH TOPICAL (09:18)
[2024-05-01] MEDS: MIRALAX 17 GRAMS PO (09:18)
[2024-05-01] MEDS: COZAAR 25 MG PO (09:18)
[2024-05-01] MEDS: THERAGRAN 1 TABLET PO (09:18)
[2024-05-01] MEDS: PROTONIX IV 40 MG IV (09:19)
[2024-05-01] MEDS: NSS (PRESERVATIVE FREE) 10 ML IV (09:19)
[2024-05-01] MEDS: SANTYL OINTMENT 1 APPLIC TOPICAL (09:19)
[2024-05-01] MEDS: NOVOLOG FLEXPEN-LOW RESISTANCE 1 UNITS SC (09:20)
[2024-05-01] MEDS: CUBICIN 10 MG IV (09:21)
--- NOTE | 2024-05-01 11:48 | W.PN.HOSP.TC ---
Today's Communication/Plan
-
Monitor vitals
See plan
PT/OT
Continue with IV antibiotics
Monitor hemoglobin
Assessment / Plan
Assessment / Plan
General: Well Developed, appears chronically ill
HEENT: NormoCephalic, Moist mucous membranes and Atraumatic
Respiratory: Clear
Cardiac: S1/S2 and Regular Rhythm; No Murmur or Rub
GI: Soft, Non Tender, Non Distended and Normal Bowel Sounds
Musculoskeletal: No Edema
Neuro: Nonfocal/grossly intact
Sepsis/metabolic encephalopathy (fever, tachycardia, leukocytosis) secondary to catheter associated UTI or sacral wound
# History of ESBL E. coli
-Patient with history of ESBL E. coli resistant to ceftriaxone
-Patient with chronic Dial catheter which appears to have been replaced
-Urine culture with ecoli
-Blood cultures growing strep species, now with Staph aureus, repeat blood culture NGTD. ID following
Started on daptomycin, ID following
Large chronic sacral wound with associated osteomyelitis
Chronic Underlying Osteomyelitis associated with sacral wound
History of MRSA associated wound
Dr Mcmillan patient's plastic surgeon attempted flap/reconstruction with patient 09/2023 that unfortunately failed d/t necrosis
Discussed with spouse, to bring [facility] [place].
Wound care following, surgery evaluated the wound and does not think need any debridement. Patient should follow-up with surgery at [place]
-Wound care
This likely will not completely go away, discussed with spouse
Chronic pain syndrome
Chronic pain with opioid dependence
Sciatica right leg shooting pain with ambulation
Continue with baclofen (hold if sedated)
cw belbuca
Anemia, likely acute on chronic
Hemoglobin 6.5, blood consented over the phone with spouse. Status post 1 unit PRBC 04/28. Hemoglobin now 7.5. Heme test neg
Currently no signs of bleeding
Chronic HFpEF
-Hold Lasix
Essential hypertension
Blood pressure low normal, hold losartan
COPD, currently not in exacerbation
Monitor
Hyponatremia
monitor
Neurogenic bladder with chronic Dial catheter
Chronic left hydroureteronephrosis secondary to neurogenic bladder
-Seen by urology during recent admission and no intervention recommended
History of right renal cancer status post right nephrectomy
Type 2 diabetes
-Hold Januvia
-Insulin sliding scale
History of hyponatremia
Hypothyroidism
-Continue levothyroxine
History of infrarenal abdominal aortic aneurysm
Severe osteoarthritis/sciatica
-Continue baclofen, Tylenol, duloxetine, gabapentin, Dilaudid, lidocaine patch
History of rectal cancer status post APR with colostomy 1983 status post radiation colostomy
Chronic ambulatory dysfunction
Anxiety
GERD
Full code; discussed with spouse over the phone
DVT prophylaxis�heparin
PT/OT
I spent a total of 51 minutes with the patient or on the floor. More than 50% of this time involved counseling and coordination of care.
Anticipated Discharge: 24 - 48 hours
Subjective/Interval History
-
Date of Service: May 01, 2024
Denies nausea
Objective Data
-
Labs:
Laboratory Results
05/01/24
05:50
WBC 8.6
Hgb 7.5 L
Hct 24.2 L
Plt Count 191
Sodium 134 L
Potassium 4.2
Chloride 100
Carbon Dioxide 26
BUN 14
Creatinine 0.6
Glucose 164 H
Calcium 8.2 L
Total Bilirubin 0.2
AST 17
ALT 11
Alkaline Phosphatase 120
Vital Signs:
Vital Signs
Temp Pulse Resp BP Pulse Ox
97.2 F 86 16 124/50 94
05/01/24 11:00 05/01/24 11:00 05/01/24 11:00 05/01/24 11:00 05/01/24 11:00
I&O
04/30/24 05/01/24 05/02/24
06:59 06:59 06:59
Intake Total 480 / 480 840 / 840
Output Total 875 / 875 475 / 475
Balance -395 / -395 365 / 365
--- NOTE | 2024-05-01 12:52 | W.PN.ID1 ---
Date of Service
Date of Service: May 01, 2024
Today's Communication
Continue Daptomycin.
Assessment / Plan
# MRSA and Strep species bacteremia 04/15 set bcx
- ? contaminants vs uncomplicated MRSA bacteremia
- Repeat bcx x 2 neg to date.
- Check no gross vege
- Continue daptomycin 500mg IV q24 (d2 of )
CK <20
# Leukocytosis resolved
# Chronic echevarria since 03/2024
# E. coli bacteruria
- echevarria changed in ED
-UA >30 sq epith cells suggestive of contaminated specimen
# Chronic osteo of sacrum
# Chronic stage 4 large sacral wound
- Wound does not appear to have acute infection
-Continue wound care and off-loading
# Chronic pain, opioid dependence
Past History
Hx Rectal ca 1992 s/ APR, colostomy at [facility] with adjuvant chemo XRT.
Renal ca, right s/p nephrectomy (1992).
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
Sacral wound reconstruction by Dr. Mcmillan at [facility] 10/08/23 (OR cx Klebsiella and Enterococcus) s/p 6 weeks IV Zosyn through 11/19/23
Sacral flap necrosis s/p I+D, wound vac application at [facility] 11/18/23 s/p IV Zosyn short course.
Sacral OR wound debridement 12/31/23, Tissue path fat necrosis, acute inflammation. Bone cx: Pseudomonas (panS), E. coli (panS), VRE (amp-resistant), Corynebacterium striatum (?untreated)
Chronic large sacral decubitus/chronic osteo/ possible L5/S1 discitis s/p 6 weeks meropenem through 03/19/24.
Hypertension.
Infrarenal AAA
Chronic pain, opioid dependence
COPD
Lung nodules.
Thrombocytopenia.
neurogenic bladder, receiving Botox, now with echevarria catheter since 03/2024
Ambulatory dysfunction with falls.
Sacral insufficiency fractture
R hip fracture ORIF 03/2023
parastomal hernia repair with mesh
back surgery 07/2020
bilateral knee replacements
Chief Complaint
-: Leukocytosis and Bacteremia
Subjective / Review of Systems
No complaints.
Vital Signs / Physical Exam
Vital Signs
Vital Signs
Temp Pulse Resp BP Pulse Ox
97.2 F 86 16 124/50 94
05/01/24 11:00 05/01/24 11:00 05/01/24 11:00 05/01/24 11:00 05/01/24 11:00
Physical Exam
Constitutional: No Acute Distress and Comfortable
Cardiovascular: Regular Rate and S1/S2
Pulmonary: Clear
Gastrointestinal: Soft, Non Tender and Non Distended
Genito-Urinary: Negative CVA Tenderness
Neurological: AO x 3
Objective Data
Lab Data
Lab Results
05/01/24 05:50
05/01/24 05:50
Estimated Creat Clear 69 ml/min 05/01/24 05:50
Lactic Acid Cancelled 04/27/24 20:45
Total Bilirubin 0.2 mg/dl (0.2-1.3) 05/01/24 05:50
AST 17 U/L (14-36) 05/01/24 05:50
ALT 11 U/L (0-35) 05/01/24 05:50
Alkaline Phosphatase 120 U/L (38-126) 05/01/24 05:50
Most recent labs reviewed.
Micro Results:
04/30/24 09:47 Blood Culture - Preliminary
Blood/Venous No Growth in 24 hours- Final report to follow
04/27/24 17:27 Blood Culture - Final
Blood/Venous Staph aureus MRSA
Streptococcus species
Additional testing on request
Gram Stain - Final
04/28/24 13:31 Blood Culture - Preliminary
Blood/Venous No Growth in 48 hours- Final report to follow
04/27/24 17:27 Urine Culture - Final
Urine Escherichia coli
04/28/24 04:18 MRSA Screen - Final
Nose Staph aureus MRSA
04/27/24 16:38 Influenza Types A & B ([facility]THE[facility]) - Final
Nasal Swab Negative for Influenza A & B, NAAT
Negative results must be combined with clinical observations
and patient history.
Nucleic Acid Amplification test (NAAT)performed on the
[employer] platform.
04/27/24 CXR: Low lung volumes. Mild left basilar discoid atelectasis.
Care Review
Plan reviewed with: Physician (Dr. Ramirez)
[2024-05-01 14:30] LABS: Glucose - Point of Care 239 mg/dl (70-99)
[2024-05-01] MEDS: NOVOLOG FLEXPEN-LOW RESISTANCE 2 UNITS SC ×2 (14:52→17:57)
[2024-05-01] MEDS: STERILE WATER FOR INJECTION IV (15:11)
--- NOTE | 2024-05-01 16:00 | CM ---
Reviewed the chart notes. Patient's spouse to be completing MA application for [facility]. CM continues to be available to patient/family and is monitoring medical plan for needs at discharge.
Plan: Discharge to SNF once medically stable and bed secured. Per [facility], would need auth or private pay to return. No bed hold in place.
[2024-05-01 17:58] LABS: Glucose - Point of Care 204 mg/dl (70-99)
[2024-05-01 22:02] LABS: Glucose - Point of Care 133 mg/dl (70-99)
[2024-05-02] MEDS: DILAUDID 2 MG PO ×3 (05:32→20:37)
[2024-05-02] MEDS: SYNTHROID 25 MCG PO (05:33)
[2024-05-02 06:00] VITALS: BMI 26.4
[2024-05-02 07:00] VITALS: BP 145/71
[2024-05-02 08:16] LABS: % Basophils 0.3 % (0-2); % Eosinophils 0.5 % (0-6); % Immature Granulocytes 1.3 % (0-0.5); % Lymphocytes 20.6 % (20.5-51.1); % Monocytes 6.3 % (1.7-9.3); Absolute Immature Granulocytes 0.1 10^3/uL (0-0.05); Absolute Lymphocytes 1.6 10^3/uL (1.2-3.4); Absolute Monocytes 0.5 10^3/uL (0.1-0.6); Absolute Neutrophils 5.5 10^3/uL (1.4-6.5); Hemoglobin 8.6 g/dL (12.0-16.0); Mean Corp Hgb Conc. 30.7 g/dL (33.0-37.0); Mean Corpuscular Hgb 27.9 pg (27.0-31.0); Mean Corpuscular Volume 90.9 fL (81.0-99.0); Mean Platelet Volume 8.5 fL (7.4-10.4); Nucleated Red Blood Cells % 0 %; Platelet Count 187 10^3/uL (130-400); Red Blood Cell Count 3.08 10^6/uL (4.20-5.40); Red Cell Dist. Width 15.9 % (11.5-14.5); White Blood Cell Count 7.7 10^3/uL (4.8-10.8)
[2024-05-02 08:34] LABS: ALT (SGPT) 11 U/L (0-35); AST (SGOT) 18 U/L (14-36); Albumin 2.4 g/dl (3.5-5.0); Alkaline Phosphatase 110 U/L (38-126); Blood Urea Nitrogen 11 mg/dl (7-17); Calcium 8.2 mg/dl (8.4-10.2); Carbon Dioxide 28 mmol/L (22-30); Chloride 98 mmol/L (98-107); Estimated Creatinine Clearance 69 ml/min; Glucose 194 mg/dl (70-99); Potassium 4.4 mmol/L (3.5-5.1); Sodium 133 mmol/L (135-145); Total Bilirubin 0.3 mg/dl (0.2-1.3); Total Protein 5.9 g/dl (6.3-8.2); eGFR > 60.00
[2024-05-02 09:37] LABS: Glucose - Point of Care 183 mg/dl (70-99)
[2024-05-02] MEDS: NOVOLOG FLEXPEN-LOW RESISTANCE 1 UNITS SC ×2 (09:49→17:20)
[2024-05-02] MEDS: NON-FORMULARY ITEM 150 MCG BUCCAL ×2 (09:49→15:40)
[2024-05-02] MEDS: CUBICIN 10 MG IV (09:50)
[2024-05-02] MEDS: NEURONTIN 300 MG PO ×3 (09:51→21:59)
[2024-05-02] MEDS: LIDOCAINE 4% PATCH 3 PATCH TOPICAL (09:51)
[2024-05-02] MEDS: TYLENOL 650 MG PO ×2 (09:52→22:00)
[2024-05-02] MEDS: CYMBALTA DELAYED RELEASE 20 MG PO (09:52)
[2024-05-02] MEDS: NSS (PRESERVATIVE FREE) 10 ML IV (09:53)
[2024-05-02] MEDS: SANTYL OINTMENT 1 APPLIC TOPICAL (09:53)
[2024-05-02] MEDS: LIORESAL 5 MG PO ×2 (09:53→20:37)
[2024-05-02] MEDS: COZAAR 25 MG PO (09:53)
[2024-05-02] MEDS: THERAGRAN 1 TABLET PO (09:53)
[2024-05-02] MEDS: PROTONIX IV 40 MG IV (09:54)
[2024-05-02] MEDS: MIRALAX PO (09:54)
--- NOTE | 2024-05-02 11:12 | W.PN.HOSP.TC ---
Today's Communication/Plan
-
Monitor vital signs see plan
Continue with antibiotics
Does not appear the patient has a bed hold, rifle case repairer aware.
Needs SNF
monitor hgb
DC planning
Assessment / Plan
Assessment / Plan
General: Well Developed, appears chronically ill
HEENT: NormoCephalic, Moist mucous membranes and Atraumatic
Respiratory: Clear
Cardiac: S1/S2 and Regular Rhythm; No Murmur or Rub
GI: Soft, Non Tender, Non Distended and Normal Bowel Sounds
Musculoskeletal: No Edema
Neuro: Nonfocal/grossly intact
Sepsis/metabolic encephalopathy (fever, tachycardia, leukocytosis) secondary to catheter associated UTI or sacral wound
MRSA and Strep species bacteremia 04/15 set bcx
# History of ESBL E. coli
-Patient with chronic Dial catheter which appears to have been replaced
-Urine culture with ecoli
-Blood cultures growing strep species, now with Staph aureus, repeat blood culture NGTD. ID following
Started on daptomycin, ID following
Large chronic sacral wound with associated osteomyelitis
Chronic Underlying Osteomyelitis associated with sacral wound
History of MRSA associated wound
Dr Mcmillan patient's plastic surgeon attempted flap/reconstruction with patient 09/2023 that unfortunately failed d/t necrosis
Wound care following, surgery evaluated the wound and does not think need any debridement. Patient should follow-up with surgery at [place]
-Wound care
This likely will not completely go away, discussed with spouse
Chronic pain syndrome
Chronic pain with opioid dependence
Sciatica right leg shooting pain with ambulation
Continue with baclofen (hold if sedated)
cw belbuca
Anemia, likely acute on chronic
Hemoglobin 6.5, blood consented over the phone with spouse. Status post 1 unit PRBC 04/28. Hemoglobin now 8.6. Heme test neg
Currently no signs of bleeding
Chronic HFpEF
-Hold Lasix
Essential hypertension
Blood pressure low normal, hold losartan
COPD, currently not in exacerbation
Monitor
Hyponatremia
monitor
Neurogenic bladder with chronic Dial catheter
Chronic left hydroureteronephrosis secondary to neurogenic bladder
-Seen by urology during recent admission and no intervention recommended
History of right renal cancer status post right nephrectomy
Type 2 diabetes
-Hold Januvia
-Insulin sliding scale
History of hyponatremia
Hypothyroidism
-Continue levothyroxine
History of infrarenal abdominal aortic aneurysm
Severe osteoarthritis/sciatica
-Continue baclofen, Tylenol, duloxetine, gabapentin, Dilaudid, lidocaine patch
History of rectal cancer status post APR with colostomy 1983 status post radiation colostomy
Chronic ambulatory dysfunction
Anxiety
GERD
Full code; discussed with spouse over the phone
DVT prophylaxis�heparin
PT/OT rec SNF vs LTC. CM aware. Does not appear bed is on hold
Anticipated Discharge: Within 24 hours
Subjective/Interval History
-
Date of Service: May 02, 2024
denies nausea
Objective Data
-
Labs:
Laboratory Results
05/02/24
07:21
WBC 7.7
Hgb 8.6 L
Hct 28.0 L
Plt Count 187
Sodium 133 L
Potassium 4.4
Chloride 98
Carbon Dioxide 28
BUN 11
Creatinine 0.5 L
Glucose 194 H
Calcium 8.2 L
Total Bilirubin 0.3
AST 18
ALT 11
Alkaline Phosphatase 110
Vital Signs:
Vital Signs
Temp Pulse Resp BP Pulse Ox
98.6 F 82 16 145/71 97
05/02/24 07:00 05/02/24 09:53 05/02/24 07:00 05/02/24 09:53 05/02/24 07:00
I&O
05/01/24 05/02/24 05/03/24
06:59 06:59 06:59
Intake Total 840 / 840 1060 / 1060
Output Total 475 / 475 650 / 650
Balance 365 / 365 410 / 410
[2024-05-02 12:34] LABS: Glucose - Point of Care 259 mg/dl (70-99)
[2024-05-02] MEDS: NOVOLOG FLEXPEN-LOW RESISTANCE 3 UNITS SC (13:02)
--- NOTE | 2024-05-02 14:38 | CM ---
CM called to liaison to request update about patient status at [facility] and the paperwork status. Await response. CM will continue to follow for discharge planning needs.
Plan;SNF
[2024-05-02 15:00] VITALS: BP 127/57
[2024-05-02] MEDS: STERILE WATER FOR INJECTION IV (15:41)
[2024-05-02 17:07] LABS: Glucose - Point of Care 191 mg/dl (70-99)
[2024-05-02 21:50] LABS: Glucose - Point of Care 225 mg/dl (70-99)
[2024-05-02 23:24] VITALS: BP 136/64
[2024-05-03] MEDS: NON-FORMULARY ITEM 150 MCG BUCCAL ×4 (00:22→21:45)
[2024-05-03] MEDS: SYNTHROID 25 MCG PO (05:01)
[2024-05-03] MEDS: DILAUDID 2 MG PO ×3 (05:01→14:34)
[2024-05-03 06:00] VITALS: BMI 26.7
[2024-05-03 06:41] LABS: % Basophils 0.4 % (0-2); % Eosinophils 0.7 % (0-6); % Lymphocytes 23.4 % (20.5-51.1); % Monocytes 5.5 % (1.7-9.3); Absolute Eosinophils 0.1 10^3/uL (0-0.7); Absolute Immature Granulocytes 0.1 10^3/uL (0-0.05); Absolute Lymphocytes 1.9 10^3/uL (1.2-3.4); Absolute Monocytes 0.4 10^3/uL (0.1-0.6); Absolute Neutrophils 5.6 10^3/uL (1.4-6.5); Hematocrit 26.1 % (37.0-47.0); Hemoglobin 7.9 g/dL (12.0-16.0); Mean Corp Hgb Conc. 30.3 g/dL (33.0-37.0); Mean Corpuscular Hgb 27.6 pg (27.0-31.0); Mean Corpuscular Volume 91.3 fL (81.0-99.0); Mean Platelet Volume 8.8 fL (7.4-10.4); Nucleated Red Blood Cells % 0 %; Platelet Count 191 10^3/uL (130-400); Red Blood Cell Count 2.86 10^6/uL (4.20-5.40); Red Cell Dist. Width 15.9 % (11.5-14.5)
[2024-05-03 07:00] VITALS: BP 127/59
[2024-05-03 07:01] LABS: ALT (SGPT) 13 U/L (0-35); AST (SGOT) 21 U/L (14-36); Albumin 2.5 g/dl (3.5-5.0); Alkaline Phosphatase 119 U/L (38-126); Blood Urea Nitrogen 14 mg/dl (7-17); Calcium 8.4 mg/dl (8.4-10.2); Carbon Dioxide 25 mmol/L (22-30); Chloride 98 mmol/L (98-107); Estimated Creatinine Clearance 69 ml/min; Glucose 167 mg/dl (70-99); Potassium 4.7 mmol/L (3.5-5.1); Sodium 131 mmol/L (135-145); Total Bilirubin 0.2 mg/dl (0.2-1.3); Total Protein 6.1 g/dl (6.3-8.2); eGFR > 60.00
[2024-05-03 07:02] LABS: Glucose - Point of Care 165 mg/dl (70-99)
[2024-05-03] MEDS: LIDOCAINE 4% PATCH 3 PATCH TOPICAL (10:01)
[2024-05-03] MEDS: CYMBALTA DELAYED RELEASE 20 MG PO (10:02)
[2024-05-03] MEDS: MIRALAX 17 GRAMS PO (10:02)
[2024-05-03] MEDS: SANTYL OINTMENT 1 APPLIC TOPICAL (10:03)
[2024-05-03] MEDS: THERAGRAN 1 TABLET PO (10:03)
[2024-05-03] MEDS: LIORESAL 5 MG PO ×2 (10:03→21:43)
[2024-05-03] MEDS: NEURONTIN 300 MG PO ×3 (10:03→21:43)
[2024-05-03] MEDS: PROTONIX IV 40 MG IV (10:04)
[2024-05-03] MEDS: NSS (PRESERVATIVE FREE) 10 ML IV (10:05)
[2024-05-03] MEDS: CUBICIN 10 MG IV (10:09)
[2024-05-03] MEDS: NOVOLOG FLEXPEN-LOW RESISTANCE 1 UNITS SC ×2 (10:15→14:06)
[2024-05-03] MEDS: COZAAR 25 MG PO (10:15)
--- NOTE | 2024-05-03 11:22 | W.PN.HOSP.TC ---
Today's Communication/Plan
-
Monitor vital signs see plan
Continue daptomycin
ID following
Discharge planning
PT/OT
monitor hgb
Assessment / Plan
Assessment / Plan
General: Well Developed, appears chronically ill
HEENT: NormoCephalic, Moist mucous membranes and Atraumatic
Respiratory: Clear
Cardiac: S1/S2 and Regular Rhythm; No Murmur or Rub
GI: Soft, Non Tender, Non Distended and Normal Bowel Sounds
Musculoskeletal: No Edema
Neuro: Nonfocal/grossly intact
Sepsis/metabolic encephalopathy (fever, tachycardia, leukocytosis) secondary to catheter associated UTI or sacral wound
MRSA and Strep species bacteremia 04/15 set bcx
# History of ESBL E. coli
-Patient with chronic Dial catheter which appears to have been replaced
-Urine culture with ecoli
-Blood cultures growing strep species, now with Staph aureus, repeat blood culture NGTD. ID following
Started on daptomycin, ID following. per ID total 14 days
Large chronic sacral wound with associated osteomyelitis
Chronic Underlying Osteomyelitis associated with sacral wound
History of MRSA associated wound
Dr Mcmillan patient's plastic surgeon attempted flap/reconstruction with patient 09/2023 that unfortunately failed d/t necrosis
Wound care following, surgery evaluated the wound and does not think need any debridement. Patient should follow-up with surgery at [place]
-Wound care
This likely will not completely go away, discussed with spouse
Chronic pain syndrome
Chronic pain with opioid dependence
Sciatica right leg shooting pain with ambulation
Continue with baclofen (hold if sedated)
cw belbuca
Stage IV sacral ulcer
Monitor
Anemia, likely acute on chronic
Hemoglobin 6.5, blood consented over the phone with spouse. Status post 1 unit PRBC 04/28. Hemoglobin now 7.9. Heme test neg
Currently no signs of bleeding
Chronic HFpEF
-Hold Lasix; monitor volume status closely. hopeful resume soon
Essential hypertension
Blood pressure low normal, hold losartan
COPD, currently not in exacerbation
Monitor
Hyponatremia
monitor
Neurogenic bladder with chronic Dial catheter
Chronic left hydroureteronephrosis secondary to neurogenic bladder
-Seen by urology during recent admission and no intervention recommended
History of right renal cancer status post right nephrectomy
Type 2 diabetes
-Hold Januvia
-Insulin sliding scale
History of hyponatremia
Hypothyroidism
-Continue levothyroxine
History of infrarenal abdominal aortic aneurysm
Severe osteoarthritis/sciatica
-Continue baclofen, Tylenol, duloxetine, gabapentin, Dilaudid, lidocaine patch
History of rectal cancer status post APR with colostomy 1983 status post radiation colostomy
Chronic ambulatory dysfunction
Anxiety
GERD
Full code; discussed with spouse over the phone
DVT prophylaxis�heparin
PT/OT rec SNF vs LTC. CM aware. Does not appear bed is on hold.
Anticipated Discharge: Within 24 hours
Subjective/Interval History
-
Date of Service: May 03, 2024
denies nausea
Objective Data
-
Labs:
Laboratory Results
05/03/24
05:20
WBC 8.0
Hgb 7.9 L
Hct 26.1 L
Plt Count 191
Sodium 131 L
Potassium 4.7
Chloride 98
Carbon Dioxide 25
BUN 14
Creatinine 0.6
Glucose 167 H
Calcium 8.4
Total Bilirubin 0.2
AST 21
ALT 13
Alkaline Phosphatase 119
Vital Signs:
Vital Signs
Temp Pulse Resp BP Pulse Ox
98.9 F 81 18 127/59 96
05/03/24 07:00 05/03/24 07:00 05/03/24 07:00 05/03/24 07:00 05/03/24 07:00
I&O
05/02/24 05/03/24 05/04/24
06:59 06:59 06:59
Intake Total 1060 / 1060 1080 / 1080
Output Total 650 / 650 525 / 525
Balance 410 / 410 555 / 555
[2024-05-03 12:24] LABS: Glucose - Point of Care 181 mg/dl (70-99)
--- NOTE | 2024-05-03 14:14 | CM ---
Per liaison at [facility] able to accept back with updated auth started. CM reviewed with physician. Patient now for 14 days IV antibiotic and needs PICC/Mid line placed. Possible for transfer tomorrow. CM will send updated clinicals to Liaison at
[facility]. Patient asking about alternative options per nursing. CM will continue to follow for discharge planning needs.
Plan; SNF; [facility] needs auth to be started, does not have to be completed per liaison.
[2024-05-03 15:00] VITALS: BP 121/58
[2024-05-03 16:20] LABS: Glucose - Point of Care 149 mg/dl (70-99)
[2024-05-03] MEDS: NOVOLOG FLEXPEN-LOW RESISTANCE SC (16:37)
[2024-05-03] MEDS: STERILE WATER FOR INJECTION IV (16:37)
[2024-05-03 22:00] LABS: Glucose - Point of Care 129 mg/dl (70-99)
[2024-05-03 23:04] VITALS: BP 125/53
[2024-05-04] MEDS: DILAUDID 2 MG PO ×2 (05:51→09:47)
[2024-05-04] MEDS: SYNTHROID 25 MCG PO (05:52)
[2024-05-04 06:00] VITALS: BMI 26.4
[2024-05-04 07:05] VITALS: BP 139/56
[2024-05-04 07:33] LABS: % Basophils 0.4 % (0-2); % Eosinophils 0.5 % (0-6); % Immature Granulocytes 1.2 % (0-0.5); % Lymphocytes 14.9 % (20.5-51.1); % Monocytes 5.7 % (1.7-9.3); % Neutrophils 77.3 % (42.2-75.2); Absolute Immature Granulocytes 0.1 10^3/uL (0-0.05); Absolute Lymphocytes 1.2 10^3/uL (1.2-3.4); Absolute Monocytes 0.5 10^3/uL (0.1-0.6); Absolute Neutrophils 6.5 10^3/uL (1.4-6.5); Hematocrit 24.7 % (37.0-47.0); Hemoglobin 7.5 g/dL (12.0-16.0); Mean Corp Hgb Conc. 30.4 g/dL (33.0-37.0); Mean Corpuscular Hgb 27.5 pg (27.0-31.0); Mean Corpuscular Volume 90.5 fL (81.0-99.0); Mean Platelet Volume 8.1 fL (7.4-10.4); Nucleated Red Blood Cells % 0 %; Platelet Count 178 10^3/uL (130-400); Red Blood Cell Count 2.73 10^6/uL (4.20-5.40); White Blood Cell Count 8.4 10^3/uL (4.8-10.8)
[2024-05-04 07:36] LABS: Glucose - Point of Care 150 mg/dl (70-99)
[2024-05-04 08:04] LABS: ALT (SGPT) 10 U/L (0-35); AST (SGOT) 17 U/L (14-36); Albumin 2.4 g/dl (3.5-5.0); Alkaline Phosphatase 107 U/L (38-126); Blood Urea Nitrogen 11 mg/dl (7-17); Calcium 8.5 mg/dl (8.4-10.2); Carbon Dioxide 26 mmol/L (22-30); Chloride 98 mmol/L (98-107); Estimated Creatinine Clearance 69 ml/min; Glucose 153 mg/dl (70-99); Potassium 4.6 mmol/L (3.5-5.1); Sodium 131 mmol/L (135-145); Total Bilirubin 0.2 mg/dl (0.2-1.3); Total Protein 5.9 g/dl (6.3-8.2); eGFR > 60.00
--- NOTE | 2024-05-04 08:46 | W.PN.HOSP.TC ---
Today's Communication/Plan
-
dispo planning
Assessment / Plan
Assessment / Plan
General: Well Developed, appears chronically ill
HEENT: NormoCephalic, Moist mucous membranes and Atraumatic
Respiratory: Clear
Cardiac: S1/S2 and Regular Rhythm; No Murmur or Rub
GI: Soft, Non Tender, Non Distended and Normal Bowel Sounds
Musculoskeletal: No Edema
Neuro: Nonfocal/grossly intact
Sepsis/metabolic encephalopathy (fever, tachycardia, leukocytosis) secondary to catheter associated UTI or sacral wound
MRSA and Strep species bacteremia 04/15 set bcx
# History of ESBL E. coli
-Patient with chronic Dial catheter w
-Urine culture with ecoli
-Blood cultures with MRSA + Strep species; repeat without growth
-appreciate ID
-continue IV Daptomycin - 14 day course (through 05/13/24)
-follow up with CM if can DC today
Large chronic sacral wound with associated osteomyelitis
Chronic Underlying Osteomyelitis associated with sacral wound
History of MRSA associated wound
Dr Mcmillan patient's plastic surgeon attempted flap/reconstruction with patient 09/2023 that unfortunately failed d/t necrosis
Wound care following, surgery evaluated the wound and does not think need any debridement. Patient should follow-up with surgery at [place]
-Wound care
This likely will not completely go away, discussed with spouse
Chronic pain syndrome
Chronic pain with opioid dependence
Sciatica right leg shooting pain with ambulation
Continue with baclofen (hold if sedated)
cw belbuca
Stage IV sacral ulcer
Monitor
Anemia, likely acute on chronic
Hemoglobin 6.5, blood consented over the phone with spouse. Status post 1 unit PRBC 04/28. Hemoglobin now 7.9. Heme test neg
Currently no signs of bleeding
Chronic HFpEF
-Hold Lasix; monitor volume status closely. hopeful resume soon
Essential hypertension
Blood pressure low normal, hold losartan
COPD, currently not in exacerbation
Monitor
Hyponatremia
monitor
Neurogenic bladder with chronic Dial catheter
Chronic left hydroureteronephrosis secondary to neurogenic bladder
-Seen by urology during recent admission and no intervention recommended
History of right renal cancer status post right nephrectomy
Type 2 diabetes
-Hold Januvia
-Insulin sliding scale
History of hyponatremia
Hypothyroidism
-Continue levothyroxine
History of infrarenal abdominal aortic aneurysm
Severe osteoarthritis/sciatica
-Continue baclofen, Tylenol, duloxetine, gabapentin, Dilaudid, lidocaine patch
History of rectal cancer status post APR with colostomy 1983 status post radiation colostomy
Chronic ambulatory dysfunction
Anxiety
GERD
Full code; discussed with spouse over the phone
DVT prophylaxis�heparin
PT/OT rec SNF vs LTC. CM aware. Does not appear bed is on hold.
Anticipated Discharge: Within 24 hours
Subjective/Interval History
-
Date of Service: May 04, 2024
complains of chronic pain, no new complaints
Objective Data
-
Labs:
Laboratory Results
05/04/24
07:08
WBC 8.4
Hgb 7.5 L
Hct 24.7 L
Plt Count 178
Sodium 131 L
Potassium 4.6
Chloride 98
Carbon Dioxide 26
BUN 11
Creatinine 0.6
Glucose 153 H
Calcium 8.5
Total Bilirubin 0.2
AST 17
ALT 10
Alkaline Phosphatase 107
Vital Signs:
Vital Signs
Temp Pulse Resp BP Pulse Ox
98.6 F 96 17 139/56 94
05/04/24 07:05 05/04/24 07:05 05/04/24 07:05 05/04/24 07:05 05/04/24 07:05
I&O
05/03/24 05/04/24 05/05/24
06:59 06:59 06:59
Intake Total 1080 / 1080 980 / 980
Output Total 525 / 525 900 / 900
Balance 555 / 555 80 / 80
Review of Systems
-
History Source: Patient
All other systems: Reviewed and negative
Physical Exam
-
General: Appears in Distress and Pain
HEENT: Normocephalic, Atraumatic and Moist Mucous Membranes
Respiratory: Clear to Auscultation and Non Labored Respirations; Negative Wheezes, Rales or Rhonchi
Cardiac: Regular Rhythm and S1/S2; Negative Murmur, Rub or Gallop
GI: Soft, Nontender, Nondistended and Normal Bowel Sounds
Musculoskeletal: No Clubbing, No Cyanosis and No Edema
Skin: Warm, Dry and Ulcers (Large chronic sacral/gluteal ulcer with surrounding erythema, wound VAC in place); Negative Rash
Neuro: AO x 3, Nonfocal/Grossly Intact and Central Nerve's Intact
Psych: Calm
Data Reviewed
-
Diagnostic Radiology: Report Reviewed by me
Labs: Labs Reviewed by me
[2024-05-04] MEDS: NOVOLOG FLEXPEN-LOW RESISTANCE 1 UNITS SC ×2 (09:19→13:02)
[2024-05-04] MEDS: LIDOCAINE 4% PATCH 3 PATCH TOPICAL (09:20)
[2024-05-04] MEDS: SANTYL OINTMENT 1 APPLIC TOPICAL (09:20)
[2024-05-04] MEDS: NON-FORMULARY ITEM 150 MCG BUCCAL ×2 (09:20→15:07)
[2024-05-04] MEDS: COZAAR 25 MG PO (09:21)
[2024-05-04] MEDS: LIORESAL 5 MG PO (09:21)
[2024-05-04] MEDS: THERAGRAN 1 TABLET PO (09:21)
[2024-05-04] MEDS: MIRALAX PO (09:22)
[2024-05-04] MEDS: PROTONIX 40 MG PO (09:22)
[2024-05-04] MEDS: CYMBALTA DELAYED RELEASE 20 MG PO (09:22)
[2024-05-04] MEDS: NEURONTIN 300 MG PO ×2 (09:22→15:07)
--- NOTE | 2024-05-04 09:43 | CM ---
Addendum entered by Estrellita Hutson 05/04/24 16:25:
Midline info & IV script faxed [phone]
1600 transport set via ambulance - [facility] notified
Original Note:
CM faxed IV script Daptomycin to [facility] liaison [facility] - [phone]
Will fax midline info once placed
Attempted to call [employer] for auth-closed today
Per [facility] patient will be private pay - called spouse Fede who is aware/agreeable.
Spouse has been working with [employer] regarding financials/medicaid process.
PLAN: [facility]
Report #: [phone]
--- NOTE | 2024-05-04 10:17 | W.PN.ID1 ---
Date of Service
Date of Service: May 04, 2024
Today's Communication
Continue daptomycin 500mg IV q24 x 14d through 05/13/24.
Assessment / Plan
# MRSA and Strep species bacteremia 04/15 set bcx
- ? contaminants vs uncomplicated MRSA bacteremia
- Repeat bcx x 2 neg to date.
- Check no gross vege
- Continue daptomycin 500mg IV q24 x 14d through 05/13/24.
Follow weekly CK, CBC, CMP while on daptomycin
CK <20
- Can place midline
- Infusion sheet submitted to case management.
# Leukocytosis resolved
# Chronic echevarria since 03/2024
# E. coli bacteruria
- echevarria changed in ED
-UA >30 sq epith cells suggestive of contaminated specimen
# Chronic osteo of sacrum
# Chronic stage 4 large sacral wound
- Wound does not appear to have acute infection
-Continue wound care and off-loading
# Chronic pain, opioid dependence
Past History
Hx Rectal ca 1992 s/ APR, colostomy at [facility] with adjuvant chemo XRT.
Renal ca, right s/p nephrectomy (1992).
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
Sacral wound reconstruction by Dr. Mcmillan at [facility] 10/08/23 (OR cx Klebsiella and Enterococcus) s/p 6 weeks IV Zosyn through 11/19/23
Sacral flap necrosis s/p I+D, wound vac application at [facility] 11/18/23 s/p IV Zosyn short course.
Sacral OR wound debridement 12/31/23, Tissue path fat necrosis, acute inflammation. Bone cx: Pseudomonas (panS), E. coli (panS), VRE (amp-resistant), Corynebacterium striatum (?untreated)
Chronic large sacral decubitus/chronic osteo/ possible L5/S1 discitis s/p 6 weeks meropenem through 03/19/24.
Hypertension.
Infrarenal AAA
Chronic pain, opioid dependence
COPD
Lung nodules.
Thrombocytopenia.
neurogenic bladder, receiving Botox, now with echevarria catheter since 03/2024
Ambulatory dysfunction with falls.
Sacral insufficiency fractture
R hip fracture ORIF 03/2023
parastomal hernia repair with mesh
back surgery 07/2020
bilateral knee replacements
Chief Complaint
-: Leukocytosis and Bacteremia
Subjective / Review of Systems
No new complaints.
Vital Signs / Physical Exam
Vital Signs
Vital Signs
Temp Pulse Resp BP Pulse Ox
98.6 F 96 17 139/56 94
05/04/24 07:05 05/04/24 09:21 05/04/24 07:05 05/04/24 09:21 05/04/24 07:05
Physical Exam
Constitutional: No Acute Distress and Comfortable
Cardiovascular: Regular Rate and S1/S2
Pulmonary: Clear
Gastrointestinal: Soft, Non Tender and Non Distended
Genito-Urinary: Negative CVA Tenderness
Neurological: AO x 3
Objective Data
Lab Data
Lab Results
05/04/24 07:08
05/04/24 07:08
Estimated Creat Clear 69 ml/min 05/04/24 07:08
Lactic Acid Cancelled 04/27/24 20:45
Total Bilirubin 0.2 mg/dl (0.2-1.3) 05/04/24 07:08
AST 17 U/L (14-36) 05/04/24 07:08
ALT 10 U/L (0-35) 05/04/24 07:08
Alkaline Phosphatase 107 U/L (38-126) 05/04/24 07:08
Most recent labs reviewed.
Micro Results:
04/30/24 09:47 Blood Culture - Preliminary
Blood/Venous No Growth in 4 days- Final report to follow
04/28/24 13:31 Blood Culture - Final
Blood/Venous No Growth - Final Report
04/27/24 17:27 Blood Culture - Final
Blood/Venous Staph aureus MRSA
Streptococcus species
Additional testing on request
Gram Stain - Final
04/27/24 17:27 Urine Culture - Final
Urine Escherichia coli
04/28/24 04:18 MRSA Screen - Final
Nose Staph aureus MRSA
04/27/24 16:38 Influenza Types A & B ([facility]THEA) - Final
Nasal Swab Negative for Influenza A & B, NAAT
Negative results must be combined with clinical observations
and patient history.
Nucleic Acid Amplification test (NAAT)performed on the
[employer] platform.
04/27/24 CXR: Low lung volumes. Mild left basilar discoid atelectasis.
Care Review
Plan reviewed with: Physician (Dr. Jerry)
[2024-05-04] MEDS: CUBICIN 10 MG IV (10:33)
[2024-05-04 12:09] LABS: Glucose - Point of Care 175 mg/dl (70-99)
--- NOTE | 2024-05-04 12:57 | W.DS.TRANS ---
DC Summary - Director Meetings
-
Discharge Instructions:
Discharge Diagnosis/Procedures MRSA and Streptococcus Bacteremia
Diet Diabetic, Carb Controlled
Activity As tolerated
Driving Restrictions No driving
Bathing Restrictions None
Blood Work Labs as written on infusion sheet
Other Services PT,OT
Instructions:
Stand-Alone Forms:
Changes to Home Medications: Yes
Discharge Medications:
DC Medications w/original date entered in [facility]
nifedipine 60 mg tablet,extended release 24 hr 60 mg PO DAILY blood pressure 01/15/24
pantoprazole 40 mg tablet,delayed release 40 mg PO DAILY Gastrointestinal Issue 01/15/24
sitagliptin phosphate 100 mg tablet (Januvia) 100 mg PO DAILY Diabetes #0 tabs 02/18/24
losartan 25 mg tablet 25 mg PO DAILY Blood Pressure 04/04/24
baclofen 5 mg tablet 5 mg PO BID Pain #60 tabs 04/14/24
duloxetine 20 mg capsule,delayed release 20 mg PO DAILY Pain #30 caps 04/14/24
lidocaine 4 % topical patch 2 patch topical DAILY PRN Pain #30 ea 04/14/24
gabapentin 300 mg capsule 300 mg PO TID Pain #0 caps 04/17/24
levothyroxine 25 mcg tablet 25 mcg PO DAILY @ 0600 Thyroid #0 tabs 04/17/24
polyethylene glycol 3350 17 gram oral powder packet 17 g PO DAILY Constipation #0 ea 04/17/24
acetaminophen 325 mg tablet (Tylenol) 650 mg PO Q6HPRN PRN mild pain/temp>100 04/27/24
bisacodyl 10 mg rectal suppository (Dulcolax (bisacodyl)) 10 mg PA DAILYPRN PRN constipation, if mom ineffective 04/27/24
collagenase clostridium histo. 250 unit/gram topical ointment (Santyl) 1 applic topical BID 04/27/24
furosemide 40 mg tablet (Lasix) 40 mg PO DAILY 04/27/24
magnesium hydroxide 400 mg/5 mL oral suspension (Milk of Magnesia) 30 ml PO [id number] PRN no bm x3 days 04/27/24
methyl salicylate 15 %-menthol 10 % topical cream (Analgesic [place] (m.salic-menthol)) 1 applic topical Q6HPRN PRN muscle pain 04/27/24
sodium phosphates 19 gram-7 gram/118 mL enema (Fleet Enema) 118 ml PA DAILYPRN PRN constipation, bisacodyl ineffective 04/27/24
therapeutic multivitamin 1 tab PO DAILY 04/27/24
buprenorphine HCl 150 mcg buccal film (Belbuca) 150 mcg buccal QID Pain #12 ea 05/04/24
hydromorphone 2 mg tablet (Dilaudid) 2 mg PO Q4HPRN PRN severe pain #20 tabs 05/04/24
Home Medication Changes
addition of IV Daptomycin
Pending Results: No
--- NOTE | 2024-05-04 13:20 | W.DCSUMMARY ---
Discharge Summary
Discharge Data
Date of Admission: 04/27/24
Date of Discharge: 05/04/24
-
Pending Results: No
Hospital Course
Discharging Physician : Dr. Emmie Jerry
Disposition : SNF
Primary care physician : Dr. Berry Knight
Principal Discharge diagnosis : Strep and MRSA Bacteremia
Chronic Discharge diagnosis :
Hospital Course :
Ms. 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
to sacral wound vac s/p attempted flap/reconstruction 10/06 (unfortunately failed due to necrosis), chronic pain syndrome presents to the ER with malaise and wound pain. Triage vitals T 100.4, P 105, BP 97/48. Labs with WBC 15.5, Hg 7.8. UA with
2+ Leuk esterase, 50-60 WBC. She was started on IV Zosyn on admission for concern for catheter-associated UTI. Blood cultures then returned positive for Strep and MRSA. Urine culture returned positive for E. Coli. Wound did not appear to have
acute infection. Patient was seen by ID for bacteremia and started on IV Daptomycin. Blood cultures cleared. She was seen by general surgery who stated no indication for acute surgical intervention and unfortunately wound unlikely to heal. She
is discharged to SNF with mid-line in place for course of IV Daptomycin through 05/13/24.
Her Lasix was held during acute infection and resumed on discharge.
She received 1 unit PRBC during hospitalization for acute on chronic anemia of chronic disease and Hg stable prior to discharge.
She is continued on her home pain control regimen (scripts printed for SNF).
Time spent on discharge was 45 minutes.
Important imaging findings :
TTE 04/30/24
CONCLUSIONS
Normal biventricular size and systolic function without regional wall motion
abnormality.
Mild mitral annular calcification. Mitral valve opens normally. Mild mitral
regurgitation.
Mild tricuspid regurgitation. Estimated pulmonary artery pressure of 25-30 mmHg
.
Interatrial septum is intact with no evidence of shunting by color flow
Doppler. No intracardiac mass or thrombus formation seen.
If clinically indicated, conside ABBY for proper evaluation of endocarditis or
vegetations.
Compared to the previous echo 02/03/24, there is no significant change.
Procedure findings :
Discharge Plan
-
Patient Disposition: Assisted/SNF
Discharge Diagnosis/Procedures: MRSA and Streptococcus Bacteremia
Diet: Diabetic, Carb Controlled
Activity: As tolerated
Driving Restrictions: No driving
Bathing Restrictions: None
Blood Work: Labs as written on infusion sheet
Other Services: PT and OT
Activity Restrictions/Additional Instructions:
Wound Care Instructions
Sacral: Clean with saline, Skin prep periwound, Santyl to slough followed by Saline moist gauze packing, ABD pads and medipore or paper tape change daily and prn drainage.
R heel: skin prep periwound, silicone foam change q 2-3 days and prn soilage.
Offloading heel boots-Can take upon discharge
Air mattress when home-[employer] Call [phone]
Offloading cushion(ROHO Cushion) when sitting, limit time in chair 1-2 hrs a day.
Increase protein in diet.
Follow up with [facility]
To be used for colostomy
Change q 3-4 days and prn leakage
Mehdi wafer # [id number]
Mehdi pouch# [id number]
Referrals:
Berry Knight, DO [Family Provider] - in less than 1 week
Additional Discharge Medication Instructions: You are prescribed IV Daptomycin to take through 05/13/24
Prescriptions:
New
DAPTOmycin [Cubicin] 500 MG
Syringe [Syringe-Pump] 0 ML
As Directed mls/hr IV Q24H
Ordered By: Emmie Jerry MD
Last Taken: 05/04/24 10:33 10 mls
Rx Instructions:
continue through 05/13/24
Continued
nifedipine 60 mg tablet extended release 24hr
60 mg PO DAILY
pantoprazole 40 mg tablet,delayed release (DR/EC)
40 mg PO DAILY
Januvia 100 mg Tablet
100 mg PO DAILY Qty: 0 0RF
losartan 25 mg Tablet
25 mg PO DAILY
duloxetine 20 mg Capsule,Delayed Release(Dr/Ec)
20 mg PO DAILY Qty: 30 0RF
lidocaine 4 % Adhesive Patch,Medicated
2 patch topical DAILY PRN (Reason: Pain) Qty: 30 0RF
Rx Instructions:
lower back, right hip, right thigh
baclofen 5 mg Tablet
5 mg PO BID Qty: 60 0RF
polyethylene glycol 3350 17 gram Powder In Packet
17 g PO DAILY Qty: 0 0RF
levothyroxine 25 mcg Tablet
25 mcg PO DAILY @ 0600 Qty: 0 0RF
gabapentin 300 mg Capsule
300 mg PO TID Qty: 0 0RF
furosemide [Lasix] 40 mg Tablet
40 mg PO DAILY
acetaminophen [Tylenol] 325 mg Tablet
650 mg PO Q6HPRN PRN (Reason: mild pain/temp>100)
therapeutic multivitamin Tablet
1 tab PO DAILY
magnesium hydroxide [Milk of Magnesia] 400 mg/5 mL Suspension
30 ml PO [id number] PRN (Reason: no bm x3 days)
bisacodyl [Dulcolax (bisacodyl)] 10 mg Suppository
10 mg NV DAILYPRN PRN (Reason: constipation, if mom ineffective)
Fleet Enema 19-7 gram/118 mL Enema
118 ml NV DAILYPRN PRN (Reason: constipation, bisacodyl ineffective)
Santyl 250 unit/gram Ointment
1 applic TOPICAL BID
Rx Instructions:
sacrum
Analgesic [place] (m.salic-menth) 15-10 % cream
1 applic topical Q6HPRN PRN (Reason: muscle pain)
Rx Instructions:
avoid open wounds
buprenorphine HCl [Belbuca] 150 mcg film
150 mcg BUCCAL QID Qty: 12 0RF
Changed
hydromorphone [Dilaudid] 2 mg tablet
2 mg PO Q4HPRN PRN (Reason: severe pain) Qty: 20 0RF
Discharge Date and Time
Print Language: LATVIAN
[2024-05-04 15:03] VITALS: BP 148/70
[2024-05-04] MEDS: TYLENOL 650 MG PO (15:08)
[2024-05-04] MEDS: STERILE WATER FOR INJECTION IV (15:08)
== END 2024-05-04 17:29 | DRG 698 ==
LOC: 2 NORTH 20:15
PROVIDERS: Internal Medicine; Nurse Practitioner Family; ADMITTING PHYSICIAN Hospitalist; ATTENDING PHYSICIAN Student in an Organized Health Care Education/Training Program; CONSULT PHYSICIAN Internal Medicine Infectious Disease; CONSULT PHYSICIAN Surgery; EMERGENCY PHYSICIAN Emergency Medicine; FAMILY PHYSICIAN Family Medicine
PROC: 30233N1 Transfusion of Nonautologous Red Blood Cells into Peripheral Vein, Percutaneous Approach (ICD-10-PCS; 2024-04-28)
DX: T83.511A Infection and inflammatory reaction due to indwelling urethral catheter, initial encounter (principal); A41.02 Sepsis due to Methicillin resistant Staphylococcus aureus; G93.41 Metabolic encephalopathy; L89.154 Pressure ulcer of sacral region, stage 4; N13.6 Pyonephrosis; M46.28 Osteomyelitis of vertebra, sacral and sacrococcygeal region; F11.20 Opioid dependence, uncomplicated; I50.32 Chronic diastolic (congestive) heart failure; E87.1 Hypo-osmolality and hyponatremia; J44.9 Chronic obstructive pulmonary disease, unspecified; N31.9 Neuromuscular dysfunction of bladder, unspecified; I11.0 Hypertensive heart disease with heart failure; G89.4 Chronic pain syndrome; D63.8 Anemia in other chronic diseases classified elsewhere; D69.6 Thrombocytopenia, unspecified; K21.9 Gastro-esophageal reflux disease without esophagitis; I71.43 Infrarenal abdominal aortic aneurysm, without rupture; R09.02 Hypoxemia; E11.69 Type 2 diabetes mellitus with other specified complication; E11.40 Type 2 diabetes mellitus with diabetic neuropathy, unspecified; B96.20 Unspecified Escherichia coli [E. coli] as the cause of diseases classified elsewhere; Y84.6 Urinary catheterization as the cause of abnormal reaction of the patient, or of later complication, without mention of misadventure at the time of the procedure; Z86.73 Personal history of transient ischemic attack (TIA), and cerebral infarction without residual deficits; Z79.890 Hormone replacement therapy; Z79.84 Long term (current) use of oral hypoglycemic drugs; Z96.653 Presence of artificial knee joint, bilateral; Z93.3 Colostomy status; Z90.5 Acquired absence of kidney; Z88.5 Allergy status to narcotic agent; Z88.1 Allergy status to other antibiotic agents; Z87.891 Personal history of nicotine dependence; Z86.14 Personal history of Methicillin resistant Staphylococcus aureus infection; Z85.528 Personal history of other malignant neoplasm of kidney; Z85.048 Personal history of other malignant neoplasm of rectum, rectosigmoid junction, and anus; Z79.899 Other long term (current) drug therapy; Z11.52 Encounter for screening for COVID-19
CPT/HCPCS: 51702; 71045; 80053; 81003; 81015; 82550; 82607; 82728; 82746; 82805; 82962; 83540; 83550; 83605; 84466; 85014; 85018; 85025; 86850; 86900; 86901; 86920; 87040; 87070; 87077; 87086; 87147; 87186; 87205; 87502; 87811; 93005; 93306; 96365; 96375; 97163; 97167; 99285; J0878; P9016